=== PATIENT | male | born 1950 | race Caucasian/White ===

== ENCOUNTER 2018-07-20 18:19 | Observation (INO) | payer OTHER ==
[2018-07-20] MEDS ORDERED: Adacel (T-DAP) 0.5 ML VIAL ONE (19:48)
[2018-07-20 19:53] LABS: Hemoglobin 15.1 g/dL (14.0-18.0); Mean Corpuscular HGB CONC 33.1 g/dL (32.0-36.0); Mean Corpuscular Hemoglobin 31.9 pg (27.0-31.0); Mean Corpuscular Volume 96.3 fL (78.0-98.0); Mean Platelet Volume 7.6 fL (7.4-10.4); Platelet Count 245 thou/uL (130-400); RBC Distribution Width 12.2 % (11.5-14.5); Red Blood Cell (RBC) Count 4.75 mill/uL (4.70-6.10); White Blood Cell (WBC) Count 33.3 thou/uL (4.8-10.8)
[2018-07-20 19:59] LABS: INR-International Normal Ratio 0.9; PTT 25.6 SEC (22.9-36.1); Prothrombin Time 12.5 SEC (12.0-14.7)
[2018-07-20 20:11] LABS: Band 2 % (5-11); Eosinophils 1 % (0-10); Lymphocytes 81 % (21-51); MDiff Complete? YES; Monocytes 3 % (0-10); Neutrophil 11 % (42-75); PLT Morphology Comment Appears Adequate; RBC Morphology Normal; Reactive Lymphocytes 2 % (0-10)
[2018-07-20 21:03] LABS: ALT (SGPT) 10 U/L (8-55); AST (SGOT) 11 U/L (5-34); Albumin 3.9 g/dL (3.4-4.8); Alkaline Phosphatase 75 U/L (40-150); Anion Gap 11 mmol/L (10-20); BUN (Urea Nitrogen) 14 mg/dL (8.4-25.7); Bilirubin, Total 0.4 mg/dL (0.2-1.2); CK (CPK) 74 U/L (30-200); Calc. Creatinine Clearance 0 mL/min (70-130); Calcium 8.3 mg/dL (7.8-10.44); Carbon Dioxide 21 mmol/L (23-31); Chloride 110 mmol/L (98-107); Estimated GFR-MDRD 88; Globulin 2.3 g/dL (2.4-3.5); Glucose 87 mg/dL (80-115); Potassium 4.3 mmol/L (3.5-5.1); Protein, Total 6.2 g/dL (5.8-8.1); Sodium 138 mmol/L (136-145)
[2018-07-20] MEDS ORDERED: Carvedilol 6.25 MG TAB PO SCH (21:15)
[2018-07-20] MEDS ORDERED: Ondansetron ODT 4 MG TAB PO PRN (21:33)
[2018-07-20] MEDS ORDERED: Acetaminophen 325 MG TAB PO PRN ×2 (21:33→22:08)
[2018-07-20] MEDS ORDERED: Bisacodyl 5 MG TAB PO PRN (21:33)
[2018-07-20] MEDS ORDERED: Ondansetron ODT 4 MG TAB SL PRN (22:08)
[2018-07-20] MEDS ORDERED: Ondansetron HCl/PF 4 MG/2 ML Vial IVP PRN (22:08)
[2018-07-20] MEDS ORDERED: HYDROcodone/Acetaminophen 5/325 mg Tablet PO PRN ×2 (22:08)
[2018-07-20] MEDS ORDERED: Morphine 4 MG/ML VIAL SLOW IVP PRN (22:11)
[2018-07-20 22:15] VITALS: BMI 28.6
[2018-07-20] MEDS: Sodium Chloride 0.9% 1,000 ML IV SCH (22:34)
[2018-07-21] MEDS ORDERED: Crotalidae Polyvlnt Antivenin 4 GM in Sodium Chloride 0.9% 250 ML 250 ML IVPB SCH (01:00)
[2018-07-21] MEDS ORDERED: methylPREDNISolone Sod Succ/PF 125 MG/2 ML VIAL IVP SCH (02:15)
[2018-07-21] MEDS ORDERED: diphenhydrAMINE 50 MG/ML VIAL IVP SCH (02:15)
[2018-07-21 03:28] LABS: Platelet Count 237 thou/uL (130-400)
[2018-07-21 03:33] LABS: PTT 23.9 SEC (22.9-36.1); Prothrombin Time 13.7 SEC (12.0-14.7)
[2018-07-21 04:43] LABS: Hemoglobin 15.8 g/dL (14.0-18.0); Mean Corpuscular HGB CONC 32.6 g/dL (32.0-36.0); Mean Corpuscular Hemoglobin 31.5 pg (27.0-31.0); Mean Corpuscular Volume 96.6 fL (78.0-98.0); Mean Platelet Volume 7.5 fL (7.4-10.4); Platelet Count 242 thou/uL (130-400); RBC Distribution Width 12.4 % (11.5-14.5); Red Blood Cell (RBC) Count 5.01 mill/uL (4.70-6.10); White Blood Cell (WBC) Count 30.1 thou/uL (4.8-10.8)
[2018-07-21 04:46] LABS: Anion Gap 12 mmol/L (10-20); BUN (Urea Nitrogen) 13 mg/dL (8.4-25.7); Calc. Creatinine Clearance 101 mL/min (70-130); Calcium 8.6 mg/dL (7.8-10.44); Carbon Dioxide 19 mmol/L (23-31); Chloride 111 mmol/L (98-107); Estimated GFR-MDRD Greater than 90; Glucose 107 mg/dL (80-115); Potassium 3.8 mmol/L (3.5-5.1); Sodium 138 mmol/L (136-145)
[2018-07-21 04:50] LABS: Band 1 % (5-11); Lymphocytes 38 % (21-51); MDiff Complete? YES; Monocytes 2 % (0-10); Neutrophil 20 % (42-75); Nucleated RBC 1 % (0); PLT Morphology Comment Appears Adequate; Reactive Lymphocytes 39 % (0-10)
[2018-07-21 08:12] VITALS: TEMP 98.5
[2018-07-21] MEDS ORDERED: Enoxaparin Sodium 40 MG/0.4 ML SYRINGE SC SCH (09:00)
[2018-07-21 10:10] LABS: Anion Gap 11 mmol/L (10-20); BUN (Urea Nitrogen) 14 mg/dL (8.4-25.7); Calc. Creatinine Clearance 92 mL/min (70-130); Calcium 8.6 mg/dL (7.8-10.44); Carbon Dioxide 20 mmol/L (23-31); Chloride 109 mmol/L (98-107); Estimated GFR-MDRD 85; Glucose 139 mg/dL (80-115); Potassium 4.4 mmol/L (3.5-5.1); Sodium 136 mmol/L (136-145)
[2018-07-21] MEDS: Sodium Chloride 0.9% 1,000 ML IV SCH (10:24)
[2018-07-21 12:02] VITALS: BP 147/80
--- NOTE | 2018-07-21 12:50 | PDOC.PN ---
- Subjective Encounter Start Date: 07/21/18 Encounter Start Time: 09:45 Subjective: right hand pain and swelling is getting better -: wants to go home - Objective Resuscitation Status: Resuscitation Status FULL:Full Resuscitation MAR Reviewed: Yes Vital Signs & Weight: Vital Signs (12 hours) Temp Pulse Resp BP Pulse Ox 07/21/18 11:49 98.5 F 74 16 147/80 H 96 07/21/18 07:44 98.5 F 76 20 129/74 95 07/21/18 03:05 97.9 F 75 16 145/74 H 96 07/21/18 00:57 98.7 F 74 16 168/82 H 97 Weight Weight 183 lb I&O: 07/20/18 07/21/18 07/22/18 06:59 06:59 06:59 Intake Total 704 Balance 704 Result Diagrams: 07/21/18 03:05 07/21/18 09:07 Phys Exam - Physical Examination HEENT: PERRLA, moist MMs Neck: no JVD, supple Respiratory: no wheezing, no rales Cardiovascular: RRR, no significant murmur Gastrointestinal: soft, non-tender, positive bowel sounds Musculoskeletal: pulses present right hand edema is receding along with erythema Neurological: non-focal, moves all 4 limbs Psychiatric: normal affect, A&O x 3 Dx/Plan (1) Snake bite Code(s): W59.11XA - BITTEN BY NONVENOMOUS SNAKE, INITIAL ENCOUNTER Status: Acute Qualifiers: Encounter type: subsequent encounter Qualified Code(s): W59.11XD - Bitten by nonvenomous snake, subsequent encounter (2) CLL (chronic lymphocytic leukemia) Code(s): C91.90 - LYMPHOID LEUKEMIA, UNSPECIFIED NOT HAVING ACHIEVED REMISSION Status: Chronic (3) HTN (hypertension) Code(s): I10 - ESSENTIAL (PRIMARY) HYPERTENSION Status: Chronic Qualifiers: Hypertension type: essential hypertension Qualified Code(s): I10 - Essential (primary) hypertension (4) Dyslipidemia Code(s): E78.5 - HYPERLIPIDEMIA, UNSPECIFIED Status: Chronic - Plan recieved a total of 2 crofab antivenin -: hemostable -: dc pt home * .
--- NOTE | 2018-07-21 19:52 | HP ---
CHIEF COMPLAINT: "I got bitten by a snake". HISTORY OF PRESENT ILLNESS: This is a 68-year-old male with past medical history of CT, CLL, had not received treatment, coming in with chief complaint of a snake bite. The patient reports he was pull ing weeds in his yard approximately around 1700 when he was bitten by a copperhead snake. Patient wa s bitten at the tip of the third digit on the right hand and the patient was not able to obtain the p icture of the snake. The patient initially in the ED was able to move his hands around and described that he was having some pain around the third digit. In the ED, the patient's pain was 6/10. When I evaluated the patient, the patient stated that his pain was currently under control and patient is able to move the hand. Patient denies any fever, headaches, nausea, vomiting, chest pain, abdominal pain. REVIEW OF SYSTEMS: Review of systems is positive for right hand pain, edema and rash. Otherwise as documented in HPI, all other systems were reviewed and negative. PAST MEDICAL HISTORY: CT, CLL. PAST SURGICAL HISTORY: Right shoulder and left ankle surgery, two hernia repairs, two cardiac stents placed, third left digit amputation. FAMILY HISTORY: Reviewed and noncontributory. PSYCHIATRIC HISTORY: No psych history. SOCIAL HISTORY: Patient currently uses tobacco, smokes cigars daily. He stated he has been smoking cigars for about 30 years. He smoked 3-4 cigars per day. ALLERGIES: No known drug allergies. CURRENT MEDICATIONS: The patient takes atorvastatin, ramipril, carvedilol, isosorbide mononitrate, c lopidogrel. PHYSICAL EXAMINATION: VITAL SIGNS: In the ED, blood pressure 182/83, pulse 72, respiratory rate of 16, temperature 98, O2 saturation of 97. GENERAL APPEARANCE: Patient is able to speak in full sentences. The patient is seen lying in bed co mfortably, does not appear to be in any acute distress. HEENT: Normocephalic, atraumatic. Pupils are equally round and reactive to light. Extraocular move ments are intact. No scleral icterus. NECK: Supple, no JVD. Trachea is midline. RESPIRATORY: Clear to auscultation bilaterally. No wheezing, no rales, no rhonchi is appreciated. CARDIOVASCULAR: Positive S1, S2, regular rate and rhythm. No rubs, no gallops, no murmurs. ABDOMEN: Positive bowel sounds in all quadrants, no distention, no abdominal masses, no peritoneal s igns, no tenderness. EXTREMITIES: Upper extremity, patient do have puncture site to tip of third digit right hand. The p atient has good range of motion at the left hand compared to the right hand due to edema and pain. L ower extremity, patient had 5/5 lower extremity strength, good pulses bilaterally. NEUROLOGIC: Cranial nerves II through XII grossly intact. No neurologic deficits noted. SKIN: Warm, dry, and intact. PSYCHIATRIC: Alert, oriented x3, not in acute distress and the patient has normal affect. EKG shows sinus rhythm with rate of 69 with some PVCs. ED COURSE: The patient received carvedilol 6.25 mg, and normal saline. LABORATORY DATA: Patient's laboratory showed WBC of 33.3, hemoglobin of 15.1, MCV of 96.3, RDW of 12 .2, platelet of 245. PT 12.5, INR 0.9, PTT 25.6, fibrinogen 209. D-dimer 0.43. Sodium 138, potassi um 4.3, chloride 110, carbon dioxide 21, anion gap of 11, BUN of 14, creatinine 0.86, GFR 88. AST 11 , ALT 10, alkaline phosphatase is 75. ASSESSMENT AND PLAN: This is a 68-year-old male being admitted for right hand snake bite by joshua gaines. At this point, the patient has been started on CroFab been administered over 1 hour and we will reassess the patient. The patient seemed to be reacting to the CroFab after administration has been initiated. Therefore, we are going to give Solu-Medrol 125 and Benadryl 50 IV. We will examin e the patient. 1. History of hyperlipidemia. We will continue the patient on his home medications. 2. History of chronic lymphocytic leukemia. The patient has leukocytosis at this time, most likely due to chronic lymphocytic leukemia. The patient is not receiving treatment. We will continue to mo nitor the patient's labs in the morning. 3. Hyperchloremia. We will monitor the patient's electrolytes in the morning. 4. Deep venous thrombosis and gastrointestinal prophylaxis. We will give sequential compression dev ices.
--- NOTE | 2018-07-22 15:09 | DIS ---
DATE OF ADMISSION: 07/20/2018 DATE OF DISCHARGE: 07/21/2018 DISCHARGE DISPOSITION: To home. PRIMARY DISCHARGE DIAGNOSES: Snake bite with right hand cellulitis, resolving. SECONDARY DISCHARGE DIAGNOSES: Chronic lymphatic leukemia, hypertension, dyslipidemia. PROCEDURES DONE DURING HOSPITALIZATION: Patient received 2 units of CroFab antivenom. White count o f 30, H&H 15 and 48, platelet count is 242. BUN 14, creatinine 0.8. PT, INR, PTT within normal limi ts x2. DISCHARGE MEDICATIONS: Patient to continue his home doses of Lipitor 40 mg daily, Coreg 6.25 mg twic e daily, Plavix 75 mg daily, Imdur extended release 60 mg daily, ramipril 10 mg twice daily. ALLERGIES: No known drug allergies. DISCHARGE PLAN: Patient to follow up with primary care physician in 1 week. BRIEF COURSE DURING HOSPITALIZATION: Patient initially came to ER after he got bitten by a snake diya le he was trying to work in his backyard. He was given 2 units of CroFab antivenom. The patient had edema and cellulitis of right hand and forearm, which is receding. He is able to move all his finge rs and has no pain on passive or active motion of the fingers of the hand. He is wanting to go home and will be shortly discharged home. The patient has been advised to follow up with primary care ce jerome in 1 week and needs to come to the nearest emergency room if his swelling were to come back. Please see a [id number] documentation for the day of discharge on [facility].
== END 2018-07-21 12:27 | disposition home or self-care (01) ==
LOC: ERS 18:19 → 2SW 22:02
PROVIDERS: ADMIT Internal Medicine; ATTEND Internal Medicine
DX: T63.061A Toxic effect of venom of other North and South American snake, accidental (unintentional), initial encounter (principal); L03.113 Cellulitis of right upper limb; C91.90 Lymphoid leukemia, unspecified not having achieved remission; I10 Essential (primary) hypertension; E78.5 Hyperlipidemia, unspecified; F17.290 Nicotine dependence, other tobacco product, uncomplicated; Z79.02 Long term (current) use of antithrombotics/antiplatelets; Z79.899 Other long term (current) drug therapy; Z95.5 Presence of coronary angioplasty implant and graft
CPT/HCPCS: 36415; 80048; 80053; 82550; 85025; 85379; 85384; 85610; 85730; 86850; 86900; 86901; 90471; 90715; 93005; 94760; 96360; 96361; 96365; 96375; G0378; J0840; J1200; J1650; J2405; J2930; J7050

== ENCOUNTER 2019-07-17 09:25 | Day surgery (SDC) | payer OTHER ==
[2019-07-17] MEDS ORDERED: Acetaminophen 500 MG TAB PO SCH (10:15)
[2019-07-17] MEDS ORDERED: diphenhydrAMINE 25 MG CAP PO SCH (10:15)
[2019-07-17 21:44] VITALS: BP 152/69; TEMP 98.4
[2019-07-17 22:12] LABS: Eosinophils 1 % (0-10); Hemoglobin 8.6 g/dL (14.0-18.0); Lymphocytes 95 % (21-51); MDiff Complete? YES; Mean Corpuscular HGB CONC 33.9 g/dL (32.0-36.0); Mean Corpuscular Hemoglobin 34.4 pg (27.0-31.0); Mean Platelet Volume 7.3 fL (7.4-10.4); Monocytes 1 % (0-10); Neutrophil 3 % (42-75); Platelet Count 223 thou/uL (130-400); Platelet Morphology Comment Appears Adequate; RBC Distribution Width 17.5 % (11.5-14.5); Red Blood Cell (RBC) Count 2.51 mill/uL (4.70-6.10); White Blood Cell (WBC) Count 36.2 thou/uL (4.8-10.8)
== END 2019-07-17 22:05 | disposition home or self-care (01) ==
LOC: SDC/OP 09:25 → T4-B 09:44 → SDC/OP 22:05
PROVIDERS: ATTEND Internal Medicine Hematology & Oncology
PROC: 30233N1 Transfusion of Nonautologous Red Blood Cells into Peripheral Vein, Percutaneous Approach (ICD-10-PCS; principal; 2019-07-17)
DX: D64.9 Anemia, unspecified (principal); D69.6 Thrombocytopenia, unspecified
CPT/HCPCS: 36415; 36430; 85025; 86850; 86900; 86901; P9016; Q0163

== ENCOUNTER 2019-08-05 08:12 | Day surgery (SDC) | payer OTHER ==
[2019-08-05] MEDS ORDERED: Acetaminophen 500 MG TAB PO SCH (08:30)
[2019-08-05] MEDS ORDERED: diphenhydrAMINE 25 MG CAP PO SCH (08:30)
[2019-08-05] MEDS ORDERED: Sodium Chloride 0.9% 20 ML ONE (11:29)
[2019-08-05 13:04] LABS: Hemoglobin 8.1 g/dL (14.0-18.0)
[2019-08-05 15:27] VITALS: BP 144/68; TEMP 98.3
== END 2019-08-05 15:32 | disposition home or self-care (01) ==
LOC: ONC/OP 08:12
PROVIDERS: ATTEND Internal Medicine Hematology & Oncology
PROC: 30233N1 Transfusion of Nonautologous Red Blood Cells into Peripheral Vein, Percutaneous Approach (ICD-10-PCS; principal; 2019-08-05)
DX: D64.9 Anemia, unspecified (principal); D69.6 Thrombocytopenia, unspecified
CPT/HCPCS: 36430; 85014; 85018; 86850; 86900; 86901; P9016; Q0163

== ENCOUNTER 2019-09-02 09:12 | Day surgery (SDC) | payer OTHER ==
[2019-09-02] MEDS ORDERED: Acetaminophen 500 MG TAB PO SCH (09:45)
[2019-09-02] MEDS ORDERED: diphenhydrAMINE 25 MG CAP PO SCH (09:45)
[2019-09-02 09:53] VITALS: BMI 27.1
[2019-09-02 19:38] VITALS: BP 151/67; TEMP 97.8
[2019-09-02 20:03] LABS: Hemoglobin 7.4 g/dL (14.0-18.0); Mean Corpuscular HGB CONC 35.1 g/dL (32.0-36.0); Mean Corpuscular Hemoglobin 34.4 pg (27.0-31.0); Mean Corpuscular Volume 98.1 fL (78.0-98.0); Mean Platelet Volume 8.4 fL (7.4-10.4); Platelet Count 270 thou/uL (130-400); RBC Distribution Width 14.9 % (11.5-14.5); Red Blood Cell (RBC) Count 2.16 mill/uL (4.70-6.10)
[2019-09-02 20:17] LABS: Anisocytosis SLIGHT = 6-15 cells (100X) (0-5/hpf); Band 1 % (5-11); Lymphocytes 88 % (21-51); MDiff Complete? YES; Monocytes 1 % (0-10); Neutrophil 10 % (42-75); Ovalocytes SLIGHT = 2-5 cells (100X) (0-1/hpf); Platelet Morphology Comment Appears Adequate; Polychromasia SLIGHT = 2-3 cells (100X) (0-2/hpf)
== END 2019-09-02 19:40 | disposition home or self-care (01) ==
LOC: ONC/OP 09:12 → ONC 09:34 → ONC/OP 19:40
PROVIDERS: ATTEND Internal Medicine Hematology & Oncology
PROC: 30233N1 Transfusion of Nonautologous Red Blood Cells into Peripheral Vein, Percutaneous Approach (ICD-10-PCS; principal; 2019-09-02)
DX: D64.9 Anemia, unspecified (principal); D69.6 Thrombocytopenia, unspecified
CPT/HCPCS: 36415; 36430; 85025; 86850; 86900; 86901; P9016; Q0163

== ENCOUNTER 2019-09-16 08:19 | Day surgery (SDC) | payer OTHER ==
[2019-09-16] MEDS ORDERED: Sodium Chloride 0.9% 20 ML ONE (08:26)
[2019-09-16] MEDS ORDERED: Acetaminophen 500 MG TAB PO SCH (08:30)
[2019-09-16] MEDS ORDERED: diphenhydrAMINE 25 MG CAP PO SCH (08:30)
[2019-09-16 15:03] VITALS: BP 137/64; TEMP 97.5
== END 2019-09-16 15:03 | disposition home or self-care (01) ==
LOC: ONC/OP 08:19
PROVIDERS: ATTEND Internal Medicine Hematology & Oncology
DX: D64.9 Anemia, unspecified (principal); D69.59 Other secondary thrombocytopenia
CPT/HCPCS: 36430; 86850; 86900; 86901; J1642; P9016; Q0163

== ENCOUNTER 2019-10-08 09:11 | Day surgery (SDC) | payer OTHER ==
[2019-10-08] MEDS ORDERED: diphenhydrAMINE 25 MG CAP PO SCH (10:00)
[2019-10-08] MEDS ORDERED: Acetaminophen 500 MG TAB PO SCH (10:00)
[2019-10-08 20:18] VITALS: BP 158/70; TEMP 98.4
[2019-10-08 21:03] LABS: Eosinophils 1 % (0-10); Hemoglobin 8.2 g/dL (14.0-18.0); Large Platelets SLIGHT; Lymphocytes 87 % (21-51); MDiff Complete? YES; Mean Corpuscular HGB CONC 34.5 g/dL (32.0-36.0); Mean Corpuscular Hemoglobin 31.6 pg (27.0-31.0); Mean Corpuscular Volume 91.6 fL (78.0-98.0); Monocytes 2 % (0-10); Neutrophil 10 % (42-75); Platelet Count 217 thou/uL (130-400); Platelet Morphology Comment Appears Adequate; RBC Distribution Width 14.1 % (11.5-14.5); White Blood Cell (WBC) Count 24.3 thou/uL (4.8-10.8)
== END 2019-10-08 20:45 | disposition home or self-care (01) ==
LOC: ONC/OP 09:11 → ONC 09:12 → ONC/OP 20:45
PROVIDERS: ATTEND Internal Medicine Hematology & Oncology
PROC: 30233N1 Transfusion of Nonautologous Red Blood Cells into Peripheral Vein, Percutaneous Approach (ICD-10-PCS; principal; 2019-10-08)
DX: D64.9 Anemia, unspecified (principal); D69.6 Thrombocytopenia, unspecified
CPT/HCPCS: 36415; 36430; 85025; 86850; 86900; 86901; P9016; Q0163

== ENCOUNTER 2019-10-30 09:54 | Day surgery (SDC) | payer OTHER ==
[2019-10-30] MEDS ORDERED: Acetaminophen 500 MG TAB PO SCH (10:45)
[2019-10-30] MEDS ORDERED: diphenhydrAMINE 25 MG CAP PO SCH (10:45)
[2019-10-30 16:37] VITALS: BP 147/65; TEMP 99.2
[2019-10-30 17:52] LABS: Eosinophils 1 % (0-10); Hemoglobin 7.4 g/dL (14.0-18.0); Lymphocytes 91 % (21-51); MDiff Complete? YES; Mean Corpuscular HGB CONC 33.8 g/dL (32.0-36.0); Mean Corpuscular Volume 88.9 fL (78.0-98.0); Mean Platelet Volume 9.1 fL (7.4-10.4); Monocytes 4 % (0-10); Neutrophil 3 % (42-75); Platelet Count 221 thou/uL (130-400); Platelet Morphology Comment Appears Adequate; Polychromasia SLIGHT = 2-3 cells (100X) (0-2/hpf); RBC Distribution Width 12.8 % (11.5-14.5); Red Blood Cell (RBC) Count 2.46 mill/uL (4.70-6.10); White Blood Cell (WBC) Count 35.1 thou/uL (4.8-10.8)
== END 2019-10-30 16:59 | disposition home or self-care (01) ==
LOC: RAD 09:54 → ONC 09:58 → RAD 16:59
PROVIDERS: ATTEND Internal Medicine Hematology & Oncology
PROC: 30233N1 Transfusion of Nonautologous Red Blood Cells into Peripheral Vein, Percutaneous Approach (ICD-10-PCS; principal; 2019-10-30)
DX: D64.9 Anemia, unspecified (principal); D69.6 Thrombocytopenia, unspecified
CPT/HCPCS: 36415; 36430; 85025; 86850; 86900; 86901; P9016; Q0163

== ENCOUNTER 2019-11-19 08:11 | Day surgery (SDC) | payer OTHER ==
[2019-11-19] MEDS ORDERED: diphenhydrAMINE 25 MG CAP PO SCH (08:30)
[2019-11-19] MEDS ORDERED: Acetaminophen 500 MG TAB PO SCH (08:30)
[2019-11-19] MEDS ORDERED: Sodium Chloride 0.9% 10 ML ONE (14:39)
[2019-11-19 15:13] VITALS: BP 121/60; TEMP 98.5
== END 2019-11-19 15:27 | disposition home or self-care (01) ==
LOC: ONC/OP 08:11
PROVIDERS: ATTEND Internal Medicine Hematology & Oncology
PROC: 30233N1 Transfusion of Nonautologous Red Blood Cells into Peripheral Vein, Percutaneous Approach (ICD-10-PCS; principal; 2019-11-19)
DX: D64.9 Anemia, unspecified (principal); D69.6 Thrombocytopenia, unspecified
CPT/HCPCS: 36430; 86850; 86900; 86901; P9016; Q0163

== ENCOUNTER 2019-12-04 08:24 | Day surgery (SDC) | payer OTHER ==
[2019-12-04] MEDS ORDERED: diphenhydrAMINE 25 MG CAP PO SCH (09:15)
[2019-12-04] MEDS ORDERED: Acetaminophen 500 MG TAB PO SCH (09:15)
[2019-12-04 15:29] VITALS: BP 124/59; TEMP 98.6
== END 2019-12-04 15:31 | disposition home or self-care (01) ==
LOC: ONC/OP 08:24
PROVIDERS: ATTEND Internal Medicine Hematology & Oncology
PROC: 30233N1 Transfusion of Nonautologous Red Blood Cells into Peripheral Vein, Percutaneous Approach (ICD-10-PCS; principal; 2019-12-04)
DX: D64.9 Anemia, unspecified (principal); D69.6 Thrombocytopenia, unspecified
CPT/HCPCS: 36430; 86850; 86900; 86901; P9016; Q0163

== ENCOUNTER 2019-12-17 09:07 | Day surgery (SDC) | payer OTHER ==
[2019-12-17] MEDS ORDERED: Sodium Chloride 0.9% 10 ML ONE (09:24)
[2019-12-17] MEDS ORDERED: diphenhydrAMINE 25 MG CAP PO SCH (10:00)
[2019-12-17] MEDS ORDERED: Acetaminophen 500 MG TAB PO SCH (10:00)
[2019-12-17 17:29] VITALS: BP 154/75; TEMP 98.4
== END 2019-12-17 17:31 | disposition home or self-care (01) ==
LOC: ONC/OP 09:07
PROVIDERS: ATTEND Internal Medicine Hematology & Oncology
PROC: 30233N1 Transfusion of Nonautologous Red Blood Cells into Peripheral Vein, Percutaneous Approach (ICD-10-PCS; principal; 2019-12-17)
DX: D64.9 Anemia, unspecified (principal); D69.6 Thrombocytopenia, unspecified
CPT/HCPCS: 36430; 86850; 86900; 86901; P9016; Q0163

== ENCOUNTER 2020-01-01 08:34 | Day surgery (SDC) | payer OTHER ==
[2020-01-01] MEDS ORDERED: Acetaminophen 500 MG TAB PO SCH (08:45)
[2020-01-01] MEDS ORDERED: diphenhydrAMINE 25 MG CAP PO SCH (08:45)
[2020-01-01] MEDS ORDERED: Sodium Chloride 0.9% 20 ML ONE (08:56)
[2020-01-02 17:51] VITALS: BP 123/58; TEMP 98.4
== END 2020-01-02 17:52 | disposition home or self-care (01) ==
LOC: ONC/OP 08:34
PROVIDERS: ATTEND Internal Medicine Hematology & Oncology
PROC: 3E0T3BZ Introduction of Anesthetic Agent into Peripheral Nerves and Plexi, Percutaneous Approach (ICD-10-PCS; principal; 2020-01-02)
DX: D64.9 Anemia, unspecified (principal); D69.6 Thrombocytopenia, unspecified
CPT/HCPCS: 36430; 86850; 86900; 86901; P9016; Q0163

== ENCOUNTER 2020-01-09 11:31 | Day surgery (SDC) | payer OTHER ==
[2020-01-09] MEDS ORDERED: diphenhydrAMINE 25 MG CAP PO SCH (12:15)
[2020-01-09] MEDS ORDERED: Acetaminophen 500 MG TAB PO SCH (12:15)
[2020-01-09 22:17] VITALS: BP 166/74; TEMP 98.4
[2020-01-09 22:57] LABS: Hemoglobin 8.6 g/dL (14.0-18.0); Lymphocytes 99 % (21-51); MDiff Complete? YES; Mean Corpuscular HGB CONC 34.5 g/dL (32.0-36.0); Mean Corpuscular Hemoglobin 31.2 pg (27.0-31.0); Mean Corpuscular Volume 90.4 fL (78.0-98.0); Mean Platelet Volume 7.7 fL (7.4-10.4); Monocytes 1 % (0-10); Platelet Count 41 thou/uL (130-400); Platelet Morphology Comment Appears Decreased; RBC Distribution Width 12.5 % (11.5-14.5); Red Blood Cell (RBC) Count 2.76 mill/uL (4.70-6.10); White Blood Cell (WBC) Count 31.9 thou/uL (4.8-10.8)
== END 2020-01-10 00:21 | disposition home or self-care (01) ==
LOC: ONC/OP 11:31 → ONC 11:36 → ONC/OP 01-10 00:21
PROVIDERS: ATTEND Internal Medicine Hematology & Oncology
DX: D64.9 Anemia, unspecified (principal); D69.6 Thrombocytopenia, unspecified
CPT/HCPCS: 36415; 36430; 85025; 86850; 86900; 86901; P9016; P9035; Q0163

== ENCOUNTER 2020-01-23 08:03 | Day surgery (SDC) | payer OTHER ==
[2020-01-23] MEDS ORDERED: diphenhydrAMINE 25 MG CAP PO SCH (08:45)
[2020-01-23] MEDS ORDERED: Acetaminophen 500 MG TAB PO SCH (08:45)
[2020-01-23] MEDS ORDERED: Sodium Chloride 0.9% 20 ML ONE (08:59)
[2020-01-23 14:39] VITALS: BP 176/78; TEMP 97.7
== END 2020-01-23 14:45 | disposition home or self-care (01) ==
LOC: ONC/OP 08:03
PROVIDERS: ATTEND Internal Medicine Medical Oncology
PROC: 30233R1 Transfusion of Nonautologous Platelets into Peripheral Vein, Percutaneous Approach (ICD-10-PCS; principal; 2020-01-23)
PROC: 30233N1 Transfusion of Nonautologous Red Blood Cells into Peripheral Vein, Percutaneous Approach (ICD-10-PCS; principal; 2020-01-23)
DX: D64.9 Anemia, unspecified (principal); D69.6 Thrombocytopenia, unspecified
CPT/HCPCS: 36430; 86850; 86900; 86901; P9016; P9035; Q0163

== ENCOUNTER 2020-02-05 08:20 | Day surgery (SDC) | payer OTHER ==
[2020-02-05] MEDS ORDERED: diphenhydrAMINE 25 MG CAP PO SCH (08:45)
[2020-02-05] MEDS ORDERED: Acetaminophen 500 MG TAB PO SCH (08:45)
[2020-02-05] MEDS ORDERED: Sodium Chloride 0.9% 20 ML ONE (09:21)
[2020-02-05 15:34] VITALS: BP 126/58; TEMP 98.1
== END 2020-02-05 15:38 | disposition home or self-care (01) ==
LOC: ONC/OP 08:20
PROVIDERS: ATTEND Internal Medicine Hematology & Oncology
DX: D64.9 Anemia, unspecified (principal); D69.6 Thrombocytopenia, unspecified
CPT/HCPCS: 36430; 86850; 86900; 86901; P9016; P9035; Q0163

== ENCOUNTER 2020-02-14 11:27 | Inpatient (IN) | payer MEDICARE, OTHER ==
[2020-02-14] MEDS ORDERED: Pantoprazole 40 MG VIAL ONE (11:49)
[2020-02-14] MEDS ORDERED: Pantoprazole 80 MG, Admixture Fee 1 EACH in Sodium Chloride 0.9% 100 ML IVPB SCH (12:00)
[2020-02-14 12:12] LABS: Hemoglobin 4.9 g/dL (14.0-18.0); Mean Corpuscular HGB CONC 34.6 g/dL (32.0-36.0); Mean Corpuscular Hemoglobin 30.9 pg (27.0-31.0); Mean Corpuscular Volume 89.4 fL (78.0-98.0); Mean Platelet Volume 10.6 fL (7.4-10.4); Platelet Count 3 thou/uL (130-400)
[2020-02-14 12:25] LABS: ALT (SGPT) 18 U/L (8-55); AST (SGOT) 7 U/L (5-34); Albumin 3.4 g/dL (3.4-4.8); Alkaline Phosphatase 112 U/L (40-110); Anion Gap 15 mmol/L (10-20); BUN (Urea Nitrogen) 28 mg/dL (8.4-25.7); Bilirubin, Total 0.7 mg/dL (0.2-1.2); Calc. Creatinine Clearance 0 mL/min (70-130); Calcium 8.6 mg/dL (7.8-10.44); Carbon Dioxide 19 mmol/L (23-31); Chloride 107 mmol/L (98-107); Estimated GFR-MDRD 77; Glucose 133 mg/dL (80-115); Potassium 4.5 mmol/L (3.5-5.1); Protein, Total 5.4 g/dL (5.8-8.1); Sodium 136 mmol/L (136-145)
[2020-02-14 12:27] LABS: Prothrombin Time 13.4 SEC (12.0-14.7)
[2020-02-14 12:28] LABS: PTT 22.2 SEC (22.9-36.1)
[2020-02-14 12:31] LABS: Lymphocytes 95 % (21-51); MDiff Complete? YES; Monocytes 1 % (0-10); Ovalocytes SLIGHT = 2-5 cells (100X) (0-1/hpf); Platelet Morphology Comment Appears Decreased; Reactive Lymphocytes 4 % (0-10); White Blood Cell (WBC) Count 11.7 thou/uL (4.8-10.8)
--- NOTE | 2020-02-14 14:13 | CON ---
DATE OF CONSULTATION: 02/14/2020 REASON FOR CONSULTATION: Anemia, melena. CONSULTING PROVIDER: Jerry Dawn MD HISTORY OF PRESENT ILLNESS: The patient is a 69-year-old male with past medical history of coronary artery disease status post stent placement x2, hypertension, history of colonic polyps, and chronic lymphocytic leukemia status post chemotherapy and requiring multiple transfusions over the last few months, presenting with complaints of shortness of breath and fatigue. He states that over the course of his treatment for CLL, he was recently transferred from his prior chemotherapy regimen to [facility] 3 weeks ago, and had been doing well while on this particular regimen. However, over the last 2 to 3 months, he had been having increased weakness and shortness of breath, indicative of anemia and had been requiring multiple blood transfusions during that time. In light of his frequent blood transfusions, he began having increased shortness of breath, both at rest and exertion, in addition to generalized fatigue and weakness over the last few days. However, this morning, he did have approximately one dark black semi-solid stool that did require mild straining in order to facilitate defecation. He also endorsed a minimal amount of bright red blood per rectum that was seen at the time of that particular bowel movement. He has not had any other bowel movement since that time, but given the appearance of the dark bowel movements and his shortness of breath, it prompted him to seek healthcare assistance at the [facility] ER. While in the ER, he was noted to have a significantly decreased hemoglobin and hematocrit, and when coupled with the history of black stools, it was strongly concerning for the presence of melena. Upon further examination, the patient did exhibit increased nausea and vomiting this morning x1, but did not have any coffee-grounds emesis or bright red blood as part of his vomitus. He denies any use of NSAIDs within the last 2 to 3 weeks, but has used Aleve from [id number] with the last use being approximately 3-4 months ago. Otherwise, he denies any fevers, chills, dysphagia, odynophagia, or weight loss. Of note, the patient underwent both EGD and colonoscopy on 04/01/2019 with the upper endoscopy showing one tongue of salmon-colored mucosa in the distal esophagus with biopsies that were normal. He also did have two 3-4 mm polyps seen in the transverse and sigmoid colons that were removed and read as hyperplastic polyps. REVIEW OF SYSTEMS: A 10-category review of systems was obtained with all responses negative except for the pertinent positives as listed in HPI. PAST MEDICAL HISTORY: As per HPI. PAST SURGICAL HISTORY: 1. Bilateral inguinal hernia repair. 2. Left ankle fracture repair. 3. Cardiac stent placement x2. 4. Bone marrow biopsy. 5. EGD and colonoscopies. FAMILY HISTORY: Denies any GI malignancies. SOCIAL HISTORY: Smokes approximately 2 to 3 cigars daily. Denies any alcohol or illicit drug use. OUTPATIENT MEDICATIONS: Reviewed. ALLERGIES: NO KNOWN DRUG ALLERGIES. PHYSICAL EXAMINATION: VITAL SIGNS: Temperature 97.9, pulse 77, blood pressure 110/47, respiratory rate 21, and saturating 100% on room air. GENERAL: The patient was lying in bed, in no acute distress. Alert and oriented x4. HEENT: Normocephalic and atraumatic. NECK: Supple. No JVD or scleral icterus noted. CARDIOVASCULAR: Regular rate and rhythm with no discernable murmurs, gallops, or rubs. RESPIRATORY: Clear to auscultation bilaterally with no discernable wheezes or rales. ABDOMEN: Normoactive bowel sounds. Soft, nondistended, and nontender to palpation, although did have some guarding in the right upper quadrant and midepigastric regions. EXTREMITIES: No cyanosis, clubbing, or edema. LABORATORY DATA: CBC with a white blood cell count of 11.7, hemoglobin 4.9, hematocrit 14.3, and platelets 3. INR 1.0. Chemistry with a sodium of 136, potassium 4.5, chloride 107, CO2 of 19, BUN 28, creatinine 0.96, and glucose 133. AST 7, ALT 18, alkaline phosphatase 112, total bilirubin 0.7, and albumin 3.4. IMAGING DATA: No current GI imaging is available for review. ASSESSMENT AND PLAN: The patient is a 69-year-old male with past medical history of coronary artery disease status post stent placement x3 with heart attack x1, hypertension, history of colonic polyps, and chronic lymphocytic leukemia status post chemotherapy (currently on chemotherapy), presenting with continued anemia and melenic type stools, concerning for an upper gastrointestinal bleed. Upper gastrointestinal bleeding/melena: The patient has a concurrent diagnosis of chronic lymphocytic leukemia, for which the patient has required multiple blood transfusions over the last 3 to 4 months due to bone marrow involvement of this particular condition. However, over the last 24 to 48 hours, the patient did have a harder to pass bowel movement yesterday, but was followed by a dark black-colored bowel movement today with minimal amounts of bright red blood per rectum. On evaluation in the ER, he was noted to have a decrease in his hemoglobin and hematocrit when compared to baseline, but with an elevated BUN to creatinine ratio, it is strongly concerning for an upper gastrointestinal bleed. He is currently on clopidogrel as part of management of the coronary stents, and on further laboratory evaluation, he has a platelet count of 3000, which could lend itself towards continued bleeding, if such an instance occurs. Currently, the differential could include esophagitis, gastritis, peptic ulcer disease, arteriovenous malformation, Dieulafoy lesion, duodenitis/mucositis, and/or GI neoplasm (much less likely given his negative upper endoscopy in 03/2019). RECOMMENDATIONS: 1. Would continue to trend his hemoglobin and hematocrit and transfuse as necessary to maintain the hemoglobin and hematocrit of 7/21. 2. Continue to monitor clinically for signs of active GI bleeding. 3. Agree with infusion of blood product/PRBCs in order to boost his hemoglobin and hematocrit prior to endoscopic management with sedation, especially in light of a history of MO. 4. Would continue PPI drip for the time being, but could consider pantoprazole 40 mg IV b.i.d. 5. Would hold any anticoagulation including Plavix for now. 6. Would place the patient on a clear liquid diet today and make him n.p.o. at midnight in anticipation of EGD tomorrow after resuscitative efforts have been done today. Further recommendations to follow upper endoscopy. We will continue to follow. Please call with any questions again. Job ID: [id number]
--- NOTE | 2020-02-14 15:58 | HP ---
PRIMARY CARE PHYSICIAN: Dr. Georges. CHIEF COMPLAINT: Melena and fatigue. HISTORY OF PRESENT ILLNESS: This is a 69-year-old white male with a known history of chronic lymphocytic leukemia following with Dr. Mendiola. He has a history of recurrent anemia and has required blood transfusions. The patient reports that yesterday morning he thought he might have a little bit of dark stool when he had a bowel movement. Then this morning, he had a very large black tarry bowel movement followed by one little bit later this appeared to have some more reddish blood in it as well. The patient reports that since this morning, he has had extreme fatigue, very short of breath even just getting up to walk across the room. No energy at all. No other specific symptoms with this. He presented to the emergency room, was found to be severely anemic and thrombocytopenic and is getting blood and platelet transfusions right now. The patient reports that he was seen by Dr. Wooten with EGD and colonoscopy 9 months ago for a possible GI source to his chronic anemia in the setting of CLL. No active bleeding was found at that time. REVIEW OF SYSTEMS: CONSTITUTIONAL: No fevers, no chills. EYES: No double vision or blurred vision. ENT: Mild sinus and nasal congestion, which is consistent with his seasonal allergies. No sore throat. CARDIOVASCULAR: No chest pain. No palpitations or racing heart. PULMONARY: No coughing or wheezing. He had has dyspnea on exertion, but otherwise no shortness of breath at rest. GASTROINTESTINAL: No abdominal pain, no nausea or vomiting. Melena as per HPI. GENITOURINARY: No dysuria or hematuria. MUSCULOSKELETAL: He has some chronic arthritic pains, but no new musculoskeletal complaints. He does have some chronic pain going from his left hip down to his left knee that he limps is due to his back. SKIN: No rashes or lesions noted. NEUROLOGIC: The patient does have some tingling in bilateral hands on and off. PAST MEDICAL HISTORY: 1. Coronary artery disease with previous DE. 2. Chronic lymphocytic leukemia, on chemotherapy. PAST SURGICAL HISTORY: 1. Right shoulder surgery. 2. Left ankle surgery. 3. Bilateral hernia repairs. 4. Coronary catheterization with two cardiac stents placed. 5. Third left digit amputation. SOCIAL HISTORY: The patient smokes 2-4 cigars per day and smoked for 30 years. No alcohol or illicit drug use. He is and lives at home with his family. He is a full code. Should he be incapacitated, his would be his medical decision maker, her name is Rohini Webb. FAMILY HISTORY: Multiple family members with coronary artery disease and some throat and liver cancer in the family as well. ALLERGIES: NO KNOWN DRUG ALLERGIES. CURRENT MEDICATIONS: 1. Atorvastatin 40 mg daily. 2. Ramipril 10 mg twice a day. 3. Carvedilol 6.25 mg twice a day. 4. Isosorbide mononitrate 60 mg daily. 5. Clopidogrel 75 mg daily. 6. 100 mg daily. PHYSICAL EXAMINATION: VITAL SIGNS: Blood pressure 134/51, pulse 74, respirations 18, temperature is 98.4, O2 saturation is 99% on room air. GENERAL: This is a well-developed, pale, well-nourished white male, in no acute distress. HEENT: Pupils are equal, round, and reactive to light. He does have some cataracts. His palpebral conjunctivae are pale. Oropharynx clear without lesions, erythema, or exudate. NECK: Supple. No lymphadenopathy. No thyroid nodules or enlargement. HEART: Regular rate and rhythm. No murmurs, rubs, or gallops. LUNGS: Clear to auscultation bilaterally. No wheezes, crackles, or rhonchi. ABDOMEN: Soft, nontender to palpation. Normoactive bowel sounds. No hepatosplenomegaly or other masses. EXTREMITIES: No clubbing, cyanosis, or edema. SKIN: No rashes or lesions noted. NEUROLOGIC: The patient moves all extremities equally. No facial droop. PSYCHIATRIC: Alert and oriented x3. Normal mood and affect. LABORATORY DATA: White blood cell count 23645 with 95% lymphocytes, hemoglobin 4.9, hematocrit 14.3, normal diff, normal red blood cell indices, platelet count is 3000. Coagulation profile with a normal PT and INR. Complete metabolic panel is notable for carbon dioxide of 19, BUN of 28, glucose of 133, and alkaline phosphatase of 112. Serum total protein of 5.4, albumin is normal. The rest of his CMP is normal. IMAGING STUDIES: EKG done in the emergency room shows normal sinus rhythm with left ventricular hypertrophy. No ST-segment changes. No evidence of ischemia. ASSESSMENT: 1. Acute on chronic severe anemia. This is secondary to GI blood loss on top of his chronic lymphocytic leukemia with decreased bone marrow production. He is receiving 2 units packed red blood cells right now along with platelets. We will consult Dr. Garay for Dr. Mendiola for the pancytopenia. 2. Thrombocytopenia, receiving transfusions, likely secondary to his chronic lymphocytic leukemia. 3. Gastrointestinal bleed, likely upper with significant melena. The patient has been seen by Dr. Shabbir goldsmith in the emergency room manager personal for Dr. Wooten and he plans to take the patient back for esophagogastroduodenoscopy in the morning. We will continue a Protonix drip that has been started in the ER. 4. Coronary artery disease. We will resume the patient's home medications except for his Plavix. 5. Chronic lymphocytic leukemia. We will defer to Dr. Garay for treatment. 6. Deep venous thrombosis prophylaxis, put the patient on sequential compression devices while in bed. 7. Code status: The patient is a full code. Should he be incapacitated, his would be his medical decision maker. Job ID: [id number]
[2020-02-14 16:26] VITALS: BMI 27.6
[2020-02-14] MEDS ORDERED: Ondansetron ODT 4 MG TAB PO PRN (16:42)
[2020-02-14] MEDS ORDERED: Ondansetron PF 4 MG/2 ML Vial IVP PRN (16:42)
[2020-02-14] MEDS ORDERED: Guaifenesin DM 100-10/5 ML UDCUP PO PRN (16:42)
[2020-02-14] MEDS ORDERED: Acetaminophen 650 MG Suppository PR PRN (16:42)
[2020-02-14] MEDS ORDERED: HYDROcodone/Acetaminophen 5/325 mg Tablet PO PRN ×2 (16:42)
[2020-02-14] MEDS ORDERED: Senokot S 8.6-50 MG TAB PO PRN (16:42)
[2020-02-14] MEDS: Ramipril 5 MG CAP PO SCH (20:06)
[2020-02-14] MEDS: Carvedilol 6.25 MG TAB PO SCH (20:07)
[2020-02-14] MEDS: Atorvastatin Calcium 40 MG TAB PO SCH (20:17)
--- NOTE | 2020-02-14 22:07 | CON ---
DATE OF CONSULTATION: REASON FOR CONSULTATION: CLL. HISTORY OF PRESENT ILLNESS: A 69-year-old male with history of CLL followed by Dr. Mendiola, currently on venetoclax oral therapy, presenting to the hospital with symptomatic anemia and thrombocytopenia. The patient states he noticed a small amount of blood in his stool yesterday morning and has been feeling extra fatigued the last 2 days and then this morning was constipated and had to push very hard and had 2 stools 30 minutes apart with food. He describes as a large amount of blood along with black stool. He has been requiring multiple blood transfusions over the last few months including red blood cells and platelets. Labs last week showed hemoglobin 7.3 and platelets of 14. The patient's called me from the house and I informed them to got to the ER. On arrival to the ER, his hemoglobin was 4.9, hematocrit 14.3, and platelet count of 3. Other than fatigue, the patient also complained of dizziness and dyspnea on exertion. Getting up the stretcher to get into the bed in his room, he felt very short of breath. REVIEW OF SYSTEMS: Ten-point review of systems is negative except as per HPI. PAST MEDICAL HISTORY: Coronary artery disease, hypertension, colon polyps, and CLL. PAST SURGICAL HISTORY: Hernia repair, broken ankle repair, PCI x2 in 2012 for AR, and EGD and colonoscopy in March 2019. FAMILY HISTORY: No cancer. SOCIAL HISTORY: Smokes cigars daily. No alcohol use. CURRENT MEDICATIONS: Reviewed and include venetoclax 200 mg once daily. PHYSICAL EXAMINATION: GENERAL APPEARANCE: The patient is lying in bed, in no acute distress. VITAL SIGNS: Temperature 97.9, pulse 77, blood pressure 110/47, respirations 21, and saturating 100% on room air. HEENT: Normocephalic and atraumatic. CARDIOVASCULAR: No tachycardia is noted. Respirations are not labored. Speaking in full sentences. ABDOMEN: Soft. EXTREMITIES: No edema. SKIN: Pallor is noted. NEUROLOGIC: Cranial nerves 2 through 12 are grossly intact. PSYCHIATRIC: The patient is awake, alert, and oriented x3. LABORATORY DATA: White blood cells 11.7, hemoglobin 4.9, hematocrit 14.3, and platelets 3. Sodium 136, potassium 4.5, BUN 28, and creatinine 0.96. ASSESSMENT AND PLAN: A 69-year-old male with chronic lymphocytic leukemia, currently on venetoclax oral therapy and history of severe anemia and thrombocytopenia requiring frequent transfusions, presenting to the hospital with symptomatic anemia and melena. The patient is getting transfused 2 units of PRBC and 1 unit of platelets and is n.p.o. for EGD in the morning with Dr. Shea. The patient has been on venetoclax for approximately one month with improvement in his white blood cell count, but no improvement in his anemia or thrombocytopenia. The patient may in fact have a gastrointestinal bleed and due to his extensive marrow involvement with chronic lymphocytic leukemia was unable to mount any reticulocyte response. Recommend holding venetoclax for now and can restart after EGD tomorrow or the next day. I will let Dr. Mendiola know of the patient's admission to the hospital and follow his course with you. Job ID: [id number]
[2020-02-15] MEDS: Pantoprazole 80 MG in Sodium Chloride 0.9% 100 ML IVPB SCH ×2 (00:10→14:23)
[2020-02-15 04:59] LABS: Hemoglobin 5.1 g/dL (14.0-18.0); Mean Corpuscular Hemoglobin 31.2 pg (27.0-31.0); Mean Corpuscular Volume 89.2 fL (78.0-98.0); Platelet Count 55 thou/uL (130-400); RBC Distribution Width 12.4 % (11.5-14.5); Red Blood Cell (RBC) Count 1.64 mill/uL (4.70-6.10); White Blood Cell (WBC) Count 11.8 thou/uL (4.8-10.8)
[2020-02-15 05:17] LABS: Anion Gap 10 mmol/L (10-20); BUN (Urea Nitrogen) 27 mg/dL (8.4-25.7); Calc. Creatinine Clearance 94 mL/min (70-130); Calcium 8.1 mg/dL (7.8-10.44); Carbon Dioxide 23 mmol/L (23-31); Chloride 107 mmol/L (98-107); Estimated GFR-MDRD Greater than 90; Glucose 102 mg/dL (80-115); Hypochromia SLIGHT = 6-15 cells (100X) (0-5/hpf); Lymphocytes 96 % (21-51); MDiff Complete? YES; Monocytes 1 % (0-10); Neutrophil 3 % (42-75); Platelet Morphology Comment Appears Decreased; Potassium 4.2 mmol/L (3.5-5.1); Sodium 136 mmol/L (136-145)
--- NOTE | 2020-02-15 07:26 | PDOC.HOSPP ---
- Subjective Encounter Date: 02/15/20 Encounter Time: 09:50 Subjective: Continued fatigue. More melena this AM but less than yesterday. OLIVARES stable, maybe a bit better. - Objective Vital Signs & Weight: Vital Signs (12 hours) Temp Pulse Pulse Resp BP BP BP 02/15/20 04:45 98.8 F 77 20 139/63 02/14/20 23:36 99.0 F 79 16 143/63 H 02/14/20 21:30 99.2 F 78 18 101/49 L 02/14/20 20:57 99.1 F 75 18 116/55 L 02/14/20 20:25 99.0 F 75 20 140/63 02/14/20 20:07 143/64 H 02/14/20 20:06 143/64 H 02/14/20 20:00 Pulse Ox 02/15/20 04:45 100 02/14/20 23:36 99 02/14/20 21:30 99 02/14/20 20:57 97 02/14/20 20:25 100 02/14/20 20:07 02/14/20 20:06 02/14/20 20:00 100 Weight Weight 176 lb Most Recent Monitor Data NIBP 160/72 I&O: 02/14/20 02/15/20 02/16/20 06:59 06:59 06:59 Intake Total 1100 115 Balance 1100 115 Result Diagrams: 02/15/20 04:44 02/15/20 04:44 Hospitalist ROS - Review of Systems Constitutional: denies: fever, chills Respiratory: reports: shortness of breath, SOB with excertion. denies: cough Cardiovascular: denies: chest pain, palpitations, edema Gastrointestinal: reports: melena. denies: nausea, vomiting, abdominal pain - Medication Medications: Active Medications Generic Name Dose Route Start Last Admin Trade Name Freq PRN Reason Stop Dose Admin Atorvastatin Calcium 40 mg 02/14/20 21:00 02/14/20 20:17 Lipitor PO 40 mg HS LIZZ Administration Carvedilol 6.25 mg 02/14/20 21:00 02/14/20 20:07 Coreg PO 6.25 mg BID LIZZ Administration Pantoprazole Sodium 80 mg/ 100 mls @ 10 mls/hr 02/14/20 16:42 02/15/20 00:10 Sodium Chloride IVPB 100 mls INF LIZZ Administration Ramipril 10 mg 02/14/20 21:00 02/14/20 20:06 Altace PO 10 mg BID LIZZ Administration Sodium Chloride 10 ml 02/14/20 21:00 02/14/20 20:17 Flush - Normal Saline IVF 10 ml Q12HR LIZZ Administration - Exam General Appearance: NAD, awake alert ENT: moist mucosa Heart: RRR, no murmur, no gallops, no rubs, normal peripheral pulses Respiratory: CTAB, no wheezes, no rales, no ronchi Gastrointestinal: soft, non-tender, non-distended, normal bowel sounds Psychiatric: normal affect, normal behavior, A&O x 3 Hosp A/P (1) Acute on chronic blood loss anemia Code(s): D62 - ACUTE POSTHEMORRHAGIC ANEMIA Status: Acute (2) Upper GI bleed Code(s): K92.2 - GASTROINTESTINAL HEMORRHAGE, UNSPECIFIED Status: Acute (3) Pancytopenia Code(s): D61.818 - OTHER PANCYTOPENIA Status: Acute (4) CLL (chronic lymphocytic leukemia) Code(s): C91.90 - LYMPHOID LEUKEMIA, UNSPECIFIED NOT HAVING ACHIEVED REMISSION Status: Chronic (5) Dyslipidemia Code(s): E78.5 - HYPERLIPIDEMIA, UNSPECIFIED Status: Chronic (6) HTN (hypertension) Code(s): I10 - ESSENTIAL (PRIMARY) HYPERTENSION Status: Chronic Qualifiers: (7) CAD (coronary artery disease) Code(s): I25.10 - ATHSCL HEART DISEASE OF [place] CORONARY ARTERY W/O ANG PCTRS Status: Chronic - Plan EGD today H/H barely improved with transfusions yesterday, 2 more units being transfused today, EGD later this AM Platelets improved after transfusion Appreciate Dr. Garay and Dr. Shea assistance. DVT proph: SCDs GI proph: on protonix drip
[2020-02-15] MEDS: Carvedilol 6.25 MG TAB PO SCH ×2 (09:16→20:39)
[2020-02-15] MEDS: VENCLEXTA 100 MG PO SCH ×2 (09:17→13:14)
[2020-02-15] MEDS: Ramipril 5 MG CAP PO SCH ×3 (09:17→20:40)
[2020-02-15] MEDS ORDERED: PROPOFOL 200 MG/20 ML VIAL ONE (09:28)
[2020-02-15] MEDS ORDERED: Ketamine 50 MG/ML (10ML VIAL) ONE (10:22)
[2020-02-15] MEDS ORDERED: cefTRIAXone\\ROCEPHIN 1 GM in Sodium Chloride 0.9% 100 ML IVPB SCH (11:00)
[2020-02-15 15:27] LABS: Hemoglobin 7.7 g/dL (14.0-18.0); Platelet Count 51 thou/uL (130-400)
--- NOTE | 2020-02-15 17:17 | OP ---
DATE OF PROCEDURE: 02/15/2020 PROCEDURE: Esophagogastroduodenoscopy with control of hemorrhage. INDICATION FOR PROCEDURE: Symptomatic anemia, melena. DESCRIPTION OF PROCEDURE: After the risks and benefits of the procedure were explained to the patient including risks of bleeding, infection, perforation, reactions to anesthesia, aspiration and/or pain, informed consent was obtained. The patient was then taken to the endoscopy suite, where he was placed in the left lateral decubitus position, followed by introduction of deep sedation via propofol and anesthesia support. Once adequate sedation was achieved, the standard gastroscope was introduced into the mouth with intubation of the esophagus, stomach, and the proximal small intestines with the findings listed below. The patient tolerated the procedure well with no immediate perioperative complications. Upon conclusion of the procedure, all equipment was removed from the patient and he was transferred to PACU in satisfactory condition. FINDINGS: Esophagus: Normal-appearing mucosa was seen in the proximal, mid, and distal esophagus. There was no evidence of erosions, ulcerations, mass lesions, or active/recent bleeding. Both the diaphragmatic pinch and gastroesophageal junction were both well seen at approximately 41 cm past the incisors. Stomach: Normal-appearing mucosa was seen in the gastric cardia, fundus, body, and along the greater curvature. There was one patch of petechiae looking gastric erythema seen in the gastric antrum, but did not exhibit any high-risk stigmata of bleeding and could be related to the passage of the gastroscope. However, a 4 to 5 mm nonbleeding gastric arteriovenous malformation was seen along the lesser curvature extending from the body into the antrum, but it did not exhibit any high-risk stigmata of bleeding either. This AVM was subsequently intervened upon with argon plasma coagulation with good hemostasis achieved given the recent profound anemia and as a possible bleeding source. Otherwise, there was no evidence of erosions, ulcerations, mass lesions, or active/recent bleeding. Duodenum: Normal-appearing mucosa was seen in both the duodenal bulb and second portion of the duodenum. There was no evidence of erosions, ulcerations, mass lesions, or active/recent bleeding. IMPRESSION: 1. A 4 to 5 mm nonbleeding arteriovenous malformation seen on the lesser curvature, status post APC with good hemostasis achieved. 2. A patch of petechiae appearing mucosal erythema seen in the gastric antrum, likely due to scope trauma. 3. Otherwise, normal upper endoscopy. 4. No etiology for the patient's anemia was seen during this examination today. RECOMMENDATIONS: 1. Would continue to trend his H and H and transfuse as necessary to maintain an H and H of 7/. 2. Continue to monitor clinically for signs of active GI bleeding. 3. Agree with infusion of PRBCs today given his decreased H and H this morning. 4. We will continue the patient on PPI, but could transfer to 40 mg IV b.i.d. 5. Given the lack of evidence for overt GI bleeding seen on the upper endoscopy, I would place him on a clear liquid diet today with GoLYTELY prep tonight in preparation for colonoscopy tomorrow. 6. Continue to hold any anticoagulation. We will continue to follow. Please call with any questions. Job ID: [id number]
[2020-02-15] MEDS: GoLYTELY 4,000 ml Bottle PO SCH (18:05)
[2020-02-15] MEDS: Acetaminophen 325 MG TAB PO PRN (18:24)
[2020-02-15 18:48] LABS: Hemoglobin 6.8 g/dL (14.0-18.0); Platelet Count 43 thou/uL (130-400)
[2020-02-15] MEDS: Atorvastatin Calcium 40 MG TAB PO SCH (20:41)
[2020-02-16] MEDS: GoLYTELY 4,000 ml Bottle PO SCH (03:21)
[2020-02-16] MEDS: Piperacillin/Tazobactam 4.5 GM in Sodium Chloride 0.9% 100 ML IVPB SCH ×4 (05:15→18:16)
--- NOTE | 2020-02-16 06:29 | PDOC.HOSPP ---
- Subjective Encounter Date: 02/16/20 Encounter Time: 10:10 Subjective: Patient with spreading of swelling of right eye to lower lid, painful. Fever to 102 yesterday. Had some rectal bleeding last night, but gone this AM. Back from colonoscopy and found bleeding lesion near appendix that was clipped by Dr. Shea. - Objective Vital Signs & Weight: Vital Signs (12 hours) Temp Pulse Pulse Resp BP BP BP 02/16/20 00:14 02/15/20 23:39 97.6 F 80 18 130/59 L 02/15/20 21:15 98.4 F 88 14 134/60 02/15/20 20:50 98.1 F 78 14 150/66 H 02/15/20 20:40 101/57 L 02/15/20 20:39 101/57 L 02/15/20 20:00 98.1 F 80 16 101/51 L Pulse Ox 02/16/20 00:14 98 02/15/20 23:39 99 02/15/20 21:15 100 02/15/20 20:50 100 02/15/20 20:40 02/15/20 20:39 02/15/20 20:00 100 Weight Weight 176 lb Most Recent Monitor Data NIBP 160/72 I&O: 02/14/20 02/15/20 02/16/20 06:59 06:59 06:59 Intake Total 1100 2715 Balance 1100 2715 Result Diagrams: 02/16/20 06:35 02/15/20 04:44 Hospitalist ROS - Review of Systems Constitutional: reports: fever. denies: chills Respiratory: denies: cough, shortness of breath Cardiovascular: denies: chest pain, palpitations Gastrointestinal: reports: hematochezia. denies: nausea, vomiting, abdominal pain, diarrhea, constipation - Medication Medications: Active Medications Generic Name Dose Route Start Last Admin Trade Name Freq PRN Reason Stop Dose Admin Acetaminophen 650 mg 02/14/20 16:42 02/15/20 18:24 Tylenol PO 650 mg Q4H PRN Administration Headache/Fever/Mild Pain (1-3) Atorvastatin Calcium 40 mg 02/14/20 21:00 02/15/20 20:41 Lipitor PO 40 mg HS LIZZ Administration Carvedilol 6.25 mg 02/14/20 21:00 02/15/20 20:39 Coreg PO 6.25 mg BID LIZZ Administration Guaifenesin/Dextromethorphan 15 ml 02/14/20 16:42 02/15/20 14:22 Robitussin Dm PO 15 ml Q4H PRN Administration Cough Pantoprazole Sodium 80 mg/ 100 mls @ 10 mls/hr 02/14/20 16:42 02/15/20 14:23 Sodium Chloride IVPB 100 mls INF LIZZ Administration Ceftriaxone Sodium 1 gm/ 100 mls @ 200 mls/hr 02/15/20 11:00 02/15/20 14:21 Sodium Chloride IVPB 100 mls Q24HR LIZZ Administration Piperacillin Sod/Tazobactam 100 mls @ 200 mls/hr 02/15/20 23:59 02/16/20 05: 15 Sod 4.5 gm/ Sodium Chloride IVPB 100 mls Q6HR LIZZ Administration Isosorbide Mononitrate 60 mg 02/15/20 09:00 02/15/20 13:13 Imdur PO 60 mg DAILY LIZZ Administration Venclexta [ 0 each 02/15/20 09:00 02/15/20 13:14 Venetoclax] 100 Mg PO 1 each Tablet DAILY LIZZ Administration Ramipril 10 mg 02/14/20 21:00 02/15/20 20:40 Altace PO 10 mg BID LIZZ Administration Sodium Chloride 10 ml 02/14/20 21:00 02/15/20 20:41 Flush - Normal Saline IVF 10 ml Q12HR LIZZ Administration - Exam General Appearance: NAD, awake alert Eye: PERRL Eye - other findings: Right upper and lower eye lid swollen, upper is more red, mild warmth ENT: moist mucosa Heart: RRR, no murmur, no gallops, no rubs Respiratory: CTAB, no wheezes, no rales, no ronchi Gastrointestinal: soft, non-tender, non-distended, normal bowel sounds Psychiatric: normal affect, normal behavior, A&O x 3 Hosp A/P (1) Neutropenic fever Code(s): D70.9 - NEUTROPENIA, UNSPECIFIED; R50.81 - FEVER PRESENTING WITH CONDITIONS CLASSIFIED ELSEWHERE Status: Acute Plan: Temp to 102 on 02/15/2020 (2) Acute on chronic blood loss anemia Code(s): D62 - ACUTE POSTHEMORRHAGIC ANEMIA Status: Acute (3) Upper GI bleed Code(s): K92.2 - GASTROINTESTINAL HEMORRHAGE, UNSPECIFIED Status: Acute (4) Pancytopenia Code(s): D61.818 - OTHER PANCYTOPENIA Status: Acute (5) CLL (chronic lymphocytic leukemia) Code(s): C91.90 - LYMPHOID LEUKEMIA, UNSPECIFIED NOT HAVING ACHIEVED REMISSION Status: Chronic (6) Dyslipidemia Code(s): E78.5 - HYPERLIPIDEMIA, UNSPECIFIED Status: Chronic (7) HTN (hypertension) Code(s): I10 - ESSENTIAL (PRIMARY) HYPERTENSION Status: Chronic Qualifiers: (8) CAD (coronary artery disease) Code(s): I25.10 - ATHSCL HEART DISEASE OF [place] CORONARY ARTERY W/O ANG PCTRS Status: Chronic (9) Preseptal cellulitis of right upper eyelid Code(s): L03.213 - PERIORBITAL CELLULITIS Status: Acute - Plan Fever to 102 yesterday in setting of neutropenia on admission, blood cultures done and abx switched to Zosyn from Rocephin Possibly due to his preseptal cellulitis? EGD yesterday without obvious source of bleeding, planned colonoscopy today H/H barely improved with transfusions yesterday, 2 more units being transfused today, EGD later this AM Platelets improved after transfusion Appreciate Dr. Garay and Dr. Shea assistance. DVT proph: SCDs GI proph: Protonix IV
[2020-02-16 07:00] LABS: Hemoglobin 7.1 g/dL (14.0-18.0); Lymphocytes 98 % (21-51); MDiff Complete? YES; Mean Corpuscular HGB CONC 34.4 g/dL (32.0-36.0); Mean Corpuscular Hemoglobin 30.7 pg (27.0-31.0); Mean Corpuscular Volume 89.2 fL (78.0-98.0); Mean Platelet Volume 9.2 fL (7.4-10.4); Monocytes 2 % (0-10); Platelet Count 35 thou/uL (130-400); Platelet Morphology Comment Appears Decreased; RBC Distribution Width 12.9 % (11.5-14.5); Red Blood Cell (RBC) Count 2.29 mill/uL (4.70-6.10); White Blood Cell (WBC) Count 7.4 thou/uL (4.8-10.8)
[2020-02-16] MEDS: Carvedilol 6.25 MG TAB PO SCH ×2 (07:31→20:02)
[2020-02-16] MEDS ORDERED: Ondansetron HCl/PF 4 MG/2 ML Vial IVP PRN (09:23)
[2020-02-16] MEDS ORDERED: Promethazine HCl 25 MG/ML VIAL SLOW IVP PRN (09:23)
[2020-02-16] MEDS ORDERED: Promethazine HCl 25 MG/ML VIAL IM PRN (09:23)
[2020-02-16] MEDS: Ramipril 5 MG CAP PO SCH ×3 (09:37→20:14)
[2020-02-16] MEDS: VENCLEXTA 100 MG PO SCH ×2 (09:37→11:04)
[2020-02-16] MEDS: Pantoprazole 40 MG VIAL IVP SCH ×2 (09:37→11:05)
--- NOTE | 2020-02-16 10:27 | OP ---
DATE OF PROCEDURE: 02/16/2020 PROCEDURE PERFORMED: Colonoscopy with control of hemorrhage. INDICATION FOR PROCEDURE: Melena, hematochezia, anemia. DESCRIPTION OF PROCEDURE: After the risks and benefits of the procedure were explained to the patient including risks of bleeding, infection, perforation, reactions to anesthesia, aspiration and/or pain, informed consent was obtained. The patient was then taken to the endoscopy suite, where he was maneuvered into the left lateral decubitus position, followed by introduction of deep sedation via propofol and anesthesia support. Once the patient was adequately sedated, a digital rectal examination was performed followed by introduction of the standard colonoscope which was then advanced to the terminal ileum with some difficulty secondary to scope looping that required manual abdominal pressure to facilitate passage of the scope. The quality of the prep was fair to poor with a [id number] amount of retained liquid stool seen throughout the entire colon that was amenable to irrigation and suctioning to achieve adequate visualization for possible bleeding, but inadequate for the evaluation of lesions less than 1 cm in size. The patient tolerated the procedure well with no immediate perioperative complications. On conclusion of the procedure, all equipment was removed from the patient and he was transferred to PACU in satisfactory condition. FINDINGS: Digital rectal exam: Normal findings were seen on external examination, normal sphincter tone with no masses palpated. Colon findings: Normal-appearing mucosa was seen within the terminal ileum with no evidence of active or recent bleeding seen. However, within the cecum, there was a [id number] amount of dark red blood along with the retained liquid stool. With aggressive irrigation and suctioning, a 2-mm actively bleeding Dieulafoy lesion was seen between the ileocecal valve and the appendiceal orifice. This was intervened upon with a hemoclip placement x1 with good hemostasis achieved and no bleeding seen at the end of the maneuver. A moderate amount of retained liquid stool was then seen throughout the entire rest of the colon with inadequate views for the evaluation of lesions less than 1 cm in size, but adequate for the purposes of determining active bleeding or gross lesions of the mucosa seen. Normal-appearing mucosa was then seen at the appendiceal orifice and ileocecal valve. Normal-appearing mucosa was also seen in the ascending, transverse, descending, sigmoid colon and rectum. Normal findings were seen on rectal retroflexion. IMPRESSION: 1. A 2-mm actively bleeding Dieulafoy lesion in the cecum status post hemoclip placement x1 with good hemostasis achieved. 2. Fair to poor colonic preparation inadequate for the evaluation of mucosal lesions less than 1 cm in size, but adequate for the purpose of determination of active bleeding or gross lesions. RECOMMENDATIONS: 1. We would continue to trend the patient's H and H and transfuse as necessary to maintain an H and H of 7/21. 2. Continue to monitor clinically for signs of active GI bleeding. 3. We would continue to hold anticoagulation given recent enervation on an actively bleeding lesion. 4. We would avoid any NSAIDs as it can potentially cause irritation, inflammation and ulceration of the entire GI tract. 5. Continue antibiotics per neutropenic fever. We will continue to follow. Please call with any questions. Job ID: [id number]
[2020-02-16] MEDS ORDERED: Lidocaine 1% PF 5 ML VIAL ONE (10:29)
[2020-02-16] MEDS ORDERED: PROPOFOL 200 MG/20 ML VIAL ONE (10:29)
--- NOTE | 2020-02-16 14:36 | PDOC.MOPN ---
Interval History: no complaints except for right eye pain. - Vital Signs Vital Signs: Vital Signs (12 hours) Temp Pulse Resp BP BP BP BP 02/16/20 12:00 98.5 F 63 16 146/65 H 02/16/20 11:04 146/65 H 02/16/20 10:16 98.4 F 67 18 130/62 02/16/20 09:37 146/65 H 02/16/20 08:00 99.2 F 74 18 146/65 H 02/16/20 07:31 101/57 L Pulse Ox 02/16/20 12:00 100 02/16/20 11:04 02/16/20 10:16 100 02/16/20 09:37 02/16/20 08:00 100 02/16/20 07:31 Weight Weight 176 lb Most Recent Monitor Data NIBP 160/72 - Physical Exam General: Alert, Oriented x3, No acute distress HEENT: Other (right eyelid/orbit swelling) Cardiovascular: Regular rate, Normal S1, Normal S2, No murmurs, Gallops, Rubs Abdomen: Normal bowel sounds, Soft, No tenderness, No hepatospenomegaly, No masses Neurological: Normal speech - Labs Result Diagrams: 02/16/20 06:35 02/15/20 04:44 Lab results: Laboratory Results - last 24 hr 02/16/20 06:35: WBC 7.4, RBC 2.29 L, Hgb 7.1 L, Hct 20.5 L, MCV 89.2, MCH 30.7, MCHC 34.4, RDW 12.9, Plt Count 35 L, MPV 9.2, Lymphocytes % (Manual) 98 H, Monocytes % (Manual) 2, Plt Morphology Comment Appears Decreased L 02/15/20 18:39: Hgb 6.8 L, Hct 18.7 L, Plt Count 43 L 02/15/20 15:12: Hgb 7.7 L, Hct 21.4 L, Plt Count 51 L 02/14/20 11:53: Blood Type B POSITIVE, Antibody Screen NEGATIVE, Crossmatch See Detail Status: lab reviewed by me A/P - Problem (1) Acute on chronic blood loss anemia Current Visit: Yes Code(s): D62 - ACUTE POSTHEMORRHAGIC ANEMIA Status: Acute (2) Neutropenic fever Current Visit: Yes Code(s): D70.9 - NEUTROPENIA, UNSPECIFIED; R50.81 - FEVER PRESENTING WITH CONDITIONS CLASSIFIED ELSEWHERE Status: Acute (3) Preseptal cellulitis of right upper eyelid Current Visit: Yes Code(s): L03.213 - PERIORBITAL CELLULITIS Status: Acute (4) CLL (chronic lymphocytic leukemia) Current Visit: No Code(s): C91.90 - LYMPHOID LEUKEMIA, UNSPECIFIED NOT HAVING ACHIEVED REMISSION Status: Chronic - Plan Plan: continue venetoclax in hopes that WBC, neutrophils will improve Continue antibiotics for right orbital cellulitis monitor CBC.
[2020-02-16] MEDS: Acetaminophen 325 MG TAB PO PRN (20:01)
[2020-02-16] MEDS: Atorvastatin Calcium 40 MG TAB PO SCH (20:02)
[2020-02-17] MEDS: Piperacillin/Tazobactam 4.5 GM in Sodium Chloride 0.9% 100 ML IVPB SCH ×5 (00:04→23:48)
[2020-02-17 06:49] LABS: Platelet Count 25 thou/uL (130-400)
[2020-02-17 07:00] LABS: Anion Gap 11 mmol/L (10-20); BUN (Urea Nitrogen) 8 mg/dL (8.4-25.7); Calc. Creatinine Clearance 97 mL/min (70-130); Calcium 8.1 mg/dL (7.8-10.44); Carbon Dioxide 24 mmol/L (23-31); Chloride 106 mmol/L (98-107); Estimated GFR-MDRD Greater than 90; Glucose 102 mg/dL (80-115); Potassium 3.9 mmol/L (3.5-5.1); Sodium 137 mmol/L (136-145)
--- NOTE | 2020-02-17 07:14 | PDOC.HOSPP ---
- Subjective Encounter Date: 02/17/20 Encounter Time: 09:00 Subjective: Eye less painful, less red, still quite swollen. No fevers today. Energy level ok. A bit of old blood in stool by patient report. - Objective Vital Signs & Weight: Vital Signs (12 hours) Temp Pulse Resp BP BP Pulse Ox 02/17/20 05:53 98.9 F 02/17/20 00:07 98.7 F 02/16/20 20:14 108/52 L 02/16/20 20:07 100.3 F H 76 16 108/52 L 96 02/16/20 20:02 108/52 L Weight Weight 176 lb Most Recent Monitor Data NIBP 160/72 I&O: 02/16/20 02/17/20 02/18/20 06:59 06:59 06:59 Intake Total 2715 1675 Balance 2715 1675 Result Diagrams: 02/17/20 06:35 02/17/20 06:35 Hospitalist ROS - Review of Systems Constitutional: denies: fever, chills Eyes: reports: eyelid inflammation. denies: vision change, conjunctivae inflammation Respiratory: denies: cough, shortness of breath Cardiovascular: denies: chest pain, palpitations Gastrointestinal: reports: melena. denies: nausea, vomiting, abdominal pain, diarrhea, constipation - Medication Medications: Active Medications Generic Name Dose Route Start Last Admin Trade Name Freq PRN Reason Stop Dose Admin Acetaminophen 650 mg 02/14/20 16:42 02/16/20 20:01 Tylenol PO 650 mg Q4H PRN Administration Headache/Fever/Mild Pain (1-3) Atorvastatin Calcium 40 mg 02/14/20 21:00 02/16/20 20:02 Lipitor PO 40 mg HS LIZZ Administration Carvedilol 6.25 mg 02/14/20 21:00 02/16/20 20:02 Coreg PO 6.25 mg BID LIZZ Administration Guaifenesin/Dextromethorphan 15 ml 02/14/20 16:42 02/15/20 14:22 Robitussin Dm PO 15 ml Q4H PRN Administration Cough Piperacillin Sod/Tazobactam 100 mls @ 200 mls/hr 02/15/20 23:59 02/17/20 05: 37 Sod 4.5 gm/ Sodium Chloride IVPB 100 mls Q6HR LIZZ Administration Isosorbide Mononitrate 60 mg 02/15/20 09:00 02/16/20 11:05 Imdur PO 60 mg DAILY LIZZ Administration Pantoprazole Sodium 40 mg 02/16/20 09:00 02/16/20 11:05 Protonix IVP 40 mg DAILY LIZZ Administration Venclexta [ 0 each 02/15/20 09:00 02/16/20 11:04 Venetoclax] 100 Mg PO 1 each Tablet DAILY LIZZ Administration Ramipril 10 mg 02/14/20 21:00 02/16/20 20:14 Altace PO Not Given BID LIZZ Sodium Chloride 10 ml 02/14/20 21:00 02/16/20 20:02 Flush - Normal Saline IVF 10 ml Q12HR LIZZ Administration - Exam General Appearance: NAD, awake alert Eye - other findings: Right lids swollen, only upper red and less bright, mild TTP, no warmth ENT: moist mucosa Heart: RRR, no murmur, no gallops, no rubs Respiratory: CTAB, no wheezes, no rales, no ronchi Gastrointestinal: soft, non-tender, non-distended, normal bowel sounds Psychiatric: normal affect, normal behavior, A&O x 3 Hosp A/P (1) Neutropenic fever Code(s): D70.9 - NEUTROPENIA, UNSPECIFIED; R50.81 - FEVER PRESENTING WITH CONDITIONS CLASSIFIED ELSEWHERE Status: Acute (2) Acute on chronic blood loss anemia Code(s): D62 - ACUTE POSTHEMORRHAGIC ANEMIA Status: Acute (3) Upper GI bleed Code(s): K92.2 - GASTROINTESTINAL HEMORRHAGE, UNSPECIFIED Status: Acute (4) Pancytopenia Code(s): D61.818 - OTHER PANCYTOPENIA Status: Acute (5) CLL (chronic lymphocytic leukemia) Code(s): C91.90 - LYMPHOID LEUKEMIA, UNSPECIFIED NOT HAVING ACHIEVED REMISSION Status: Chronic (6) Dyslipidemia Code(s): E78.5 - HYPERLIPIDEMIA, UNSPECIFIED Status: Chronic (7) HTN (hypertension) Code(s): I10 - ESSENTIAL (PRIMARY) HYPERTENSION Status: Chronic Qualifiers: (8) CAD (coronary artery disease) Code(s): I25.10 - ATHSCL HEART DISEASE OF [place] CORONARY ARTERY W/O ANG PCTRS Status: Chronic (9) Preseptal cellulitis of right upper eyelid Code(s): L03.213 - PERIORBITAL CELLULITIS Status: Acute - Plan Fever on 02/15/2020 102 yesterday in setting of neutropenia on admission, blood cultures done and abx switched to Zosyn from Rocephin Possibly due to his preseptal cellulitis Colonoscopy with bleeding lesion in cecum, s/p hemoclip Hgb down below 7 again, transfuse 2 units PRBC Platelets improved after transfusion but now dropping again Appreciate Dr. Garay and Dr. Shea assistance. DVT proph: SCDs GI proph: Protonix IV
[2020-02-17] MEDS: Ramipril 5 MG CAP PO SCH ×2 (07:58→20:14)
[2020-02-17] MEDS: Carvedilol 6.25 MG TAB PO SCH ×2 (07:58→20:14)
[2020-02-17] MEDS: Pantoprazole 40 MG VIAL IVP SCH (07:59)
[2020-02-17] MEDS: VENCLEXTA 100 MG PO SCH (08:00)
[2020-02-17 09:00] LABS: Hemoglobin 6.5 g/dL (14.0-18.0); Lymphocytes 99 % (21-51); MDiff Complete? YES; Mean Corpuscular HGB CONC 34.9 g/dL (32.0-36.0); Mean Corpuscular Hemoglobin 31.3 pg (27.0-31.0); Mean Corpuscular Volume 89.8 fL (78.0-98.0); Mean Platelet Volume 8.3 fL (7.4-10.4); Monocytes 1 % (0-10); Platelet Morphology Comment Appears Decreased; RBC Distribution Width 12.8 % (11.5-14.5); RBC Morphology Normal; Red Blood Cell (RBC) Count 2.09 mill/uL (4.70-6.10); White Blood Cell (WBC) Count 5.4 thou/uL (4.8-10.8)
--- NOTE | 2020-02-17 14:46 | PDOC.MOPN ---
Interval History: Right eye feels better. - Vital Signs Vital Signs: Vital Signs (12 hours) Temp Pulse Pulse Resp BP BP BP 02/17/20 14:01 98.9 F 64 16 130/60 02/17/20 13:15 98.8 F 65 20 155/69 H 02/17/20 10:45 98.4 F 67 16 130/58 L 02/17/20 10:25 98.2 F 63 16 121/58 L 02/17/20 10:22 98.2 F 63 16 121/58 L 02/17/20 08:00 98.3 F 74 16 138/63 02/17/20 07:58 108/52 L 02/17/20 05:53 98.9 F Pulse Ox 02/17/20 14:01 97 02/17/20 13:15 98 02/17/20 10:45 94 L 02/17/20 10:25 94 L 02/17/20 10:22 02/17/20 08:00 98 02/17/20 07:58 02/17/20 05:53 Weight Weight 176 lb Most Recent Monitor Data NIBP 160/72 - Physical Exam General: Alert, Oriented x3, No acute distress HEENT: Other (rt eye erythema and swelling, improved) Lungs: Clear to auscultation Cardiovascular: Regular rate Abdomen: Other Extremities: No clubbing Neurological: Normal speech Psych/Mental Status: Mental status NL - Labs Result Diagrams: 02/17/20 06:35 02/17/20 06:35 Lab results: Laboratory Results - last 24 hr 02/17/20 06:35: WBC 5.4, RBC 2.09 L, Hgb 6.5 L, Hct 18.7 L, MCV 89.8, MCH 31.3 H , MCHC 34.9, RDW 12.8, Plt Count 25 L*, MPV 8.3, Neutrophils % (Manual) Not Reportable, Lymphocytes % (Manual) 99 H, Monocytes % (Manual) 1, Lymphocytes # Not Reportable, Plt Morphology Comment Appears Decreased L, RBC Morph Comment Normal 02/17/20 06:35: Sodium 137, Potassium 3.9, Chloride 106, Carbon Dioxide 24, Anion Gap 11, BUN 8 L, Creatinine 0.80, Estimated GFR (MDRD) Greater than 90, Glucose 102, Calcium 8.1 02/14/20 11:53: Blood Type B POSITIVE, Antibody Screen NEGATIVE, Crossmatch See Detail Status: lab reviewed by me A/P - Problem (1) Acute on chronic blood loss anemia Current Visit: Yes Code(s): D62 - ACUTE POSTHEMORRHAGIC ANEMIA Status: Acute (2) Neutropenic fever Current Visit: Yes Code(s): D70.9 - NEUTROPENIA, UNSPECIFIED; R50.81 - FEVER PRESENTING WITH CONDITIONS CLASSIFIED ELSEWHERE Status: Acute (3) Preseptal cellulitis of right upper eyelid Current Visit: Yes Code(s): L03.213 - PERIORBITAL CELLULITIS Status: Acute (4) CLL (chronic lymphocytic leukemia) Current Visit: No Code(s): C91.90 - LYMPHOID LEUKEMIA, UNSPECIFIED NOT HAVING ACHIEVED REMISSION Status: Chronic - Plan Plan: transfuse 2 units PRBC today continue antibiotics for right orbital cellulitis daily CBC Continue venitoclax for CLL discussed with Dr. Mendiola.
--- NOTE | 2020-02-17 16:14 | PRG ---
DATE OF SERVICE: SUBJECTIVE: Mr. Webb states that he had 2 bowels, stated it had been dark, but small amount, maybe a little bit of old clot. OBJECTIVE: VITAL SIGNS: Temperature is 98, pulse is 64, blood pressure 130/60. HEENT: He has a little bit of redness in his right eye. States he has been treating for cellulitis of that. ABDOMEN: Soft, nontender with positive bowel sounds. No rebound or guarding. No palpable hepatosplenomegaly. LABORATORY DATA: White count 5.4, hemoglobin 6.5, it was 6.8 on the , and 7.1 yesterday. Platelet count 25,000. This is baseline just about with his CLL. BMP, BUN and creatinine are 8 and 0.8 today with normal electrolytes. ASSESSMENT: 1. 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 2. Chronic lymphocytic leukemia with low platelets, which is chronic. He has anemia with chronicity of some degree, but not like this. 3. Neutropenic fever when he had presented, some cellulitis in the right upper eye, on appropriate antibiotics, seen by Internal Medicine and Oncology. RECOMMENDATIONS: If hemoglobin remains stable, go ahead and advance diet. He has received a unit of blood now and so far has received 5 units from the 18th until today. We will follow with you. If he has any other acute changes or concerns, please do not hesitate to contact me. Job ID: [id number]
[2020-02-17 18:20] LABS: Hemoglobin 8.6 g/dL (14.0-18.0)
[2020-02-17] MEDS: Atorvastatin Calcium 40 MG TAB PO SCH (20:15)
[2020-02-18] MEDS: Piperacillin/Tazobactam 4.5 GM in Sodium Chloride 0.9% 100 ML IVPB SCH (05:33)
[2020-02-18 06:04] LABS: Hemoglobin 8.5 g/dL (14.0-18.0); Mean Corpuscular Hemoglobin 31.6 pg (27.0-31.0); Mean Corpuscular Volume 87.8 fL (78.0-98.0); Mean Platelet Volume 9.1 fL (7.4-10.4); Platelet Count 19 thou/uL (130-400); RBC Distribution Width 14.4 % (11.5-14.5); White Blood Cell (WBC) Count 7.9 thou/uL (4.8-10.8)
[2020-02-18 06:14] LABS: Lymphocytes 98 % (21-51); MDiff Complete? YES; Monocytes 1 % (0-10); Neutrophil 1 % (42-75); Platelet Morphology Comment Appears Decreased
--- NOTE | 2020-02-18 07:19 | PDOC.HOSPP ---
- Subjective Encounter Date: 02/18/20 Encounter Time: 11:30 Subjective: Patient feeling better. Eye less swollen and tender. No fever. - Objective Vital Signs & Weight: Vital Signs (12 hours) Temp Pulse Resp BP BP Pulse Ox 02/17/20 23:51 99.8 F H 02/17/20 20:14 137/63 02/17/20 19:35 99.5 F 65 16 137/63 99 Weight Weight 176 lb Most Recent Monitor Data NIBP 160/72 I&O: 02/17/20 02/18/20 02/19/20 06:59 06:59 06:59 Intake Total 1675 2680 Balance 1675 2680 Result Diagrams: 02/18/20 05:32 02/17/20 06:35 Hospitalist ROS - Review of Systems Constitutional: denies: fever, chills Respiratory: denies: cough, shortness of breath Cardiovascular: denies: chest pain, palpitations Gastrointestinal: denies: nausea, vomiting, abdominal pain, diarrhea, melena, hematochezia - Medication Medications: Active Medications Generic Name Dose Route Start Last Admin Trade Name Freq PRN Reason Stop Dose Admin Acetaminophen 650 mg 02/14/20 16:42 02/16/20 20:01 Tylenol PO 650 mg Q4H PRN Administration Headache/Fever/Mild Pain (1-3) Atorvastatin Calcium 40 mg 02/14/20 21:00 02/17/20 20:15 Lipitor PO 40 mg HS LIZZ Administration Carvedilol 6.25 mg 02/14/20 21:00 02/17/20 20:14 Coreg PO 6.25 mg BID LIZZ Administration Guaifenesin/Dextromethorphan 15 ml 02/14/20 16:42 02/15/20 14:22 Robitussin Dm PO 15 ml Q4H PRN Administration Cough Piperacillin Sod/Tazobactam 100 mls @ 200 mls/hr 02/15/20 23:59 02/18/20 05: 33 Sod 4.5 gm/ Sodium Chloride IVPB 100 mls Q6HR LIZZ Administration Isosorbide Mononitrate 60 mg 02/15/20 09:00 02/17/20 07:59 Imdur PO 60 mg DAILY LIZZ Administration Pantoprazole Sodium 40 mg 02/16/20 09:00 02/17/20 07:59 Protonix IVP 40 mg DAILY LIZZ Administration Venclexta [ 0 each 02/15/20 09:00 02/17/20 08:00 Venetoclax] 100 Mg PO 1 each Tablet DAILY LIZZ Administration Ramipril 10 mg 02/14/20 21:00 02/17/20 20:14 Altace PO 10 mg BID LIZZ Administration Sodium Chloride 10 ml 02/14/20 21:00 02/17/20 20:12 Flush - Normal Saline IVF Not Given Q12HR LIZZ Sodium Chloride 10 ml 02/14/20 19:31 02/18/20 05:36 Flush - Normal Saline IVF 10 ml PRN PRN Administration Saline Flush - Exam General Appearance: NAD, awake alert Eye - other findings: redness and swelling of right eye lids improved ENT: moist mucosa Heart: RRR, no murmur, no gallops, no rubs Respiratory: CTAB, no wheezes, no rales, no ronchi Gastrointestinal: soft, non-tender, non-distended, normal bowel sounds Psychiatric: normal affect, normal behavior, A&O x 3 Hosp A/P (1) Neutropenic fever Code(s): D70.9 - NEUTROPENIA, UNSPECIFIED; R50.81 - FEVER PRESENTING WITH CONDITIONS CLASSIFIED ELSEWHERE Status: Acute (2) Acute on chronic blood loss anemia Code(s): D62 - ACUTE POSTHEMORRHAGIC ANEMIA Status: Acute (3) Upper GI bleed Code(s): K92.2 - GASTROINTESTINAL HEMORRHAGE, UNSPECIFIED Status: Acute (4) Pancytopenia Code(s): D61.818 - OTHER PANCYTOPENIA Status: Acute (5) CLL (chronic lymphocytic leukemia) Code(s): C91.90 - LYMPHOID LEUKEMIA, UNSPECIFIED NOT HAVING ACHIEVED REMISSION Status: Chronic (6) Dyslipidemia Code(s): E78.5 - HYPERLIPIDEMIA, UNSPECIFIED Status: Chronic (7) HTN (hypertension) Code(s): I10 - ESSENTIAL (PRIMARY) HYPERTENSION Status: Chronic Qualifiers: (8) CAD (coronary artery disease) Code(s): I25.10 - ATHSCL HEART DISEASE OF [place] CORONARY ARTERY W/O ANG PCTRS Status: Chronic (9) Preseptal cellulitis of right upper eyelid Code(s): L03.213 - PERIORBITAL CELLULITIS Status: Acute - Plan Will change to oral antibiotics for preseptal cellulitis and reassess in AM Colonoscopy with bleeding lesion in cecum, s/p hemoclip Hgb down below 7 again, transfuse 2 units PRBC, stable at 8.5 this AM Platelets improved after transfusion but now dropping again, down to 19,[address] Garay and Dr. Shea assistance. DVT proph: SCDs GI proph: Protonix IV Will recheck CBC and if stable and eye continuing to improve can d/c home tomorrow
[2020-02-18] MEDS: Pantoprazole 40 MG VIAL IVP SCH (08:14)
[2020-02-18] MEDS: Ramipril 5 MG CAP PO SCH ×2 (08:34→19:59)
[2020-02-18] MEDS: VENCLEXTA 100 MG PO SCH (08:34)
[2020-02-18] MEDS: Carvedilol 6.25 MG TAB PO SCH ×2 (08:34→19:59)
--- NOTE | 2020-02-18 10:06 | PDOC.MOPN ---
Interval History: Feels better today, able to see from right eye. no fevers, no bleeding. - Vital Signs Vital Signs: Vital Signs (12 hours) Temp Pulse Resp BP BP Pulse Ox 02/18/20 08:34 137/63 02/18/20 08:00 97.5 F L 83 16 140/72 92 L 02/17/20 23:51 99.8 F H Weight Weight 176 lb Most Recent Monitor Data NIBP 160/72 - Physical Exam General: Alert, Oriented x3, No acute distress HEENT: Other (right eye cellulitis) Lungs: Clear to auscultation Cardiovascular: Regular rate Abdomen: Normal bowel sounds Neurological: Normal gait, Normal speech, Strength at 5/5 X4 ext, Normal tone, Sensation intact, Cranial nerves 3-12 NL, Reflexes 2+ - Labs Result Diagrams: 02/18/20 05:32 02/17/20 06:35 Lab results: Laboratory Results - last 24 hr 02/18/20 05:32: WBC 7.9, RBC 2.70 L, Hgb 8.5 L, Hct 23.7 L, MCV 87.8, MCH 31.6 H , MCHC 36.0, RDW 14.4, Plt Count 19 L*, MPV 9.1, Neutrophils % (Manual) 1 L, Lymphocytes % (Manual) 98 H, Monocytes % (Manual) 1, Lymphocytes # Not Reportable, Plt Morphology Comment Appears Decreased L 02/17/20 17:53: Hgb 8.6 L, Hct 25.4 L 02/14/20 11:53: Blood Type B POSITIVE, Antibody Screen NEGATIVE, Crossmatch See Detail Status: lab reviewed by me A/P - Problem (1) Acute on chronic blood loss anemia Current Visit: Yes Code(s): D62 - ACUTE POSTHEMORRHAGIC ANEMIA Status: Acute (2) Neutropenic fever Current Visit: Yes Code(s): D70.9 - NEUTROPENIA, UNSPECIFIED; R50.81 - FEVER PRESENTING WITH CONDITIONS CLASSIFIED ELSEWHERE Status: Acute (3) Preseptal cellulitis of right upper eyelid Current Visit: Yes Code(s): L03.213 - PERIORBITAL CELLULITIS Status: Acute (4) CLL (chronic lymphocytic leukemia) Current Visit: No Code(s): C91.90 - LYMPHOID LEUKEMIA, UNSPECIFIED NOT HAVING ACHIEVED REMISSION Status: Chronic - Plan Plan: 1. continue venetoclax 2. continue abx for cellulitis 3. advance diet and activity 4. CBC stable, recheck in am 5. Home when right eye improved 6. See Dr. Mendiola in office next Sunday
--- NOTE | 2020-02-18 12:56 | PRG ---
DATE OF SERVICE: 02/18/2020 SUBJECTIVE: Mr. Webb says he is feeling really well. He had a normal-appearing bowel movement yesterday. No bowel movements so far today. He is having no abdominal pain. He is tolerating his diet well. Hemoglobin is stable this morning at 8.5, platelets back down to 19.. OBJECTIVE: 'VITAL SIGNS: Temperature 99.1, pulse 65, blood pressure 148/70, 98% oxygen saturation on room air. GENERAL: No acute distress. HEART: Regular rate and rhythm. LUNGS: Clear to auscultation bilaterally. ABDOMEN: Soft, nontender to palpation. EXTREMITIES: No peripheral edema. LABORATORY STUDIES: Hemoglobin 8.5, WBC 7.9, platelets 19. INR 1.0. BUN is 8, creatinine 0.80, sodium 137, potassium 3.9. ASSESSMENT AND PLAN: 1. Lower GI bleeding from cecal Dieulafoy's lesion, status post hemoclip placement on 02/16/2020. 2. Chronic lymphocytic leukemia with chronic thrombocytopenia. 3. [id number] anemia, stable this morning. I see no further evidence of overt gastrointestinal bleeding over the past day. He is tolerating his diet, nothing further plan from a GI perspective. GI will sign off, but please call back anytime with questions or concerns. Job ID: [id number]
[2020-02-18] MEDS: Atorvastatin Calcium 40 MG TAB PO SCH (19:59)
[2020-02-18] MEDS: Cefdinir 300 MG CAP PO SCH (19:59)
[2020-02-18] MEDS: Acetaminophen 325 MG TAB PO PRN (20:04)
[2020-02-19] MEDS: Acetaminophen 325 MG TAB PO PRN ×3 (04:16→21:06)
[2020-02-19 05:44] LABS: Hemoglobin 8.1 g/dL (14.0-18.0); Mean Corpuscular HGB CONC 33.9 g/dL (32.0-36.0); Mean Corpuscular Volume 88.6 fL (78.0-98.0); Mean Platelet Volume 10.2 fL (7.4-10.4); Platelet Count 10 thou/uL (130-400); RBC Distribution Width 14.1 % (11.5-14.5); Red Blood Cell (RBC) Count 2.69 mill/uL (4.70-6.10)
[2020-02-19 06:01] LABS: Band 2 % (5-11); Hypochromia SLIGHT = 6-15 cells (100X) (0-5/hpf); Lymphocytes 94 % (21-51); MDiff Complete? YES; Monocytes 4 % (0-10); Platelet Morphology Comment Appears Decreased
[2020-02-19] MEDS: Pantoprazole 40 MG VIAL IVP SCH (08:27)
[2020-02-19] MEDS: Ramipril 5 MG CAP PO SCH ×2 (08:27→21:07)
[2020-02-19] MEDS: Cefdinir 300 MG CAP PO SCH ×2 (08:27→21:07)
[2020-02-19] MEDS: Carvedilol 6.25 MG TAB PO SCH ×2 (08:27→21:06)
[2020-02-19] MEDS: VENCLEXTA 100 MG PO SCH (08:28)
--- NOTE | 2020-02-19 10:31 | PDOC.MOPN ---
Interval History: Feels well, right eye starting in itch. - Vital Signs Vital Signs: Vital Signs (12 hours) Temp Pulse Pulse Resp BP BP BP 02/19/20 10:00 98.9 F 74 16 158/78 H 02/19/20 08:27 135/64 02/19/20 08:00 02/19/20 07:54 99.4 F 62 16 159/68 H 02/19/20 00:00 99.7 F H Pulse Ox 02/19/20 10:00 98 02/19/20 08:27 02/19/20 08:00 96 02/19/20 07:54 99 02/19/20 00:00 Weight Weight 176 lb Most Recent Monitor Data NIBP 160/72 - Physical Exam General: Alert, Oriented x3, No acute distress HEENT: Other (right eye swelling improved) Lungs: Clear to auscultation Cardiovascular: Regular rate Abdomen: Normal bowel sounds Neurological: Normal gait, Normal speech, Strength at 5/5 X4 ext, Normal tone, Sensation intact, Cranial nerves 3-12 NL, Reflexes 2+ Psych/Mental Status: Mental status NL - Labs Result Diagrams: 02/19/20 05:31 02/17/20 06:35 Lab results: Laboratory Results - last 24 hr 02/19/20 08:33: Blood Type B POSITIVE, Antibody Screen NEGATIVE 02/19/20 05:31: WBC 2.0 L, RBC 2.69 L, Hgb 8.1 L, Hct 23.8 L, MCV 88.6, MCH 30.0 , MCHC 33.9, RDW 14.1, Plt Count 10 L*, MPV 10.2, Neutrophils % (Manual) Not Reportable, Band Neuts % (Manual) 2 L, Lymphocytes % (Manual) 94 H, Monocytes % (Manual) 4, Lymphocytes # Not Reportable, Hypochromia SLIGHT = 6-15 cells, Plt Morphology Comment Appears Decreased L Status: lab reviewed by me A/P - Problem (1) Acute on chronic blood loss anemia Current Visit: Yes Code(s): D62 - ACUTE POSTHEMORRHAGIC ANEMIA Status: Acute (2) Neutropenic fever Current Visit: Yes Code(s): D70.9 - NEUTROPENIA, UNSPECIFIED; R50.81 - FEVER PRESENTING WITH CONDITIONS CLASSIFIED ELSEWHERE Status: Acute (3) Preseptal cellulitis of right upper eyelid Current Visit: Yes Code(s): L03.213 - PERIORBITAL CELLULITIS Status: Acute (4) CLL (chronic lymphocytic leukemia) Current Visit: No Code(s): C91.90 - LYMPHOID LEUKEMIA, UNSPECIFIED NOT HAVING ACHIEVED REMISSION Status: Chronic - Plan Plan: 1. platelets today 2. continue veneticlax 3. Dr. Romero to evaluate eye 4. home when right eye stable.
--- NOTE | 2020-02-19 11:25 | PDOC.HOSPP ---
- Subjective Encounter Date: 02/19/20 Encounter Time: 11:20 Subjective: f/u for CLL with GI bleed s/p cecal lesion with hemoclip 02/16/20 and total of 7u PRBC's and 1u platelets. c/p persistent R eye swelling, burning and feels like sand in the eye. - Objective Vital Signs & Weight: Vital Signs (12 hours) Temp Pulse Pulse Resp BP BP BP 02/19/20 11:10 99.4 F 76 16 149/70 H 02/19/20 10:00 98.9 F 74 16 158/78 H 02/19/20 08:27 135/64 02/19/20 08:00 02/19/20 07:54 99.4 F 62 16 02/19/20 00:00 99.7 F H BP Pulse Ox 02/19/20 11:10 96 02/19/20 10:00 98 02/19/20 08:27 02/19/20 08:00 96 02/19/20 07:54 159/68 H 99 02/19/20 00:00 Weight Weight 176 lb Most Recent Monitor Data NIBP 160/72 I&O: 02/18/20 02/19/20 02/20/20 06:59 06:59 06:59 Intake Total 2680 1480 0 Balance 2680 1480 0 Result Diagrams: 02/19/20 05:31 02/17/20 06:35 Additional Labs: Microbiology 02/15/20 18:44 Venous blood - Right Hand Blood Culture - Preliminary NO GROWTH AT 48 HOURS 02/15/20 18:39 Venous blood - Right Arm Blood Culture - Preliminary NO GROWTH AT 48 HOURS Laboratory Tests 02/15/20 02/16/20 02/17/20 18:39 06:35 06:35 Hgb 6.5 L Plt Count 43 L 35 L 25 L* 02/17/20 02/18/20 17:53 05:32 Hgb 8.6 L 8.5 L Plt Count 19 L* Hospitalist ROS - Medication Medications: Active Medications Generic Name Dose Route Start Last Admin Trade Name Freq PRN Reason Stop Dose Admin Acetaminophen 650 mg 02/14/20 16:42 02/19/20 04:16 Tylenol PO 650 mg Q4H PRN Administration Headache/Fever/Mild Pain (1-3) Atorvastatin Calcium 40 mg 02/14/20 21:00 02/18/20 19:59 Lipitor PO 40 mg HS LIZZ Administration Carvedilol 6.25 mg 02/14/20 21:00 02/19/20 08:27 Coreg PO 6.25 mg BID LIZZ Administration Cefdinir 300 mg 02/18/20 21:00 02/19/20 08:27 Omnicef PO 300 mg BID LIZZ Administration Guaifenesin/Dextromethorphan 15 ml 02/14/20 16:42 02/15/20 14:22 Robitussin Dm PO 15 ml Q4H PRN Administration Cough Isosorbide Mononitrate 60 mg 02/15/20 09:00 02/19/20 08:27 Imdur PO 60 mg DAILY LIZZ Administration Pantoprazole Sodium 40 mg 02/16/20 09:00 02/19/20 08:27 Protonix IVP 40 mg DAILY LIZZ Administration Venclexta [ 0 each 02/15/20 09:00 02/19/20 08:28 Venetoclax] 100 Mg PO Not Given Tablet DAILY LIZZ Ramipril 10 mg 02/14/20 21:00 02/19/20 08:27 Altace PO 10 mg BID LIZZ Administration Sodium Chloride 10 ml 02/14/20 21:00 02/18/20 19:59 Flush - Normal Saline IVF 10 ml Q12HR LIZZ Administration Sodium Chloride 10 ml 02/14/20 19:31 02/18/20 05:36 Flush - Normal Saline IVF 10 ml PRN PRN Administration Saline Flush - Exam General Appearance: NAD, awake alert Eye: PERRL Eye - other findings: R periorbital and lid edema, + erythema, conjunctiva hyperemia ENT: normocephalic atraumatic, no oropharyngeal lesions Neck: supple, symmetric, no JVD, no thyromegaly Heart: RRR, no murmur, no gallops, no rubs, normal peripheral pulses Heart - other findings: S1, S2 Respiratory: CTAB, no wheezes, no rales, no ronchi, normal chest expansion, no tachypnea Gastrointestinal: soft, non-tender, non-distended, normal bowel sounds, no palpable masses Extremities: no cyanosis, no clubbing, no edema Skin: normal turgor, no lesions Neurological: cranial nerve grossly intact, no new deficit Musculoskeletal: normal tone, normal strength, no muscle wasting Psychiatric: normal affect, A&O x 3 Hosp A/P (1) CLL (chronic lymphocytic leukemia) Code(s): C91.90 - LYMPHOID LEUKEMIA, UNSPECIFIED NOT HAVING ACHIEVED REMISSION Status: Chronic Plan: Continue supportive mgmt, platelet transfusion today, serial H/H/plt monitoring (2) Acute on chronic blood loss anemia Code(s): D62 - ACUTE POSTHEMORRHAGIC ANEMIA Status: Acute Plan: s/p 7u total PRBC's (3) Pancytopenia Code(s): D61.818 - OTHER PANCYTOPENIA Status: Acute Plan: See above, serial CBC (4) Preseptal cellulitis of right upper eyelid Code(s): L03.213 - PERIORBITAL CELLULITIS Status: Acute Plan: Continue Omnicef, consult Ophthalmology service for evaluation, likely iritis/ corneal abrasion/lesion - Plan continue antibiotics, PT/OT, social worker assistant, out of bed/ambulate, DVT proph w/ SCDs Stable currently Continue Platelet transfusion today Consult Ophthalmology regarding R eye OOB with PT AM lab: CBC Likely home in 24h
[2020-02-19] MEDS: Atorvastatin Calcium 40 MG TAB PO SCH (21:07)
[2020-02-20] MEDS: Acetaminophen 325 MG TAB PO PRN (03:43)
[2020-02-20 05:59] LABS: Hemoglobin 8.1 g/dL (14.0-18.0); Mean Corpuscular HGB CONC 32.6 g/dL (32.0-36.0); Mean Corpuscular Hemoglobin 29.1 pg (27.0-31.0); Mean Corpuscular Volume 89.2 fL (78.0-98.0); RBC Distribution Width 13.9 % (11.5-14.5); Red Blood Cell (RBC) Count 2.79 mill/uL (4.70-6.10); White Blood Cell (WBC) Count 1.8 thou/uL (4.8-10.8)
[2020-02-20 06:13] LABS: Mean Platelet Volume 7.1 fL (7.4-10.4); Platelet Count 19 thou/uL (130-400)
[2020-02-20 06:16] LABS: Band 1 % (5-11); Lymphocytes 93 % (21-51); MDiff Complete? YES; Monocytes 2 % (0-10); Neutrophil 4 % (42-75)
[2020-02-20] MEDS: Ramipril 5 MG CAP PO SCH ×2 (08:16→20:42)
[2020-02-20] MEDS: Cefdinir 300 MG CAP PO SCH ×2 (08:16→20:41)
[2020-02-20] MEDS: VENCLEXTA 100 MG PO SCH (08:17)
[2020-02-20] MEDS: Carvedilol 6.25 MG TAB PO SCH ×2 (08:17→20:42)
[2020-02-20] MEDS: Pantoprazole 40 MG VIAL IVP SCH (08:18)
--- NOTE | 2020-02-20 14:33 | PDOC.MOPN ---
Interval History: feels good except for eye pain. denies bleeding. - Vital Signs Vital Signs: Vital Signs (12 hours) Temp Pulse Resp BP BP BP BP 02/20/20 13:07 19 148/67 H 02/20/20 09:26 156/72 H 02/20/20 08:17 167/87 H 02/20/20 08:16 167/87 H 02/20/20 08:13 98.7 F 87 18 167/87 H 02/20/20 05:51 98.9 F 02/20/20 03:40 100.6 F H 76 20 166/80 H Pulse Ox 02/20/20 13:07 99 02/20/20 09:26 02/20/20 08:17 02/20/20 08:16 02/20/20 08:13 99 02/20/20 05:51 02/20/20 03:40 98 Weight Weight 176 lb Most Recent Monitor Data NIBP 160/72 - Physical Exam General: Alert, Oriented x3, No acute distress HEENT: Other (right eye patch) Lungs: Clear to auscultation, Normal air movement Cardiovascular: Regular rate, Normal S1, Normal S2, No murmurs, Gallops, Rubs Abdomen: Normal bowel sounds, Soft, No tenderness, No hepatospenomegaly, No masses Extremities: No clubbing, No cyanosis, No edema, Normal pulses, No tenderness/ swelling Skin: No rashes, No breakdown, No significant lesion Neurological: Normal gait, Normal speech, Strength at 5/5 X4 ext, Normal tone, Sensation intact, Cranial nerves 3-12 NL, Reflexes 2+ Psych/Mental Status: Mental status NL, Mood NL - Labs Result Diagrams: 02/20/20 05:42 02/17/20 06:35 Lab results: Laboratory Results - last 24 hr 02/20/20 05:42: WBC 1.8 L, RBC 2.79 L, Hgb 8.1 L, Hct 24.9 L, MCV 89.2, MCH 29.1 , MCHC 32.6, RDW 13.9, Plt Count 19 L*, MPV 7.1 L, Neutrophils % (Manual) 4 L, Band Neuts % (Manual) 1 L, Lymphocytes % (Manual) 93 H, Monocytes % (Manual) 2 Status: lab reviewed by me A/P - Problem (1) Acute on chronic blood loss anemia Current Visit: Yes Code(s): D62 - ACUTE POSTHEMORRHAGIC ANEMIA Status: Acute (2) Neutropenic fever Current Visit: Yes Code(s): D70.9 - NEUTROPENIA, UNSPECIFIED; R50.81 - FEVER PRESENTING WITH CONDITIONS CLASSIFIED ELSEWHERE Status: Acute (3) Preseptal cellulitis of right upper eyelid Current Visit: Yes Code(s): L03.213 - PERIORBITAL CELLULITIS Status: Acute (4) CLL (chronic lymphocytic leukemia) Current Visit: No Code(s): C91.90 - LYMPHOID LEUKEMIA, UNSPECIFIED NOT HAVING ACHIEVED REMISSION Status: Chronic - Plan Plan: 1. Dr. mackey to see patient later today 2. CBC stable 3. Home when ok with Dr. Mackey
--- NOTE | 2020-02-20 17:04 | PDOC.HOSPP ---
- Subjective Encounter Date: 02/20/20 Encounter Time: 11:05 Subjective: f/u for R preseptal orbital cellulitis on Omnicef. Pt c/o bleeding from the R eye starting last pm. - Objective Vital Signs & Weight: Vital Signs (12 hours) Temp Pulse Resp BP BP BP Pulse Ox 02/20/20 13:07 19 148/67 H 99 02/20/20 09:26 156/72 H 02/20/20 08:17 167/87 H 02/20/20 08:16 167/87 H 02/20/20 08:13 98.7 F 87 18 167/87 H 99 02/20/20 05:51 98.9 F Weight Weight 176 lb Most Recent Monitor Data NIBP 160/72 I&O: 02/19/20 02/20/20 02/21/20 06:59 06:59 06:59 Intake Total 1480 1730 Balance 1480 1730 Result Diagrams: 02/20/20 05:42 02/17/20 06:35 Additional Labs: Microbiology 02/15/20 18:44 Venous blood - Right Hand Blood Culture - Preliminary NO GROWTH AT 48 HOURS 02/15/20 18:39 Venous blood - Right Arm Blood Culture - Preliminary NO GROWTH AT 48 HOURS Laboratory Tests 02/15/20 02/16/20 02/17/20 18:39 06:35 06:35 Hgb 6.5 L Plt Count 43 L 35 L 25 L* 02/17/20 02/18/20 17:53 05:32 Hgb 8.6 L 8.5 L Plt Count 19 L* Hospitalist ROS - Medication Medications: Active Medications Generic Name Dose Route Start Last Admin Trade Name Freq PRN Reason Stop Dose Admin Acetaminophen 650 mg 02/14/20 16:42 02/20/20 03:43 Tylenol PO 650 mg Q4H PRN Administration Headache/Fever/Mild Pain (1-3) Atorvastatin Calcium 40 mg 02/14/20 21:00 02/19/20 21:07 Lipitor PO 40 mg HS LIZZ Administration Carvedilol 6.25 mg 02/14/20 21:00 02/20/20 08:17 Coreg PO 6.25 mg BID LIZZ Administration Cefdinir 300 mg 02/18/20 21:00 02/20/20 08:16 Omnicef PO 300 mg BID LIZZ Administration Guaifenesin/Dextromethorphan 15 ml 02/14/20 16:42 02/15/20 14:22 Robitussin Dm PO 15 ml Q4H PRN Administration Cough Isosorbide Mononitrate 60 mg 02/15/20 09:00 02/20/20 08:16 Imdur PO 60 mg DAILY LIZZ Administration Pantoprazole Sodium 40 mg 02/16/20 09:00 02/20/20 08:18 Protonix IVP 40 mg DAILY LIZZ Administration Venclexta [ 0 each 02/15/20 09:00 02/20/20 08:17 Venetoclax] 100 Mg PO Not Given Tablet DAILY LIZZ Ramipril 10 mg 02/14/20 21:00 02/20/20 08:16 Altace PO 10 mg BID LIZZ Administration Sodium Chloride 10 ml 02/14/20 21:00 02/20/20 08:17 Flush - Normal Saline IVF 10 ml Q12HR LIZZ Administration Sodium Chloride 10 ml 02/14/20 19:31 02/18/20 05:36 Flush - Normal Saline IVF 10 ml PRN PRN Administration Saline Flush - Exam General Appearance: NAD, awake alert Eye - other findings: Marked edema of R eyelids, + active lid bleeding ENT: normocephalic atraumatic, no oropharyngeal lesions Neck: supple, symmetric, no JVD, no thyromegaly Heart: RRR, no murmur, no gallops, no rubs, normal peripheral pulses Heart - other findings: S1, S2 Respiratory: CTAB, no wheezes, no rales, no ronchi, normal chest expansion Gastrointestinal: soft, non-tender, non-distended, normal bowel sounds Extremities: no cyanosis, no clubbing Skin: normal turgor Neurological: cranial nerve grossly intact, no new deficit Musculoskeletal: normal tone, generalized weakness Psychiatric: normal affect, A&O x 3 Hosp A/P (1) CLL (chronic lymphocytic leukemia) Code(s): C91.90 - LYMPHOID LEUKEMIA, UNSPECIFIED NOT HAVING ACHIEVED REMISSION Status: Chronic Plan: Continue outpt chemo regimen when cleared to resume by medical oncology (2) Acute on chronic blood loss anemia Code(s): D62 - ACUTE POSTHEMORRHAGIC ANEMIA Status: Acute Plan: s/p 7u PRBC's, serial monitoring (3) Pancytopenia Code(s): D61.818 - OTHER PANCYTOPENIA Status: Acute (4) Preseptal cellulitis of right upper eyelid Code(s): L03.213 - PERIORBITAL CELLULITIS Status: Acute Plan: Start Doxycycline 100mg BID, warm compresses, re-evaluation by Ophthalmology, eye patch for bleeding control - Plan continue antibiotics, PT/OT, social media specialist, out of bed/ambulate, DVT proph w/ SCDs Stable currently Continue Platelet transfusion PRN Appreciate Ophthalmology regarding re-evaluation of R eye OOB with PT AM lab: CBC Likely home in 24h
[2020-02-20] MEDS: Atorvastatin Calcium 40 MG TAB PO SCH (20:41)
[2020-02-21 06:07] LABS: Hemoglobin 7.8 g/dL (14.0-18.0); Mean Corpuscular HGB CONC 33.6 g/dL (32.0-36.0); Mean Corpuscular Hemoglobin 30.1 pg (27.0-31.0); Mean Corpuscular Volume 89.5 fL (78.0-98.0); Mean Platelet Volume 7.9 fL (7.4-10.4); Platelet Count 4 thou/uL (130-400); RBC Distribution Width 13.7 % (11.5-14.5); Red Blood Cell (RBC) Count 2.59 mill/uL (4.70-6.10); White Blood Cell (WBC) Count 2.6 thou/uL (4.8-10.8)
[2020-02-21 06:35] LABS: Band 1 % (5-11); Lymphocytes 96 % (21-51); MDiff Complete? YES; Monocytes 1 % (0-10); Neutrophil 2 % (42-75); Platelet Morphology Comment Appears Decreased
[2020-02-21 07:47] VITALS: TEMP 98.5
[2020-02-21] MEDS: Carvedilol 6.25 MG TAB PO SCH (07:49)
[2020-02-21] MEDS: Pantoprazole 40 MG VIAL IVP SCH (07:50)
[2020-02-21] MEDS: Ramipril 5 MG CAP PO SCH (07:50)
[2020-02-21] MEDS: Cefdinir 300 MG CAP PO SCH (07:50)
[2020-02-21 07:51] VITALS: BP 167/87
[2020-02-21] MEDS: VENCLEXTA 100 MG PO SCH (07:51)
[2020-02-21] MEDS ORDERED: Doxycycline 100 MG CAP PO SCH ×2 (10:45→21:00)
[2020-02-21 11:28] LABS: Platelet Count 29 thou/uL (130-400)
--- NOTE | 2020-02-21 17:16 | DIS ---
DATE OF ADMISSION: 02/14/2020 DATE OF DISCHARGE: 02/21/2020 DISCHARGE DIAGNOSES: 1. Chronic lymphocytic leukemia with current chemotherapy. 2. [id number] blood loss anemia, status post 7 units of packed red blood cells total. 3. Thrombocytopenia, status post 3 units of platelets. 4. Pancytopenia, secondary to antineoplastic therapy. 5. Preseptal cellulitis of the right eye. 6. 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 CONSULTATIONS: 1. Dr. Garay with Medical Oncology Service. 2. Dr. Shea with GI Service. 3. Dr. Olivier Mackey with Ophthalmology Service. PERTINENT LABORATORY AND X-RAY FINDINGS: CBC showed a white blood cell count ranging between 1.8 to 11.8, hemoglobin ranged between 4.9 to 8.6, platelet count ranged between 3 to 55. Blood cultures x2 dated on 02/15/2020 showed no growth at 5 days. HOSPITAL COURSE: The patient was initially admitted to the Oncology Unit after presenting with melena and fatigue. The patient with significant history of chronic lymphocytic leukemia, monitored on outpatient basis, receiving current chemotherapy with Venetoclax oral therapy. The patient with recurrent symptomatic anemia, pancytopenia, and thrombocytopenia. The patient was initially evaluated for severe anemia with transfusion of 2 units of packed red blood cells and 1 pack of platelets. The patient was evaluated by the Medical Oncology Service with recommendations for serial CBC monitoring and transfusions of packed red blood cells and platelets as needed. The patient was discontinued on his oral chemotherapy agent throughout the entire hospital course. The patient was also evaluated by the GI Service after concern for a gastrointestinal bleeding. The patient had complained of melena and underwent EGD and colonoscopy exam. The patient was discovered with arteriovenous malformation, receiving argon plasma coagulation with good hemostasis. The patient was also noted with a cecal lesion, status post hemoclip with overall stabilization of hemoglobin values. The patient was also noted with recurrent thrombocytopenia, receiving a total of 3 units of platelets. The patient was also evaluated by the Ophthalmology Service for right eyelid swelling and concern for preseptal cellulitis. The patient was placed on broad-spectrum antibiotic therapy and monitored for clinical response. The patient had progression of the edema with eventual bleeding from the eyelid of the right eye. The patient underwent a local incision and drainage by the car rental sales assistant and placement of an eye patch. The patient subsequently was stabilized and deemed appropriate for discharge. I have examined the patient at the time of discharge and discussed followup instructions. The patient verbalized understanding and agreement, ready for discharge on 02/21/2020. DISCHARGE MEDICATIONS: 1. Lipitor 40 mg p.o. daily. 2. Carvedilol 6.25 mg p.o. b.i.d. 3. Isosorbide mononitrate 60 mg p.o. daily. 4. Ramipril 10 mg p.o. b.i.d. 5. Omnicef 300 mg p.o. b.i.d. 6. Doxycycline 100 mg p.o. b.i.d. x2 weeks. FOLLOWUP: The patient may follow up with his primary care provider, Dr. Chuy Georges. The patient will follow up with Dr. Shlomo Mendiola with Medical Oncology Service on 02/25/2020 at 08:15 a.m. The patient will follow up with Dr. Olivier Mackey, Ophthalmology Service. CONDITION ON DISCHARGE: Fair. ACTIVITY: Ad-claudia. DIET: Regular. CODE STATUS: Full. DISPOSITION: Home on 02/21/2020. TIME SPENT WITH PATIENT: Total time preparing and coordinating discharge, 42 minutes. Job ID: [id number]
== END 2020-02-21 12:08 | disposition home or self-care (01) | DRG 393 ==
LOC: ERS 11:27 → ONC 12:41
PROVIDERS: ADMIT Emergency Medicine; ATTEND Family Medicine
PROC: 30233N1 Transfusion of Nonautologous Red Blood Cells into Peripheral Vein, Percutaneous Approach (ICD-10-PCS; 2020-02-14)
PROC: 30233R1 Transfusion of Nonautologous Platelets into Peripheral Vein, Percutaneous Approach (ICD-10-PCS; 2020-02-14)
PROC: 0W3P8ZZ Control Bleeding in Gastrointestinal Tract, Via Natural or Artificial Opening Endoscopic (ICD-10-PCS; principal; 2020-02-15)
PROC: 0W3P8ZZ Control Bleeding in Gastrointestinal Tract, Via Natural or Artificial Opening Endoscopic (ICD-10-PCS; 2020-02-16)
DX: K63.81 Dieulafoy lesion of intestine (principal); D61.810 Antineoplastic chemotherapy induced pancytopenia; K92.1 Melena; C91.10 Chronic lymphocytic leukemia of B-cell type not having achieved remission; L03.213 Periorbital cellulitis; D62 Acute posthemorrhagic anemia; I25.10 Atherosclerotic heart disease of native coronary artery without angina pectoris; F17.290 Nicotine dependence, other tobacco product, uncomplicated; I10 Essential (primary) hypertension; K31.819 Angiodysplasia of stomach and duodenum without bleeding; E78.5 Hyperlipidemia, unspecified; D70.9 Neutropenia, unspecified; R50.81 Fever presenting with conditions classified elsewhere; T45.1X5A Adverse effect of antineoplastic and immunosuppressive drugs, initial encounter; Z79.02 Long term (current) use of antithrombotics/antiplatelets; I25.2 Old myocardial infarction; Z92.21 Personal history of antineoplastic chemotherapy; Z95.5 Presence of coronary angioplasty implant and graft
CPT/HCPCS: 36415; 36416; 36430; 80048; 80053; 85007; 85025; 85027; 85610; 85730; 86850; 86900; 86901; 87040; 93005; 96365; 96374; C9113; J0696; J2001; J2543; J2704; J3490; P9016; P9035

== ENCOUNTER 2020-02-25 16:10 | Inpatient (IN) | payer MEDICARE, OTHER ==
[2020-02-25 17:11] LABS: PTT 30.2 SEC (22.9-36.1); Prothrombin Time 12.9 SEC (12.0-14.7)
[2020-02-25 17:22] LABS: Hemoglobin 6.7 g/dL (14.0-18.0); Mean Corpuscular HGB CONC 33.6 g/dL (32.0-36.0); Mean Corpuscular Hemoglobin 30.2 pg (27.0-31.0); RBC Distribution Width 13.5 % (11.5-14.5); Red Blood Cell (RBC) Count 2.22 mill/uL (4.70-6.10); White Blood Cell (WBC) Count 2.7 thou/uL (4.8-10.8)
[2020-02-25 17:23] LABS: ALT (SGPT) 19 U/L (8-55); AST (SGOT) 7 U/L (5-34); Albumin 3.2 g/dL (3.4-4.8); Alkaline Phosphatase 100 U/L (40-110); Anion Gap 14 mmol/L (10-20); BUN (Urea Nitrogen) 13 mg/dL (8.4-25.7); Bilirubin, Total 0.4 mg/dL (0.2-1.2); Calc. Creatinine Clearance 0 mL/min (70-130); Calcium 8.4 mg/dL (7.8-10.44); Carbon Dioxide 22 mmol/L (23-31); Chloride 106 mmol/L (98-107); Estimated GFR-MDRD 89; Globulin 2.1 g/dL (2.4-3.5); Glucose 128 mg/dL (80-115); Protein, Total 5.3 g/dL (5.8-8.1); Sodium 138 mmol/L (136-145)
[2020-02-25 17:26] LABS: Mean Platelet Volume 15.2 fL (7.4-10.4); Platelet Count Less than 2 thou/uL (130-400)
[2020-02-25 17:35] LABS: Band 11 % (5-11); Lymphocytes 70 % (21-51); MDiff Complete? YES; Monocytes 8 % (0-10); Neutrophil 3 % (42-75); Platelet Morphology Comment Appears Decreased; Polychromasia SLIGHT = 2-3 cells (100X) (0-2/hpf); Reactive Lymphocytes 8 % (0-10)
--- NOTE | 2020-02-25 19:57 | HP ---
PRIMARY CARE PROVIDER: Chuy Georges MD PRIMARY ONCOLOGIST: Olivier Garay MD CHIEF COMPLAINT: Dark stools. HISTORY OF PRESENT ILLNESS: This is a 69-year-old male, who presents to [facility] Emergency Department complaining of 2-day history of increasing black stools in the context of recent GI bleed and admission to [facility] for the same, 02/14/2020 through 02/21/2020. The patient was diagnosed with a Dieulafoy lesion in the cecum and underwent hemoclip placement by the GI Service. During the 02/14/2020 through 02/21/2020 admission, the patient received a total 7 units of packed red blood cells and 3 units of platelets in the context of pancytopenia due to chemotherapy for his chronic lymphocytic leukemia. The patient states he had increasing fatigue, weakness and noted the dark stools. The patient denied any bright red blood per rectum or hematemesis. The patient denied taking any aspirin products. The patient admits to an improved appetite after being discharged home and denied any documented fever, increased cough, congestion, or shortness of breath. In the emergency room, the patient underwent general evaluation with hemoglobin noted at 6.7, white blood cell count 2.7, and platelet count less than 2. The patient was typed and crossed to receive 2 units of packed red blood cells pending at the time of this dictation. PAST MEDICAL HISTORY: 1. 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 2. Chronic lymphocytic leukemia treated with Venetoclax oral therapy. 3. Pancytopenia. 4. Preseptal cellulitis of the right eye, on doxycycline. 5. Coronary artery disease. 6. Hypertension. 7. History of colon polyps. PAST SURGICAL HISTORY: 1. Status post hernia repair. 2. Status post repair of a left ankle fracture, 1980s. 3. Cardiac catheterization, status post percutaneous coronary intervention x2 secondary to myocardial infarction. 4. EGD and colonoscopy in 2018. 5. Status post EGD and colonoscopy in 01/2020. CURRENT MEDICATIONS: 1. Lipitor 40 mg p.o. daily. 2. Carvedilol 6.25 mg p.o. b.i.d. 3. Isosorbide mononitrate 60 mg p.o. daily. 4. Ramipril 10 mg p.o. b.i.d. 5. Omnicef 300 mg p.o. b.i.d. 6. Doxycycline 100 mg p.o. b.i.d. ALLERGIES: NO KNOWN DRUG ALLERGIES. FAMILY HISTORY: No inheritable disease per patient report. SOCIAL HISTORY: Smokes cigar daily. No alcohol or illicit drug use. . REVIEW OF SYSTEMS: CONSTITUTIONAL: Negative for weight loss or gain, ability to conduct usual activities. SKIN: Negative for rash, itching. EYES: Negative for double vision, pain. ENT/MOUTH: Negative for nose bleeding, neck stiffness, pain, tenderness. CARDIOVASCULAR: Negative for palpitations, dyspnea on exertion, orthopnea. RESPIRATORY: Negative for shortness of breath, wheezing, cough, hemoptysis, fever or night sweats. GASTROINTESTINAL: Negative for poor appetite, abdominal pain, heartburn, nausea, vomiting, constipation, or diarrhea. GENITOURINARY: Negative for urgency, frequency, dysuria, nocturia. MUSCULOSKELETAL: Negative for pain, swelling. NEUROLOGIC/PSYCHIATRIC: Negative for anxiety, depression. ALLERGY/IMMUNOLOGIC: Negative for skin rash, bleeding tendency. Otherwise negative except as stated per HPI. PHYSICAL EXAMINATION: VITAL SIGNS: On admission, blood pressure 112/56, pulse is 87, respiratory rate 18, temperature 98.3 degrees Fahrenheit, O2 saturation 100% on room air. GENERAL APPEARANCE: This is a 69-year-old male, pale, alert, active, responsive, in no acute distress. HEENT: Pupils are equal, round, reactive to light and accommodation. Extraocular muscles are intact. Right conjunctival injection noted with mild periorbital erythema and lid edema. Nares are patent. OP is clear. Teeth in fair repair. NECK: Supple. No cervical adenopathy. No thyromegaly. No carotid bruits. No JVD appreciated. Cervical spine with full active and passive range of motion. No meningeal signs noted. CHEST: Lungs are clear to auscultation bilaterally. CARDIOVASCULAR: S1, S2 without noted murmur, rub, or gallop. ABDOMEN: Rounded, soft, nontender, and nondistended. Bowel sounds are positive in all 4 quadrants. No palpable mass. No rebound or guarding appreciated. EXTREMITIES: Warm and dry with fair turgor. No clubbing, or cyanosis. Left ankle with mild edema with tenderness to palpation. Pulses palpable distally at the dorsalis pedis, posterior tibial, and popliteal arteries bilaterally. Capillary refill less than 2 seconds. NEUROLOGIC: Cranial nerves 2 through 12 are grossly intact. No focal or lateralizing signs appreciated. PERTINENT LABORATORY AND X-RAY FINDINGS: Sodium 138, potassium 4.0, chloride 106, CO2 of 22, BUN 13, creatinine 0.85, calcium 8.4, glucose 128. LFTs within normal limits. CBC showed a white blood cell count of 2.7, hemoglobin 6.7, hematocrit 20, platelet count less than 2, neutrophils 3%, 11% bands with 70% lymphocytes. PT 12.9, INR 1.0, PTT 30.2. Stool Hemoccult positive x1, 02/25/2020. ASSESSMENT AND PLAN: 1. Recurrent gastrointestinal bleeding. The patient will be admitted to the Medical Oncology Unit. We will consult GI Service for any further recommendations and consideration for repeat endoscopy. History of Dieulafoy lesion in the cecum status post hemoclip, 01/2020. Avoid anticoagulation and aspirin. N.p.o. currently. Serial H and H monitoring. Type and cross with 2 units of packed red blood cells this evening. 2. Acute on chronic normocytic anemia. Multifactorial. Type and cross for 2 units of packed red blood cells. See #1 above. Serial CBC. 3. Pancytopenia. Secondarily to antineoplastic medications. We will continue to monitor clinically. Consult Medical Oncology Service. Transfuse 1pack of platelets. 4. Preseptal cellulitis of the right eye. Continue doxycycline 100 mg p.o. b.i.d. 5. Prophylaxis. SCDs while in bed. Pepcid 20 mg IV b.i.d. Neutropenic precautions. CODE STATUS: Full. Surrogate medical decision maker is the patient's spouse. Job ID: [id number]
[2020-02-25] MEDS ORDERED: Acetaminophen 500 MG TAB PO PRN (20:21)
[2020-02-25] MEDS ORDERED: Ondansetron ODT 4 MG TAB PO PRN (20:21)
[2020-02-25] MEDS ORDERED: Ondansetron PF 4 MG/2 ML Vial IVP PRN (20:21)
[2020-02-25] MEDS: Sodium Chloride 0.9% 1,000 ML IV SCH (21:03)
[2020-02-25] MEDS: Famotidine/PF 20 mg/2ml Vial SLOW IVP SCH (21:03)
[2020-02-25] MEDS: Carvedilol 6.25 MG TAB PO SCH (21:03)
[2020-02-25] MEDS: Doxycycline 100 MG CAP PO SCH (21:03)
[2020-02-26] MEDS: hydrALAZINE 20 MG/ML VIAL SLOW IVP PRN (03:46)
[2020-02-26 06:17] LABS: Hemoglobin 8.2 g/dL (14.0-18.0); Mean Corpuscular HGB CONC 33.1 g/dL (32.0-36.0); Mean Corpuscular Hemoglobin 29.8 pg (27.0-31.0); Mean Corpuscular Volume 90.1 fL (78.0-98.0); Mean Platelet Volume 8.2 fL (7.4-10.4); Platelet Count 20 thou/uL (130-400); RBC Distribution Width 13.3 % (11.5-14.5); Red Blood Cell (RBC) Count 2.75 mill/uL (4.70-6.10); White Blood Cell (WBC) Count 2.7 thou/uL (4.8-10.8)
[2020-02-26 06:20] LABS: Band 1 % (5-11); Lymphocytes 77 % (21-51); MDiff Complete? YES; Monocytes 11 % (0-10); Neutrophil 11 % (42-75)
[2020-02-26 06:23] LABS: Anion Gap 9 mmol/L (10-20); BUN (Urea Nitrogen) 14 mg/dL (8.4-25.7); Calc. Creatinine Clearance 102 mL/min (70-130); Calcium 8.6 mg/dL (7.8-10.44); Carbon Dioxide 23 mmol/L (23-31); Chloride 109 mmol/L (98-107); Estimated GFR-MDRD Greater than 90; Glucose 91 mg/dL (80-115); Potassium 3.9 mmol/L (3.5-5.1); Sodium 137 mmol/L (136-145)
[2020-02-26] MEDS ORDERED: Prevnar 13-Val Conj/PF 0.5 ML SYRINGE IM ONE (09:00)
[2020-02-26] MEDS: Carvedilol 6.25 MG TAB PO SCH ×2 (09:58→20:04)
[2020-02-26] MEDS: Famotidine/PF 20 mg/2ml Vial SLOW IVP SCH ×2 (09:59→20:05)
[2020-02-26] MEDS: Doxycycline 100 MG CAP PO SCH ×2 (09:59→20:05)
[2020-02-26] MEDS ORDERED: diphenhydrAMINE 50 MG/ML VIAL IVP PRN (10:37)
[2020-02-26] MEDS ORDERED: Acetaminophen 500 MG TAB PO PRN (10:37)
--- NOTE | 2020-02-26 10:48 | PDOC.HOSPP ---
- Subjective Encounter Date: 02/26/20 Encounter Time: 10:45 Subjective: f/u for symptomatic anemia, pancytopenia and CLL, s/p 2u PRBC's and 1u platelets. Feels ok overall except for L ankle pain/swelling. - Objective Vital Signs & Weight: Vital Signs (12 hours) Temp Pulse Resp BP BP BP Pulse Ox 02/26/20 09:58 159/69 H 02/26/20 07:42 98.4 F 66 16 167/76 H 99 02/26/20 05:27 142/66 H 02/26/20 03:54 98.1 F 75 16 185/78 H 97 02/26/20 03:46 72 02/26/20 01:39 98.6 F 72 18 100 Weight Weight 167 lb 2 oz I&O: 02/25/20 02/26/20 02/27/20 06:59 06:59 06:59 Intake Total 1490 Output Total 300 Balance 1190 Result Diagrams: 02/26/20 05:40 02/26/20 05:40 Additional Labs: Microbiology 02/25/20 16:31 Stool - Pending Stool Occult Blood (LAUREN) - Final 02/15/20 18:44 Venous blood - Right Hand Blood Culture - Preliminary NO GROWTH AT 48 HOURS 02/15/20 18:39 Venous blood - Right Arm Blood Culture - Preliminary NO GROWTH AT 48 HOURS Laboratory Tests 02/15/20 02/16/20 02/17/20 18:39 06:35 06:35 WBC Hgb 6.5 L Plt Count 43 L 35 L 25 L* Lymphocytes % (Manual) 02/17/20 02/18/20 02/25/20 17:53 05:32 16:31 WBC 2.7 L Hgb 8.6 L 8.5 L 6.7 L Plt Count 19 L* Less than 2 L* Lymphocytes % (Manual) 70 H 02/26/20 05:40 WBC Hgb Plt Count Lymphocytes % (Manual) 77 H Hospitalist ROS - Medication Medications: Active Medications Generic Name Dose Route Start Last Admin Trade Name Freq PRN Reason Stop Dose Admin Carvedilol 6.25 mg 02/25/20 21:00 02/26/20 09:58 Coreg PO 6.25 mg BID LIZZ Administration Doxycycline Hyclate 100 mg 02/25/20 21:00 04/30/20 09:59 Vibramycin PO 100 mg BID LIZZ Administration Famotidine 20 mg 02/25/20 21:00 02/26/20 09:59 Pepcid SLOW IVP Not Given Q12HR [facility] Hydralazine HCl 10 mg 02/25/20 20:21 02/26/20 03:46 Apresoline SLOW IVP 10 mg Q4H PRN Administration SBP > 180 and HR < 70 Sodium Chloride 1,000 mls @ 75 mls/hr 02/25/20 20:21 02/25/20 21:03 Normal Saline 0.9% IV 1,000 mls .[id number] LIZZ Administration - Exam General Appearance: NAD, awake alert Eye: PERRL, anicteric sclera Eye - other findings: R eye erythema, periorbital edema ENT: normocephalic atraumatic, no oropharyngeal lesions Neck: supple, symmetric, no JVD, no thyromegaly Heart: RRR, no murmur, no gallops, no rubs, normal peripheral pulses Heart - other findings: S1, S2 Respiratory: CTAB, no wheezes, no rales, no ronchi, normal chest expansion Gastrointestinal: soft, non-tender, non-distended, normal bowel sounds, no palpable masses Extremities: no cyanosis Extremities - other findings: L ankle edema/warmth, N/V intact Skin: normal turgor, no lesions Neurological: cranial nerve grossly intact, no new deficit Musculoskeletal: normal tone, normal strength, no muscle wasting Psychiatric: normal affect, A&O x 3 Hosp A/P (1) Symptomatic anemia Code(s): D64.9 - ANEMIA, UNSPECIFIED Status: Acute Plan: s/p 2u PRBC's, serial monitoring, multifactorial including GI loss/chemotherapy (2) Acute on chronic blood loss anemia Code(s): D62 - ACUTE POSTHEMORRHAGIC ANEMIA Status: Acute Plan: GI consult pending, see above #1, serial CBC (3) Pancytopenia Code(s): D61.818 - OTHER PANCYTOPENIA Status: Acute Plan: Secondary to chemotherapy, Medical oncology consult (4) Preseptal cellulitis of right upper eyelid Code(s): L03.213 - PERIORBITAL CELLULITIS Status: Acute Plan: Improved, continue Doxycycline 100mg BID (5) CLL (chronic lymphocytic leukemia) Code(s): C91.90 - LYMPHOID LEUKEMIA, UNSPECIFIED NOT HAVING ACHIEVED REMISSION Status: Chronic Plan: Considering starting Rituxan today - Plan 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 gouty arthropathy Check uric acid level GI consult pending NPO status currently AM lab: CBC
[2020-02-26] MEDS: Sodium Chloride 0.9% 1,000 ML IV SCH ×2 (11:04→20:05)
--- NOTE | 2020-02-26 11:23 | CON ---
DATE OF CONSULTATION: REASON FOR CONSULTATION: Pancytopenia and CLL. HISTORY OF PRESENT ILLNESS: Mr. Webb is a pleasant 69-year-old gentleman, who was recently discharged from this facility for pancytopenia and GI bleed. He has a history of CLL. In June of 2019, he had a bone marrow which showed marrow replacement. With CLL, his white count was greater than 50,000, his hemoglobin was as low as 5.9. He was started on ibrutinib. Unfortunately in November of this year, he became refractory to ibrutinib and started on venetoclax on January 20. His white count has improved with venetoclax, however, his platelets have continued to drop and unfortunately caused GI bleed and that is the reason for his admission. On the , he was seen by PAT during that time and had a Dieulafoy's lesion in the cecum that was clipped. He received 7 units of blood products and three platelets during that admission. He was continued on the venetoclax. He also had a right orbital cellulitis and was seen by Dr. Mackey, started on doxycycline, which he currently continues. He was to see Dr. Mendiola yesterday for followup and to begin treatment with Rituxan. Unfortunately, he began having dark stools and presented to the emergency room for further evaluation. In the ER, CBC showed a white count of 2.7, hemoglobin of 6.7, and a platelet count of less than 2. He had a positive guaiac stool, although no evidence of active bleeding. He was admitted and transfused 2 units of blood and a unit of platelets. The patient's only complaint at this time is his left ankle pain from arthritis. He has no visual deficits. His eye is much improved from last week. PAST MEDICAL HISTORY: 1. CLL with chronic anemia and thrombocytopenia. 2. Coronary artery disease. 3. Hypertension. 4. History of colon polyps. PAST SURGICAL HISTORY: 1. Recent clipping of a Dieulafoy's lesion in the cecum. 2. Hernia repair. 3. Left ankle fracture. 4. Cardiac catheterization. ALLERGIES: NO KNOWN DRUG ALLERGIES. HOME MEDICATIONS: 1. Lipitor 40 mg daily. 2. Coreg 6.25 mg b.i.d. 3. Isosorbide 60 mg daily. 4. Ramipril 10 mg b.i.d. 5. Venetoclax 200 mg daily. 6. Doxycycline 100 mg b.i.d. FAMILY HISTORY: Noncontributory. SOCIAL HISTORY: , has 2 children. Lives with his spouse. No alcohol, tobacco, or illicit drug use. REVIEW OF SYSTEMS: A 10-point review of systems is negative except for noted in HPI. PHYSICAL EXAMINATION: VITAL SIGNS: Temperature is 98.4, pulse is 66, respiratory rate 16, BP is 159/69, he is 98% on room air. GENERAL: This is a well-developed, well-nourished male, in no acute distress. HEENT: Normocephalic, atraumatic. He has mild erythema of the right orbit. NECK: Supple. CV: Regular rate and rhythm. LUNGS: Clear. ABDOMEN: Soft and nontender. Bowel sounds positive. EXTREMITIES: No clubbing or cyanosis. He has mild 1+ swelling of his ankle area on the left. SKIN: No rash. HEMATOLOGICAL: There is no petechiae or purpura. NEUROLOGICAL: Nonfocal. PERTINENT LABS AND X-RAYS: Current WBCs 2.7, hemoglobin 8.2, hematocrit 24.8, platelets 20,000, he has 11% neutrophils, 1% bands, 77% lymphocytes. PT is 12.9, INR is 1, PTT is 30.2. Sodium is 137, potassium 3.9, chloride 109, CO2 is 23, BUN is 14, creatinine 0.72, calcium 8.6, bilirubin 0.4, AST 7, ALT is 19, alkaline phosphatase is 100. Serum total protein 5.3, albumin 3.2, globulin 2.1. ASSESSMENT: 1. Chronic lymphocytic leukemia. 2. Severe anemia and thrombocytopenia. DISCUSSION: The patient denies any active bleeding at this time. He did have some dark stools, which was positive for blood. GI has been consulted for their opinion, although I doubt that they will perform any endoscopy at this time. His platelets and hemoglobin have improved with transfusion. The patient's bone marrow essentially been overtaken by his CLL. He has had leukocytosis, severe anemia and thrombocytopenia for several months. He continues the venetoclax daily. His lymphocytes and neutrophils have improved with treatment. He was due for Rituxan in our clinic this week. Plan is to give the medication here and monitor CBC closely. Hopefully, he can be discharged in the next day or so to follow up in the clinic. I would continue antibiotics for his right cellulitis as it has improved, but not completely resolved. Thank you for the consult. Job ID: [id number]
[2020-02-26] MEDS ORDERED: SODIUM CHLORIDE 0.9% IVPB SCH (12:00)
[2020-02-26] MEDS ORDERED: RITUXIMAB IVPB SCH (12:00)
--- NOTE | 2020-02-26 14:41 | RAD ---
LEFT ANKLE 3 VIEWS: HISTORY: Ankle pain and edema. FINDINGS: Postop changes of the ankle are noted. A screw is seen through the medial malleolus and an intramedu llary janusz is seen in the fibula. There are severe arthritic changes of the ankle joint. There are n o acute bony findings. Calcaneal spurs are present. IMPRESSION: 1. Postop and arthritic changes of the ankle. No acute process. 2. Atherosclerosis. POS: COTY
[2020-02-26] MEDS ORDERED: GoLYTELY 4,000 ml Bottle PO SCH (14:45)
--- NOTE | 2020-02-26 18:01 | CON ---
DATE OF CONSULTATION: 02/26/2020 REASON FOR CONSULTATION: Anemia, melena, recent Dieulafoy lesion of the cecum. CONSULTING PROVIDER: Dr. Marcos Mejia. HISTORY OF PRESENT ILLNESS: The patient is a 69-year-old male with past medical history of coronary artery disease status post stent placement x2, hypertension, history of colonic polyps, and chronic lymphocytic leukemia status post chemotherapy that has required multiple transfusions over the last few months, presenting with complaints of mild shortness of breath and dark black stools. The patient was recently admitted to [facility] on 02/14/2020 with increased complaints of shortness of breath and fatigue. He was noted to have a significantly decreased hemoglobin and hematocrit as well as profound thrombocytopenia at that time with initial thoughts towards this being chemotherapy related. However, he did undergo upper endoscopy and colonoscopy during that admission, with the EGD showing a small arteriovenous malformation that was nonbleeding along the lesser curvature. However, he did have a Dieulafoy lesion within the cecum that was actively bleeding and most likely contributing to his blood loss. This was intervened upon successfully with a hemoclip placement x1 and had stabilization of his hemoglobin and hematocrit afterwards with no further episodes of melena. On discharge, the patient states that he was doing well until approximately 2 days ago when he started having a change in his bowel movement consistency where he started to have semi-solid black stools again, that was associated again with his mild shortness of breath. Given his recent hospitalization and presenting symptoms, it prompted him to seek healthcare assistance at the [facility] ER, where he was again noted to have a decreased hemoglobin and hematocrit, concerning for continued GI bleeding. Today, the patient states that he is doing well other than increased left ankle pain that has been worsening over the last few days addition to these continued semi-solid stools, having approximately 1-2 black semi-solid stools within the last 24 hours. However, he currently denies any nausea, vomiting, fevers, chills, abdominal pain, constipation, dysphagia, odynophagia, or fatigue. REVIEW OF SYSTEMS: A 10-category review of systems was obtained with all responses negative except for the pertinent positives as listed in HPI. PAST MEDICAL HISTORY: As per HPI. PAST SURGICAL HISTORY: 1. Bilateral inguinal hernia repair. 2. Left ankle fracture repair. 3. Cardiac stent placement x2. 4. Bone marrow biopsy. 5. EGD and colonoscopy in the past. FAMILY HISTORY: Denies any GI malignancies. SOCIAL HISTORY: Smokes approximately 2-3 cigars daily, but denies any alcohol or illicit drug use. OUTPATIENT MEDICATIONS: Reviewed. ALLERGIES: NO KNOWN DRUG ALLERGIES. PHYSICAL EXAMINATION: VITAL SIGNS: Temperature 98.3, pulse 64, blood pressure 154/69, respiratory rate 18, and saturating 100% on room air. GENERAL: The patient was lying in bed, in no acute distress. Alert and oriented x4. HEENT: Normocephalic and atraumatic. NECK: Supple. No JVD or scleral icterus noted. CARDIOVASCULAR: Regular rate and rhythm with no discernable murmurs, gallops, or rubs. RESPIRATORY: Clear to auscultation bilaterally with no discernable wheezes or rales. ABDOMEN: Normoactive bowel sounds. Soft, nontender, and nondistended. EXTREMITIES: No cyanosis, clubbing, or edema. LABORATORY DATA: CBC with a white blood cell count of 2.7, hemoglobin 8.2, hematocrit 24.8, and platelets 20. INR 1.0. Chemistry with a sodium of 137, potassium 3.9, chloride 109, CO2 of 23, BUN 14, creatinine 0.72, and glucose 91. AST 7, ALT 19, alkaline phosphatase 100, and total bilirubin 0.4. IMAGING DATA: No current GI imaging is available for review. ASSESSMENT AND PLAN: The patient is a 69-year-old male with past medical history of coronary artery disease status post placement x3 with heart attack x1, hypertension, history of colonic polyps, chronic lymphocytic leukemia status post chemotherapy, and recent diagnosis of a colonic Dieulafoy lesion, presenting with continued anemia and melenic type stools, concerning for continued bleeding in the lower gastrointestinal tract. Gastrointestinal bleeding/possible Dieulafoy lesion: The patient initially presented to the hospital in mid 01/2020 with complaints of shortness of breath and melenic type stools. He underwent upper endoscopy at that time, which did not show any significant findings that would contribute to bleeding, but did undergo a colonoscopy the following day, that showed an actively oozing/bleeding Dieulafoy lesion within the cecum. This was intervened upon with hemoclip placement x1, and in the postoperative period had stabilization of his hemoglobin and hematocrit and no further episodes of melena. He was ultimately discharged to home and was convalescing until approximately 2 days ago when he had a repeat occurrence of these semi-solid black stools as well as mild shortness of breath, concerning for continued bleeding. Upon re-evaluation in the ER, he was noted to have a decreased hemoglobin and hematocrit when compared to discharge, concerning for continued bleeding as well, but also noted to have a platelet count of less than 2000, which could lend itself towards continued bleeding as well. RECOMMENDATIONS: 1. Would continue to trend his hemoglobin and hematocrit and transfuse as necessary to maintain the hemoglobin and hematocrit of 7/21. 2. Continue to monitor clinically for signs of active GI bleeding. 3. Agree with the infusion of blood and platelets thus far given the patient's concurrent diagnosis of CLL. 4. Would hold any anticoagulation in light of active GI bleeding. 5. Would place the patient on a clear liquid diet with plans for GoLYTELY prep tonight for colonoscopy tomorrow. Please administer the GoLYTELY prep with 2 L administered at 8 p.m. tonight and the remaining 2 L at 3 a.m. tomorrow morning. 6. Further recommendations to follow colonoscopy. We will continue to follow. Please call with any questions. Job ID: [id number]
[2020-02-27] MEDS: Carvedilol 6.25 MG TAB PO SCH ×2 (05:06→20:01)
[2020-02-27] MEDS: hydrALAZINE 20 MG/ML VIAL SLOW IVP PRN (05:09)
[2020-02-27 05:41] LABS: Hemoglobin 7.9 g/dL (14.0-18.0); Mean Corpuscular HGB CONC 32.8 g/dL (32.0-36.0); Mean Corpuscular Hemoglobin 29.6 pg (27.0-31.0); Mean Platelet Volume 7.7 fL (7.4-10.4); Platelet Count 15 thou/uL (130-400); RBC Distribution Width 13.2 % (11.5-14.5); Red Blood Cell (RBC) Count 2.66 mill/uL (4.70-6.10); White Blood Cell (WBC) Count 2.3 thou/uL (4.8-10.8)
[2020-02-27 05:50] LABS: Band 1 % (5-11); Lymphocytes 75 % (21-51); MDiff Complete? YES; Monocytes 14 % (0-10); Neutrophil 10 % (42-75); Platelet Morphology Comment Appears Decreased
[2020-02-27] MEDS ORDERED: Midazolam HCl 2 mg/2 ml Vial ONE (08:20)
[2020-02-27] MEDS ORDERED: Ketamine 50 MG/ML (10ML VIAL) ONE (08:20)
[2020-02-27] MEDS ORDERED: Promethazine HCl 25 MG/ML VIAL SLOW IVP PRN (08:44)
[2020-02-27] MEDS ORDERED: Ondansetron HCl/PF 4 MG/2 ML Vial IVP PRN (08:44)
[2020-02-27] MEDS ORDERED: Promethazine HCl 25 MG/ML VIAL IM PRN (08:44)
--- NOTE | 2020-02-27 10:05 | OP ---
DATE OF PROCEDURE: 02/27/2020 PROCEDURE PERFORMED: Colonoscopy with control of hemorrhage. INDICATIONS FOR PROCEDURE: Melena, anemia, recent history of a bleeding Dieulafoy lesion. DESCRIPTION OF PROCEDURE: After the risks and benefits of the procedure were explained to the patient including risks of bleeding, infection, perforation, reactions to anesthesia, aspiration, and/or pain, informed consent was obtained. The patient was then taken to the endoscopy suite and placed in the left lateral decubitus position followed by deep sedation via ketamine and anesthesia support. Once adequate sedation was achieved, a digital rectal examination was performed followed by introduction of the standard colonoscope, which was then advanced to the terminal ileum with some difficulty, requiring manual abdominal pressure to facilitate the passage of the scope. The quality of the prep was good with adequate visualization of the colonic mucosa achieved. The patient tolerated the procedure well with no immediate perioperative complications. Upon conclusion of the procedure, all equipment was removed from the patient and he was transferred to PACU in satisfactory condition. FINDINGS: Digital rectal exam: Normal findings were seen on external examination. Colon findings: Normal-appearing mucosa was seen within the terminal ileum with no evidence of active or recent bleeding seen. However, within the cecum, the previously described Dieulafoy lesion was obscured by an intact hemoclip with no evidence of active or recent bleeding surrounding the hemoclip itself. There were multiple 1 to 2 mm nonbleeding arteriovenous malformations seen in the cecum adjacent to the hemoclip that did not display any evidence of active or recent bleeding; however, given his decreasing hemoglobin and hematocrit and history of melena, these were intervened upon with argon plasma coagulation with good hemostasis achieved. Normal-appearing mucosa was then seen at the ileocecal valve and appendiceal orifice. Normal-appearing mucosa was then seen in the proximal ascending colon; however, a 1 to 2 mm bright red arteriovenous malformation was seen in the ascending colon as well, that did have a small amount of blood-tinged mucous overlying it. This was successfully intervened upon with argon plasma coagulation. However, continued to ooze blood after this intervention, requiring hemoclip x1 in order to achieve adequate hemostasis. There was no bleeding noted at the end of the maneuver. Normal-appearing mucosa was then seen in the transverse, descending, and sigmoid colon and rectum. No abnormalities were seen on rectal retroflexion. IMPRESSION: 1. Multiple nonbleeding small arteriovenous malformations in the cecum adjacent to the previous placed hemoclip (for actively bleeding Dieulafoy lesion), successfully intervened upon with argon plasma coagulation. 2. A 1 to 2 mm nonbleeding arteriovenous malformation in the ascending colon status post argon plasma coagulation and hemoclip placement x1. 3. Otherwise normal colonoscopy. RECOMMENDATIONS: 1. Would continue to trend the patient's hemoglobin and hematocrit and transfuse as necessary to maintain the hemoglobin and hematocrit of 7/21. 2. Continue to monitor clinically for signs of active GI bleeding. 3. Would continue to hold any anticoagulation given recent decreasing hemoglobin and hematocrit and intervention on lesions today. 4. Would avoid any NSAIDs as well. We will continue to follow. Please call with any questions. Job ID: [id number]
[2020-02-27] MEDS ORDERED: PROPOFOL 200 MG/20 ML VIAL ONE (11:38)
[2020-02-27] MEDS: Doxycycline 100 MG CAP PO SCH ×2 (11:53→20:02)
[2020-02-27] MEDS: Famotidine/PF 20 mg/2ml Vial SLOW IVP SCH (11:53)
[2020-02-27] MEDS: VENCLEXTA 100 MG PO SCH (11:54)
--- NOTE | 2020-02-27 12:13 | PDOC.HOSPP ---
- Subjective Encounter Date: 02/27/20 Encounter Time: 12:10 Subjective: f/u for GI bleeding, acute blood loss anemia s/p 2u PRBC's with colonoscopy today with hemoclip on small AVM. No new issues noted. - Objective Vital Signs & Weight: Vital Signs (12 hours) Temp Pulse Resp BP BP BP Pulse Ox 02/27/20 07:30 98.5 F 67 18 152/70 H 100 02/27/20 05:56 176/74 H 02/27/20 05:09 75 175/75 H 02/27/20 04:00 98.3 F 66 16 175/75 H 100 02/27/20 00:23 98.7 F 69 16 181/77 H 98 Weight Weight 168 lb 11.2 oz I&O: 02/26/20 02/27/20 02/28/20 06:59 06:59 06:59 Intake Total 1490 932 Output Total 300 Balance 1190 932 Result Diagrams: 02/27/20 05:11 02/26/20 05:40 Additional Labs: Microbiology 02/25/20 16:31 Stool - Pending Stool Occult Blood (LAUREN) - Final 02/15/20 18:44 Venous blood - Right Hand Blood Culture - Preliminary NO GROWTH AT 48 HOURS 02/15/20 18:39 Venous blood - Right Arm Blood Culture - Preliminary NO GROWTH AT 48 HOURS Laboratory Tests 02/15/20 02/16/20 02/17/20 18:39 06:35 06:35 WBC Hgb 6.5 L Plt Count 43 L 35 L 25 L* Lymphocytes % (Manual) Uric Acid 02/17/20 02/18/20 02/25/20 17:53 05:32 16:31 WBC 2.7 L Hgb 8.6 L 8.5 L 6.7 L Plt Count 19 L* Less than 2 L* Lymphocytes % (Manual) 70 H Uric Acid 02/26/20 02/26/20 05:40 11:30 WBC Hgb Plt Count Lymphocytes % (Manual) 77 H Uric Acid 3.5 Radiology Reviewed by me: Yes (L ankle x-ray - severe arthritic changes, no acute process/fx) Hospitalist ROS - Medication Medications: Active Medications Generic Name Dose Route Start Last Admin Trade Name Freq PRN Reason Stop Dose Admin Carvedilol 6.25 mg 02/25/20 21:00 02/27/20 05:06 Coreg PO 6.25 mg BID LIZZ Administration Doxycycline Hyclate 100 mg 02/25/20 21:00 02/27/20 11:53 Vibramycin PO 100 mg BID LIZZ Administration Famotidine 20 mg 02/25/20 21:00 02/27/20 11:53 Pepcid SLOW IVP 20 mg Q12HR LIZZ Administration Hydralazine HCl 10 mg 02/25/20 20:21 02/27/20 05:09 Apresoline SLOW IVP 10 mg Q4H PRN Administration SBP > 180 and HR < 70 Sodium Chloride 1,000 mls @ 75 mls/hr 02/25/20 20:21 02/26/20 20:05 Normal Saline 0.9% IV 1,000 mls .[id number] LIZZ Administration Patient's Home 2 each 02/27/20 09:00 02/27/20 11:54 Medication Venclexta PO 2 each 100 Mg Tab DAILY LIZZ Administration - Exam General Appearance: NAD, awake alert Eye: PERRL, anicteric sclera ENT: normocephalic atraumatic, no oropharyngeal lesions Neck: supple, symmetric, no JVD, no thyromegaly, no carotid bruit Heart: RRR, no gallops, no rubs, normal peripheral pulses Heart - other findings: S1, S2 Respiratory: CTAB, no wheezes, no rales, no ronchi, normal chest expansion Gastrointestinal: soft, non-tender, non-distended, normal bowel sounds, no palpable masses Extremities - other findings: L ankle edema, less TTP today Skin: normal turgor, no lesions Neurological: cranial nerve grossly intact, no new deficit Musculoskeletal: normal tone, normal strength Psychiatric: normal affect, A&O x 3 Hosp A/P (1) GI bleed Code(s): K92.2 - GASTROINTESTINAL HEMORRHAGE, UNSPECIFIED Status: Acute Plan: s/p APC and hemoclip, serial H/H monitoring (2) Symptomatic anemia Code(s): D64.9 - ANEMIA, UNSPECIFIED Status: Acute Plan: s/p 2u PRBC's, see above (3) Acute on chronic blood loss anemia Code(s): D62 - ACUTE POSTHEMORRHAGIC ANEMIA Status: Acute (4) Pancytopenia Code(s): D61.818 - OTHER PANCYTOPENIA Status: Acute Plan: Secondary to CLL and antineoplastic regimen, medical oncology following (5) Preseptal cellulitis of right upper eyelid Code(s): L03.213 - PERIORBITAL CELLULITIS Status: Acute Plan: Continue Doxycycline 100mg BID (6) CLL (chronic lymphocytic leukemia) Code(s): C91.90 - LYMPHOID LEUKEMIA, UNSPECIFIED NOT HAVING ACHIEVED REMISSION Status: Chronic Plan: Receiving Rituxan IV (7) Left ankle pain Code(s): M25.572 - PAIN IN LEFT ANKLE AND JOINTS OF LEFT FOOT Status: Acute Plan: ? etiology, arthritic inflammatory process, ? pseudo gout/hemoarthrosis, Consult Orthopedics for consideration of arthrocentesis - Plan continue antibiotics, PT/OT, licensed social worker, out of bed/ambulate, DVT proph w/ SCDs Stable currently Supportive mgmt, pain control as clinically indicated GI consult appreciated Continue Pepcid 20mg BID Resume home BP regimen Continue Rituxan per oncology service Tramadol 50mg po q6h prn AM lab: CBC
[2020-02-27] MEDS ORDERED: traMADol HCl 50 MG TAB PO PRN (12:42)
--- NOTE | 2020-02-27 12:52 | PDOC.MOPN ---
Interval History: hungry today. - Vital Signs Vital Signs: Vital Signs (12 hours) Temp Pulse Resp BP BP BP Pulse Ox 02/27/20 07:30 98.5 F 67 18 152/70 H 100 02/27/20 05:56 176/74 H 02/27/20 05:09 75 175/75 H 02/27/20 04:00 98.3 F 66 16 175/75 H 100 Weight Weight 168 lb 11.2 oz - Physical Exam General: Alert, Oriented x3, No acute distress HEENT: Atraumatic, PERRLA, EOMI, Mucous membr. moist/pink Lungs: Clear to auscultation, Normal air movement Cardiovascular: Regular rate, Normal S1, Normal S2, No murmurs, Gallops, Rubs Abdomen: Normal bowel sounds, Soft, No tenderness, No hepatospenomegaly, No masses Extremities: No clubbing, No cyanosis, No edema, Normal pulses, No tenderness/ swelling Skin: No rashes, No breakdown, No significant lesion Neurological: Normal gait, Normal speech, Strength at 5/5 X4 ext, Normal tone, Sensation intact, Cranial nerves 3-12 NL, Reflexes 2+ Psych/Mental Status: Mental status NL, Mood NL - Labs Result Diagrams: 02/27/20 05:11 02/26/20 05:40 Lab results: Laboratory Results - last 24 hr 02/27/20 05:11: WBC 2.3 L, RBC 2.66 L, Hgb 7.9 L, Hct 23.9 L, MCV 90.0, MCH 29.6 , MCHC 32.8, RDW 13.2, Plt Count 15 L*, MPV 7.7, Neutrophils % (Manual) 10 L, Band Neuts % (Manual) 1 L, Lymphocytes % (Manual) 75 H, Monocytes % (Manual) 14 H, Plt Morphology Comment Appears Decreased L Status: lab reviewed by me A/P - Problem (1) GI bleed Current Visit: Yes Code(s): K92.2 - GASTROINTESTINAL HEMORRHAGE, UNSPECIFIED Status: Acute (2) Acute on chronic blood loss anemia Current Visit: No Code(s): D62 - ACUTE POSTHEMORRHAGIC ANEMIA Status: Acute (3) CLL (chronic lymphocytic leukemia) Current Visit: No Code(s): C91.90 - LYMPHOID LEUKEMIA, UNSPECIFIED NOT HAVING ACHIEVED REMISSION Status: Chronic - Plan Plan: Endoscopy results noted Rituxan planned for today continue Venetoclax CBC in am
[2020-02-27] MEDS ORDERED: Acetaminophen 500 MG TAB PO SCH (16:30)
[2020-02-27] MEDS: Sodium Chloride 0.9% 1,000 ML IV SCH (16:35)
[2020-02-27] MEDS ORDERED: Acetaminophen 500 MG TAB PO PRN (19:51)
[2020-02-27] MEDS: Famotidine 20 MG TAB PO SCH (20:01)
[2020-02-28 06:08] LABS: Hemoglobin 7.7 g/dL (14.0-18.0); Mean Corpuscular HGB CONC 34.5 g/dL (32.0-36.0); Mean Corpuscular Hemoglobin 31.1 pg (27.0-31.0); Mean Corpuscular Volume 90.2 fL (78.0-98.0); Mean Platelet Volume 8.3 fL (7.4-10.4); Platelet Count 8 thou/uL (130-400); RBC Distribution Width 13.3 % (11.5-14.5); Red Blood Cell (RBC) Count 2.46 mill/uL (4.70-6.10); White Blood Cell (WBC) Count 0.9 thou/uL (4.8-10.8)
[2020-02-28 06:28] LABS: Band 12 % (5-11); Hypochromia SLIGHT = 6-15 cells (100X) (0-5/hpf); Lymphocytes 48 % (21-51); MDiff Complete? YES; Monocytes 4 % (0-10); Neutrophil 36 % (42-75); Platelet Morphology Comment Appears Decreased
[2020-02-28] MEDS ORDERED: Acetaminophen 500 MG TAB PO SCH (07:30)
[2020-02-28] MEDS ORDERED: diphenhydrAMINE 25 MG CAP PO SCH (07:30)
[2020-02-28] MEDS: Famotidine 20 MG TAB PO SCH ×2 (08:22→20:54)
[2020-02-28] MEDS: Carvedilol 6.25 MG TAB PO SCH ×2 (08:22→20:53)
[2020-02-28] MEDS: VENCLEXTA 100 MG PO SCH (08:23)
[2020-02-28] MEDS: Doxycycline 100 MG CAP PO SCH ×2 (08:23→20:53)
[2020-02-28] MEDS: Sodium Chloride 0.9% 1,000 ML IV SCH ×2 (10:34→20:54)
--- NOTE | 2020-02-28 12:16 | PDOC.HOSPP ---
- Subjective Encounter Date: 02/28/20 Encounter Time: 09:40 Subjective: doing well, quite anxi to go home,. platelets and rbc transfusion in progress. pt stable. after those done, will check cbc, if improved as expected with transfusion, will likely dc home later in the day, if it is not very late in the evening. - Objective Vital Signs & Weight: Vital Signs (12 hours) Temp Pulse Pulse Resp BP BP BP 02/28/20 11:43 97.8 F 63 16 112/60 02/28/20 11:33 97.8 F 63 16 112/60 02/28/20 10:50 98.1 F 61 16 109/55 L 02/28/20 10:32 63 14 106/51 L 02/28/20 08:22 136/62 02/28/20 08:00 98.5 F 58 L 18 140/64 02/28/20 04:00 98.6 F 60 16 BP Pulse Ox 02/28/20 11:43 98 02/28/20 11:33 98 02/28/20 10:50 100 02/28/20 10:32 98 02/28/20 08:22 02/28/20 08:00 100 02/28/20 04:00 133/65 99 Weight Weight 168 lb 11.2 oz I&O: 02/27/20 02/28/20 02/29/20 06:59 06:59 06:59 Intake Total 932 1639 790 Output Total 2150 Balance 932 -511 790 Result Diagrams: 02/28/20 05:47 02/26/20 05:40 Hospitalist ROS - Medication Medications: Active Medications Generic Name Dose Route Start Last Admin Trade Name Freq PRN Reason Stop Dose Admin Acetaminophen 1,000 mg 02/26/20 10:37 02/27/20 13:42 Tylenol PO 1,000 mg WILLCALL PRN Administration PRIOR TO RITUXAN Acetaminophen 500 mg 02/28/20 07:30 02/28/20 08:23 Tylenol PO 02/28/20 23:59 500 mg NOW LIZZ Administration Carvedilol 6.25 mg 02/25/20 21:00 02/28/20 08:22 Coreg PO 6.25 mg BID LIZZ Administration Diphenhydramine HCl 25 mg 02/26/20 10:37 02/27/20 13:42 Benadryl IVP 25 mg WILLCALL PRN Administration PRIOR TO RITUXAN Diphenhydramine HCl 25 mg 02/28/20 07:30 02/28/20 08:22 Benadryl PO 02/28/20 23:59 25 mg NOW LIZZ Administration Doxycycline Hyclate 100 mg 02/25/20 21:00 02/28/20 08:23 Vibramycin PO 100 mg BID LIZZ Administration Famotidine 20 mg 02/27/20 21:00 02/28/20 08:22 Pepcid PO 20 mg BID LIZZ Administration Hydralazine HCl 10 mg 02/25/20 20:21 02/27/20 05:09 Apresoline SLOW IVP 10 mg Q4H PRN Administration SBP > 180 and HR < 70 Rituximab 500 mg/ Rituximab 560 mls @ 0 mls/hr 02/26/20 12:00 02/27/20 14:23 100 mg/ Sodium Chloride IVPB 560 mls WILLCALL LIZZ Administration As Directed Sodium Chloride 1,000 mls @ 50 mls/hr 02/27/20 12:17 02/28/20 10:34 Normal Saline 0.9% IV Not Given .Q20H LIZZ Patient's Home 2 each 02/27/20 09:00 02/28/20 08:23 Medication Venclexta PO 2 each 100 Mg Tab DAILY LIZZ Administration Sodium Chloride 10 ml 02/27/20 21:00 02/28/20 08:24 Flush - Normal Saline IVF 10 ml Q12HR LIZZ Administration - Exam General Appearance: awake alert Eye: PERRL ENT: normocephalic atraumatic Neck: supple Heart: RRR Respiratory: CTAB Gastrointestinal: soft, normal bowel sounds Hosp A/P - Plan GI bleed Code(s): K92.2 - GASTROINTESTINAL HEMORRHAGE, UNSPECIFIED Status: Acute Plan: s/p APC and hemoclip, serial H/H monitoring (2) Symptomatic anemia Code(s): D64.9 - ANEMIA, UNSPECIFIED Status: Acute Plan: s/p 2u PRBC's, see above (3) Acute on chronic blood loss anemia Code(s): D62 - ACUTE POSTHEMORRHAGIC ANEMIA Status: Acute (4) Pancytopenia Code(s): D61.818 - OTHER PANCYTOPENIA Status: Acute Plan: Secondary to CLL and antineoplastic regimen, medical oncology following (5) Preseptal cellulitis of right upper eyelid Code(s): L03.213 - PERIORBITAL CELLULITIS Status: Acute Plan: Continue Doxycycline 100mg BID (6) CLL (chronic lymphocytic leukemia) Code(s): C91.90 - LYMPHOID LEUKEMIA, UNSPECIFIED NOT HAVING ACHIEVED REMISSION Status: Chronic Plan: Receiving Rituxan IV (7) Left ankle pain Code(s): M25.572 - PAIN IN LEFT ANKLE AND JOINTS OF LEFT FOOT Status: Acute Plan: ? etiology, arthritic inflammatory process, ? pseudo gout/hemoarthrosis, Consult Orthopedics for consideration of arthrocentesis - Plan continue antibiotics, PT/OT, social media assistant, out of bed/ambulate, DVT proph w/ SCDs Stable currently Supportive mgmt, pain control as clinically indicated GI consult appreciated Continue Pepcid 20mg BID Resume home BP regimen Continue Rituxan per oncology service Tramadol 50mg po q6h prn quite anxi to go home,. platelets and rbc transfusion in progress. pt stable. after those done, will check cbc, if improved as expected with transfusion, will likely dc home later in the day, if it is not very late in the evening.
--- NOTE | 2020-02-28 15:49 | PRG ---
DATE OF SERVICE: 02/28/2020 This is a cross coverage for Dr. Warren Shea. SUBJECTIVE: Mr. Vasu Webb is a very pleasant 69-year-old , hospitalized with black tarry stools and anemia. He is known to have chronic lymphocytic leukemia and he has underwent therapy. He was found to have thrombocytopenia and severe anemia on admission. He has been transfused. He underwent colonoscopy by Dr. Warren Shea and was found to have AVMs over the cecum which was treated. The patient done well overnight. He has had no abdominal pain. No nausea. No vomiting. He has had no stool today. Blood count has been reasonably stable. Yesterday, his CBC showed WBC 2300, hemoglobin 7.9, hematocrit 23.9. Today's CBC showed severe neutropenia with white cell count is 900 with polymorphs 36, lymphocytes 48. Hemoglobin stable at 7.7, hematocrit 22.2, platelet count is dropped to 8000 today. He has no petechiae or ecchymotic areas. He offers no complaints. PHYSICAL EXAMINATION: GENERAL: He is awake, alert, communicative. He is afebrile. VITAL SIGNS: His pulse is 76, blood pressure 120/60. CARDIOVASCULAR: Normal heart sounds. LUNGS: Clear to auscultation. ABDOMEN: Soft. No organomegaly. No tenderness. No masses. CLINICAL IMPRESSION: 1. 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 2. Anemia due to blood loss and possibly pancytopenia. 3. Neutropenia and thrombocytopenia. 4. Chronic lymphocytic leukemia. PLAN: Follow up H and H. The patient being transfused some platelets and also packed RBCs today. We will watch his blood count. He is also on reverse isolation. Job ID: [id number] [facility]
[2020-02-28 16:38] LABS: Hemoglobin 8.5 g/dL (14.0-18.0); Mean Corpuscular Hemoglobin 30.7 pg (27.0-31.0); Mean Corpuscular Volume 90.1 fL (78.0-98.0); Mean Platelet Volume 8.3 fL (7.4-10.4); Platelet Count 28 thou/uL (130-400); Red Blood Cell (RBC) Count 2.77 mill/uL (4.70-6.10); White Blood Cell (WBC) Count 0.7 thou/uL (4.8-10.8)
[2020-02-28 16:57] LABS: Band 14 % (5-11); Lymphocytes 58 % (21-51); MDiff Complete? YES; Monocytes 4 % (0-10); Neutrophil 24 % (42-75); Platelet Morphology Comment Appears Decreased; Polychromasia SLIGHT = 2-3 cells (100X) (0-2/hpf); Spherocytes SLIGHT = 1-5 cells (100X) (None Seen)
[2020-02-29] MEDS: hydrALAZINE 20 MG/ML VIAL SLOW IVP PRN ×2 (00:50→13:33)
[2020-02-29 06:53] LABS: Hemoglobin 8.8 g/dL (14.0-18.0); Mean Corpuscular HGB CONC 34.2 g/dL (32.0-36.0); Mean Corpuscular Hemoglobin 30.6 pg (27.0-31.0); Mean Corpuscular Volume 89.4 fL (78.0-98.0); Mean Platelet Volume 7.9 fL (7.4-10.4); Platelet Count 19 thou/uL (130-400); Red Blood Cell (RBC) Count 2.86 mill/uL (4.70-6.10); White Blood Cell (WBC) Count 0.7 thou/uL (4.8-10.8)
[2020-02-29] MEDS: Famotidine 20 MG TAB PO SCH (08:00)
[2020-02-29] MEDS: Carvedilol 6.25 MG TAB PO SCH (08:03)
[2020-02-29] MEDS: Doxycycline 100 MG CAP PO SCH (08:03)
[2020-02-29] MEDS: VENCLEXTA 100 MG PO SCH (08:04)
[2020-02-29 08:33] LABS: Lymphocytes 52 % (21-51); MDiff Complete? YES; Monocytes 15 % (0-10); Neutrophil 33 % (42-75); Platelet Morphology Comment Appears Decreased
--- NOTE | 2020-02-29 12:31 | PRG ---
DATE OF SERVICE: 02/29/2020 SUBJECTIVE: This is a 69-year-old male, hospitalized with anemia, melena, and cytopenia. The patient is known to have CLL and he has been seen by Dr. Mendiola. The patient has pancytopenia. WBC count has dropped to 7000 today and platelet count is 28,000. He has received platelet transfusion and also blood tests yesterday. The patient has had no hematochezia and had no tarry stools. No abdominal pain. No nausea. The patient is receiving another platelet transfusion today. He has been seen by Dr. Mendiola, weigh tank operator. He offers no complaints. PHYSICAL EXAMINATION: VITAL SIGNS: He is afebrile. His pulse is 62, blood pressure is 132/69. CARDIOVASCULAR: Normal heart sounds. LUNGS: Clear to auscultation. ABDOMEN: Soft. No organomegaly. No tenderness. No masses. LABORATORY DATA: Today, WBC 7000, polymorphs 24, bands 14, lymphocytes 58, hemoglobin 8.5, hematocrit 24.9, platelet count 28,000. RECOMMENDATIONS: 1. From GI standpoint, no acute problem going on. We will sign off from today. 2. Continue supportive care. Discharge planning will be left to the weigh tank operator's service. Job ID: [id number] [id number]
[2020-02-29 13:50] VITALS: BP 175/82; TEMP 98.9
--- NOTE | 2020-03-01 06:41 | DIS ---
DATE OF ADMISSION: 02/25/2020 DATE OF DISCHARGE: 02/29/2020 DISCHARGE DIAGNOSES: 1. Recurrent gastrointestinal bleed. 2. Acute on chronic normocytic anemia, multifactorial. 3. Pancytopenia secondary to antineoplastic medication. 4. Preseptal cellulitis of the right eye. MEDICATIONS: 1. Lipitor 40 mg daily. 2. Coreg 6.25 mg twice a day. 3. Doxycycline 100 mg twice a day. 4. Isosorbide mononitrate 60 mg daily. 5. Ramipril 10 mg twice a day. HOSPITAL COURSE: This is a 69-year-old male presented with 2-day duration of increasing black stool with recent GI bleed and admission to the hospital on February 13 as well as . 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 During that admission, he received a total of 7 units of packed RBCs and 3 units of platelets in the context of pancytopenia secondary to chemo for his CLL. During this admission, he was monitored closely for his anemia. He has received 2 units of packed RBCs. His platelets were at some point quite low requiring transfusion of platelets both on February 27 and February 28, which brought his platelets up to 28,000. He has leukopenia with white count of 900 cells and that has remained more or less same and 700 on the day of discharge. His hemoglobin is stable at 8.8. The patient is hemodynamically stable, and he will be continuing his chemo. DISCHARGE INSTRUCTIONS: Activity as tolerated. Healthy heart diet. Follow up with the primary care physician in 1 week. TIME SPENT: Discharge time took over 30 minutes. Job ID: [id number] MTDD
== END 2020-02-29 14:38 | disposition home or self-care (01) | DRG 377 ==
LOC: ERS 16:10 → ONC 18:17
PROVIDERS: ADMIT Family Medicine; ATTEND Family Medicine
PROC: 30233R1 Transfusion of Nonautologous Platelets into Peripheral Vein, Percutaneous Approach (ICD-10-PCS; 2020-02-25)
PROC: 30233N1 Transfusion of Nonautologous Red Blood Cells into Peripheral Vein, Percutaneous Approach (ICD-10-PCS; 2020-02-25)
PROC: 0W3P8ZZ Control Bleeding in Gastrointestinal Tract, Via Natural or Artificial Opening Endoscopic (ICD-10-PCS; principal; 2020-02-27)
DX: K55.21 Angiodysplasia of colon with hemorrhage (principal); D61.810 Antineoplastic chemotherapy induced pancytopenia; C91.10 Chronic lymphocytic leukemia of B-cell type not having achieved remission; D62 Acute posthemorrhagic anemia; L03.213 Periorbital cellulitis; T45.1X5A Adverse effect of antineoplastic and immunosuppressive drugs, initial encounter; E78.5 Hyperlipidemia, unspecified; I10 Essential (primary) hypertension; I25.10 Atherosclerotic heart disease of native coronary artery without angina pectoris; F17.210 Nicotine dependence, cigarettes, uncomplicated; D69.6 Thrombocytopenia, unspecified; I25.2 Old myocardial infarction; Z89.022 Acquired absence of left finger(s); Z95.5 Presence of coronary angioplasty implant and graft; Z86.010 Personal history of colon polyps; Z90.49 Acquired absence of other specified parts of digestive tract
CPT/HCPCS: 36415; 36430; 80048; 80053; 82274; 84550; 85007; 85025; 85027; 85610; 85730; 86850; 86900; 86901; 99285; J0360; J1200; J2250; J2704; J7030; J9312; P9016; P9035; Q0163; S0028

== ENCOUNTER 2020-03-08 10:04 | Day surgery (SDC) | payer MEDICARE, OTHER ==
[2020-03-08] MEDS ORDERED: diphenhydrAMINE 25 MG CAP PO SCH (10:45)
[2020-03-08] MEDS ORDERED: Acetaminophen 500 MG TAB PO SCH (10:45)
[2020-03-08 14:32] VITALS: TEMP 98.1
[2020-03-08 14:53] VITALS: BP 146/70
== END 2020-03-08 15:01 | disposition home or self-care (01) ==
LOC: ONC/OP 10:04
PROVIDERS: ATTEND Internal Medicine Hematology & Oncology
PROC: 30233N1 Transfusion of Nonautologous Red Blood Cells into Peripheral Vein, Percutaneous Approach (ICD-10-PCS; principal; 2020-03-08)
PROC: 30233R1 Transfusion of Nonautologous Platelets into Peripheral Vein, Percutaneous Approach (ICD-10-PCS; principal; 2020-03-08)
DX: D64.9 Anemia, unspecified (principal); D69.6 Thrombocytopenia, unspecified
CPT/HCPCS: 36430; 86850; 86900; 86901; P9016; P9035; Q0163

== ENCOUNTER 2020-03-15 10:18 | Day surgery (SDC) | payer OTHER ==
[2020-03-15] MEDS ORDERED: diphenhydrAMINE 25 MG CAP PO SCH (11:00)
[2020-03-15] MEDS ORDERED: Acetaminophen 500 MG TAB PO SCH (11:00)
[2020-03-15 15:09] VITALS: BP 115/57; TEMP 98.1
[2020-03-15 16:00] LABS: Band 1 % (5-11); Hemoglobin 7.5 g/dL (14.0-18.0); Lymphocytes 69 % (21-51); MDiff Complete? YES; Mean Corpuscular HGB CONC 34.3 g/dL (32.0-36.0); Mean Corpuscular Hemoglobin 30.4 pg (27.0-31.0); Mean Corpuscular Volume 88.5 fL (78.0-98.0); Mean Platelet Volume 8.3 fL (7.4-10.4); Monocytes 13 % (0-10); Neutrophil 17 % (42-75); Platelet Count 34 thou/uL (130-400); Platelet Morphology Comment Appears Decreased; Polychromasia SLIGHT = 2-3 cells (100X) (0-2/hpf); Red Blood Cell (RBC) Count 2.47 mill/uL (4.70-6.10); White Blood Cell (WBC) Count 1.3 thou/uL (4.8-10.8)
== END 2020-03-15 15:14 | disposition home or self-care (01) ==
LOC: ONC/OP 10:18
PROVIDERS: ATTEND Internal Medicine Hematology & Oncology
PROC: 30233R1 Transfusion of Nonautologous Platelets into Peripheral Vein, Percutaneous Approach (ICD-10-PCS; principal; 2020-03-15)
PROC: 30233N1 Transfusion of Nonautologous Red Blood Cells into Peripheral Vein, Percutaneous Approach (ICD-10-PCS; principal; 2020-03-15)
DX: D69.6 Thrombocytopenia, unspecified (principal); D64.9 Anemia, unspecified
CPT/HCPCS: 36430; 85007; 85027; 86850; 86900; 86901; P9016; P9035; Q0163

== ENCOUNTER 2020-03-29 10:18 | Day surgery (SDC) | payer OTHER ==
[2020-03-29] MEDS ORDERED: Acetaminophen 500 MG TAB PO PRN (11:28)
[2020-03-29] MEDS ORDERED: diphenhydrAMINE 25 MG CAP PO PRN (11:28)
[2020-03-29 16:45] VITALS: BP 121/58; TEMP 98.2
[2020-03-29 17:27] LABS: Hemoglobin 7.7 g/dL (14.0-18.0); Mean Corpuscular HGB CONC 34.8 g/dL (32.0-36.0); Mean Corpuscular Volume 86.1 fL (78.0-98.0); Mean Platelet Volume 10.7 fL (7.4-10.4); Platelet Count 27 thou/uL (130-400); RBC Distribution Width 12.4 % (11.5-14.5); Red Blood Cell (RBC) Count 2.56 mill/uL (4.70-6.10); White Blood Cell (WBC) Count 1.6 thou/uL (4.8-10.8)
[2020-03-29 17:59] LABS: Band 3 % (5-11); Lymphocytes 76 % (21-51); MDiff Complete? YES; Monocytes 8 % (0-10); Neutrophil 13 % (42-75); Nucleated RBC 1 % (0); Ovalocytes SLIGHT = 2-5 cells (100X) (0-1/hpf); Platelet Morphology Comment Appears Decreased; Polychromasia SLIGHT = 2-3 cells (100X) (0-2/hpf)
== END 2020-03-29 17:12 | disposition home or self-care (01) ==
LOC: ONC/OP 10:18
PROVIDERS: ATTEND Internal Medicine Hematology & Oncology
PROC: 30233N1 Transfusion of Nonautologous Red Blood Cells into Peripheral Vein, Percutaneous Approach (ICD-10-PCS; principal; 2020-03-29)
PROC: 30233R1 Transfusion of Nonautologous Platelets into Peripheral Vein, Percutaneous Approach (ICD-10-PCS; principal; 2020-03-29)
DX: D69.6 Thrombocytopenia, unspecified (principal); D64.9 Anemia, unspecified
CPT/HCPCS: 36430; 85025; 86850; 86900; 86901; P9016; P9035; Q0163

== ENCOUNTER 2020-04-06 09:50 | Day surgery (SDC) | payer OTHER ==
[2020-04-06] MEDS ORDERED: diphenhydrAMINE 25 MG CAP PO SCH (10:30)
[2020-04-06] MEDS ORDERED: Acetaminophen 500 MG TAB PO SCH (10:30)
[2020-04-06] MEDS ORDERED: Sodium Chloride 0.9% 20 ML ONE (10:57)
[2020-04-06 13:04] VITALS: TEMP 98.5
[2020-04-06 14:32] VITALS: BP 134/65
== END 2020-04-06 14:51 | disposition home or self-care (01) ==
LOC: ONC/OP 09:50
PROVIDERS: ATTEND Internal Medicine Hematology & Oncology
PROC: 30233R1 Transfusion of Nonautologous Platelets into Peripheral Vein, Percutaneous Approach (ICD-10-PCS; principal; 2020-04-06)
PROC: 30233N1 Transfusion of Nonautologous Red Blood Cells into Peripheral Vein, Percutaneous Approach (ICD-10-PCS; principal; 2020-04-06)
DX: D69.6 Thrombocytopenia, unspecified (principal); D64.9 Anemia, unspecified
CPT/HCPCS: 36430; 86850; 86900; 86901; P9016; P9035; Q0163

== ENCOUNTER 2020-04-14 10:04 | Day surgery (SDC) | payer OTHER ==
[2020-04-14] MEDS ORDERED: Sodium Chloride 0.9% 20 ML ONE (10:20)
[2020-04-14] MEDS ORDERED: diphenhydrAMINE 25 MG CAP PO SCH (10:30)
[2020-04-14] MEDS ORDERED: Acetaminophen 500 MG TAB PO SCH (10:30)
[2020-04-14 16:07] VITALS: BP 147/67; TEMP 98.4
[2020-04-14 17:06] LABS: Hemoglobin 8.6 g/dL (14.0-18.0); Platelet Count 39 thou/uL (130-400)
== END 2020-04-14 16:18 | disposition home or self-care (01) ==
LOC: ONC/OP 10:04
PROVIDERS: ATTEND Internal Medicine Hematology & Oncology
PROC: 30233N1 Transfusion of Nonautologous Red Blood Cells into Peripheral Vein, Percutaneous Approach (ICD-10-PCS; principal; 2020-04-14)
PROC: 30233R1 Transfusion of Nonautologous Platelets into Peripheral Vein, Percutaneous Approach (ICD-10-PCS; principal; 2020-04-14)
DX: D69.6 Thrombocytopenia, unspecified (principal); D64.9 Anemia, unspecified
CPT/HCPCS: 36430; 85014; 85018; 85049; 86850; 86900; 86901; P9016; P9035; Q0163

== ENCOUNTER 2020-04-28 09:26 | Day surgery (SDC) | payer OTHER ==
[2020-04-28] MEDS ORDERED: Sodium Chloride 0.9% 20 ML ONE (09:33)
[2020-04-28] MEDS ORDERED: diphenhydrAMINE 25 MG CAP PO SCH (10:00)
[2020-04-28] MEDS ORDERED: Acetaminophen 500 MG TAB PO SCH (10:00)
[2020-04-28 16:21] VITALS: BP 190/80; TEMP 97.7
== END 2020-04-28 16:22 | disposition home or self-care (01) ==
LOC: ONC/OP 09:26
PROVIDERS: ATTEND Internal Medicine Hematology & Oncology
PROC: 30233R1 Transfusion of Nonautologous Platelets into Peripheral Vein, Percutaneous Approach (ICD-10-PCS; principal; 2020-04-28)
PROC: 30233N1 Transfusion of Nonautologous Red Blood Cells into Peripheral Vein, Percutaneous Approach (ICD-10-PCS; principal; 2020-04-28)
DX: D69.6 Thrombocytopenia, unspecified (principal); D64.9 Anemia, unspecified
CPT/HCPCS: 36430; 86850; 86900; 86901; P9016; P9035; Q0163

== ENCOUNTER 2020-05-12 10:19 | Day surgery (SDC) | payer OTHER ==
[2020-05-12] MEDS ORDERED: Sodium Chloride 0.9% 20 ML ONE (10:44)
[2020-05-12] MEDS ORDERED: Acetaminophen 500 MG TAB PO SCH (10:45)
[2020-05-12] MEDS ORDERED: diphenhydrAMINE 25 MG CAP PO SCH (10:45)
[2020-05-12 12:35] VITALS: BP 112/56; TEMP 97.8
== END 2020-05-12 12:35 | disposition home or self-care (01) ==
LOC: ONC/OP 10:19
PROVIDERS: ATTEND Internal Medicine Hematology & Oncology
PROC: 30233R1 Transfusion of Nonautologous Platelets into Peripheral Vein, Percutaneous Approach (ICD-10-PCS; principal; 2020-05-12)
DX: D69.6 Thrombocytopenia, unspecified (principal); D64.9 Anemia, unspecified
CPT/HCPCS: 36430; 86850; 86900; 86901; P9035; Q0163

== ENCOUNTER 2020-05-13 07:56 | Day surgery (SDC) | payer OTHER ==
[2020-05-13] MEDS ORDERED: Acetaminophen 500 MG TAB PO SCH (08:30)
[2020-05-13] MEDS ORDERED: diphenhydrAMINE 25 MG CAP PO SCH (08:30)
[2020-05-13] MEDS ORDERED: Sodium Chloride 0.9% 20 ML ONE (08:32)
[2020-05-13 15:20] VITALS: BP 185/84; TEMP 97.6
== END 2020-05-13 15:20 | disposition home or self-care (01) ==
LOC: ONC/OP 07:56
PROVIDERS: ATTEND Internal Medicine Hematology & Oncology
PROC: 30233N1 Transfusion of Nonautologous Red Blood Cells into Peripheral Vein, Percutaneous Approach (ICD-10-PCS; principal; 2020-05-13)
DX: D64.9 Anemia, unspecified (principal); D69.6 Thrombocytopenia, unspecified
CPT/HCPCS: 36430; 86850; 86900; 86901; P9016; P9035; Q0163

== ENCOUNTER 2020-05-26 09:26 | Day surgery (SDC) | payer OTHER ==
[2020-05-26] MEDS ORDERED: Sodium Chloride 0.9% 20 ML ONE (09:31)
[2020-05-26] MEDS ORDERED: diphenhydrAMINE 25 MG CAP PO SCH (09:45)
[2020-05-26] MEDS ORDERED: Acetaminophen 500 MG TAB PO SCH (09:45)
[2020-05-26 16:19] VITALS: TEMP 97.9
[2020-05-26 16:20] VITALS: BP 136/63
[2020-05-26 16:42] LABS: Hemoglobin 8.4 g/dL (14.0-18.0); Mean Corpuscular HGB CONC 34.7 g/dL (32.0-36.0); Mean Corpuscular Volume 89.2 fL (78.0-98.0); Mean Platelet Volume 7.7 fL (7.4-10.4); Platelet Count 42 thou/uL (130-400)
[2020-05-26 17:23] LABS: Band 3 % (5-11); Lymphocytes 74 % (21-51); MDiff Complete? YES; Monocytes 12 % (0-10); Neutrophil 9 % (42-75); Ovalocytes SLIGHT = 2-5 cells (100X) (0-1/hpf); Platelet Morphology Comment Appears Decreased; Polychromasia SLIGHT = 2-3 cells (100X) (0-2/hpf); Reactive Lymphocytes 2 % (0-10); Reflex for Review?? YES
== END 2020-05-26 16:20 | disposition home or self-care (01) ==
LOC: ONC/OP 09:26
PROVIDERS: ATTEND Internal Medicine Hematology & Oncology
PROC: 30233R1 Transfusion of Nonautologous Platelets into Peripheral Vein, Percutaneous Approach (ICD-10-PCS; principal; 2020-05-26)
PROC: 30233N1 Transfusion of Nonautologous Red Blood Cells into Peripheral Vein, Percutaneous Approach (ICD-10-PCS; principal; 2020-05-26)
DX: D69.6 Thrombocytopenia, unspecified (principal); D64.9 Anemia, unspecified
CPT/HCPCS: 36430; 85025; 85060; 86850; 86900; 86901; P9016; P9035; Q0163

== ENCOUNTER 2020-06-02 09:50 | Day surgery (SDC) | payer OTHER ==
[2020-06-02] MEDS ORDERED: Acetaminophen 500 MG TAB PO SCH (10:15)
[2020-06-02] MEDS ORDERED: diphenhydrAMINE 25 MG CAP PO SCH (10:15)
[2020-06-02 15:31] VITALS: TEMP 98.1
[2020-06-02 16:19] VITALS: BP 149/67
== END 2020-06-02 16:20 | disposition home or self-care (01) ==
LOC: ONC/OP 09:50
PROVIDERS: ATTEND Internal Medicine Hematology & Oncology
PROC: 30233N1 Transfusion of Nonautologous Red Blood Cells into Peripheral Vein, Percutaneous Approach (ICD-10-PCS; principal; 2020-06-02)
PROC: 30233R1 Transfusion of Nonautologous Platelets into Peripheral Vein, Percutaneous Approach (ICD-10-PCS; principal; 2020-06-02)
DX: D69.6 Thrombocytopenia, unspecified (principal); D64.9 Anemia, unspecified
CPT/HCPCS: 36430; 86850; 86900; 86901; P9016; P9035; Q0163

== ENCOUNTER 2020-06-23 09:56 | Day surgery (SDC) | payer OTHER ==
[2020-06-23] MEDS ORDERED: Acetaminophen 500 MG TAB PO SCH (10:15)
[2020-06-23] MEDS ORDERED: diphenhydrAMINE 25 MG CAP PO SCH (10:15)
[2020-06-23 12:11] VITALS: BP 122/59; TEMP 98.2
== END 2020-06-23 12:12 | disposition home or self-care (01) ==
LOC: ONC/OP 09:56
PROVIDERS: ATTEND Internal Medicine Hematology & Oncology
PROC: 30233R1 Transfusion of Nonautologous Platelets into Peripheral Vein, Percutaneous Approach (ICD-10-PCS; principal; 2020-06-23)
DX: D69.6 Thrombocytopenia, unspecified (principal); D64.9 Anemia, unspecified
CPT/HCPCS: 36430; 86850; 86900; 86901; P9035; Q0163

== ENCOUNTER 2020-06-30 10:09 | Day surgery (SDC) | payer OTHER ==
[2020-06-30] MEDS ORDERED: Sodium Chloride 0.9% 20 ML ONE (10:22)
[2020-06-30] MEDS ORDERED: Acetaminophen 500 MG TAB PO SCH (11:00)
[2020-06-30] MEDS ORDERED: diphenhydrAMINE 25 MG CAP PO SCH (11:00)
[2020-06-30 12:11] VITALS: BP 142/63; TEMP 97.9
== END 2020-06-30 12:11 | disposition home or self-care (01) ==
LOC: ONC/OP 10:09
PROVIDERS: ATTEND Internal Medicine Hematology & Oncology
PROC: 30233R1 Transfusion of Nonautologous Platelets into Peripheral Vein, Percutaneous Approach (ICD-10-PCS; principal; 2020-06-30)
DX: D69.6 Thrombocytopenia, unspecified (principal); D64.9 Anemia, unspecified
CPT/HCPCS: 36430; 86850; 86900; 86901; P9035; Q0163

== ENCOUNTER 2020-07-07 10:38 | Day surgery (SDC) | payer OTHER ==
[2020-07-07] MEDS ORDERED: Sodium Chloride 0.9% 30 ML ONE (10:41)
[2020-07-07] MEDS ORDERED: diphenhydrAMINE 25 MG CAP PO SCH (11:00)
[2020-07-07] MEDS ORDERED: Acetaminophen 500 MG TAB PO SCH (11:00)
[2020-07-07 17:16] VITALS: BP 177/80; TEMP 98.2
== END 2020-07-07 17:16 | disposition home or self-care (01) ==
LOC: ONC/OP 10:38
PROVIDERS: ATTEND Internal Medicine Hematology & Oncology
PROC: 30233R1 Transfusion of Nonautologous Platelets into Peripheral Vein, Percutaneous Approach (ICD-10-PCS; principal; 2020-07-07)
PROC: 30233N1 Transfusion of Nonautologous Red Blood Cells into Peripheral Vein, Percutaneous Approach (ICD-10-PCS; principal; 2020-07-07)
DX: D69.6 Thrombocytopenia, unspecified (principal); D64.9 Anemia, unspecified
CPT/HCPCS: 36430; 86850; 86900; 86901; P9016; P9035; Q0163

== ENCOUNTER 2020-07-19 10:04 | Day surgery (SDC) | payer OTHER ==
[2020-07-19] MEDS ORDERED: Sodium Chloride 0.9% 20 ML ONE (10:09)
[2020-07-19] MEDS ORDERED: Acetaminophen 500 MG TAB PO PRN (10:29)
[2020-07-19] MEDS ORDERED: diphenhydrAMINE 25 MG CAP PO PRN (10:29)
[2020-07-19 18:06] VITALS: BP 156/72; TEMP 97.7
== END 2020-07-19 18:06 | disposition home or self-care (01) ==
LOC: ONC/OP 10:04
PROVIDERS: ATTEND Internal Medicine Hematology & Oncology
PROC: 30233R1 Transfusion of Nonautologous Platelets into Peripheral Vein, Percutaneous Approach (ICD-10-PCS; principal; 2020-07-19)
PROC: 30233N1 Transfusion of Nonautologous Red Blood Cells into Peripheral Vein, Percutaneous Approach (ICD-10-PCS; principal; 2020-07-19)
DX: D69.6 Thrombocytopenia, unspecified (principal); D64.9 Anemia, unspecified
CPT/HCPCS: 36430; 86850; 86900; 86901; P9016; P9035; Q0163

== ENCOUNTER 2020-07-27 11:07 | Day surgery (SDC) | payer OTHER ==
[2020-07-27] MEDS ORDERED: Acetaminophen 500 MG TAB PO SCH (12:00)
[2020-07-27] MEDS ORDERED: diphenhydrAMINE 25 MG CAP PO SCH (12:15)
[2020-07-27 13:10] VITALS: BP 93/54; TEMP 98
== END 2020-07-27 13:10 | disposition home or self-care (01) ==
LOC: ONC/OP 11:07
PROVIDERS: ATTEND Internal Medicine Hematology & Oncology
PROC: 30233R1 Transfusion of Nonautologous Platelets into Peripheral Vein, Percutaneous Approach (ICD-10-PCS; principal; 2020-07-27)
DX: D69.6 Thrombocytopenia, unspecified (principal); D64.9 Anemia, unspecified
CPT/HCPCS: 36430; 86850; 86900; 86901; P9035; Q0163

== ENCOUNTER 2020-08-03 08:47 | Day surgery (SDC) | payer OTHER ==
[2020-08-03] MEDS ORDERED: Acetaminophen 500 MG TAB PO SCH (09:15)
[2020-08-03] MEDS ORDERED: diphenhydrAMINE 25 MG CAP PO SCH (09:15)
[2020-08-03] MEDS ORDERED: Sodium Chloride 0.9% 20 ML ONE (09:44)
[2020-08-03] MEDS ORDERED: diphenhydrAMINE 50 MG/ML VIAL ONE (11:42)
[2020-08-03] MEDS ORDERED: Famotidine/PF 20 mg/2ml Vial ONE (11:42)
[2020-08-03] MEDS ORDERED: diphenhydrAMINE 50 MG/ML VIAL IVP SCH (12:15)
[2020-08-03] MEDS ORDERED: Famotidine/PF 20 mg/2ml Vial SLOW IVP SCH (12:15)
[2020-08-03 17:35] VITALS: BP 156/76; TEMP 98.4
== END 2020-08-03 17:36 | disposition home or self-care (01) ==
LOC: ONC/OP 08:47
PROVIDERS: ATTEND Internal Medicine Hematology & Oncology
PROC: 30233N1 Transfusion of Nonautologous Red Blood Cells into Peripheral Vein, Percutaneous Approach (ICD-10-PCS; principal; 2020-08-03)
PROC: 30233R1 Transfusion of Nonautologous Platelets into Peripheral Vein, Percutaneous Approach (ICD-10-PCS; principal; 2020-08-03)
DX: D69.6 Thrombocytopenia, unspecified (principal); D64.9 Anemia, unspecified
CPT/HCPCS: 36430; 86850; 86900; 86901; 96374; 96375; J1200; P9016; P9035; Q0163; S0028

== ENCOUNTER 2020-08-09 14:56 | Emergency (ER) | payer OTHER ==
[~2020-08-09 14:56] MED LIST: Iopamidol-370 76% 500 ML 1 ML ONE
[2020-08-09 15:44] LABS: Hemoglobin 9.4 g/dL (14.0-18.0); Mean Corpuscular HGB CONC 35.3 g/dL (32.0-36.0); Mean Corpuscular Hemoglobin 30.8 pg (27.0-31.0); Mean Corpuscular Volume 87.2 fL (78.0-98.0); Platelet Count 20 thou/uL (130-400); RBC Distribution Width 14.4 % (11.5-14.5); Red Blood Cell (RBC) Count 3.04 mill/uL (4.70-6.10); White Blood Cell (WBC) Count 1.7 thou/uL (4.8-10.8)
[2020-08-09 15:59] LABS: ALT (SGPT) 37 U/L (8-55); AST (SGOT) 15 U/L (5-34); Albumin 3.7 g/dL (3.4-4.8); Alkaline Phosphatase 147 U/L (40-110); Anion Gap 12 mmol/L (10-20); BUN (Urea Nitrogen) 29 mg/dL (8.4-25.7); Bilirubin, Total 0.8 mg/dL (0.2-1.2); Calc. Creatinine Clearance 0 mL/min (70-130); Carbon Dioxide 23 mmol/L (23-31); Chloride 103 mmol/L (98-107); Estimated GFR-MDRD 45; Globulin 2.3 g/dL (2.4-3.5); Glucose 117 mg/dL (83-110); Lipase 11 U/L (8-78); Potassium 4.2 mmol/L (3.5-5.1); Sodium 134 mmol/L (136-145)
[2020-08-09 16:11] LABS: Anisocytosis SLIGHT = 6-15 cells (100X) (0-5/hpf); Band 32 % (5-11); Lymphocytes 23 % (21-51); MDiff Complete? YES; Monocytes 12 % (0-10); Neutrophil 26 % (42-75); Platelet Morphology Comment Appears Decreased; Polychromasia SLIGHT = 2-3 cells (100X) (0-2/hpf); Reactive Lymphocytes 7 % (0-10); Reflex for Review?? NO
[2020-08-09 16:32] LABS: Bacteria/HPF None Seen HPF (None Seen); Bilirubin Negative (Negative); Blood, Urine 1+ (Negative); Clarity Clear (Clear); Glucose, Urine (Dipstick) Normal (Negative); Ketone, Urine Negative (Negative); Leukocyte Negative Leu/uL (Negative); Nitrite Negative (Negative); Protein, Urine (Dipstick) 20 mg/dL (Neg-Trace); RBC/HPF 0-3 HPF (0-3); Specific Gravity, Urine 1.028 (1.002-1.036); Squamous Epithelial 0-3 HPF (0-3); Urobilinogen Normal mg/dL (Less than 2); WBC/HPF 0-3 HPF (0-3); pH, Urine 5.5 (5.0-9.0)
--- NOTE | 2020-08-09 16:52 | CT ---
CT abdomen and pelvis with IV contrast HISTORY: Abdomen pain. FINDINGS: Lung bases are clear. There is mild distention of the right renal collecting system to the level of a lobular calcification in the proximal ureter that is 0.6 cm greatest diameter. The right ureter beyond this point is decompressed as is the left renal collecting system and ureter. There are at least 3 additional calcifications within calyces of the right kidney, measuring up to 0.3 cm at the inferior pole. No calcifications are apparent on the left. There is prominent calcification within the coronary arteries and other arterial structures with sign ificant stenosis of each common iliac artery suspected. Eccentric thrombus is present within a small rightward aneurysmal dilatation of the lower abdominal aorta. Mild periportal edema throughout the liver is nonspecific. No focal mass or evidence of biliary obstr uction. No evidence of bowel obstruction or inflammation. Prominent degenerative changes of the lumbar spine. There is gas within a small posterior disc hernia tion at the lumbosacral junction. IMPRESSION : Partial obstruction at a 0.6 cm proximal right ureteral calculus. Additional smaller nonobstructing right renal calculi. Prominent atherosclerosis. Stenosis of the common iliac arteries.
[2020-08-09] MEDS ORDERED: Morphine 4 MG/ML VIAL ONE (17:33)
== END 2020-08-09 19:08 | disposition home or self-care (01) ==
LOC: ERS 14:56
DX: N13.2 Hydronephrosis with renal and ureteral calculous obstruction (principal); D64.89 Other specified anemias; D69.6 Thrombocytopenia, unspecified; I25.2 Old myocardial infarction; E78.5 Hyperlipidemia, unspecified; I10 Essential (primary) hypertension; F17.210 Nicotine dependence, cigarettes, uncomplicated; Z79.899 Other long term (current) drug therapy
CPT/HCPCS: 36415; 74177; 80053; 81003; 81015; 83690; 85025; 87086; 93005; 96374; J2270; Q9967

== ENCOUNTER 2020-08-11 12:09 | Outpatient (CLI) | payer OTHER ==
[2020-08-11 16:03] LABS: Anion Gap 11 mmol/L (10-20); BUN (Urea Nitrogen) 26 mg/dL (8.4-25.7); Calc. Creatinine Clearance 0 mL/min (70-130); Calcium 8.3 mg/dL (7.8-10.44); Carbon Dioxide 24 mmol/L (23-31); Chloride 100 mmol/L (98-107); Estimated GFR-MDRD 53; Glucose 111 mg/dL (83-110); Potassium 3.7 mmol/L (3.5-5.1); Sodium 131 mmol/L (136-145)
[2020-08-11 16:07] LABS: Hemoglobin 8.4 g/dL (14.0-18.0); Mean Corpuscular HGB CONC 35.4 g/dL (32.0-36.0); Mean Corpuscular Volume 87.6 fL (78.0-98.0); Mean Platelet Volume 11.9 fL (7.4-10.4); Platelet Count 8 thou/uL (130-400); RBC Distribution Width 14.3 % (11.5-14.5)
[2020-08-11 16:15] LABS: PTT 32.8 sec (22.9-36.1); Prothrombin Time 13.7 sec (12.0-14.7)
--- NOTE | 2020-08-11 17:33 | EKG ---
Test Reason : PREOP Blood Pressure : / mmHG Vent. Rate : 077 BPM Atrial Rate : 077 BPM P-R Int : 174 ms QRS Dur : 092 ms QT Int : 374 ms P-R-T Axes : 052 065 033 degrees QTc Int : 423 ms Normal sinus rhythm Nonspecific T wave abnormality Abnormal ECG When compared with ECG of 09-AUG-2020 15:55, (Unconfirmed) Nonspecific T wave abnormality now evident in Lateral leads Confirmed by DR. Paulette RANDALL ([id number]) on 08/11/2020 5:32:57 PM Referred By: Gaby VILLASEONR Confirmed By:DR. Paulette RANDALL
[2020-08-12 12:49] LABS: SARS-CoV-2 MS2 Positive; SARS-CoV-2 N Gene Negative; SARS-CoV-2 S Gene Negative; SARS-CoV-2 by NAA Not Detected (NotDetected); SARS-CoV-2 orf1ab Negative
== END 2020-08-11 12:10 | disposition home or self-care (01) ==
LOC: LABBT 12:09
PROVIDERS: ATTEND Urology
DX: Z01.818 Encounter for other preprocedural examination (principal); N20.1 Calculus of ureter; Z20.828 Contact with and (suspected) exposure to other viral communicable diseases
CPT/HCPCS: 80048; 85027; 85610; 85730; 87635; 93005; 93010; U0003

== ENCOUNTER 2020-08-13 08:43 | Day surgery (SDC) | payer OTHER ==
[2020-08-12 10:25] VITALS: BMI 28.1
[2020-08-13] MEDS ORDERED: Fentanyl 100 MCG/2 ML VIAL ONE (08:56)
[2020-08-13] MEDS ORDERED: Iothalamate Meglumine 60% 50 ML VIAL FS ONE (10:01)
[2020-08-13] MEDS ORDERED: Levofloxacin 500 mg/D5W 100 ml Premix Bag ONE (11:39)
[2020-08-13] MEDS ORDERED: PROPOFOL 200 MG/20 ML VIAL ONE (11:40)
[2020-08-13] MEDS ORDERED: Ondansetron PF 4 MG/2 ML Vial ONE (11:40)
[2020-08-13] MEDS ORDERED: HYDROcodone/Acetaminophen 5/325 mg Tablet ONE (12:53)
[2020-08-13] MEDS ORDERED: Oxybutynin 5 MG TAB ONE ×2 (12:54→14:10)
--- NOTE | 2020-08-13 13:37 | OP ---
DATE OF PROCEDURE: 08/13/2020 PREOPERATIVE DIAGNOSIS: Right ureteropelvic junction stone. POSTOPERATIVE DIAGNOSIS: Right ureteropelvic junction stone. PROCEDURES PERFORMED: Right ureteroscopy, laser lithotripsy, retrograde pyelogram with intraoperative interpretation of radiologic imaging, a 6 x 26 double-J stent without string placement. ANESTHESIA: General. COMPLICATIONS: None. ESTIMATED BLOOD LOSS: None. SPECIMEN: None. DESCRIPTION OF PROCEDURE: After informed consent, the patient was taken to the operating room, transferred to the table on his own power. Anesthesia was established. Time-out was performed showing correct patient, site, and procedure. Preoperative antibiotics were administered. He was prepped and draped in the lithotomy position. I began by inserting the semi-rigid ureteroscope, which was negotiated into the bladder through the urethra noting a normal course and caliber of the urethra. The right ureteral orifice was cannulated with a wire, which was passed up to the level of the renal pelvis under fluoroscopic guidance. The scope was then withdrawn and reinserted into the distal ureter with a retrograde pyelogram performed showing good filling of the ureter and filling defect at the right UPJ with hydronephrosis. The scope was passed up to the right UPJ. However, the stone migrated back into the kidney and so the scope was withdrawn, and an access sheath placed over the wire into the proximal ureter under fluoroscopic guidance. The flexible ureteroscope was passed through this into the renal pelvis with some difficulty negotiating the proximal-most ureter. The stone was identified in the upper pole and was treated with the 200 micron laser fiber, dusting it into tiny pieces. The renal pelvis was then examined at the end, noting several old blood clots, but no clinically significant stone fragments remaining. The wire was replaced, and the scope and access sheath were withdrawn. A 6 x 26 double-J ureteral stent without strings was placed over the wire with a curl in the kidney and curl in the bladder under fluoroscopic guidance. The patient was then awoken from anesthesia, transferred back to his hospital bed, and taken to PACU in stable condition, where he will discharge home upon recovery. Job ID: [id number]
--- NOTE | 2020-08-13 14:33 | RAD ---
XR IVP Retrograde History: Kidney stones Comparison: CT examination August 09, 2020 Findings: 9 fluoroscopic images were obtained. Interval placement of a right double-J ureteral stent. Impression: Fluoroscopy for procedure purposes.
== END 2020-08-13 15:05 | disposition home or self-care (01) ==
LOC: SDC 08:43
PROVIDERS: ATTEND Urology
PROC: 0T768DZ Dilation of Right Ureter with Intraluminal Device, Via Natural or Artificial Opening Endoscopic (ICD-10-PCS; principal; 2020-08-13)
PROC: 0TC68ZZ Extirpation of Matter from Right Ureter, Via Natural or Artificial Opening Endoscopic (ICD-10-PCS; principal; 2020-08-13)
DX: N13.0 Hydronephrosis with ureteropelvic junction obstruction (principal); I25.10 Atherosclerotic heart disease of native coronary artery without angina pectoris; E78.5 Hyperlipidemia, unspecified; F17.290 Nicotine dependence, other tobacco product, uncomplicated; Z79.02 Long term (current) use of antithrombotics/antiplatelets; Z79.899 Other long term (current) drug therapy; Z95.5 Presence of coronary angioplasty implant and graft
CPT/HCPCS: 36430; 74420; 86850; 86900; 86901; J1956; J2405; J2704; J3010; P9035

== ENCOUNTER 2020-08-17 08:47 | Day surgery (SDC) | payer OTHER ==
[2020-08-17] MEDS ORDERED: diphenhydrAMINE 25 MG CAP PO SCH (09:45)
[2020-08-17] MEDS ORDERED: Acetaminophen 500 MG TAB PO SCH (09:45)
[2020-08-17] MEDS ORDERED: Sodium Chloride 0.9% 20 ML ONE (09:56)
[2020-08-17 12:46] VITALS: TEMP 98
[2020-08-17 15:18] VITALS: BP 132/63
== END 2020-08-17 15:18 | disposition home or self-care (01) ==
LOC: ONC/OP 08:47
PROVIDERS: ATTEND Internal Medicine Hematology & Oncology
PROC: 30233N1 Transfusion of Nonautologous Red Blood Cells into Peripheral Vein, Percutaneous Approach (ICD-10-PCS; principal; 2020-08-17)
DX: D64.9 Anemia, unspecified (principal); D69.6 Thrombocytopenia, unspecified
CPT/HCPCS: 36430; 86850; 86900; 86901; P9016; Q0163

== ENCOUNTER 2020-09-07 10:27 | Day surgery (SDC) | payer OTHER ==
[2020-09-07] MEDS ORDERED: Acetaminophen 500 MG TAB PO PRN (10:34)
[2020-09-07] MEDS ORDERED: diphenhydrAMINE 25 MG CAP PO PRN (10:34)
[2020-09-07] MEDS ORDERED: Sodium Chloride 0.9% 20 ML ONE (11:04)
[2020-09-07 14:48] VITALS: BP 136/65; TEMP 97.9
== END 2020-09-07 14:48 | disposition home or self-care (01) ==
LOC: ONC/OP 10:27
PROVIDERS: ATTEND Internal Medicine Hematology & Oncology
PROC: 30233R1 Transfusion of Nonautologous Platelets into Peripheral Vein, Percutaneous Approach (ICD-10-PCS; principal; 2020-09-07)
PROC: 30233N1 Transfusion of Nonautologous Red Blood Cells into Peripheral Vein, Percutaneous Approach (ICD-10-PCS; principal; 2020-09-07)
DX: D69.6 Thrombocytopenia, unspecified (principal); D64.9 Anemia, unspecified
CPT/HCPCS: 36430; 86850; 86900; 86901; P9016; P9035; Q0163

== ENCOUNTER 2020-09-14 10:54 | Day surgery (SDC) | payer OTHER ==
[2020-09-14] MEDS ORDERED: Sodium Chloride 0.9% 20 ML ONE (11:21)
[2020-09-14] MEDS ORDERED: Acetaminophen 500 MG TAB PO SCH (11:30)
[2020-09-14] MEDS ORDERED: diphenhydrAMINE 25 MG CAP PO SCH (11:30)
[2020-09-14 15:02] VITALS: BP 124/60; TEMP 97.6
== END 2020-09-14 15:07 | disposition home or self-care (01) ==
LOC: ONC/OP 10:54
PROVIDERS: ATTEND Internal Medicine Hematology & Oncology
PROC: 30233R1 Transfusion of Nonautologous Platelets into Peripheral Vein, Percutaneous Approach (ICD-10-PCS; principal; 2020-09-14)
PROC: 30233N1 Transfusion of Nonautologous Red Blood Cells into Peripheral Vein, Percutaneous Approach (ICD-10-PCS; principal; 2020-09-14)
DX: D69.6 Thrombocytopenia, unspecified (principal); D64.9 Anemia, unspecified
CPT/HCPCS: 36430; 86850; 86900; 86901; P9016; P9035; Q0163

== ENCOUNTER 2020-09-28 09:46 | Day surgery (SDC) | payer OTHER ==
[2020-09-28] MEDS ORDERED: Sodium Chloride 0.9% 20 ML ONE (10:50)
[2020-09-28] MEDS ORDERED: Acetaminophen 500 MG TAB PO SCH (11:00)
[2020-09-28] MEDS ORDERED: diphenhydrAMINE 25 MG CAP PO SCH (11:00)
[2020-09-28 17:18] VITALS: BP 118/69; TEMP 98.1
== END 2020-09-28 17:26 | disposition home or self-care (01) ==
LOC: ONC/OP 09:46
PROVIDERS: ATTEND Internal Medicine Hematology & Oncology
PROC: 30233N1 Transfusion of Nonautologous Red Blood Cells into Peripheral Vein, Percutaneous Approach (ICD-10-PCS; principal; 2020-09-28)
PROC: 30233R1 Transfusion of Nonautologous Platelets into Peripheral Vein, Percutaneous Approach (ICD-10-PCS; principal; 2020-09-28)
DX: D69.6 Thrombocytopenia, unspecified (principal); D64.9 Anemia, unspecified
CPT/HCPCS: 36430; 86850; 86900; 86901; P9016; P9035; Q0163

== ENCOUNTER 2020-10-02 13:38 | Observation (INO) | payer MEDICARE, OTHER ==
[2020-10-02 14:15] LABS: Hemoglobin 10.9 g/dL (14.0-18.0); Mean Corpuscular HGB CONC 34.4 g/dL (32.0-36.0); Mean Corpuscular Hemoglobin 29.8 pg (27.0-31.0); Mean Corpuscular Volume 86.5 fL (78.0-98.0); Mean Platelet Volume 14.1 fL (7.4-10.4); Platelet Count 30 thou/uL (130-400); Red Blood Cell (RBC) Count 3.67 mill/uL (4.70-6.10); White Blood Cell (WBC) Count 1.5 thou/uL (4.8-10.8)
[2020-10-02 14:30] LABS: ALT (SGPT) 26 U/L (8-55); AST (SGOT) 19 U/L (5-34); Albumin 3.3 g/dL (3.4-4.8); Alkaline Phosphatase 80 U/L (40-110); Anion Gap 19 mmol/L (10-20); BUN (Urea Nitrogen) 28 mg/dL (8.4-25.7); Bilirubin, Total 1.2 mg/dL (0.2-1.2); Calc. Creatinine Clearance 0 mL/min (70-130); Calcium 8.8 mg/dL (7.8-10.44); Carbon Dioxide 22 mmol/L (23-31); Chloride 100 mmol/L (98-107); Globulin 2.4 g/dL (2.4-3.5); Glucose 91 mg/dL (83-110); Potassium 4.1 mmol/L (3.5-5.1); Protein, Total 5.7 g/dL (5.8-8.1); Sodium 137 mmol/L (136-145)
[2020-10-02] MEDS ORDERED: Iopamidol-370 76% 500 ML 1 ML ONE (14:30)
--- NOTE | 2020-10-02 14:40 | RAD ---
PORTABLE CHEST: 10/02/20 HISTORY: Syncope. The lungs are clear. No infiltrate or vascular congestion. Heart and mediastinum unremarkable. IMPRESSION: No acute process. POS: AGW
[2020-10-02 14:46] LABS: Anisocytosis SLIGHT = 6-15 cells (100X) (0-5/hpf); Band 5 % (5-11); Large Platelets SLIGHT; Lymphocytes 32 % (21-51); MDiff Complete? YES; Monocytes 30 % (0-10); Neutrophil 23 % (42-75); Platelet Morphology Comment Appears Decreased; Polychromasia SLIGHT = 2-3 cells (100X) (0-2/hpf); Reactive Lymphocytes 10 % (0-10)
--- NOTE | 2020-10-02 15:06 | CT ---
EXAM: Brain CTWithout contrast: HISTORY: Injury following a syncopal episode and fall COMPARISON: None FINDINGS: Sinus mucosal changes with chronic changes particularly noted in the left sphenoid sinus No focal mass or midline shift. No intra or extra-axial hemorrhage. Mastoids appear clear of acute process. IMPRESSION: No mass or bleed or other significant acute intracranial process.
--- NOTE | 2020-10-02 15:12 | CT ---
EXAM: CT scan cervical spineWithout contrast: HISTORY: Injury from a fall syncopal episode COMPARISON: None FINDINGS: No evidence for acute fracture or facet dislocation. No significant malalignment. No prevertebral soft tissue swelling. Fairly extensive multilevel disc osteophytosis and facet arthrosis evidence for cervical spondylosis. This results in some multilevel mostly foraminal and lateral recess stenosis. IMPRESSION: No evidence for acute fracture or facet dislocation or other significant acute process.
[2020-10-02] MEDS ORDERED: Boostrix 0.5 ML (Tdap) VIAL ONE (16:20)
--- NOTE | 2020-10-02 17:07 | CT ---
EXAM: CT angiogram of the chest including 3-D rendering: HISTORY: Syncopal episode hit right side of face, injury a plastic anemia with chemotherapy COMPARISON: None FINDINGS: There is adequate opacification of the pulmonary arteries. No evidence for aortic aneurysm or dissection. No convincing CT evidence for acute pulmonary embolism. No significant acute pulmonary parenchymal process. No evidence for mediastinal mass or adenopathy. Moderate pericardial effusion up to 1.2 cm in thickness anteriorly. Moderate increased diffuse attenuation throughout the liver, nonspecific. Prominent intra-abdominal vascular calcifications. IMPRESSION: No convincing CT evidence for acute pulmonary embolism. Small to moderate pericardial effusion
[2020-10-02 17:25] LABS: Reticulocyte Count 1.4 % (0.5-1.5)
[2020-10-02] MEDS ORDERED: Acetaminophen 325 MG TAB PO PRN (18:33)
[2020-10-02] MEDS ORDERED: Acetaminophen 650 MG Suppository PR PRN (18:33)
[2020-10-02 19:04] LABS: Troponin I 0.025 ng/mL (< 0.028)
--- NOTE | 2020-10-02 19:36 | PDOC.HHP ---
Hospitalist HPI - History of Present Illness History of Present Illness: ADMISSION DATE: 10/02/2020 TIME OF ASSESSMENT: 1800 PRIMARY CARE PHYSICIAN: Dr. Georges CHIEF COMPLAINT: Fall secondary to syncope HPI: This is a 52-year-old gentleman with a history of aplastic anemia who had a sudden collapse today on the concrete floor while doing laundry. Patient states he did not have any preceding symptoms and the next thing he noticed was waking up on the ground. His heard him fall and he states he had very brief loss of consciousness lasting a few seconds. Denies feeling lightheaded prior to falling or having any chest pain. Denies any shortness of breath or dizziness. He is feeling well in himself but states that the last several days he has had a reduced appetite with decreased p.o. intake. He has tried to maintain adequate hydration the last several days. Patient reports having a blood transfusion and also receiving platelets on Sunday earlier this week. He is on daily oral chemotherapy for aplastic anemia and receives an infusion every month at [facility] ([place]). He is under the care of Dr. Mendiola who he saw earlier this week. At the moment he denies having any headaches or dizziness. He has been up on his feet a couple of times while in the ER and states he still feels somewhat lightheaded. Denies any chest pain or palpitations. Denies having any pain. Alexandr ferris sustained a laceration to the right eyebrow which bled excessively at the beginning. He has no significant discomfort to that site and it has been glued therefore no longer bleeding. ROS: She denies having any recent fevers chills or sweats. No cough or hemoptysis. No nausea vomiting or abdominal pain. Denies any urinary symptoms. He has had a few loose stools attributed to his treatments but denies noting any blood in the stool. All other review of systems apart from what is mentioned above in HPI are negative ED COURSE: Patient initially hypotensive at presentation with a blood pressure of 83/50. He received IV fluids (total of 1 L bolus and then started on NS 150 mL's per hour). Laceration to the right eyebrow was glued and he received a tetanus booster. CT head showed no mass or bleed or other significant acute intracranial process and CT cervical spine done showed no evidence for acute fracture or facet dislocation or other significant acute process. Chest x-ray showed no acute process. Laboratory studies were notable for a white count of 1.5, hemoglobin 10.9, hematocrit 31.7, platelets 38, neutrophils 23%. Sodium 137, potassium 4.1, BUN 28, creatinine 1.68, GFR 40. Albumin 3.3 LFTs normal, glucose 91. An elevated D-dimer of 2.09. Had a CT angiogram of the chest which showed no evidence for acute pulmonary embolism. He did have a small to moderate pericardial effusion. PAST MEDICAL HISTORY: 1. History of CA 2. CLL with chemo 3. Hyperlipidemia 4. Hypertension 5. History of GI bleed 6. History of kidney stones 7. CAD PAST SURGICAL HISTORY: 1. Right rotator cuff surgery 2. Left ankle surgery 3. Inguinal hernia repair x2 4. Cardiac stents x2 5. Third left digit amputation 6. Right ureteroscopy, laser lithotripsy and ureteral stent placement in July 2020 SOCIAL HISTORY: Reports smoking 2 cigars a week. Denies any alcohol consumption or drug use. Lives at home with his family and is fully independent at home. Mobilizes without the use of assistive devices. FAMILY HISTORY: Noncontributory ALLERGIES: No known drug allergies CURRENT MEDICATIONS: 1. Amlodipine 10 mg p.o. daily 2. Sandimmune 100 mg 2 tablets p.o. twice daily 3. Fluconazole 200 mg 2 tablets p.o. twice daily 4. Coreg 12.5 mg p.o. twice daily 5. Atorvastatin 40 mg p.o. daily 6. Promacta 75 mg 2 tablets p.o. daily 7. Isosorbide mononitrate ER 60 mg p.o. daily 8. Levofloxacin 500 mg p.o. daily 9. Ramipril 10 mg p.o. twice daily next - Exam General Appearance: NAD, awake alert General - other findings: VS: Temp 97.6 HR 88 RR 16 BP 137/70 O2 sat 97% on room air pain 0 out of 10 Eye: PERRL, anicteric sclera Eye - other findings: swelling and bruising to right eyebrow, no bone deformity, nontender ENT: no oropharyngeal lesions Neck: supple, symmetric, no lymphadenopathy Heart: RRR, no rubs, normal peripheral pulses Respiratory: CTAB, no wheezes, no rales, no ronchi, normal chest expansion Gastrointestinal: soft, non-tender, non-distended, normal bowel sounds Extremities: no edema Skin: no lesions, no rashes, tenting Skin - other findings: generally dry skin Neurological: cranial nerve grossly intact, normal sensation to touch Musculoskeletal: normal tone, normal strength, no muscle wasting Psychiatric: normal affect, normal behavior, A&O x 3 Hospitalist Results - Labs Result Diagrams: 10/02/20 14:00 10/02/20 14:00 Lab results: WBC 1.5 thou/uL (4.8-10.8) L 10/02/20 14:00 Hgb 10.9 g/dL (14.0-18.0) L 10/02/20 14:00 Hct 31.7 % (42.0-52.0) L 10/02/20 14:00 MCV 86.5 fL (78.0-98.0) 10/02/20 14:00 Plt Count 30 thou/uL (130-400) L 10/02/20 14:00 Band Neuts % (Manual) 5 % (5-11) 10/02/20 14:00 Sodium 137 mmol/L (136-145) 10/02/20 14:00 Potassium 4.1 mmol/L (3.5-5.1) 10/02/20 14:00 Chloride 100 mmol/L (98-107) 10/02/20 14:00 Carbon Dioxide 22 mmol/L (23-31) L 10/02/20 14:00 BUN 28 mg/dL (8.4-25.7) H 10/02/20 14:00 Creatinine 1.68 mg/dL (0.7-1.3) H 10/02/20 14:00 Glucose 91 mg/dL (83-110) 10/02/20 14:00 Calcium 8.8 mg/dL (7.8-10.44) 10/02/20 14:00 Total Bilirubin 1.2 mg/dL (0.2-1.2) 10/02/20 14:00 AST 19 U/L (5-34) 10/02/20 14:00 ALT 26 U/L (8-55) 10/02/20 14:00 Alkaline Phosphatase 80 U/L (40-110) 10/02/20 14:00 Troponin I 0.025 ng/mL (< 0.028) 10/02/20 18:17 Serum Total Protein 5.7 g/dL (5.8-8.1) L 10/02/20 14:00 Albumin 3.3 g/dL (3.4-4.8) L 10/02/20 14:00 - Radiology Interpretation Chest x-ray Status: report reviewed by me CT scan - head Status: report reviewed by me Hospitalist H&P A/P - Problem (1) Syncope and collapse Code(s): R55 - SYNCOPE AND COLLAPSE Status: Acute Assessment and Plan: Cardiac monitoring Trend troponins Echo Carotid US Orthostatic BPs (2) IRLANDA (acute kidney injury) Code(s): N17.9 - ACUTE KIDNEY FAILURE, UNSPECIFIED Status: Acute Assessment and Plan: Gentle hydration Monitor renal function (3) Decreased appetite Code(s): R63.0 - ANOREXIA Status: Acute Assessment and Plan: Consult high school social science teacher (4) CLL (chronic lymphocytic leukemia) Code(s): C91.90 - LYMPHOID LEUKEMIA, UNSPECIFIED NOT HAVING ACHIEVED REMISSION Status: Chronic Assessment and Plan: Stable, monitor blood counts Consider oncology consult (5) Pancytopenia Code(s): D61.818 - OTHER PANCYTOPENIA Status: Chronic Assessment and Plan: Stable (better than baseline following recent transfusion of RBCs and platelets) No active bleeding, therefore will hold additional transfusion as per discussion with Dr. Spencer Neutropenic precautions (6) HTN (hypertension) Code(s): I10 - ESSENTIAL (PRIMARY) HYPERTENSION Status: Chronic Qualifiers: Assessment and Plan: Monitor BP Low in the ED Hold antihypertensives (7) CAD (coronary artery disease) Code(s): I25.10 - ATHSCL HEART DISEASE OF [place] CORONARY ARTERY W/O ANG PCTRS Status: Chronic (8) Dyslipidemia Code(s): E78.5 - HYPERLIPIDEMIA, UNSPECIFIED Status: Chronic - Plan Plan: GI prophylaxis with Famotidine Resume home meds once verified DVT Prophylaxis with mechanical SCDs Full CODE STATUS. Surrogate decision maker is his Rohini Webb.
[2020-10-02] MEDS: Sodium Chloride 0.9% 1,000 ML IV SCH (21:15)
[2020-10-02 21:42] LABS: Troponin I 0.019 ng/mL (< 0.028)
--- NOTE | 2020-10-02 23:01 | ULT ---
BILATERAL CAROTID DUPLEX ULTRASOUND: HISTORY: Syncope TECHNIQUE: Grayscale, color-flow and spectral Doppler ultrasound imaging of the extracranial carotid artery syst ems and vertebral arteries was performed bilaterally. FINDINGS: Right carotid: South scale images demonstrate scattered calcified plaque in the common carotid artery, carotid bifurcation and proximal internal carotid arteries Left carotid: South scale images demonstrate calcified plaque in the common carotid artery, carotid bi furcation and internal carotid artery. The peak systolic velocity in the right ICA measures 80 3. cm/s. The peak systolic velocity in the r ight CCA measures 81.5 cm/s. The peak systolic velocity in the left ICA measures 85.3 cm/s. The peak systolic velocity in the l eft CCA measures 87.2 cm/s. The right IC/CC ration is1.0. The left IC/CC ratio is 1.0. Vertebral flow: antegrade, bilaterally. . IMPRESSION: No hemodynamically significant stenosis in either cervical carotid or vertebral artery.
[2020-10-02] MEDS ORDERED: Famotidine 20 MG TAB ONE ×2 (23:39→23:43)
[2020-10-02] MEDS: Famotidine 20 MG TAB PO SCH (23:45)
[2020-10-03 04:21] LABS: Bilirubin Negative (Negative); Blood, Urine Negative (Negative); Clarity Clear (Clear); Glucose, Urine (Dipstick) Normal (Negative); Ketone, Urine 20 mg/dL (Negative); Leukocyte Negative Leu/uL (Negative); Nitrite Negative (Negative); Protein, Urine (Dipstick) 10 mg/dL (Neg-Trace); Specific Gravity, Urine 1.037 (1.002-1.036); Urobilinogen Normal mg/dL (Less than 2); pH, Urine 5.5 (5.0-9.0)
[2020-10-03 07:28] LABS: ALT (SGPT) 24 U/L (8-55); AST (SGOT) 20 U/L (5-34); Alkaline Phosphatase 75 U/L (40-110); Anion Gap 18 mmol/L (10-20); BUN (Urea Nitrogen) 23 mg/dL (8.4-25.7); Bilirubin, Total 0.9 mg/dL (0.2-1.2); Calc. Creatinine Clearance 0 mL/min (70-130); Calcium 8.4 mg/dL (7.8-10.44); Carbon Dioxide 19 mmol/L (23-31); Chloride 104 mmol/L (98-107); Globulin 2.2 g/dL (2.4-3.5); Glucose 65 mg/dL (83-110); Potassium 3.8 mmol/L (3.5-5.1); Protein, Total 5.2 g/dL (5.8-8.1); Sodium 137 mmol/L (136-145)
[2020-10-03 07:38] LABS: Anisocytosis MODERATE=16-30 cells (100X) (0-5/hpf); Band 7 % (5-11); Hemoglobin 10.2 g/dL (14.0-18.0); Lymphocytes 42 % (21-51); MDiff Complete? YES; Mean Corpuscular HGB CONC 34.4 g/dL (32.0-36.0); Mean Corpuscular Hemoglobin 29.8 pg (27.0-31.0); Mean Corpuscular Volume 86.7 fL (78.0-98.0); Mean Platelet Volume 14.6 fL (7.4-10.4); Monocytes 31 % (0-10); Neutrophil 20 % (42-75); Nucleated RBC 1 % (0); Platelet Count 20 thou/uL (130-400); Platelet Morphology Comment Appears Decreased; Poikilocytosis SLIGHT = 6-15 cells (100X) (0-5/hpf); RBC Distribution Width 18.1 % (11.5-14.5); Red Blood Cell (RBC) Count 3.43 mill/uL (4.70-6.10); White Blood Cell (WBC) Count 1.4 thou/uL (4.8-10.8)
[2020-10-03 07:50] LABS: SARS-CoV-2 MS2 Positive; SARS-CoV-2 N Gene Negative; SARS-CoV-2 S Gene Negative; SARS-CoV-2 by NAA Not Detected (NotDetected); SARS-CoV-2 orf1ab Negative
[2020-10-03] MEDS ORDERED: Famotidine 20 MG TAB ONE (08:55)
[2020-10-03] MEDS ORDERED: Cefepime 2 GM VIAL ONE (08:55)
[2020-10-03] MEDS ORDERED: Sodium Chloride 0.9% 100 ML ONE (08:55)
[2020-10-03] MEDS: Cefepime 2 GM in Sodium Chloride 0.9% 100 ML IVPB SCH ×2 (09:07→20:22)
[2020-10-03] MEDS: Famotidine 20 MG TAB PO SCH ×2 (09:07→20:22)
[2020-10-03] MEDS: Sodium Chloride 0.9% 1,000 ML IV SCH ×2 (09:08→23:52)
[2020-10-03 15:31] VITALS: BMI 25.9
--- NOTE | 2020-10-03 16:42 | PDOC.HOSPP ---
- Subjective Encounter Date: 10/03/20 Encounter Time: 10:00 Subjective: Patient was seen and examined in bed in the ED. He was placed on ICU hold. He generally feels better. Denied any headache chest pain shortness of breath. - Objective Vital Signs & Weight: Weight Weight 165 lb 4.8 oz Result Diagrams: 10/03/20 06:54 10/03/20 06:54 Hospitalist ROS - Medication Medications: Active Medications Generic Name Dose Route Start Last Admin Trade Name Madelin PRN Reason Stop Dose Admin Famotidine 20 mg 10/02/20 21:00 10/03/20 09:07 Famotidine 20 Mg Tab PO 20 mg BID LIZZ Administration Sodium Chloride 1,000 mls @ 65 mls/hr 10/02/20 18:45 10/03/20 09:08 Normal Saline 0.9% IV 1,000 mls .[id number] LIZZ Administration Cefepime HCl 2 gm/ Sodium 100 mls @ 200 mls/hr 10/03/20 09:00 10/03/20 09:07 Chloride IVPB 100 mls Q12HR LIZZ Administration - Exam General Appearance: awake alert ENT: no oropharyngeal lesions ENT - other findings: Ecchymosis around right eye Neck: supple, no JVD Heart: RRR, no murmur, no gallops, no rubs Respiratory: CTAB, no wheezes, no rales, no ronchi Gastrointestinal: soft, non-tender, non-distended, normal bowel sounds Extremities: no cyanosis, no clubbing, no edema Extremities - other findings: Left middle finger amputated Neurological: cranial nerve grossly intact, no focal deficits Psychiatric: normal affect, normal behavior, A&O x 3 Hosp A/P - Plan This is a 52-year-old male patient with a history of CLL and chronic thrombocytopenia and aplastic anemia who has been admitted on account of an episode of sudden collapse. Syncope Episode appears suddenvasovagal/cardiogenic. He has had 3 previous cardiac stents. Orthostatics were positive. He is currently on only ramipril for blood pressure medication. We will go ahead and hydrate Check echocardiogram Consider cardiology evaluation given his cardiac history and sudden nature of his collapse. Continue close monitoring Pancytopenia He has pancytopenia with severe leukopenia and thrombocytopenia This is likely due to CLL with aplastic anemia We will consult heme-onc. Severe neutropenia WBCs 1.4 with 23% neutrophils ANC2.8. We will start him on cefepime Consult heme-onc. Severe thrombocytopenia Platelets reduced to 20,000 this morning. We will consider platelet transfusion however no bleeding noted He received a partial transfusion a few days ago with associated transfusion reaction We will appreciate heme-onc input. Coronary disease Status post stenting Not on aspirin or statin on his home medications. We will consider statin statins Cardiology evaluation. Diabetes mellitus Correctional insulin Monitor glucose. Hypertension Hold lisinopril Monitor BP COPD Not in acute exacerbation As needed duo nebs. History of CVA Start statins. History of pulmonary embolism Not on anticoagulation at the moment Reviewed consider restarting VT prophylaxisSCD. Has severe thrombocytopenia. CODE STATUSfull code Dispositionpending improved
[2020-10-03 18:45] LABS: Mean Corpuscular HGB CONC 35.2 g/dL (32.0-36.0); Mean Corpuscular Hemoglobin 31.4 pg (27.0-31.0); Mean Corpuscular Volume 89.1 fL (78.0-98.0); Platelet Count 17 thou/uL (130-400); RBC Distribution Width 17.9 % (11.5-14.5); Red Blood Cell (RBC) Count 3.17 mill/uL (4.70-6.10); White Blood Cell (WBC) Count 1.2 thou/uL (4.8-10.8)
--- NOTE | 2020-10-03 19:06 | CON ---
DATE OF CONSULTATION: 10/03/2020 HISTORY OF PRESENT ILLNESS: Mr. Webb is a 70-year-old male, who is a patient of Dr. Mendiola, with a history of aplastic anemia and chronic pancytopenia, who does at times require blood transfusion. He is also a patient at [facility], where he does monthly 4 infusions, although the patient is not sure what the infusion is that he is on. He presented to the emergency room after multiple phone calls to our answering service because of complaints of a syncopal episode. His called to state that he passed out in the laundry room and had no warning signs. He was about to pass out. No chest pain or shortness of breath. She heard him fall and found him on the floor where he hit his face and broken his glasses. He has multiple ecchymoses on the right side of the face and states he does have a very mild headache, but no other complaints. He denies any seizure activity. He denies any other presyncopal or syncopal episodes recently. He states he did pass out one time approximately 2 years ago. He has no known cardiac history as well. He has been monitored here without any cardiac events. We are consulted for further recommendations. He has no other complaints. He does complain of some loose stools recently, but no obvious diarrhea. PAST MEDICAL HISTORY: 1. Aplastic anemia, currently being worked up for a bone marrow transplant. 2. Chronic pancytopenia secondary to aplastic anemia. 3. Distant history of myocardial infarction. 4. Hyperlipidemia. 5. Hypertension. 6. History in the past of a GI bleed. 7. Nephrolithiasis. CURRENT MEDICATIONS: 1. Tylenol p.r.n. 2. Cefepime 2 g IV q.12 hours. 3. Pepcid 20 mg p.o. b.i.d. ALLERGIES: NO KNOWN DRUG ALLERGIES. SOCIAL HISTORY: . His daughter is also very supportive. He denies any current tobacco or alcohol use. . FAMILY HISTORY: Noncontributory. REVIEW OF SYSTEMS: Otherwise, 10-point review of systems negative. Please see the history of present illness. PHYSICAL EXAMINATION: GENERAL: He is alert, awake, oriented x3. He is in no acute distress, lying supine. HEENT: Extraocular muscles are intact. He does have a large ecchymosis periorbitally on the right side of his face. NECK: No lymphadenopathy in the neck. CARDIOVASCULAR: Regular rhythm. LUNGS: Clear to auscultation. ABDOMEN: Hypoactive bowel sounds. Soft, nontender, nondistended. EXTREMITIES: No edema. No other significant ecchymoses. LABORATORY DATA: White blood cell count 1.4, hemoglobin 10.2, platelets 30,000 on admission, now down to 20,000. Chemistries are normal including a creatinine of 1.09, his creatinine was 1.68 when he presented. Total protein 5.2, albumin 3.0. Urinalysis shows no signs of infection. Brain CT done on admission shows no mass or bleed or other significant acute intracranial process. CT angiogram done on admission shows no sign of pulmonary embolism. He does have a moderate pericardial effusion. ASSESSMENT: Mr. Webb is a 70-year-old male with: 1. History of aplastic anemia and chronic pancytopenia. 2. Recent syncopal episode with right facial ecchymoses. 3. Acute renal failure on admission, now resolving with hydration. 4. Pericardial effusion on CT angiogram. PLAN: 1. I would suggest an echocardiogram to workup the pericardial effusion, this may or may not be clinically significant. 2. He does not currently need a blood transfusion, but as his platelets fall any further, he would probably benefit from a platelet transfusion given his recent fall, continue to monitor. 3. He is on antibiotics for prophylaxis. 4. Monitor on telemetry. 5. We will continue to follow with you. Job ID: [id number]
[2020-10-03 19:09] LABS: Anisocytosis SLIGHT = 6-15 cells (100X) (0-5/hpf); Band 13 % (5-11); Eosinophils 1 % (0-10); Lymphocytes 27 % (21-51); MDiff Complete? YES; Monocytes 39 % (0-10); Neutrophil 15 % (42-75); Platelet Morphology Comment Appears Decreased; Polychromasia SLIGHT = 2-3 cells (100X) (0-2/hpf); Reactive Lymphocytes 5 % (0-10)
[2020-10-03] MEDS ORDERED: diphenhydrAMINE 50 MG/ML VIAL IVP SCH (19:30)
[2020-10-04] MEDS ORDERED: Acetaminophen 500 MG TAB PO SCH (04:45)
[2020-10-04] MEDS ORDERED: diphenhydrAMINE 50 MG in Sodium Chloride 0.9% 50 ML IVPB SCH (04:45)
[2020-10-04 04:53] LABS: Anion Gap 13 mmol/L (10-20); BUN (Urea Nitrogen) 14 mg/dL (8.4-25.7); Calc. Creatinine Clearance 85 mL/min (70-130); Carbon Dioxide 22 mmol/L (23-31); Chloride 104 mmol/L (98-107); Glucose 69 mg/dL (83-110); Potassium 3.3 mmol/L (3.5-5.1); Sodium 136 mmol/L (136-145)
[2020-10-04 05:38] LABS: Platelet Count 13 thou/uL (130-400)
[2020-10-04 06:38] LABS: Anisocytosis SLIGHT = 6-15 cells (100X) (0-5/hpf); Band 3 % (5-11); Eosinophils 1 % (0-10); Hemoglobin 9.5 g/dL (14.0-18.0); Lymphocytes 35 % (21-51); MDiff Complete? YES; Mean Corpuscular HGB CONC 33.5 g/dL (32.0-36.0); Mean Corpuscular Hemoglobin 29.6 pg (27.0-31.0); Mean Corpuscular Volume 88.3 fL (78.0-98.0); Mean Platelet Volume 15.7 fL (7.4-10.4); Monocytes 34 % (0-10); Neutrophil 27 % (42-75); Platelet Morphology Comment Appears Decreased; RBC Distribution Width 18.4 % (11.5-14.5); Red Blood Cell (RBC) Count 3.21 mill/uL (4.70-6.10); White Blood Cell (WBC) Count 1.2 thou/uL (4.8-10.8)
[2020-10-04] MEDS ORDERED: Electrolyte Replacement Protocol 1 EACH FS SCH (07:15)
[2020-10-04] MEDS ORDERED: Potassium Chloride 20 MEQ TAB PO SCH (07:45)
[2020-10-04] MEDS: Famotidine 20 MG TAB PO SCH ×2 (07:49→20:34)
[2020-10-04] MEDS: Cefepime 2 GM in Sodium Chloride 0.9% 100 ML IVPB SCH ×2 (07:49→20:34)
[2020-10-04] MEDS ORDERED: Magnesium Sulfate 4 GM in Sodium Chloride 0.9% 250 ML 250 ML IVPB SCH (08:30)
[2020-10-04] MEDS ORDERED: Sodium Chloride 0.9% 500 ML IV SCH (08:45)
[2020-10-04] MEDS ORDERED: CYCLOSPORINE 100 MG PO SCH (09:00)
[2020-10-04] MEDS: valACYclovir 500 MG TAB PO SCH (09:48)
--- NOTE | 2020-10-04 13:24 | PQF ---
CLINICAL DOCUMENTATION CLARIFICATION FORM: Dear MINDY Paulino Date: 10-04-20 Please exercise your independent, professional judgment in responding to the clarification form. Clinical indicators are provided on the bottom of this form for your review. Please check appropriate box(es): [ ] Pancytopenia due to Chemotherapy/antineoplastic drugs [ ] Pancytopenia due to Aplastic Anemia [ ] Other diagnosis [ ] Unable to determine In addition, please specify: Present on Admission (POA): [ ] Yes [ ] No [ ] Unable to determine For continuity of documentation, please document condition throughout progress notes and discharge summary. Thank You. To be completed by CDI/Coding staff for physician review: CLINICAL INDICATORS - SIGNS / SYMPTOMS / LABS/ RESULTS AND LOCATION IN MR: H&P 10-02-20: DAILY ORAL CHEMOTHERAPY FOR APLASTIC ANEMIA AND RECEIVES AND INFUSION EVERY MONTH AT [facility], CHRONIC PANCYTOPENIA, STABLE CONSULT NOTE DR. ROBLERO 10-03-20: HX OF APLASTIC ANEMIA AND CHRONIC PANCYTOPENIA, WHO DOES AT TIMES REQUIRE BLOOD TRANSFUSION RISK FACTORS / RESULTS AND LOCATION IN MR: H&P 10-02-20: DAILY ORAL CHEMOTHERAPY FOR APLASTIC ANEMIA AND RECEIVES AND INFUSION EVERY MONTH AT [facility], CHRONIC PANCYTOPENIA, STABLE TREATMENT / RESULTS AND LOCATION IN MR: CONSULT NOTE DR. ROBLERO 10-03-20: HE DOES NOT CURRENTLY NEED A BLOOD TRANSFUSION, BUT HIS PLATELETS FALL ANY FURTHER, HE WOULD PROBABLY BENEFIT FROM A PLATELET TRANSFUSION GIVEN HIS RECENT FALL, CONTINUE TO MONITOR, CURRENTLY BEING WORKED UP FOR BONE MARROW TRANSPLANT CDS Signature: Queta Hernandez Phone #: [phone] Date: 08-04-20 This is a permanent part of the Medical Record [facility]
--- NOTE | 2020-10-04 13:33 | PQF ---
CLINICAL DOCUMENTATION CLARIFICATION FORM: Dear MINDY Paulino Date: 10-04-20 Please exercise your independent, professional judgment in responding to the clarification form. Clinical indicators are provided on the bottom of this form for your review. Please check appropriate box(es): [ ] Pancytopenia due to Chemotherapy/antineoplastic drugs [ x] Pancytopenia due to Aplastic Anemia [ ] Other diagnosis [ ] Unable to determine In addition, please specify: Present on Admission (POA): [ x ] Yes [ ] No [ ] Unable to determine For continuity of documentation, please document condition throughout progress notes and discharge summary. Thank You. To be completed by CDI/Coding staff for physician review: CLINICAL INDICATORS - SIGNS / SYMPTOMS / LABS/ RESULTS AND LOCATION IN MR: H&P 10-02-20: DAILY ORAL CHEMOTHERAPY FOR APLASTIC ANEMIA AND RECEIVES AND INFUSION EVERY MONTH AT [facility], CHRONIC PANCYTOPENIA, STABLE CONSULT NOTE DR. ROBLERO 10-03-20: HX OF APLASTIC ANEMIA AND CHRONIC PANCYTOPENIA, WHO DOES AT TIMES REQUIRE BLOOD TRANSFUSION RISK FACTORS / RESULTS AND LOCATION IN MR: H&P 12-20: DAILY ORAL CHEMOTHERAPY FOR APLASTIC ANEMIA AND RECEIVES AND INFUSION EVERY MONTH AT [facility], CHRONIC PANCYTOPENIA, STABLE TREATMENT / RESULTS AND LOCATION IN MR: CONSULT NOTE DR. ROBLERO 10-03-20: HE DOES NOT CURRENTLY NEED A BLOOD TRANSFUSION, BUT HIS PLATELETS FALL ANY FURTHER, HE WOULD PROBABLY BENEFIT FROM A PLATELET TRANSFUSION GIVEN HIS RECENT FALL, CONTINUE TO MONITOR, CURRENTLY BEING WORKED UP FOR BONE MARROW TRANSPLANT CDS Signature: Queta Hernandez Phone #: [phone] Date: 08-04-20 This is a permanent part of the Medical Record [facility]
--- NOTE | 2020-10-04 17:51 | PDOC.HOSPP ---
- Subjective Encounter Date: 10/04/20 Encounter Time: 10:00 Subjective: Patient seen in bed. No significant overnight events Denies any pain or shortness of breath but still orthostatic - Objective Vital Signs & Weight: Vital Signs (12 hours) Temp Pulse Pulse Pulse Pulse Pulse Pulse 10/04/20 15:58 97.9 F 87 10/04/20 14:53 85 88 95 93 10/04/20 11:25 97.9 F 75 10/04/20 07:52 97.8 F 76 10/04/20 07:00 98.9 F 74 10/04/20 06:20 99.1 F 75 10/04/20 06:04 99.5 F 77 Resp BP BP BP BP BP BP 10/04/20 15:58 18 166/67 H 10/04/20 14:53 157/83 H 138/73 116/68 168/85 H 10/04/20 11:25 18 143/78 H 10/04/20 07:52 18 154/85 H 10/04/20 07:00 18 154/76 H 10/04/20 06:20 18 152/79 H 10/04/20 06:04 16 152/81 H BP BP Pulse Ox 10/04/20 15:58 96 10/04/20 14:53 10/04/20 11:25 100 10/04/20 07:52 96 10/04/20 07:00 123/69 102/64 97 10/04/20 06:20 97 10/04/20 06:04 96 Weight Admit Weight 165 lb 4.8 oz Weight 165 lb 4.8 oz I&O: 10/03/20 10/04/20 10/05/20 06:59 06:59 06:59 Intake Total 2970 3000 Output Total 775 1350 Balance 2195 1650 Result Diagrams: 10/05/20 08:43 10/05/20 08:43 Hospitalist ROS - Medication Medications: Active Medications Generic Name Dose Route Start Last Admin Trade Name Freq PRN Reason Stop Dose Admin Famotidine 20 mg 10/02/20 21:00 10/04/20 07:49 Famotidine 20 Mg Tab PO 20 mg BID LIZZ Administration Sodium Chloride 1,000 mls @ 100 mls/hr 10/02/20 18:45 10/03/20 23:52 Normal Saline 0.9% IV 1,000 mls .Q10H LIZZ Administration Cefepime HCl 2 gm/ Sodium 100 mls @ 200 mls/hr 10/03/20 09:00 10/04/20 07:49 Chloride IVPB 100 mls Q12HR LIZZ Administration Valacyclovir HCl 500 mg 10/04/20 09:00 10/04/20 09:48 Valacyclovir 500 Mg Tab PO 500 mg DAILY LIZZ Administration - Exam General Appearance: awake alert General - other findings: Erythema around right eye. Eye: PERRL, anicteric sclera Heart: RRR, no murmur, no gallops, normal peripheral pulses Respiratory: CTAB, no wheezes, no rales, no ronchi Gastrointestinal: soft, non-tender, non-distended, normal bowel sounds Extremities: no cyanosis, no clubbing, no edema Neurological: cranial nerve grossly intact, no focal deficits Psychiatric: normal affect, A&O x 3 Hosp A/P - Plan This is a 52-year-old male patient with a history of CLL and chronic thrombocytopenia and aplastic anemia who has been admitted on account of an episode of sudden collapse. Patient has remained orthostatic with worsening thrombocytopenia requiring platelet transfusion overnight. We will proceed with rehydration and monitoring with platelet monitoring for ID Syncope Patient remains orthostatic besides repeated bolus and IV fluids. We will continue hydration for the day and reassess in a.m. Discontinue his blood pressure medications EchocardiogramEF within normal limits Monitor on telemetryno concerning rhythms so far Pancytopenia He has pancytopenia with severe leukopenia and thrombocytopenia This is likely due to CLL with aplastic anemia We will consult heme-onc. Severe neutropenia WBCs 1.4 with 23% neutrophils ANC2.8. We will start him on cefepime Consult heme-onc. Severe thrombocytopenia Platelets dropped to 13 overnight and was given a unit of platelets Repeat platelets and monitor If platelets remain stable discharge tomorrow. Coronary disease Status post stenting Not on aspirin or statin on his home medications. We will consider statin statins Cardiology evaluation. Diabetes mellitus Correctional insulin Monitor glucose. Hypertension Hold lisinopril Monitor BP COPD Not in acute exacerbation As needed duo nebs. History of CVA Start statins. History of pulmonary embolism Not on anticoagulation at the moment Reviewed consider restarting VT prophylaxisSCD. Has severe thrombocytopenia. CODE STATUSfull code Dispositionpending improved
[2020-10-04] MEDS ORDERED: Sodium Chloride 0.9% 500 ML IVPB SCH (18:15)
[2020-10-04] MEDS: Sodium Chloride 0.9% 1,000 ML IV SCH (18:31)
[2020-10-04 18:40] LABS: Anisocytosis SLIGHT = 6-15 cells (100X) (0-5/hpf); Band 10 % (5-11); Eosinophils 1 % (0-10); Hemoglobin 9.4 g/dL (14.0-18.0); Large Platelets SLIGHT; Lymphocytes 31 % (21-51); MDiff Complete? YES; Mean Corpuscular HGB CONC 32.5 g/dL (32.0-36.0); Mean Corpuscular Hemoglobin 28.6 pg (27.0-31.0); Mean Platelet Volume 11.5 fL (7.4-10.4); Monocytes 38 % (0-10); Neutrophil 14 % (42-75); Platelet Count 56 thou/uL (130-400); Platelet Morphology Comment Appears Decreased; Polychromasia SLIGHT = 2-3 cells (100X) (0-2/hpf); RBC Distribution Width 18.9 % (11.5-14.5); Reactive Lymphocytes 6 % (0-10); Red Blood Cell (RBC) Count 3.28 mill/uL (4.70-6.10); White Blood Cell (WBC) Count 1.2 thou/uL (4.8-10.8)
[2020-10-05 07:24] VITALS: TEMP 98.3
[2020-10-05] MEDS: valACYclovir 500 MG TAB PO SCH (08:20)
[2020-10-05] MEDS: Cefepime 2 GM in Sodium Chloride 0.9% 100 ML IVPB SCH (08:20)
[2020-10-05] MEDS: Famotidine 20 MG TAB PO SCH (08:20)
[2020-10-05] MEDS: Sodium Chloride 0.9% 1,000 ML IV SCH (08:20)
[2020-10-05 09:08] LABS: Hemoglobin 9.4 g/dL (14.0-18.0); Mean Corpuscular HGB CONC 33.3 g/dL (32.0-36.0); Mean Corpuscular Hemoglobin 30.1 pg (27.0-31.0); Mean Corpuscular Volume 90.5 fL (78.0-98.0); Mean Platelet Volume 11.2 fL (7.4-10.4); Platelet Count 46 thou/uL (130-400); RBC Distribution Width 18.9 % (11.5-14.5); Red Blood Cell (RBC) Count 3.12 mill/uL (4.70-6.10); White Blood Cell (WBC) Count 1.1 thou/uL (4.8-10.8)
[2020-10-05 09:16] LABS: Anion Gap 13 mmol/L (10-20); BUN (Urea Nitrogen) 6 mg/dL (8.4-25.7); Calc. Creatinine Clearance 93 mL/min (70-130); Calcium 8.3 mg/dL (7.8-10.44); Carbon Dioxide 25 mmol/L (23-31); Chloride 103 mmol/L (98-107); Glucose 129 mg/dL (83-110); Potassium 3.3 mmol/L (3.5-5.1); Sodium 138 mmol/L (136-145)
[2020-10-05] MEDS ORDERED: Cosyntropin 250 MCG VIAL SLOW IVP SCH (09:45)
[2020-10-05] MEDS ORDERED: Potassium Chloride 20 MEQ TAB PO SCH (09:45)
[2020-10-05] MEDS ORDERED: Sodium Chloride 0.9% 1,000 ML IV SCH (10:00)
[2020-10-05 10:51] VITALS: BP 164/75
[2020-10-05 11:18] LABS: Band 6 % (5-11); Lymphocytes 34 % (21-51); MDiff Complete? YES; Monocytes 38 % (0-10); Neutrophil 16 % (42-75); Platelet Morphology Comment Appears Decreased; Polychromasia SLIGHT = 2-3 cells (100X) (0-2/hpf); Reactive Lymphocytes 6 % (0-10)
--- NOTE | 2020-10-05 19:58 | PDOC.DS.DS ---
Provider - Provider Date of Admission: 10/02/20 17:50 Date of Discharge: 10/05/20 Admitting Provider: Haroon Ovalle Jr, MD Primary Care Physician: Chuy Georges MD Course - Hospital Course Hospital Course: This is a 70-year-old male patient with a history of CLL, aplastic anemia requiring intermittent platelet transfusion who presents to the ED on his day of admission on account of a syncopal event. Upon evaluation it was noted that he was severely thrombocytopenic and orthostatic. He was fluid resuscitated over a couple of days with eventual normalization of his blood pressures. Prior to admission he was on ramipril and carvedilol. His carvedilol dose had just recently been increased from 6.125-12.5 twice daily His syncope was attributed to orthostatic hypotension. On the day of discharge he was advised to hold ramipril until he goes for review. Also advised to reduce his carvedilol dose back to 6.125 twice daily till reevaluation. He was also advised to have compression stockings and also to get up slowly from a sitting position whenever he intends to stand. For his thrombocytopenia platelet count was monitored which eventually dropped to 13 from 20,000. He was transfused 1 unit of platelets with very good recovery. Hematology was consulted. He will follow up as needed. Resuscitation Status: 10/02/20 18:33 Resuscitation Status Routine Co-Sign Provider: Resuscitation Status: FULL: Full Resuscitation - Labs Lab Results: 10/05/20 08:43 10/05/20 08:43 Abnormal Lab Results - Last 48 hrs 10/04/20 04:00: Potassium 3.3 L, Carbon Dioxide 22 L 10/04/20 04:00: WBC 1.2 L, RBC 3.21 L, Hgb 9.5 L, Hct 28.4 L, RDW 18.4 H, Plt Count 13 L*, MPV 15.7 H, Neutrophils % (Manual) 27 L, Band Neuts % (Manual) 3 L, Monocytes % (Manual) 34 H, Plt Morphology Comment Appears Decreased L 10/04/20 04:00: Magnesium 1.2 L 10/04/20 17:58: WBC 1.2 L, RBC 3.28 L, Hgb 9.4 L, Hct 28.9 L, RDW 18.9 H, Plt Count 56 L, MPV 11.5 H, Neutrophils % (Manual) 14 L, Monocytes % (Manual) 38 H, Plt Morphology Comment Appears Decreased L 10/05/20 08:43: Potassium 3.3 L, BUN 6 L 10/05/20 08:43: WBC 1.1 L, RBC 3.12 L, Hgb 9.4 L, Hct 28.3 L, RDW 18.9 H, Plt Count 46 L, MPV 11.2 H, Neutrophils % (Manual) 16 L, Monocytes % (Manual) 38 H, Plt Morphology Comment Appears Decreased L - Physical Exam Vitals: Vital Signs (12 hours) BP BP BP 10/05/20 10:50 164/75 H 149/61 H 139/63 10/05/20 09:31 158/76 H 145/71 H 119/67 Weight Admit Weight 165 lb 4.8 oz Weight 165 lb 4.8 oz Physical Exam: The patient was seen and examined on the day of discharge. General: In no acute distress. Bruise around right eye Respiratory system: Air entry adequate bilaterally. No wheezes or rales. CVS: S1-S2 present and normal. No murmurs gallops or rubs. Abdomen: Benign Extremities: No edema Problem - Discharge Plan Assessment: Syncope Secondary to orthostatic hypotension Blood pressure medications reviewed Advised to keep hydrated and use compression stockings To follow-up with PCP Thrombocytopenia Was platelet transfusion with good recovery Follow-up with oncology Plan - Discharge Medications Home Medications: Medication Instructions Recorded Confirmed Type Atorvastatin Calcium [Lipitor] 40 mg PO DAILY 07/20/18 10/03/20 History Levofloxacin 500 mg PO DAILY 08/12/20 10/03/20 History valACYclovir [Valtrex] 500 mg PO DAILY 08/12/20 10/03/20 History Eltrombopag Olamine [Promacta] 150 mg PO DAILY 10/03/20 10/03/20 History Fluconazole 400 mg PO BID 10/03/20 10/03/20 History cycloSPORINE [SandIMMUNE] 200 mg PO BID 10/03/20 10/03/20 History Allergies: No Known Drug Allergies Allergy (Verified 02/25/20 20:28) per pt - Discharge Instructions Activity:: Activity as Tolerated - Follow up Plan Referrals: Ariana Domingo MD [Active] - 7 Days (Please follow-up as normal for low platelets and blood work. ) Chuy Georges MD [Primary Care Provider] - 7 Days (Please call to make an appointment. ) Disposition: HOME Quality - Care Measures CORE MEASURES:: N/A
== END 2020-10-05 14:15 | disposition home or self-care (01) ==
LOC: ERS 13:38 → INTOOBSV 17:50 → ERHOLD 17:50 → 2NO 18:56
PROVIDERS: ADMIT Surgery; ATTEND Surgery
DX: I95.1 Orthostatic hypotension (principal); D61.9 Aplastic anemia, unspecified; D70.9 Neutropenia, unspecified; D69.6 Thrombocytopenia, unspecified; I25.10 Atherosclerotic heart disease of native coronary artery without angina pectoris; E11.9 Type 2 diabetes mellitus without complications; I10 Essential (primary) hypertension; J44.9 Chronic obstructive pulmonary disease, unspecified; I25.2 Old myocardial infarction; C91.90 Lymphoid leukemia, unspecified not having achieved remission; E78.5 Hyperlipidemia, unspecified; F17.290 Nicotine dependence, other tobacco product, uncomplicated; N17.9 Acute kidney failure, unspecified; I31.3 Pericardial effusion (noninflammatory); S00.83XA Contusion of other part of head, initial encounter; R63.0 Anorexia; Z68.25 Body mass index [BMI] 25.0-25.9, adult; Z86.73 Personal history of transient ischemic attack (TIA), and cerebral infarction without residual deficits; Z79.2 Long term (current) use of antibiotics; Z79.899 Other long term (current) drug therapy; Z95.5 Presence of coronary angioplasty implant and graft; Z20.828 Contact with and (suspected) exposure to other viral communicable diseases; W18.30XA Fall on same level, unspecified, initial encounter
CPT/HCPCS: 12011; 36415; 36430; 70450; 71045; 71275; 72125; 80048; 80053; 80400; 81003; 83735; 84443; 84484; 85025; 85046; 85379; 86850; 86900; 86901; 87635; 90471; 90715; 93005; 93306; 93880; J0692; J0834; J1200; J3475; J3490; J7030; J7050; P9035; Q9967; U0003

== ENCOUNTER 2020-10-12 10:28 | Inpatient (IN) | payer MEDICARE, OTHER ==
[2020-10-12 11:29] LABS: Hemoglobin 9.1 g/dL (14.0-18.0); Mean Corpuscular HGB CONC 35.3 g/dL (32.0-36.0); Mean Corpuscular Hemoglobin 31.6 pg (27.0-31.0); Mean Corpuscular Volume 89.5 fL (78.0-98.0); Mean Platelet Volume 14.8 fL (7.4-10.4); Platelet Count 12 thou/uL (130-400); Red Blood Cell (RBC) Count 2.87 mill/uL (4.70-6.10); White Blood Cell (WBC) Count 1.6 thou/uL (4.8-10.8)
[2020-10-12 11:42] LABS: Band 6 % (5-11); Lymphocytes 58 % (21-51); MDiff Complete? YES; Monocytes 14 % (0-10); Neutrophil 20 % (42-75); Platelet Morphology Comment Appears Decreased; Polychromasia SLIGHT = 2-3 cells (100X) (0-2/hpf); Reactive Lymphocytes 2 % (0-10); Schistocytes SLIGHT = 2-5 cells (100X) (0-1/hpf)
[2020-10-12 11:58] LABS: ALT (SGPT) 37 U/L (8-55); AST (SGOT) 30 U/L (5-34); Albumin 3.2 g/dL (3.4-4.8); Alkaline Phosphatase 81 U/L (40-110); Anion Gap 21 mmol/L (10-20); BUN (Urea Nitrogen) 19 mg/dL (8.4-25.7); Calc. Creatinine Clearance 0 mL/min (70-130); Calcium 8.6 mg/dL (7.8-10.44); Carbon Dioxide 23 mmol/L (23-31); Chloride 98 mmol/L (98-107); Globulin 2.7 g/dL (2.4-3.5); Glucose 120 mg/dL (83-110); Potassium 4.8 mmol/L (3.5-5.1); Protein, Total 5.9 g/dL (5.8-8.1); Sodium 137 mmol/L (136-145)
[2020-10-12 12:06] LABS: Reticulocyte Count 1.5 % (0.5-1.5)
[2020-10-12 12:11] LABS: INR-International Normal Ratio 1.1; Prothrombin Time 13.9 sec (12.0-14.7)
[2020-10-12] MEDS ORDERED: Cefepime 2 GM VIAL ONE (14:36)
--- NOTE | 2020-10-12 17:08 | HP ---
PRIMARY CARE PROVIDER: Chuy Georges MD. PRIMARY ONCOLOGIST: Shlomo Mendiola MD CHIEF COMPLAINT: Low blood pressure and passing out. HISTORY OF PRESENT ILLNESS: This is a 70-year-old male who presents to [facility] Emergency Department in transfer from the cancer clinic where the patient was having followup with Dr. Mendiola regarding his CLL/aplastic anemia, undergoing current chemotherapy. The patient states he was admitted to [facility] from 10/02/2020 through 10/05/2020 due to hypotension and syncope. The patient had adjustments to his blood pressure medication and was treated for orthostatic hypotension with IV fluid replacement. The patient states he has intermittent dizziness, causing him to pass out or have to sit down or lay down frequently. The patient states his last transfusion was over 3 weeks prior, but did receive a platelet transfusion during his hospital stay in the 1st week of 09/2020. The patient admits to overall general weakness, poor appetite, and lack of taste. The patient denied any documented fever, but does feel cold on most days. The patient states his oncologist at [facility] is contemplating a bone marrow transplant; however, he has not made any specific plans for this procedure. The patient was noted at the cancer clinic with a blood pressure of 60/40 and the patient states he nears passing out during his office visit. The patient was referred to the emergency department, receiving IV fluid, normal saline boluses with overall improvement in systolic blood pressure to over 120. PAST MEDICAL HISTORY: 1. Chronic lymphocytic leukemia. 2. Aplastic anemia. 3. Orthostatic hypotension. 4. Hyperlipidemia. 5. Syncopal episodes due to hypotension. PAST SURGICAL HISTORY: 1. Status post right shoulder repair. 2. Status post left ankle surgery. 3. Status post hernia repair x2. 4. Status post cardiac stent placement x2. 5. 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 CURRENT MEDICATIONS: 1. Fluconazole 400 mg p.o. b.i.d. 2. Lipitor 40 mg p.o. daily. 3. Promacta 150 mg p.o. daily. 4. Cyclosporine 200 mg p.o. b.i.d. 5. Valtrex 500 mg p.o. daily. ALLERGIES: NO KNOWN DRUG ALLERGIES. FAMILY HISTORY: No inheritable diseases per patient report. SOCIAL HISTORY: History of cigar smoking. No alcohol or illicit drug use. and resides near [place], [place]. REVIEW OF SYSTEMS: CONSTITUTIONAL: Negative for weight loss or gain, ability to conduct usual activities. SKIN: Negative for rash, itching. EYES: Negative for double vision, pain. ENT/MOUTH: Negative for nose bleeding, neck stiffness, pain, tenderness. CARDIOVASCULAR: Negative for palpitations, dyspnea on exertion, orthopnea. RESPIRATORY: Negative for shortness of breath, wheezing, cough, hemoptysis, fever or night sweats. GASTROINTESTINAL: Negative for poor appetite, abdominal pain, heartburn, nausea, vomiting, constipation, or diarrhea. GENITOURINARY: Negative for urgency, frequency, dysuria, nocturia. MUSCULOSKELETAL: Negative for pain, swelling. NEUROLOGIC/PSYCHIATRIC: Negative for anxiety, depression. ALLERGY/IMMUNOLOGIC: Negative for skin rash, bleeding tendency. Otherwise negative except as stated per HPI. PHYSICAL EXAMINATION: VITAL SIGNS ON ADMISSION: Blood pressure 84/48, pulse 75, respiratory rate 22, temperature 97.4 degrees Fahrenheit, and O2 saturation 100% on room air. GENERAL APPEARANCE: This is a 70-year-old male, ill appearing, pale, alert and oriented x3, responsive to questions, in no acute distress. HEENT: Pupils are equal, round, and reactive to light and accommodation. Extraocular muscles are intact. No scleral icterus. No conjunctival injection. Nares patent. OP is clear. Teeth in fair repair. NECK: Supple. No cervical adenopathy. No thyromegaly. No carotid bruits. No JVD appreciated. Cervical spine with full active and passive range of motion. No meningeal signs noted. CHEST: Lungs are clear to auscultation bilaterally. CARDIOVASCULAR: S1 and S2 without noted murmur, rub, or gallop. ABDOMEN: Rounded, soft, nontender, and nondistended. Bowel sounds are positive in all 4 quadrants. There is no hepatosplenomegaly. No abdominal bruits. No rebound or guarding appreciated. EXTREMITIES: Warm and dry with fair turgor. No clubbing, cyanosis, or asymmetric edema appreciated. Pulses palpable distally at the dorsalis pedis, posterior tibial, and popliteal arteries bilaterally. Capillary refill less than 2 seconds. NEUROLOGIC: Cranial nerves 2 through 12 are grossly intact. No focal or lateralizing signs appreciated. PERTINENT LABORATORY AND X-RAY FINDINGS: Sodium 137, potassium is 4.8, chloride 98, CO2 of 23, BUN 19, creatinine 1.64, estimated GFR of 42, glucose 120, lactic acid level 2.0, and calcium 8.6. LFTs within normal limits. Troponin-I negative x1. CBC showed a white blood cell count of 1.6, hemoglobin 9.1, hematocrit 26, and platelet count 12 with 20% neutrophils and 58% lymphocytes. PT 13.9, INR 1.1, and PTT 21.0. Telemetry monitoring shows sinus mechanism with heart rates in the 70s. ASSESSMENT AND PLAN: 1. Orthostatic hypotension. The patient will be admitted to the telemetry unit. We will continue intravenous normal saline at 100 mL/h. Avoid antihypertensive medications. Serial orthostatic vital sign assessment. Suspect secondary to volume depletion and poor oral intake. 2. Pancytopenia secondary to chemotherapy. Continue serial CBC monitoring. No evidence of febrile illness. Consult Medical Oncology Service for any further recommendations. 3. Chronic lymphocytic leukemia/aplastic anemia. See #2 above. Serial CBC monitoring. 4. Acute kidney injury. Secondary to volume depletion. Continue IV fluids as outlined previously. Avoid nephrotoxic agents and limit contrast exposure. Repeat creatinine in the a.m. 5. Prophylaxis. Sequential compression devices while in bed. Pepcid 20 mg p.o. b.i.d. 6. Code status is full. Surrogate medical decision maker is the patient's spouse. Job ID: [id number]
[2020-10-12] MEDS ORDERED: Ondansetron PF 4 MG/2 ML Vial IVP PRN (17:53)
[2020-10-12] MEDS ORDERED: Acetaminophen 500 MG TAB PO PRN (17:53)
[2020-10-12] MEDS ORDERED: Ondansetron ODT 4 MG TAB PO PRN (17:53)
[2020-10-12 18:24] VITALS: BMI 25.4
[2020-10-13] MEDS: Sodium Chloride 0.9% 1,000 ML IV SCH ×3 (02:04→16:58)
[2020-10-13 04:34] LABS: Platelet Count 9 thou/uL (130-400)
[2020-10-13 04:49] LABS: ALT (SGPT) 27 U/L (8-55); AST (SGOT) 21 U/L (5-34); Albumin 2.7 g/dL (3.4-4.8); Alkaline Phosphatase 66 U/L (40-110); Anion Gap 13 mmol/L (10-20); BUN (Urea Nitrogen) 14 mg/dL (8.4-25.7); Bilirubin, Total 0.7 mg/dL (0.2-1.2); Calc. Creatinine Clearance 69 mL/min (70-130); Calcium 7.7 mg/dL (7.8-10.44); Carbon Dioxide 23 mmol/L (23-31); Chloride 104 mmol/L (98-107); Globulin 1.8 g/dL (2.4-3.5); Glucose 72 mg/dL (83-110); Potassium 3.5 mmol/L (3.5-5.1); Protein, Total 4.5 g/dL (5.8-8.1); Sodium 136 mmol/L (136-145)
[2020-10-13 04:49] LABS: SARS-CoV-2 MS2 Positive; SARS-CoV-2 N Gene Negative; SARS-CoV-2 S Gene Negative; SARS-CoV-2 by NAA Not Detected (NotDetected); SARS-CoV-2 orf1ab Negative
[2020-10-13 05:21] LABS: Hemoglobin 7.7 g/dL (14.0-18.0); Hypochromia SLIGHT = 6-15 cells (100X) (0-5/hpf); Lymphocytes 44 % (21-51); MDiff Complete? YES; Mean Corpuscular HGB CONC 34.4 g/dL (32.0-36.0); Mean Corpuscular Hemoglobin 30.5 pg (27.0-31.0); Mean Corpuscular Volume 88.7 fL (78.0-98.0); Mean Platelet Volume 17.4 fL (7.4-10.4); Monocytes 14 % (0-10); Neutrophil 42 % (42-75); Platelet Morphology Comment Appears Decreased; RBC Distribution Width 18.6 % (11.5-14.5); Red Blood Cell (RBC) Count 2.53 mill/uL (4.70-6.10); White Blood Cell (WBC) Count 1.3 thou/uL (4.8-10.8)
[2020-10-13] MEDS: valACYclovir 500 MG TAB PO SCH (09:59)
[2020-10-13] MEDS: Famotidine 20 MG TAB PO SCH (09:59)
[2020-10-13] MEDS ORDERED: Acetaminophen 500 MG TAB PO SCH (16:00)
[2020-10-13] MEDS ORDERED: diphenhydrAMINE 25 MG CAP PO PRN (17:11)
--- NOTE | 2020-10-13 22:37 | PDOC.HOSPP ---
- Subjective Encounter Date: 10/13/20 Encounter Time: 14:30 Subjective: Patient seen and examined for generalized weakness with orthostatic hypotension/acute kidney injury. Denies any new complaints. Orthostatic vitals were negative per physical therapy this morning. Denies any chest pain or s hortness of breath - Objective Vital Signs & Weight: Vital Signs (12 hours) Temp Pulse Pulse Resp BP BP Pulse Ox 10/13/20 21:04 98.6 F 77 18 125/63 98 10/13/20 20:20 98.5 F 75 18 128/65 97 10/13/20 17:56 98.5 F 72 18 125/66 95 10/13/20 17:41 98.4 F 75 18 126/64 96 10/13/20 15:49 99.1 F 89 15 144/71 H 97 10/13/20 12:47 99.0 F 78 15 139/63 97 Weight Admit Weight 162 lb 12.8 oz Weight 162 lb 12.8 oz I&O: 10/12/20 10/13/20 10/14/20 06:59 06:59 06:59 Intake Total 2930 Output Total 550 Balance 2380 Result Diagrams: 10/14/20 04:22 10/14/20 04:22 Additional Labs: Abnormal Lab Results - Last 48 hrs 10/12/20 10:58: Anion Gap 21 H, Creatinine 1.64 H, Albumin 3.2 L 10/12/20 10:58: WBC 1.6 L, RBC 2.87 L, Hgb 9.1 L, Hct 25.7 L, MCH 31.6 H, RDW 19.0 H, Plt Count 12 L*, MPV 14.8 H, Neutrophils % (Manual) 20 L, Lymphocytes % (Manual) 58 H, Monocytes % (Manual) 14 H, Plt Morphology Comment Appears Decreased L 10/12/20 11:47: Immature Retic Fraction 0.419 H 10/12/20 11:47: APTT 21.0 L 10/13/20 04:13: Calcium 7.7 L, Serum Total Protein 4.5 L, Albumin 2.7 L, Globulin 1.8 L 10/13/20 04:13: WBC 1.3 L, RBC 2.53 L, Hgb 7.7 L, Hct 22.4 L, RDW 18.6 H, Plt Count 9 L*, MPV 17.4 H, Monocytes % (Manual) 14 H, Plt Morphology Comment Appears Decreased L 10/13/20 15:47: Crossmatch See Detail 10/14/20 04:22: Potassium 3.2 L, BUN 6 L, Magnesium 1.1 L, Albumin 3.0 L 10/14/20 04:22: WBC 1.4 L, RBC 3.50 L, Hgb 10.6 L, Hct 31.1 L, RDW 17.9 H, Plt Count 49 L, MPV 11.3 H, Neutrophils % (Manual) 28 L, Monocytes % (Manual) 22 H, Nucleated RBCs # (Man) 1 H, Plt Morphology Comment Appears Decreased L Microbiology - Entire Visit 10/12/20 11:45 Venous blood - Right Hand Blood Culture - Preliminary Specimen has been received and culture in progress. No Growth to date. 10/12/20 11:45 Venous blood - Right Arm Blood Culture - Preliminary Specimen has been received and culture in progress. No Growth to date. EKG Reviewed by me: Yes (Sinus rhythm on telemetry) Hospitalist ROS - Review of Systems Respiratory: denies: cough, dry, shortness of breath, hemoptysis, SOB with excertion, pleuritic pain, sputum, wheezing, other Cardiovascular: denies: chest pain, palpitations, orthopnea, paroxysmal noc. dyspnea, edema, light headedness, other - Medication Medications: Active Medications Generic Name Dose Route Start Last Admin Trade Name Freq PRN Reason Stop Dose Admin Diphenhydramine HCl 25 mg 10/13/20 17:11 10/13/20 17:30 Diphenhydramine 25 Mg Cap PO 25 mg Q6H PRN Administration Itching & Insomnia Famotidine 20 mg 10/13/20 09:00 10/13/20 09:59 Famotidine 20 Mg Tab PO 20 mg DAILY LIZZ Administration Sodium Chloride 1,000 mls @ 100 mls/hr 10/12/20 17:53 10/13/20 16:58 Normal Saline 0.9% IV Not Given .Q10H LIZZ Valacyclovir HCl 500 mg 10/13/20 09:00 10/13/20 09:59 Valacyclovir 500 Mg Tab PO 500 mg DAILY LIZZ Administration - Exam General Appearance: ill appearing Neck: supple, no JVD Heart: RRR, no gallops Respiratory: no wheezes, no ronchi Gastrointestinal: soft, non-distended, normal bowel sounds Extremities: no cyanosis Hosp A/P - Plan DVT proph w/SCDs (No Lovenox or heparin due to thrombocytopenia) Generalized weakness with orthostatic hypotension Acute kidney injury due to dehydration Pancytopenia due to chemotherapy History of CLL/aplastic anemia Moderate protein calorie malnutrition Plan: Patient will be receiving platelets and PRBC per oncology. Continue IV hydration. Add Ensure. Continue other medications as above. Oncology input appreciated
[2020-10-14] MEDS: Sodium Chloride 0.9% 1,000 ML IV SCH (02:35)
[2020-10-14 05:02] LABS: Hemoglobin 10.6 g/dL (14.0-18.0); Lymphocytes 50 % (21-51); MDiff Complete? YES; Mean Corpuscular HGB CONC 34.1 g/dL (32.0-36.0); Mean Corpuscular Hemoglobin 30.3 pg (27.0-31.0); Mean Corpuscular Volume 88.9 fL (78.0-98.0); Mean Platelet Volume 11.3 fL (7.4-10.4); Monocytes 22 % (0-10); Neutrophil 28 % (42-75); Nucleated RBC 1 % (0); Platelet Count 49 thou/uL (130-400); Platelet Morphology Comment Appears Decreased; RBC Distribution Width 17.9 % (11.5-14.5); White Blood Cell (WBC) Count 1.4 thou/uL (4.8-10.8)
[2020-10-14 05:10] LABS: Anion Gap 12 mmol/L (10-20); BUN (Urea Nitrogen) 6 mg/dL (8.4-25.7); BUN/Creatinine Ratio 7.79; Calc. Creatinine Clearance 92 mL/min (70-130); Calcium 8.3 mg/dL (7.8-10.44); Carbon Dioxide 28 mmol/L (23-31); Chloride 103 mmol/L (98-107); Glucose 75 mg/dL (83-110); Magnesium 1.1 mg/dL (1.6-2.6); Phosphorus 3.7 mg/dL (2.3-4.7); Potassium 3.2 mmol/L (3.5-5.1); Sodium 140 mmol/L (136-145)
[2020-10-14] MEDS ORDERED: Sodium Chloride 0.9% 1,000 ML IV SCH (07:17)
[2020-10-14] MEDS ORDERED: Magnesium Sulfate 4 GM in Sodium Chloride 0.9% 250 ML 250 ML IVPB SCH (07:30)
[2020-10-14] MEDS ORDERED: Potassium Chloride 20 MEQ TAB PO SCH (08:00)
[2020-10-14] MEDS: Famotidine 20 MG TAB PO SCH (08:25)
[2020-10-14] MEDS: valACYclovir 500 MG TAB PO SCH (08:26)
[2020-10-14 15:57] VITALS: BP 153/78; TEMP 98.3
--- NOTE | 2020-10-15 11:37 | PDOC.DS.DS ---
Provider - Provider Date of Admission: 10/12/20 13:44 Date of Discharge: 10/14/20 Admitting Provider: Marcos Mejia DO Consultations: Oncology Primary Care Physician: Chuy Georges MD Course - Hospital Course Hospital Course: Patient is a 70-year-old male with chronic lymphocytic leukemia, recent hospitalization for syncope due to orthostatic hypotension presented to the emergency room with a syncopal episode and hypotension with blood pressure of 84/48 and acute kidney injury. Please refer to the history and physical for further details. The patient was admitted to the hospital with a diagnosis of generalized weakness with syncope due to orthostatic hypotension. He showed good improvement with IV hydration. Carvedilol and lisinopril were held. His renal function improved from 1.64 to 0.77. He also had electrolyte abnormality including hypokalemia and hypomagnesemia which were replaced. He appears stable for discharge. His carvedilol dose was reduced to half tablet of 3.125 mg twice daily. The spouse was advised to titrate carvedilol to 1 tablet twice daily if his blood pressure remains over 110-120. He was also evaluated by oncology service and received PRBC and platelet transfusion. He appears stable for disc harge. He was also evaluated by oncology and received Final diagnosis: Generalized weakness with orthostatic hypotension Acute kidney injury due to dehydration Pancytopenia due to chemotherapy History of CLL/aplastic anemia Moderate protein calorie malnutrition Hypokalemia/hypomagnesemia Resuscitation Status: 10/12/20 15:26 Resuscitation Status Routine Resuscitation Status: FULL: Full Resuscitation - Labs Lab Results: 10/14/20 04:22 10/14/20 04:22 Abnormal Lab Results - Last 48 hrs 10/13/20 15:47: Crossmatch See Detail 10/14/20 04:22: Potassium 3.2 L, BUN 6 L, Magnesium 1.1 L, Albumin 3.0 L 10/14/20 04:22: WBC 1.4 L, RBC 3.50 L, Hgb 10.6 L, Hct 31.1 L, RDW 17.9 H, Plt Count 49 L, MPV 11.3 H, Neutrophils % (Manual) 28 L, Monocytes % (Manual) 22 H, Nucleated RBCs # (Man) 1 H, Plt Morphology Comment Appears Decreased L Microbiology - Entire Visit 10/12/20 11:45 Venous blood - Right Hand Blood Culture - Preliminary NO GROWTH AT 48 HOURS 10/12/20 11:45 Venous blood - Right Arm Blood Culture - Preliminary NO GROWTH AT 48 HOURS - Physical Exam Vitals: Weight Admit Weight 162 lb 12.8 oz Weight 157 lb 7 oz Physical Exam: The patient was seen and examined on the day of discharge. Plan - Discharge Medications Prescriptions: Carvedilol [Coreg] 3.125 mg PO BID #60 tab Potassium Chloride [K-Dur] 20 meq PO DAILY #4 tab Home Medications: Medication Instructions Recorded Confirmed Type Atorvastatin Calcium [Lipitor] 40 mg PO DAILY 07/20/18 10/12/20 History Levofloxacin 500 mg PO DAILY 08/12/20 10/12/20 History valACYclovir [Valtrex] 500 mg PO DAILY 08/12/20 10/12/20 History Eltrombopag Olamine [Promacta] 150 mg PO DAILY 10/03/20 10/12/20 History Fluconazole 400 mg PO BID 10/03/20 10/12/20 History cycloSPORINE [SandIMMUNE] 200 mg PO BID 10/03/20 10/12/20 History Magnesium 30 mg PO TID 10/12/20 10/12/20 History Carvedilol [Coreg] 3.125 mg PO BID #60 tab 10/14/20 Rx Potassium Chloride [K-Dur] 20 meq PO DAILY #4 tab 10/14/20 Rx Allergies: No Known Drug Allergies Allergy (Verified 02/25/20 20:28) per pt - Discharge Instructions Discharge Instructions:: Take 1/2 tab of Coreg 3/125 mg if standing BP > 100 Take 1 tab of Coreg 3/125 mg if standing BP > 110 Monitor BP daily - standing only Fall precautions with 24 hr supervision Compression stockings BMP after 1 week - PCP to arrange/follow FOCUS: Transition from Acute Care after Discharge GOAL: Successful transition to care in the community YOUR TASKS: (1) review all information outlined in your discharge packet (2) follow any instructions outlined in your discharge packet (3) contact your primary care provider if you have questions or need additional assistance See patient discharge instruction sheet for detailed teaching. Patient verbalizes understanding of medications and is able to verbalize follow-up care. See Discharge Plan for additional discharge information. Patient secured in private vehicle prior to departure. - Follow up Plan Referrals: Chuy Georges MD [Primary Care Provider] - 7 Days ( CALL FOR FOLLOW-UP APPOINTMENT ) Shlomo Mendiola MD [Active] - 7 Days ( CALL FOR FOLLOW-UP APPOINTMENT ) Chriss Linn MD [Active] - 10 Days ( CALL FOR FOLLOW-UP APPOINTMENT) Disposition: HOME Quality - Care Measures CORE MEASURES:: N/A
--- NOTE | 2020-10-16 14:42 | EKG ---
Test Reason : Blood Pressure : / mmHG Vent. Rate : 076 BPM Atrial Rate : 076 BPM P-R Int : 152 ms QRS Dur : 078 ms QT Int : 448 ms P-R-T Axes : 048 078 052 degrees QTc Int : 504 ms Normal sinus rhythm Nonspecific ST abnormality Abnormal ECG Confirmed by ABBY MUÑOZ ([id number]), newspaper copy editor BALJIT HOOD ([id number]) on 10/16/2020 2:41:55 PM Referred By: Confirmed By:ABBY MUÑOZ
== END 2020-10-14 16:24 | disposition home or self-care (01) | DRG 682 ==
LOC: ERS 10:28 → 2NO 13:44
PROVIDERS: ADMIT Family Medicine; ATTEND Internal Medicine
DX: N17.9 Acute kidney failure, unspecified (principal); D61.810 Antineoplastic chemotherapy induced pancytopenia; C91.10 Chronic lymphocytic leukemia of B-cell type not having achieved remission; E44.0 Moderate protein-calorie malnutrition; I95.1 Orthostatic hypotension; Z20.828 Contact with and (suspected) exposure to other viral communicable diseases; E86.0 Dehydration; T45.1X5A Adverse effect of antineoplastic and immunosuppressive drugs, initial encounter; E78.5 Hyperlipidemia, unspecified; Z95.5 Presence of coronary angioplasty implant and graft; Z89.022 Acquired absence of left finger(s); Z68.24 Body mass index [BMI] 24.0-24.9, adult
CPT/HCPCS: 36415; 36430; 80053; 80069; 83605; 83735; 84484; 85007; 85025; 85027; 85046; 85610; 85730; 86850; 86900; 86901; 87040; 87635; 93005; J0692; J3475; J7050; P9016; P9035; Q0163; U0003

== ENCOUNTER 2020-10-25 08:10 | Inpatient (IN) | payer MEDICARE, OTHER ==
[2020-10-25 08:52] LABS: Mean Corpuscular HGB CONC 33.8 g/dL (32.0-36.0); Mean Corpuscular Volume 88.8 fL (78.0-98.0); Mean Platelet Volume 15.2 fL (7.4-10.4); Platelet Count 16 thou/uL (130-400); RBC Distribution Width 18.5 % (11.5-14.5); Red Blood Cell (RBC) Count 3.32 mill/uL (4.70-6.10); White Blood Cell (WBC) Count 1.9 thou/uL (4.8-10.8)
[2020-10-25 08:58] LABS: ALT (SGPT) 23 U/L (8-55); AST (SGOT) 21 U/L (5-34); Albumin 3.2 g/dL (3.4-4.8); Alkaline Phosphatase 75 U/L (40-110); Anion Gap 20 mmol/L (10-20); BUN (Urea Nitrogen) 15 mg/dL (8.4-25.7); Bilirubin, Total 1.3 mg/dL (0.2-1.2); CK (CPK) 46 U/L (30-200); Calc. Creatinine Clearance 0 mL/min (70-130); Calcium 8.2 mg/dL (7.8-10.44); Carbon Dioxide 23 mmol/L (23-31); Chloride 97 mmol/L (98-107); Globulin 1.7 g/dL (2.4-3.5); Glucose 95 mg/dL (83-110); Potassium 3.9 mmol/L (3.5-5.1); Protein, Total 4.9 g/dL (5.8-8.1); Sodium 136 mmol/L (136-145)
[2020-10-25 09:35] LABS: Band 2 % (5-11); Eosinophils 2 % (0-10); Lymphocytes 58 % (21-51); MDiff Complete? YES; Monocytes 24 % (0-10); Neutrophil 14 % (42-75); Platelet Morphology Comment Appears Decreased; Polychromasia SLIGHT = 2-3 cells (100X) (0-2/hpf)
[2020-10-25] MEDS ORDERED: Acetaminophen 325 MG TAB PO PRN (11:53)
--- NOTE | 2020-10-25 12:40 | HP ---
CHIEF COMPLAINT: Lightheaded and dizzy. HISTORY OF PRESENT ILLNESS: This is a 70-year-old male with history of CLL and aplastic anemia on chemotherapy with MD Guzman, hypertension, coronary artery disease, dyslipidemia, who presents to the emergency department today with the above complaint. The patient reports around 6:30 this morning, having those symptoms in addition to the blurry vision and a feeling like he was going to pass out. He states he had some symptoms yesterday, but they were not as significant. He is overall feeling improved since in the emergency room as long as he does not stand up, then there is a return of symptoms. The patient reports his normal blood pressures are 125 to 130 systolic. He was recently hospitalized here for hypotension, and states that his medications were adjusted. He is followed by Dr. Linn of Cardiology, and Dr. Mendiola of Oncology and has been on chemotherapy since 2019. He does report that he is not eating much for a few weeks. He states he gags with solid food and that liquids do not taste good. He is constantly chilled, notes a 20-pound weight loss over the past 2 months, has nausea and intermittent diarrhea. No precipitating or relieving factors. Patient was brought to the emergency room for further evaluation. In the emergency room, patient initially was reported to be hypotensive, and orthostatic blood pressures dropping into the 80 systolic when he stands up. He has received 1 L of IV fluid and has a 2nd L infusing. He also has an acute kidney injury. ALLERGIES: NONE TO MEDICATION. CURRENT MEDICATIONS: The patient and his do not have the list of these. In review of his prior discharge summary: 1. Carvedilol 3.125 mg b.i.d. 2. Potassium 20 mEq daily. 3. Atorvastatin 40 mg daily. 4. Valtrex 500 mg daily. 5. Levaquin 500 mg daily. 6. Cyclosporine 200 mg twice daily. 7. Fluconazole 400 mg twice daily. 8. Promacta 150 mg daily. 9. Magnesium 30 mg t.i.d. Medications discontinued from his last discharge were ramipril and his carvedilol that was reduced. PAST SURGICAL HISTORY: 1. Right shoulder. 2. Left ankle. 3. 2 hernia repairs. 4. Cardiac stents. 5. 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 PAST MEDICAL HISTORY: 1. Coronary artery disease with history of [place] and stent placement. 2. CLL, on chemotherapy. 3. Aplastic anemia. 4. Dyslipidemia. 5. Hypertension. 6. Kidney stone. 7. Osteoarthritis. SOCIAL HISTORY: The patient denies any alcohol use. He smokes cigars, however, none in the past 3 weeks. His is his surrogate decision maker and he is a full code. FAMILY HISTORY: Significant for dad who had heart problems. REVIEW OF SYSTEMS: Positive for chills, 20-pound weight loss over 2 months, nausea, diarrhea. Negative for fevers, vomiting, reflux symptoms, chest pain, difficulty breathing, or constipation. All remaining review of systems are reviewed and negative. PHYSICAL EXAMINATION: VITAL SIGNS: Blood pressure while supine 102/55, pulse 71, respirations 18, temperature 97.9, saturation 98% on room air. GENERAL: Awake, alert, responsive, not in apparent distress. Able to speak in full sentences. HEENT: His pupils are equal and round. Oral mucosa is pink and moist. NECK: Supple, nontender. LYMPHATICS: No palpable cervical or supraclavicular lymphadenopathy. LUNGS: Clear to auscultation. No audible wheezing, rhonchi, or rales. HEART: Normal S1, S2. Regular rate and rhythm. No significant murmur. ABDOMEN: Soft, present bowel sounds. Nontender, nondistended. EXTREMITIES: No edema, clubbing, or cyanosis. SKIN: No visible rashes. NEURO: No focal deficits. PSYCH: Appears euthymic. LABORATORY DATA: CBC; 1.9, 10.0, 29.5, 16. Chemistry; 136, 3.9, 97, 23, 15, 1.76, 95. On review, patient's last creatinine was 0.77 on October 14. LFTs; T-bilirubin 1.3, AST 21, ALT 23, alkaline phosphatase 75, total protein 4.9, albumin 3.2. IMAGING STUDIES: EKG; sinus rhythm, normal axis, normal intervals, no ST changes. IMPRESSION: 1. Acute kidney injury in the context of a patient who is on antihypertensive medication with poor appetite on chemotherapy. 2. Orthostatic hypotension. The source of his symptoms for today. 3. Poor appetite secondary to the chemotherapy. 4. Chronic lymphocytic leukemia, aplastic anemia, on chemotherapy directed by MD Guzman. 5. Pancytopenia with platelets of 16. 6. History of hypertension, currently normotensive at rest. 7. Coronary artery disease, asymptomatic. 8. Dyslipidemia. 9. Intermittent diarrhea. PLAN: 1. Admission to the hospital. Anticipated length of stay is greater than 2 midnights as patient has taken his blood pressure medications today. I am concerned that we need time to determine what his blood pressure is going to be and adjust the medications accordingly. 2. IV fluid hydration for the acute kidney injury. Holding all hypertensive medications. 3. Oncology consult and monitoring his CBC. No indication for transfusion at this time. 4. The patient is followed by Dr. Linn for his input with all cardiac medications changes. 5. Reconciled his medications. His is going to bring in the list. 6. TSH is reviewed. Do not need to repeat, it was performed this month. 7. For the diarrhea, we will order a C difficile test to ensure no infection. 8. Patient encouraged to take p.o. He will be written for a regular diet. 9. DVT prophylaxis none due to the severe thrombocytopenia. 10. GI prophylaxis not indicated. 11. Code status is full. Surrogate decision maker is the patient's . 12. Reviewed the plan of care with the patient and his . No questions or further needs at the end of evaluation. Job ID: [id number] MTDD
[2020-10-25] MEDS: Sodium Chloride 0.9% 1,000 ML IV SCH ×2 (15:39→22:16)
[2020-10-25 18:06] LABS: SARS-CoV-2 MS2 Positive; SARS-CoV-2 N Gene Negative; SARS-CoV-2 S Gene Negative; SARS-CoV-2 by NAA Not Detected (NotDetected); SARS-CoV-2 orf1ab Negative
[2020-10-25 21:25] VITALS: BMI 24.8
[2020-10-26 04:57] LABS: Hemoglobin 8.6 g/dL (14.0-18.0); Mean Corpuscular HGB CONC 34.4 g/dL (32.0-36.0); Mean Corpuscular Hemoglobin 30.9 pg (27.0-31.0); Mean Platelet Volume 15.5 fL (7.4-10.4); Platelet Count 13 thou/uL (130-400); RBC Distribution Width 18.8 % (11.5-14.5); Red Blood Cell (RBC) Count 2.79 mill/uL (4.70-6.10); White Blood Cell (WBC) Count 1.6 thou/uL (4.8-10.8)
[2020-10-26 05:13] LABS: Anion Gap 15 mmol/L (10-20); BUN (Urea Nitrogen) 12 mg/dL (8.4-25.7); Calc. Creatinine Clearance 63 mL/min (70-130); Calcium 7.7 mg/dL (7.8-10.44); Carbon Dioxide 21 mmol/L (23-31); Chloride 104 mmol/L (98-107); Potassium 3.6 mmol/L (3.5-5.1); Sodium 136 mmol/L (136-145)
[2020-10-26 05:20] LABS: Band 2 % (5-11); Glucose 59 mg/dL (83-110); Hypochromia SLIGHT = 6-15 cells (100X) (0-5/hpf); Lymphocytes 50 % (21-51); MDiff Complete? YES; Monocytes 8 % (0-10); Neutrophil 40 % (42-75); Platelet Morphology Comment Appears Decreased
[2020-10-26] MEDS: Sodium Chloride 0.9% 1,000 ML IV SCH ×2 (10:52→20:08)
[2020-10-26] MEDS ORDERED: Ondansetron PF 4 MG/2 ML Vial IVP PRN (13:01)
[2020-10-26] MEDS ORDERED: Ondansetron ODT 4 MG TAB PO PRN (13:01)
--- NOTE | 2020-10-26 13:04 | PDOC.HOSPP ---
- Subjective Encounter Date: 10/26/20 Encounter Time: 13:40 Subjective: Patient feeling better today. Got up this morning without dizziness. - Objective Vital Signs & Weight: Vital Signs (12 hours) Temp Pulse Resp BP Pulse Ox 10/26/20 08:00 98.4 F 80 16 119/59 L 96 10/26/20 04:00 98.9 F 81 16 109/59 L 95 Weight Weight 158 lb 9.6 oz I&O: 10/25/20 10/26/20 10/27/20 06:59 06:59 06:59 Intake Total 300 Output Total 400 Balance -100 Result Diagrams: 10/26/20 04:08 10/26/20 04:08 Additional Labs: Accuchecks 10/26/20 05:42 POC Glucose 78 Hospitalist ROS - Review of Systems Constitutional: denies: fever, chills, weakness Respiratory: denies: cough, shortness of breath Cardiovascular: denies: chest pain, palpitations Gastrointestinal: denies: nausea, vomiting, abdominal pain - Medication Medications: Active Medications Generic Name Dose Route Start Last Admin Trade Name Freq PRN Reason Stop Dose Admin Sodium Chloride 1,000 mls @ 100 mls/hr 10/25/20 12:00 10/26/20 10:52 Normal Saline 0.9% IV 1,000 mls .Q10H LIZZ Administration - Exam General Appearance: NAD, awake alert ENT: moist mucosa Heart: RRR, no murmur, no gallops, no rubs Respiratory: CTAB, no wheezes, no rales, no ronchi Gastrointestinal: soft, non-tender, non-distended, normal bowel sounds Psychiatric: normal affect, normal behavior, A&O x 3 Hosp A/P (1) Orthostatic hypotension Code(s): I95.1 - ORTHOSTATIC HYPOTENSION Status: Acute (2) IRLANDA (acute kidney injury) Code(s): N17.9 - ACUTE KIDNEY FAILURE, UNSPECIFIED Status: Acute (3) CLL (chronic lymphocytic leukemia) Code(s): C91.90 - LYMPHOID LEUKEMIA, UNSPECIFIED NOT HAVING ACHIEVED REMISSION Status: Chronic (4) CAD (coronary artery disease) Code(s): I25.10 - ATHSCL HEART DISEASE OF [place] CORONARY ARTERY W/O ANG PCTRS Status: Chronic (5) Dyslipidemia Code(s): E78.5 - HYPERLIPIDEMIA, UNSPECIFIED Status: Chronic (6) HTN (hypertension) Code(s): I10 - ESSENTIAL (PRIMARY) HYPERTENSION Status: Chronic Qualifiers: (7) Pancytopenia Code(s): D61.818 - OTHER PANCYTOPENIA Status: Chronic - Plan Patient's renal function and BP improved this AM after fluids. Will check repeat orthostatics. Holding BP medications for now. Appreciate Dr. Linn's assistance. Plan to restart low dose Carvedilol once BP can tolerate it. Resume chemotherapy agents for CLL. Oncology consulted. PT/OT
[2020-10-26] MEDS ORDERED: valACYclovir 500 MG TAB PO SCH (14:00)
--- NOTE | 2020-10-26 15:16 | CON ---
DATE OF CONSULTATION: HISTORY OF PRESENT ILLNESS: The patient is a 70-year-old gentleman with a history of coronary artery disease, who presents with hypotension. This gentleman has a long history of coronary artery disease in 2012, when on a cardiac catheterization, he was found to have a 70% proximal LAD lesion, a 70% mid lesion, 70% OM lesion, and 100% RCA lesion. The patient underwent PTCA and stent placement to the right coronary artery. The patient has done very well on medical therapy. Unfortunately, the patient has recently developed aplastic anemia. He has been undergoing chemotherapy. He has been having difficulty with nausea and vomiting. The patient presented to the emergency room markedly hypotensive and extremely weak. He denied having any chest discomfort. PAST MEDICAL HISTORY: Significant for: 1. Coronary artery disease. 2. Chronic lymphocytic leukemia. 3. Aplastic anemia. 4. Hypertension. 5. Dyslipidemia. PAST SURGICAL HISTORY: 1. He had amputation of the middle finger of the left hand. 2. Ankle surgery. 3. Shoulder surgery. 4. Hernia surgery. SOCIAL HISTORY: Smokes cigars. FAMILY HISTORY: No strong family history of heart disease. MEDICATIONS ON ADMISSION: 1. Ramipril 10 b.i.d. 2. Imdur 60 daily. 3. Promacta 150 daily. 4. Coreg 12.5 b.i.d. 5. Lipitor 40 nightly. 6. Valtrex 500 daily. 7. Fluconazole 200 b.i.d. 8. Cyclosporine 200 b.i.d. 9. Norvasc 10 daily. ALLERGIES: NO KNOWN DRUG ALLERGIES. REVIEW OF SYSTEMS: Ten-point system otherwise unremarkable. PHYSICAL EXAMINATION: GENERAL: This is an ill-appearing gentleman who is pale. VITAL SIGNS: Blood pressure 109/59. NECK: No jugular venous distention. LUNGS: Decreased breath sounds in both lung dillon. HEART: Regular rate and rhythm. Normal S1 and S2. ABDOMEN: Nondistended. EXTREMITIES: Trace edema. LABORATORY RESULTS: Sodium 136, potassium 3.6, chloride 104, bicarbonate 21, BUN 12, creatinine 1.1, and glucose 59. White blood cell count is 1.6, hemoglobin 8.6, hematocrit 25.1, and his platelets are 13,000. EKG revealed normal sinus rhythm with normal ECG. IMPRESSION: 1. Hypotension. 2. History of coronary artery disease status post percutaneous transluminal coronary angioplasty and stent placed in the right coronary artery. 3. Aplastic anemia. 4. Chronic lymphocytic leukemia. This unfortunate gentleman has severe aplastic anemia. He has marked thrombocytopenia. From a cardiac standpoint, all his blood pressure medications have been held. He is being hydrated. When the patient's blood pressure improves, I would recommend starting him on low-dose Coreg for his mild protective effect. His overall prognosis with severe aplastic anemia extremely poor. We will follow this patient with you through his hospitalization. Job ID: [id number]
[2020-10-26] MEDS: valACYclovir 500 MG TAB PO SCH ×2 (18:04→18:46)
--- NOTE | 2020-10-26 18:12 | CON ---
DATE OF CONSULTATION: REASON FOR CONSULT: Pancytopenia. HISTORY OF PRESENT ILLNESS: Mr. Webb is a very pleasant 70-year-old gentleman who has aplastic anemia and remote history of CLL. He is under the care of MD Guzman and receives monthly chemotherapy with ATG, cyclosporine, and Promacta. He is transfusion dependent. He presented to the emergency room yesterday with complaints of dizziness, lightheadedness. He is having a poor appetite and has recently lost 15 pounds. His white count in the ER was 1.9, hemoglobin was 10, and his platelet count was 16,000. His creatinine was elevated at 1.76. He was admitted for dehydration and pancytopenia. He has received over 5 L of fluid since admission and is feeling better. He complains of dizziness with ambulation, fatigue, poor appetite, and intermittent diarrhea. PAST MEDICAL HISTORY: 1. Aplastic anemia. 2. Chronic pancytopenia. 3. [place]. 4. Hyperlipidemia. 5. Hypertension. 6. History of GI bleed. 7. Nephrolithiasis. 8. History of CLL. PAST SURGICAL HISTORY: Hernia repair, coronary stent placement, EGD and colonoscopy. ALLERGIES: NO KNOWN DRUG ALLERGIES. HOME MEDICATIONS: 1. Carvedilol. 2. Fluconazole. 3. Isosorbide. 4. Lipitor. 5. Norvasc. 6. Promacta. 7. Ramipril. 8. Cyclosporine. 9. Valtrex. FAMILY HISTORY: Noncontributory. SOCIAL HISTORY: , has 2 children. Lives with his spouse. No alcohol, tobacco, or illicit drug use. REVIEW OF SYSTEMS: 12-point review of systems is negative except for noted in HPI. PHYSICAL EXAMINATION: VITAL SIGNS: Temperature 98.4, pulse is 80, respiratory rate 16, BP is 119/59. He is 96% on room air. GENERAL: Chronically ill-appearing male, in no acute distress. HEENT: Normocephalic, atraumatic. Pupils are equal and reactive to light. CARDIOVASCULAR: Regular rate and rhythm. LUNGS: Clear. ABDOMEN: Soft. Bowel sounds are positive. EXTREMITIES: No clubbing or cyanosis. NEUROLOGICAL: Nonfocal. PERTINENT LABORATORY DATA AND X-RAYS: WBCs 1.6, hemoglobin 8.6, hematocrit 25.1, platelet count 13,000, 40% neutrophils, 2% bands, 50% lymphocytes. Sodium 136, potassium 3.6, chloride 104, CO2 is 21, BUN is 12, creatinine 1.1, calcium 7.7. Bilirubin 1.3, AST is 21, ALT is 23, alkaline phosphatase is 75. Serum total protein 4.9, albumin 3.2, globulin 1.7. COVID PCR negative. ASSESSMENT: 1. Pancytopenia secondary to aplastic anemia. 2. Dehydration with acute kidney injury. 3. Dizziness likely secondary to above. DISCUSSION: The patient had a recent echocardiogram on October 04, which showed a normal EF. He is under the care of Cardiology, who has been adjusting his BP medications. He clearly had acute kidney injury from dehydration secondary to poor appetite. He states even water is tasting poorly. His kidney function has returned to normal with hydration. Per [facility] Guzman protocol, we will transfuse platelets today as they are 13,000 and recheck a CBC in the morning. We will await a stool sample to rule out C. difficile for his diarrhea, although it is likely chemo related. Hopefully, he will improve over the next 24 hours and be able to be discharged home to follow up with MD Guzman as scheduled in October. Thank you for the consult. Job ID: [id number] KRISTIE
[2020-10-26] MEDS ORDERED: diphenhydrAMINE 25 MG CAP PO SCH (19:45)
[2020-10-26] MEDS ORDERED: Acetaminophen 500 MG TAB PO SCH (19:45)
[2020-10-26] MEDS: Atorvastatin Calcium 40 MG TAB PO SCH (20:09)
[2020-10-26] MEDS: Fluconazole 100 MG TAB PO SCH (20:09)
[2020-10-26] MEDS: CYCLOSPORINE 100 MG PO SCH (23:09)
[2020-10-27] MEDS: ELTROMBOPAG OLAMINE 75 MG PO SCH (04:14)
[2020-10-27] MEDS: Sodium Chloride 0.9% 1,000 ML IV SCH ×2 (04:14→09:04)
[2020-10-27 05:22] LABS: Anion Gap 12 mmol/L (10-20); BUN (Urea Nitrogen) 7 mg/dL (8.4-25.7); Calc. Creatinine Clearance 82 mL/min (70-130); Calcium 7.7 mg/dL (7.8-10.44); Carbon Dioxide 24 mmol/L (23-31); Chloride 105 mmol/L (98-107); Glucose 72 mg/dL (83-110); Potassium 3.3 mmol/L (3.5-5.1); Sodium 138 mmol/L (136-145)
[2020-10-27 06:25] LABS: Band 2 % (5-11); Eosinophils 2 % (0-10); Hemoglobin 8.8 g/dL (14.0-18.0); Lymphocytes 26 % (21-51); MDiff Complete? YES; Mean Corpuscular HGB CONC 33.6 g/dL (32.0-36.0); Mean Corpuscular Hemoglobin 30.3 pg (27.0-31.0); Mean Corpuscular Volume 89.9 fL (78.0-98.0); Monocytes 38 % (0-10); Neutrophil 32 % (42-75); Platelet Count 50 thou/uL (130-400); Platelet Morphology Comment Appears Decreased; RBC Distribution Width 18.9 % (11.5-14.5); White Blood Cell (WBC) Count 1.8 thou/uL (4.8-10.8)
--- NOTE | 2020-10-27 08:20 | PDOC.HOSPP ---
- Subjective Encounter Date: 10/27/20 Encounter Time: 09:30 Subjective: Patient still a little orthostatic this morning. However, no symptoms and was able to ambulate with PT without difficulty. Did restart low dose Carvedilol this morning. Taking in better po. - Objective Vital Signs & Weight: Vital Signs (12 hours) Temp Pulse Pulse Resp BP BP BP 10/27/20 08:00 97.7 F 84 16 119/64 10/27/20 04:00 98.1 F 82 18 126/59 L 10/27/20 00:00 98.6 F 80 18 105/54 L 10/26/20 20:49 98.2 F 80 16 126/62 Pulse Ox 10/27/20 08:00 96 10/27/20 04:00 97 10/27/20 00:00 99 10/26/20 20:49 98 Weight Admit Weight 158 lb 9.6 oz Weight 158 lb 9.6 oz I&O: 10/26/20 10/27/20 10/28/20 06:59 06:59 06:59 Intake Total 300 3375 Output Total 400 2325 Balance -100 1050 Result Diagrams: 10/27/20 04:48 10/27/20 04:48 Hospitalist ROS - Review of Systems Constitutional: denies: fever, chills Respiratory: denies: cough, shortness of breath Cardiovascular: denies: chest pain, palpitations Gastrointestinal: reports: diarrhea (one episode this morning). denies: nausea, vomiting, abdominal pain - Medication Medications: Active Medications Generic Name Dose Route Start Last Admin Trade Name Freq PRN Reason Stop Dose Admin Atorvastatin Calcium 40 mg 10/26/20 21:00 10/26/20 20:09 Atorvastatin Calcium 40 Mg Tab PO 40 mg HS LIZZ Administration Fluconazole 200 mg 10/26/20 21:00 10/26/20 20:09 Fluconazole 100 Mg Tab PO 200 mg BID LIZZ Administration Sodium Chloride 1,000 mls @ 100 mls/hr 10/25/20 12:00 10/27/20 04:14 Normal Saline 0.9% IV Not Given .Q10H LIZZ Cyclosporine [ 0 each 10/26/20 21:00 10/26/20 23:09 Sandimmune] 100 Mg PO 1 each Capsule BID LIZZ Administration Eltrombopag Olamine 0 each 10/27/20 06:00 10/27/20 04:14 [Promacta] 75 Mg PO 1 each Tablet 0600 LIZZ Administration - Exam General Appearance: NAD, awake alert ENT: moist mucosa Heart: RRR, no murmur, no gallops, no rubs Respiratory: CTAB, no wheezes, no rales, no ronchi Gastrointestinal: soft, non-tender, non-distended, normal bowel sounds Psychiatric: normal affect, normal behavior, A&O x 3 Hosp A/P (1) Orthostatic hypotension Code(s): I95.1 - ORTHOSTATIC HYPOTENSION Status: Acute (2) IRLANDA (acute kidney injury) Code(s): N17.9 - ACUTE KIDNEY FAILURE, UNSPECIFIED Status: Acute (3) CLL (chronic lymphocytic leukemia) Code(s): C91.90 - LYMPHOID LEUKEMIA, UNSPECIFIED NOT HAVING ACHIEVED REMISSION Status: Chronic (4) CAD (coronary artery disease) Code(s): I25.10 - ATHSCL HEART DISEASE OF [place] CORONARY ARTERY W/O ANG PCTRS Status: Chronic (5) Dyslipidemia Code(s): E78.5 - HYPERLIPIDEMIA, UNSPECIFIED Status: Chronic (6) HTN (hypertension) Code(s): I10 - ESSENTIAL (PRIMARY) HYPERTENSION Status: Chronic Qualifiers: (7) Pancytopenia Code(s): D61.818 - OTHER PANCYTOPENIA Status: Chronic - Plan Patient's renal function and BP improved this AM. Will try restarting low dose Carvedilol per Dr. Linn recommendations. Will check repeat orthostatics. Platelets improved after transfusion, appreciate Heme/Onc assistance. Resumed chemotherapy agents for CLL. PT/OT Try discontinuing IV fluids and encouraging oral intake. Possibly home later today if doing ok on carvedilol.
[2020-10-27] MEDS ORDERED: Carvedilol 3.125 MG TAB PO SCH ×2 (08:30)
[2020-10-27] MEDS ORDERED: Potassium Chloride 20 MEQ TAB PO SCH (08:30)
[2020-10-27] MEDS ORDERED: MAGNESIUM PO SCH (09:00)
[2020-10-27] MEDS ORDERED: MAGNESIUM OXIDE PO SCH (09:00)
[2020-10-27] MEDS ORDERED: ELTROMBOPAG OLAMINE 75 MG PO SCH (09:00)
[2020-10-27] MEDS: valACYclovir 500 MG TAB PO SCH (09:02)
[2020-10-27] MEDS: Fluconazole 100 MG TAB PO SCH ×2 (09:03→21:52)
[2020-10-27] MEDS: CYCLOSPORINE 100 MG PO SCH ×2 (09:08→21:53)
[2020-10-27] MEDS: Carvedilol 3.125 MG TAB PO SCH (17:26)
[2020-10-27] MEDS: Atorvastatin Calcium 40 MG TAB PO SCH (21:52)
[2020-10-28] MEDS: ELTROMBOPAG OLAMINE 75 MG PO SCH (04:47)
--- NOTE | 2020-10-28 07:37 | PDOC.HOSPP ---
- Subjective Encounter Date: 10/28/20 Encounter Time: 09:30 Subjective: Patient without complaints. Eating ok. Drinking fluids well. Ambulating without lightheadedness or weakness. Ready to go home. - Objective Vital Signs & Weight: Vital Signs (12 hours) Temp Pulse Resp BP BP Pulse Ox 10/28/20 04:00 99.3 F 81 18 104/61 99 10/28/20 00:00 81 109/59 L 10/27/20 20:15 98.6 F 80 18 119/62 95 Weight Admit Weight 158 lb 9.6 oz Weight 156 lb I&O: 10/27/20 10/28/20 10/29/20 06:59 06:59 06:59 Intake Total 3375 3073 Output Total 2325 550 Balance 1050 2523 Result Diagrams: 10/27/20 04:48 10/27/20 04:48 Hospitalist ROS - Review of Systems Constitutional: denies: fever, chills Respiratory: denies: cough, shortness of breath Cardiovascular: denies: chest pain, palpitations Gastrointestinal: denies: nausea, vomiting, abdominal pain - Medication Medications: Active Medications Generic Name Dose Route Start Last Admin Trade Name Freq PRN Reason Stop Dose Admin Atorvastatin Calcium 40 mg 10/26/20 21:00 10/27/20 21:52 Atorvastatin Calcium 40 Mg Tab PO 40 mg HS LIZZ Administration Carvedilol 3.125 mg 10/27/20 17:00 10/27/20 17:26 Carvedilol 3.125 Mg Tab PO 3.125 mg BID-WM LIZZ Administration Fluconazole 200 mg 10/26/20 21:00 10/27/20 21:52 Fluconazole 100 Mg Tab PO 200 mg BID LIZZ Administration Cyclosporine [ 0 each 10/26/20 21:00 10/27/20 21:53 Sandimmune] 100 Mg PO 1 each Capsule BID LIZZ Administration Eltrombopag Olamine 0 each 10/27/20 06:00 10/28/20 04:47 [Promacta] 75 Mg PO 1 each Tablet 0600 LIZZ Administration Valacyclovir HCl 500 mg 10/27/20 09:00 10/27/20 09:02 Valacyclovir 500 Mg Tab PO 500 mg DAILY LIZZ Administration - Exam General Appearance: NAD, awake alert ENT: moist mucosa Heart: RRR, no murmur, no gallops, no rubs Respiratory: CTAB, no wheezes, no rales, no ronchi Gastrointestinal: soft, non-tender, non-distended, normal bowel sounds Extremities: no edema Psychiatric: normal affect, normal behavior, A&O x 3 Hosp A/P (1) Orthostatic hypotension Code(s): I95.1 - ORTHOSTATIC HYPOTENSION Status: Acute (2) IRLANDA (acute kidney injury) Code(s): N17.9 - ACUTE KIDNEY FAILURE, UNSPECIFIED Status: Acute (3) CLL (chronic lymphocytic leukemia) Code(s): C91.90 - LYMPHOID LEUKEMIA, UNSPECIFIED NOT HAVING ACHIEVED REMISSION Status: Chronic (4) CAD (coronary artery disease) Code(s): I25.10 - ATHSCL HEART DISEASE OF [place] CORONARY ARTERY W/O ANG PCTRS Status: Chronic (5) Dyslipidemia Code(s): E78.5 - HYPERLIPIDEMIA, UNSPECIFIED Status: Chronic (6) HTN (hypertension) Code(s): I10 - ESSENTIAL (PRIMARY) HYPERTENSION Status: Chronic Qualifiers: (7) Pancytopenia Code(s): D61.818 - OTHER PANCYTOPENIA Status: Chronic - Plan Patient tolerating low dose carvedilol well. Will check repeat orthostatics. Platelets improved after transfusion, appreciate Heme/Onc assistance. Resumed chemotherapy agents for CLL. PT/OT Discontinued IV fluids and encouraging oral intake. D/C home today.
[2020-10-28] MEDS ORDERED: Potassium Chloride 20 MEQ TAB PO SCH (09:00)
[2020-10-28 09:07] VITALS: TEMP 98.9
[2020-10-28] MEDS: CYCLOSPORINE 100 MG PO SCH (09:10)
[2020-10-28] MEDS: Fluconazole 100 MG TAB PO SCH (09:10)
[2020-10-28] MEDS: Carvedilol 3.125 MG TAB PO SCH (09:10)
[2020-10-28] MEDS: valACYclovir 500 MG TAB PO SCH (09:10)
[2020-10-28 12:15] VITALS: BP 130/65
--- NOTE | 2020-10-29 22:36 | PQF ---
CLINICAL DOCUMENTATION CLARIFICATION FORM: Dear : Jerry Dawn Date / Time: 10/29/2020 4181 Please exercise your independent, professional judgment in responding to the clarification form. Clinical indicators are provided on the bottom of this form for your review Please check appropriate box(es): [ X ] Protein Calorie Malnutrition: [ X ] Mild [ ] Moderate [ ] Severe [ ] Other Malnutrition (please specify) [ ] Underweight without malnutrition [ ] Cachexia [ ] Other diagnosis, please specify [ ] Unable to determine In addition, please specify: Present on Admission (POA): [ X ] Yes [ ] No [ ] Unable to determine Physician Signature: Date/Time: For continuity of documentation, please document condition throughout progress notes and discharge summary. Thank Yo To be completed by CDI/Coding staff for physician review: Present Clinical Indicators - Signs / Symptoms / Labs Results and Location in Medical Record [X] BP 137/63, Pulse 81, Resp 16, Temp 97.6 Vital signs 10/25 Serum Total Protein 4.9, Albumin 3.2, Globolin 1.7, Ratio 1.9 Laboratory 10/25 [X] BMI of 24 Nutritional assessment Dietitian [facility] 10/26 [X] Poor appetite Nutritional assessment Dietitian [facility] 10/26 [X] Weight loss Nutritional assessment Dietitian [facility] 10/26 Present Risk Factors Results and Location in Medical Record [X] 70 year-old Male H&P p1 10/25 Dr Gonzalez [X] CLL H&P p1 10/25 Dr Gonzalez [X] Smoker H&P p1 10/25 Dr Gonzalez Present Treatments Results and Location in Medical Record [X] Dietary consult Nutritional assessment Dietitian [facility] 10/26 [X] Nutritional supplements Nutritional assessment Dietitian [facility] 10/26 [X] Weight monitoring Nutritional assessment Dietitian [facility] 10/26 [X] Oral intake monitoring Nutritional assessment Dietitian [facility] 10/26 [X] Appetite stimulant - medication Nutritional assessment Dietitian [facility] 10/26 CDS/Stamp Analyst Signature: Aylin Dumont Phone #: ext [phone] Date/Time: 10/29/2020 2234 Moderate Malnutrition (in acute illness) ? Energy Intake: <75% of estimated energy requirement for > 7 days ? Weight Loss: 1-2%/1 week; 5%/ 1 month; 7.5%/3 months ? Other: mild body fat loss; mild muscle mass loss; mild fluid accumulation; Severe Malnutrition (in acute illness) ? Energy Intake: ? 50% of estimated energy requirement for ? 5 days ? Weight Loss: >2%/1 week; >5%/1 month; >7.5%/3 months ? Other: moderate body fat loss; moderate muscle mass loss; moderate- severe fluid accumulation; measurably reduced healthcare educator strength Moderate Malnutrition (in chronic illness) ? Energy Intake: <75% of estimated energy requirement for ?1 month ? Weight Loss: 5%/1 month; 7.5%/3 months; 10%/6 months; 20%/1 year ? Other: mild body fat loss; mild muscle mass loss; mild fluid accumulation Severe Malnutrition (in chronic illness) ? Energy Intake: ?75% of estimated energy requirement for ?1 month ? Weight Loss: >5%/1 month; >7.5%/3 months; >10%/6 months; >20%/1 year ? Other: severe body fat loss; severe muscle mass loss; severe fluid accumulation; measurably reduced healthcare educator strength This is a permanent part of the Medical Record [facility]
--- NOTE | 2020-10-30 14:57 | EKG ---
Test Reason : Blood Pressure : / mmHG Vent. Rate : 075 BPM Atrial Rate : 075 BPM P-R Int : 156 ms QRS Dur : 086 ms QT Int : 414 ms P-R-T Axes : 065 -50 -52 degrees QTc Int : 462 ms Normal sinus rhythm Normal axis Baseline Artifact Present Confirmed by MARILYN PETER DO ([id number]), sports editor BALJIT HOOD ([id number]) on 10/30/2020 2:57:18 PM Referred By: Confirmed By:MARILYN PETER DO
--- NOTE | 2020-11-01 08:17 | DIS ---
DATE OF ADMISSION: 10/25/2020 DATE OF DISCHARGE: 10/28/2020 PRIMARY CARE PHYSICIAN: Chuy Georges MD REASON FOR ADMISSION: Orthostatic hypotension with acute renal failure. DIAGNOSES AT DISCHARGE: 1. Orthostatic hypotension, improved. 2. Acute kidney failure, resolved. 3. Chronic lymphocytic leukemia. 4. Pancytopenia. 5. Thrombocytopenia, improved with transfusion. 6. Coronary artery disease. 7. Dyslipidemia. 8. Hypertension. 9. Mild protein-calorie malnutrition. PROCEDURES: None. CONSULTATIONS: 1. Cardiology, Dr. Linn. 2. Oncology, Odalys Salinas. SUMMARY OF HOSPITAL COURSE: This is a 70-year-old male with a history of chronic lymphocytic leukemia and aplastic anemia on chemotherapy, also with hypertension and coronary artery disease on multiple blood pressure medications. The patient presented to the emergency room with lightheadedness and dizziness. He was noted to be hypotensive and to have elevated creatinine. The patient was given fluids. Cardiology and Oncology were consulted. The patient's blood pressure medicines were held. Dr. Linn recommended restarting just a baby dose of carvedilol when his blood pressure would tolerate. The patient after fluid boluses, was able to start eating and drinking a little bit better. He had been eating very poorly due to his chemotherapy making him not hungry, making everything taste bad. The patient eventually was able to start ambulating with Physical Therapy. He ambulated well without any dizziness or lightheadedness. His blood pressure improved. He was able to tolerate a low dose of carvedilol and the patient is now being discharged home. DISCHARGE MANAGEMENT: Discharged home. ACTIVITY: As tolerated. DIET: Healthy heart, low-sodium diet. FOLLOWUP: Follow up with Dr. Mendiola as directed in the [facility] and the [facility] in [place] as well as directed and with Dr. Georges in the next week. DISCHARGE MEDICATIONS: 1. Carvedilol 3.125 mg twice a day, 60 tablets dispensed. 2. Atorvastatin 40 mg daily. 3. Fluconazole 200 mg twice a day. 4. Valacyclovir 500 mg daily. 5. Cyclosporine 200 mg twice a day. 6. Promacta 150 mg daily. 7. Magnesium oxide plus protein one tablet three times a day. The patient is to stop his other carvedilol. He is to stop his extended release nitroglycerin and he is to stop his Ramipril. TIME SPENT: Arranging the details of this discharge took 32 minutes. Job ID: [id number]
== END 2020-10-28 14:20 | disposition home health service (06) | DRG 809 ==
LOC: ERS 08:10 → ERHOLD 11:16 → 2NO 19:57
PROVIDERS: ADMIT Family Medicine; ATTEND Emergency Medicine
PROC: 8E0ZXY6 Isolation (ICD-10-PCS; 2020-10-25)
PROC: 30233R1 Transfusion of Nonautologous Platelets into Peripheral Vein, Percutaneous Approach (ICD-10-PCS; principal; 2020-10-26)
DX: D61.9 Aplastic anemia, unspecified (principal); N17.9 Acute kidney failure, unspecified; C91.90 Lymphoid leukemia, unspecified not having achieved remission; E44.1 Mild protein-calorie malnutrition; Z68.24 Body mass index [BMI] 24.0-24.9, adult; Z20.828 Contact with and (suspected) exposure to other viral communicable diseases; I95.1 Orthostatic hypotension; I25.10 Atherosclerotic heart disease of native coronary artery without angina pectoris; E78.5 Hyperlipidemia, unspecified; I10 Essential (primary) hypertension; F17.290 Nicotine dependence, other tobacco product, uncomplicated; M19.90 Unspecified osteoarthritis, unspecified site; E86.0 Dehydration; R19.7 Diarrhea, unspecified; T45.1X5A Adverse effect of antineoplastic and immunosuppressive drugs, initial encounter; Z87.442 Personal history of urinary calculi; I25.2 Old myocardial infarction; Z95.5 Presence of coronary angioplasty implant and graft; Z89.422 Acquired absence of other left toe(s)
CPT/HCPCS: 36415; 36416; 36430; 80048; 80053; 82550; 84484; 85025; 86850; 86900; 86901; 87635; 93005; 94760; P9035; Q0163; U0003

== ENCOUNTER 2020-11-08 00:38 | Inpatient (IN) | payer MEDICARE, OTHER ==
[2020-11-08 01:57] LABS: Hemoglobin 9.5 g/dL (14.0-18.0); Mean Corpuscular HGB CONC 34.9 g/dL (32.0-36.0); Mean Corpuscular Hemoglobin 30.7 pg (27.0-31.0); Mean Corpuscular Volume 87.9 fL (78.0-98.0); Mean Platelet Volume 14.4 fL (7.4-10.4); Platelet Count 28 thou/uL (130-400); RBC Distribution Width 19.7 % (11.5-14.5); White Blood Cell (WBC) Count 1.7 thou/uL (4.8-10.8)
[2020-11-08 02:01] LABS: Band 6 % (5-11); Hypochromia SLIGHT = 6-15 cells (100X) (0-5/hpf); Lymphocytes 20 % (21-51); MDiff Complete? YES; Monocytes 38 % (0-10); Neutrophil 36 % (42-75); Platelet Morphology Comment Appears Decreased
[2020-11-08 02:03] LABS: ALT (SGPT) 24 U/L (8-55); AST (SGOT) 25 U/L (5-34); Albumin 3.4 g/dL (3.4-4.8); Alkaline Phosphatase 84 U/L (40-110); Anion Gap 19 mmol/L (10-20); BUN (Urea Nitrogen) 16 mg/dL (8.4-25.7); Bilirubin, Total 1.5 mg/dL (0.2-1.2); Calc. Creatinine Clearance 0 mL/min (70-130); Calcium 8.6 mg/dL (7.8-10.44); Carbon Dioxide 24 mmol/L (23-31); Chloride 95 mmol/L (98-107); Globulin 2.5 g/dL (2.4-3.5); Glucose 93 mg/dL (83-110); Potassium 4.1 mmol/L (3.5-5.1); Protein, Total 5.9 g/dL (5.8-8.1); Sodium 134 mmol/L (136-145)
[2020-11-08] MEDS ORDERED: Acetaminophen 325 MG TAB PO PRN (02:52)
--- NOTE | 2020-11-08 03:01 | PDOC.HHP ---
Hospitalist HPI - History of Present Illness Passing out and fall History of Present Illness: 70-year-old gentleman with a history of CLL on oral chemotherapy was brought to the emergency department by EMS after patient fell at home. Patient report feeling lightheaded and passing out after getting up from bed in order to use the bathroom. Per report EMS found him with a systolic blood pressure of 70. H e was given IV fluid on the way to the hospital. His systolic blood pressure on arrival was 120. Patient found to have orthostatic hypotension with systolic blood pressure dropping to 60 on standing in the ED. Blood chemistry is unremarkable except elevated creatinine indicating acute renal failure. CBC shows pancytopenia with WBC count of 1.7, platelet of 28 and hemoglobin of 9.5. EKG demonstrated sinus rhythm with nonspecific ST-T changes. Head CT cervical spine CT shows no acute injury or bleed. Patient was hospitalized about 2 weeks ago for similar syncopal episode. His medications were adjusted but patient continues to take Coreg. He is admitted for further management. Hospitalist ROS - Review of Systems Other: Except as documented, all other systems reviewed and negative. Hospitalist History - Past Medical History Cardiac: reports: CAD, HTN, Hyperlipidemia Heme/Onc: reports: Other (CLL, aplastic anemia) Renal/: reports: Other (Kidney stones) - Past Surgical History Other Surgical History: Ankle surgery, shoulder surgery, 2 hernia repairs, cardiac stent. - Family History Family History: reports: cancer (Mother had renal cancer), cardiac disorder (Father) - Social History Smoking Status: Former smoker Alcohol: reports: None Drugs: reports: none - Exam General Appearance: NAD, awake alert Eye: PERRL, anicteric sclera ENT: normocephalic atraumatic, moist mucosa Neck: supple, no JVD, no thyromegaly Heart: RRR, no murmur, normal peripheral pulses Respiratory: CTAB, no wheezes, no rales Gastrointestinal: soft, non-tender, non-distended, normal bowel sounds Extremities: no cyanosis, no edema Skin: normal turgor, no lesions Skin - other findings: Linear laceration on forehead Neurological: cranial nerve grossly intact, no weakness, no focal deficits Musculoskeletal: normal tone, normal strength, no muscle wasting Psychiatric: normal affect, normal behavior, A&O x 3 Hospitalist Results - Labs Result Diagrams: 11/08/20 01:23 11/08/20 01:23 Lab results: WBC 1.7 thou/uL (4.8-10.8) L 11/08/20 01:23 Hgb 9.5 g/dL (14.0-18.0) L 11/08/20 01:23 Hct 27.2 % (42.0-52.0) L 11/08/20 01:23 MCV 87.9 fL (78.0-98.0) 11/08/20 01:23 Plt Count 28 thou/uL (130-400) L* 11/08/20 01:23 Band Neuts % (Manual) 6 % (5-11) 11/08/20 01:23 Sodium 134 mmol/L (136-145) L 11/08/20 01:23 Potassium 4.1 mmol/L (3.5-5.1) 11/08/20 01:23 Chloride 95 mmol/L (98-107) L 11/08/20 01:23 Carbon Dioxide 24 mmol/L (23-31) 11/08/20 01:23 BUN 16 mg/dL (8.4-25.7) 11/08/20 01:23 Creatinine 1.37 mg/dL (0.7-1.3) H 11/08/20 01:23 Glucose 93 mg/dL (83-110) 11/08/20 01:23 Calcium 8.6 mg/dL (7.8-10.44) 11/08/20 01:23 Total Bilirubin 1.5 mg/dL (0.2-1.2) H 11/08/20 01:23 AST 25 U/L (5-34) 11/08/20 01:23 ALT 24 U/L (8-55) 11/08/20 01:23 Alkaline Phosphatase 84 U/L (40-110) 11/08/20 01:23 Serum Total Protein 5.9 g/dL (5.8-8.1) 11/08/20 01:23 Albumin 3.4 g/dL (3.4-4.8) 11/08/20 01:23 Hospitalist H&P A/P - Problem (1) IRLANDA (acute kidney injury) Code(s): N17.9 - ACUTE KIDNEY FAILURE, UNSPECIFIED Status: Acute (2) Orthostatic hypotension Code(s): I95.1 - ORTHOSTATIC HYPOTENSION Status: Acute (3) CAD (coronary artery disease) Code(s): I25.10 - ATHSCL HEART DISEASE OF [place] CORONARY ARTERY W/O ANG PCTRS Status: Chronic (4) CLL (chronic lymphocytic leukemia) Code(s): C91.90 - LYMPHOID LEUKEMIA, UNSPECIFIED NOT HAVING ACHIEVED REMISSION Status: Chronic (5) Pancytopenia Code(s): D61.818 - OTHER PANCYTOPENIA Status: Chronic - Plan Plan: Admitted to the medical floor. Hydrate with IV normal saline Monitor renal function for improvement. Orthostatic precautions. Obtain echocardiogram. Hold Coreg. Monitor CBC. Monitor orthostatic vitals. Transfuse platelet as needed for bleeding.
[2020-11-08 04:53] LABS: Platelet Count 25 thou/uL (130-400)
[2020-11-08] MEDS: Sodium Chloride 0.9% 1,000 ML IV SCH ×3 (05:02→21:34)
[2020-11-08 05:07] LABS: Anion Gap 13 mmol/L (10-20); BUN (Urea Nitrogen) 15 mg/dL (8.4-25.7); Calc. Creatinine Clearance 52 mL/min (70-130); Carbon Dioxide 27 mmol/L (23-31); Chloride 99 mmol/L (98-107); Glucose 89 mg/dL (83-110); Potassium 3.3 mmol/L (3.5-5.1); Sodium 136 mmol/L (136-145)
[2020-11-08 05:18] LABS: Band 10 % (5-11); Hemoglobin 8.1 g/dL (14.0-18.0); Hypochromia SLIGHT = 6-15 cells (100X) (0-5/hpf); Lymphocytes 26 % (21-51); MDiff Complete? YES; Mean Corpuscular HGB CONC 35.2 g/dL (32.0-36.0); Mean Corpuscular Hemoglobin 31.3 pg (27.0-31.0); Mean Corpuscular Volume 88.8 fL (78.0-98.0); Mean Platelet Volume 14.5 fL (7.4-10.4); Monocytes 26 % (0-10); Neutrophil 20 % (42-75); Platelet Morphology Comment Appears Decreased; RBC Distribution Width 19.8 % (11.5-14.5); Reactive Lymphocytes 18 % (0-10); Red Blood Cell (RBC) Count 2.58 mill/uL (4.70-6.10); White Blood Cell (WBC) Count 1.8 thou/uL (4.8-10.8)
[2020-11-08] MEDS ORDERED: Potassium Chloride 20 MEQ TAB PO SCH (05:30)
--- NOTE | 2020-11-08 07:39 | CT ---
Exam: Head CT without contrast HISTORY: Syncopal episode. Fall. Pain. COMPARISON: 10/02/2020 FINDINGS: Hemorrhage: No intraparenchymal hemorrhage or extra-axial hematoma. Brain parenchyma: Cortical norton-white matter differentiation is preserved. No mass effect or midline shift. Basilar cisterns are patent. Ventricular system: Ventricles and sulci are patent and symmetric. Calvarium: Intact. Sinuses and mastoid air cells: Stable sinus disease with opacification of the left sphenoid sinus. IMPRESSION: No acute intracranial process.
--- NOTE | 2020-11-08 08:26 | CT ---
PRELIMINARY REPORT/[facility]/EMERGENCY AFTER HOURS PROCEDURE: EXAM: CT Cervical Spine Without Intravenous Contrast. CLINICAL HISTORY: Pt was walking with walker and had syncopal episode today. hx of syncopal episodes. pt is cll cancer pt TECHNIQUE: Axial computed tomography images of the cervical spine without intravenous contrast. Sagittal and cor onal reformations performed. COMPARISON: CT\SR - CT CERVICAL SPINE WO CON - 10/02/2020 02:55 PM [facility] FINDINGS: BONES: There is a moderate to severe degenerative discogenic disease of the C3-C7, with bilateral uncal vert ebral joint hypertrophy and facet arthropathy, causing mild to moderate central spinal canal stenosis and neuroforaminal narrowing. No evidence of acute fracture or dislocation. SOFT TISSUES: No prevertebral soft tissue swelling. No apical pneumothorax. IMPRESSION: There is a moderate to severe degenerative discogenic disease of the C3-C7, with bilateral uncal vert ebral joint hypertrophy and facet arthropathy, causing mild to moderate central spinal canal stenosis and neuroforaminal narrowing. ELECTRONICALLY SIGNED BY: Srinivasa Blake MD Nov 08, 2020 2:02:42 AM [facility] This report is intended for review by the ordering physician only, in accordance of law. If you recei ve this report in error, please call [facility] at [phone]. FINAL REPORT CT OF THE CERVICAL SPINE WITHOUT CONTRAST: FINDINGS/IMPRESSION: I agree with the findings and impression given in the preliminary report per [facility] physici an. There are moderate degenerative changes of the cervical spine without acute osseous abnormality. POS: EAA
[2020-11-08 08:33] LABS: SARS-CoV-2 MS2 Positive; SARS-CoV-2 N Gene Negative; SARS-CoV-2 S Gene Negative; SARS-CoV-2 by NAA Not Detected (NotDetected); SARS-CoV-2 orf1ab Negative
--- NOTE | 2020-11-08 08:58 | RAD ---
PORTABLE CHEST: INDICATION: Syncope. COMPARISON: 10/02/2020. FINDINGS: Lungs are clear. No infiltrate. Vascular markings normal. Heart and mediastinum unremarkable. IMPRESSION: No acute process. POS: AGW
[2020-11-08] MEDS ORDERED: Ondansetron ODT 8 MG TAB PO PRN (10:54)
[2020-11-08] MEDS ORDERED: HYDROcodone/Acetaminophen 10/325 mg Tablet PO PRN (10:54)
--- NOTE | 2020-11-08 11:12 | PDOC.HOSPP ---
- Subjective Encounter Date: 11/08/20 Encounter Time: 10:40 Subjective: f/u syncope/dehydration in context of CLL on po chemotherapy. Received IVF's and overall BP trend improved. - Objective Vital Signs & Weight: Vital Signs (12 hours) Temp Pulse Resp BP Pulse Ox 11/08/20 07:50 97.6 F 80 18 124/71 98 11/08/20 04:00 97.3 F L 77 16 129/72 100 Weight Weight 152 lb 3.2 oz I&O: 11/07/20 11/08/20 11/09/20 06:59 06:59 06:59 Intake Total 168 Output Total 0 Balance 168 Result Diagrams: 11/08/20 04:27 11/08/20 04:27 Additional Labs: Microbiology 02/25/20 16:31 Stool - Pending Stool Occult Blood (LAUREN) - Final 02/15/20 18:44 Venous blood - Right Hand Blood Culture - Preliminary NO GROWTH AT 48 HOURS 02/15/20 18:39 Venous blood - Right Arm Blood Culture - Preliminary NO GROWTH AT 48 HOURS Laboratory Tests 02/15/20 02/16/20 02/17/20 18:39 06:35 06:35 WBC Hgb 6.5 L Plt Count 43 L 35 L 25 L* Lymphocytes % (Manual) Sodium Creatinine Uric Acid SARS-CoV-2 (PCR) 02/17/20 02/18/20 02/25/20 17:53 05:32 16:31 WBC 2.7 L Hgb 8.6 L 8.5 L 6.7 L Plt Count 19 L* Less than 2 L* Lymphocytes % (Manual) 70 H Sodium Creatinine Uric Acid SARS-CoV-2 (PCR) 02/26/20 02/26/20 11/08/20 05:40 11:30 01:23 WBC Hgb Plt Count Lymphocytes % (Manual) 77 H Sodium 134 L Creatinine 1.37 H Uric Acid 3.5 SARS-CoV-2 (PCR) 11/08/20 11/08/20 01:23 04:55 WBC 1.7 L Hgb 9.5 L Plt Count 28 L* Lymphocytes % (Manual) Sodium Creatinine Uric Acid SARS-CoV-2 (PCR) Not Detected Radiology Reviewed by me: Yes (CT brain - neg; PCXR - neg) EKG Reviewed by me: Yes (Tele - SR) Hospitalist ROS - Medication Medications: Active Medications Generic Name Dose Route Start Last Admin Trade Name Madelin PRN Reason Stop Dose Admin Sodium Chloride 1,000 mls @ 125 mls/hr 11/08/20 03:00 11/08/20 05:02 Normal Saline 0.9% IV 1,000 mls .Q8H LIZZ Administration - Exam General Appearance: NAD, awake alert Eye: PERRL, anicteric sclera ENT: normocephalic atraumatic, no oropharyngeal lesions Neck: supple, symmetric, no JVD, no thyromegaly, no lymphadenopathy Heart: RRR, no gallops, no rubs, normal peripheral pulses Heart - other findings: S1, S2 Respiratory: CTAB, no wheezes, no rales, no ronchi, normal chest expansion Gastrointestinal: soft, non-tender, non-distended, normal bowel sounds, no palpable masses Extremities: no cyanosis, no clubbing Skin: normal turgor Neurological: cranial nerve grossly intact, no new deficit Musculoskeletal: normal tone, generalized weakness Psychiatric: normal affect, A&O x 3 Hosp A/P (1) Syncope and collapse Code(s): R55 - SYNCOPE AND COLLAPSE Status: Acute Plan: Likely combination of iatrogenic influence from Coreg in addition to dehydration (2) Orthostatic hypotension Code(s): I95.1 - ORTHOSTATIC HYPOTENSION Status: Acute Plan: Iatrogenic/dehydration, continue IVF's, d/c Coreg, serial BP monitoring (3) RILANDA (acute kidney injury) Code(s): N17.9 - ACUTE KIDNEY FAILURE, UNSPECIFIED Status: Acute Plan: Improved, continue IVF's, avoid nephrotoxic meds and limit contrast exposure (4) CLL (chronic lymphocytic leukemia) Code(s): C91.90 - LYMPHOID LEUKEMIA, UNSPECIFIED NOT HAVING ACHIEVED REMISSION Status: Chronic Plan: Outpatient follow up with medical oncology (5) Pancytopenia Code(s): D61.818 - OTHER PANCYTOPENIA Status: Chronic Plan: Secondary to chemotherapy, serial monitoring, appears near baseline pancytopenia - Plan nephrology social worker, out of bed/ambulate, DVT proph w/SCDs Continue IVF's another 24h D/C Coreg indefinitely OOB/ambulate Serial orthostatic vitals D/C Echo with recent echo noted 1220 AM lab: BMP, CBC Likely home in 24h
[2020-11-09] MEDS: Sodium Chloride 0.9% 1,000 ML IV SCH ×2 (03:21→08:19)
[2020-11-09 04:54] LABS: Hemoglobin 7.4 g/dL (14.0-18.0); Mean Corpuscular HGB CONC 34.6 g/dL (32.0-36.0); Mean Corpuscular Hemoglobin 30.7 pg (27.0-31.0); Mean Corpuscular Volume 88.6 fL (78.0-98.0); Mean Platelet Volume 14.5 fL (7.4-10.4); Platelet Count 28 thou/uL (130-400); RBC Distribution Width 19.9 % (11.5-14.5); Red Blood Cell (RBC) Count 2.43 mill/uL (4.70-6.10); White Blood Cell (WBC) Count 1.8 thou/uL (4.8-10.8)
[2020-11-09 05:10] LABS: Anion Gap 12 mmol/L (10-20); BUN (Urea Nitrogen) 12 mg/dL (8.4-25.7); Calc. Creatinine Clearance 66 mL/min (70-130); Calcium 7.8 mg/dL (7.8-10.44); Carbon Dioxide 25 mmol/L (23-31); Chloride 100 mmol/L (98-107); Glucose 81 mg/dL (83-110); Sodium 134 mmol/L (136-145)
[2020-11-09 05:13] LABS: Band 4 % (5-11); Eosinophils 2 % (0-10); Hypochromia SLIGHT = 6-15 cells (100X) (0-5/hpf); Lymphocytes 42 % (21-51); MDiff Complete? YES; Monocytes 20 % (0-10); Neutrophil 32 % (42-75); Platelet Morphology Comment Appears Decreased
[2020-11-09] MEDS: Fluconazole 100 MG TAB PO SCH (08:21)
[2020-11-09] MEDS: valACYclovir 500 MG TAB PO SCH (08:21)
[2020-11-09] MEDS ORDERED: ELTROMBOPAG OLAMINE 75 MG PO SCH (09:15)
[2020-11-09] MEDS ORDERED: CYCLOSPORINE 100 MG PO SCH (09:15)
[2020-11-09] MEDS: CYCLOSPORINE 100 MG PO SCH ×4 (09:26→21:15)
[2020-11-09] MEDS ORDERED: Potassium Chloride 20 MEQ TAB PO SCH (09:30)
[2020-11-09] MEDS ORDERED: Midodrine HCl 5 MG TAB PO SCH (09:45)
[2020-11-09] MEDS: MAGNESIUM OXIDE PO SCH (15:00)
[2020-11-09] MEDS: MAGNESIUM PO SCH (15:00)
[2020-11-09] MEDS: Midodrine HCl 5 MG TAB PO SCH ×2 (15:30→21:16)
[2020-11-09] MEDS: Potassium Chloride 20 MEQ TAB PO SCH (15:31)
--- NOTE | 2020-11-09 16:20 | PDOC.HOSPP ---
- Subjective Encounter Date: 11/09/20 Encounter Time: 16:15 Subjective: f/u for syncope/dehydration/CLL with chemotherapy. Received IVF's but lost IV site. Tolerating po intake. States weight loss of approx 20lbs in last 2-3 months. - Objective Vital Signs & Weight: Vital Signs (12 hours) Temp Pulse Resp BP BP BP Pulse Ox 11/09/20 15:29 98.4 F 85 16 124/67 98 11/09/20 11:20 98.6 F 79 16 130/68 100 11/09/20 08:00 105/63 112/57 L 80/52 L 11/09/20 06:45 98.3 F 74 16 141/74 H 100 Weight Admit Weight 152 lb 3.2 oz Weight 151 lb 3.2 oz I&O: 11/08/20 11/09/20 11/10/20 06:59 06:59 06:59 Intake Total 168 2920 Output Total 0 1050 Balance 168 1870 Result Diagrams: 11/09/20 16:31 11/09/20 04:28 Additional Labs: Microbiology 02/25/20 16:31 Stool - Pending Stool Occult Blood (LAUREN) - Final 02/15/20 18:44 Venous blood - Right Hand Blood Culture - Preliminary NO GROWTH AT 48 HOURS 02/15/20 18:39 Venous blood - Right Arm Blood Culture - Preliminary NO GROWTH AT 48 HOURS Laboratory Tests 02/15/20 02/16/20 02/17/20 18:39 06:35 06:35 WBC Hgb 6.5 L Plt Count 43 L 35 L 25 L* Lymphocytes % (Manual) Sodium Creatinine Uric Acid SARS-CoV-2 (PCR) 02/17/20 02/18/20 02/25/20 17:53 05:32 16:31 WBC 2.7 L Hgb 8.6 L 8.5 L 6.7 L Plt Count 19 L* Less than 2 L* Lymphocytes % (Manual) 70 H Sodium Creatinine Uric Acid SARS-CoV-2 (PCR) 02/26/20 02/26/20 11/08/20 05:40 11:30 01:23 WBC Hgb Plt Count Lymphocytes % (Manual) 77 H Sodium 134 L Creatinine 1.37 H Uric Acid 3.5 SARS-CoV-2 (PCR) 11/08/20 11/08/20 01:23 04:55 WBC 1.7 L Hgb 9.5 L Plt Count 28 L* Lymphocytes % (Manual) Sodium Creatinine Uric Acid SARS-CoV-2 (PCR) Not Detected EKG Reviewed by me: Yes (Tele - SR) Hospitalist ROS - Medication Medications: Active Medications Generic Name Dose Route Start Last Admin Trade Name Arielq PRN Reason Stop Dose Admin Fluconazole 200 mg 11/09/20 09:00 11/09/20 08:21 Fluconazole 100 Mg Tab PO 200 mg DAILY LIZZ Administration Midodrine 5 mg 11/09/20 15:00 11/09/20 15:30 Midodrine Hcl 5 Mg Tab PO 5 mg TID LIZZ Administration Cyclosporine [ 0 each 11/08/20 21:00 11/09/20 09:52 Sandimmune] 100 Mg PO Not Given Capsule BID LIZZ Potassium Chloride 40 meq 11/09/20 17:00 11/09/20 15:31 Potassium Chloride 20 Meq Tab PO 40 meq BID-WM LIZZ Administration Valacyclovir HCl 500 mg 11/09/20 09:00 11/09/20 08:21 Valacyclovir 500 Mg Tab PO 500 mg DAILY LIZZ Administration - Exam General Appearance: awake alert, ill appearing Eye: PERRL, anicteric sclera ENT: normocephalic atraumatic, no oropharyngeal lesions Neck: supple, symmetric, no JVD, no thyromegaly, no lymphadenopathy Heart: RRR, no gallops, no rubs, normal peripheral pulses Heart - other findings: S1, S2 Respiratory: CTAB, no wheezes, no rales, no ronchi, normal chest expansion, no tachypnea Gastrointestinal: soft, non-tender, non-distended, normal bowel sounds, no palpable masses Extremities: no cyanosis, no clubbing Extremities - other findings: R forearm edema Skin: normal turgor Neurological: cranial nerve grossly intact, no new deficit Musculoskeletal: normal tone, normal strength Psychiatric: normal affect, A&O x 3 Hosp A/P (1) Syncope and collapse Code(s): R55 - SYNCOPE AND COLLAPSE Status: Acute Plan: Suspect due to volume depletion/iatrogenic with Coreg, trial Midodrine for orthostasis (2) Orthostatic hypotension Code(s): I95.1 - ORTHOSTATIC HYPOTENSION Status: Acute Plan: Continue Midodrine 5mg TID, repeat orthostatics (3) IRLANDA (acute kidney injury) Code(s): N17.9 - ACUTE KIDNEY FAILURE, UNSPECIFIED Status: Acute Plan: Resolving with IVF's, avoid nephrotoxic meds and limit contrast (4) CLL (chronic lymphocytic leukemia) Code(s): C91.90 - LYMPHOID LEUKEMIA, UNSPECIFIED NOT HAVING ACHIEVED REMISSION Status: Chronic Plan: Follow up with medical oncology as outpt (5) Pancytopenia Code(s): D61.818 - OTHER PANCYTOPENIA Status: Chronic Plan: Serial CBC, monitor H/H, consider transfusion of PRBC's (6) Anorexia Code(s): R63.0 - ANOREXIA Status: Chronic Plan: Start Megace 80mg po daily - 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
[2020-11-09] MEDS ORDERED: Megestrol Acetate 40 MG TAB PO SCH (16:30)
[2020-11-09] MEDS: Megestrol Acetate 40 MG TAB PO SCH (16:42)
[2020-11-10 05:43] LABS: Anion Gap 13 mmol/L (10-20); BUN (Urea Nitrogen) 8 mg/dL (8.4-25.7); Calc. Creatinine Clearance 83 mL/min (70-130); Carbon Dioxide 25 mmol/L (23-31); Chloride 103 mmol/L (98-107); Glucose 82 mg/dL (83-110); Potassium 3.2 mmol/L (3.5-5.1); Sodium 138 mmol/L (136-145)
[2020-11-10] MEDS: ELTROMBOPAG OLAMINE 75 MG PO SCH (05:50)
[2020-11-10 06:12] LABS: Band 2 % (5-11); Hemoglobin 7.2 g/dL (14.0-18.0); Hypochromia SLIGHT = 6-15 cells (100X) (0-5/hpf); Lymphocytes 60 % (21-51); MDiff Complete? YES; Monocytes 16 % (0-10); Neutrophil 22 % (42-75); Platelet Morphology Comment Appears Decreased
[2020-11-10 06:42] LABS: Mean Corpuscular HGB CONC 33.8 g/dL (32.0-36.0); Mean Corpuscular Volume 88.7 fL (78.0-98.0); Mean Platelet Volume 13.2 fL (7.4-10.4); Platelet Count 34 thou/uL (130-400); RBC Distribution Width 20.3 % (11.5-14.5); Red Blood Cell (RBC) Count 2.39 mill/uL (4.70-6.10)
[2020-11-10] MEDS: Fluconazole 100 MG TAB PO SCH (07:59)
[2020-11-10] MEDS: Midodrine HCl 5 MG TAB PO SCH ×3 (07:59→21:55)
[2020-11-10] MEDS: Megestrol Acetate 40 MG TAB PO SCH (07:59)
[2020-11-10] MEDS: Potassium Chloride 20 MEQ TAB PO SCH ×2 (07:59→16:21)
[2020-11-10] MEDS: CYCLOSPORINE 100 MG PO SCH ×2 (08:00→21:55)
[2020-11-10] MEDS: valACYclovir 500 MG TAB PO SCH (08:00)
--- NOTE | 2020-11-10 12:11 | PDOC.HOSPP ---
- Subjective Encounter Date: 11/10/20 Encounter Time: 12:00 Subjective: f/u for orthostatic hypotension/syncope/CLL. Remains orthostatic per nursing but overall feels better. Appetite improved. - Objective Vital Signs & Weight: Vital Signs (12 hours) Temp Pulse Resp BP BP BP BP 11/10/20 11:45 98.1 F 77 16 148/76 H 11/10/20 09:45 88/65 L 70/39 L 122/68 11/10/20 07:28 98.0 F 81 18 116/69 11/10/20 04:00 98.1 F 79 20 129/73 Pulse Ox 11/10/20 11:45 97 11/10/20 09:45 11/10/20 07:28 96 11/10/20 04:00 95 Weight Admit Weight 152 lb 3.2 oz Weight 144 lb 3.2 oz I&O: 11/09/20 11/10/20 11/11/20 06:59 06:59 06:59 Intake Total 2920 120 Output Total 1050 350 Balance 1870 -230 Result Diagrams: 11/10/20 04:26 11/10/20 04:26 Additional Labs: Microbiology 02/25/20 16:31 Stool - Pending Stool Occult Blood (LAUREN) - Final 02/15/20 18:44 Venous blood - Right Hand Blood Culture - Preliminary NO GROWTH AT 48 HOURS 02/15/20 18:39 Venous blood - Right Arm Blood Culture - Preliminary NO GROWTH AT 48 HOURS Laboratory Tests 02/15/20 02/16/20 02/17/20 18:39 06:35 06:35 WBC Hgb 6.5 L Plt Count 43 L 35 L 25 L* Lymphocytes % (Manual) Sodium Creatinine Uric Acid SARS-CoV-2 (PCR) 02/17/20 02/18/20 02/25/20 17:53 05:32 16:31 WBC 2.7 L Hgb 8.6 L 8.5 L 6.7 L Plt Count 19 L* Less than 2 L* Lymphocytes % (Manual) 70 H Sodium Creatinine Uric Acid SARS-CoV-2 (PCR) 02/26/20 02/26/20 11/08/20 05:40 11:30 01:23 WBC Hgb Plt Count Lymphocytes % (Manual) 77 H Sodium 134 L Creatinine 1.37 H Uric Acid 3.5 SARS-CoV-2 (PCR) 11/08/20 11/08/20 01:23 04:55 WBC 1.7 L Hgb 9.5 L Plt Count 28 L* Lymphocytes % (Manual) Sodium Creatinine Uric Acid SARS-CoV-2 (PCR) Not Detected EKG Reviewed by me: Yes (Tele - SR) Hospitalist ROS - Medication Medications: Active Medications Generic Name Dose Route Start Last Admin Trade Name Freq PRN Reason Stop Dose Admin Fluconazole 200 mg 11/09/20 09:00 11/10/20 07:59 Fluconazole 100 Mg Tab PO 200 mg DAILY LIZZ Administration Megestrol Acetate 80 mg 11/10/20 09:00 11/10/20 07:59 Megestrol Acetate 40 Mg Tab PO 80 mg DAILY LIZZ Administration Cyclosporine [ 0 each 11/08/20 21:00 11/10/20 08:00 Sandimmune] 100 Mg PO 2 each Capsule BID LIZZ Administration Eltrombopag Olamine 0 each 11/10/20 06:00 11/10/20 05:50 [Promacta] 75 Mg PO 2 each Tablet 0600 LIZZ Administration Potassium Chloride 40 meq 11/09/20 17:00 11/10/20 07:59 Potassium Chloride 20 Meq Tab PO 40 meq BID-WM LIZZ Administration Valacyclovir HCl 500 mg 11/09/20 09:00 11/10/20 08:00 Valacyclovir 500 Mg Tab PO 500 mg DAILY LIZZ Administration - Exam General Appearance: NAD, awake alert Eye: PERRL, anicteric sclera ENT: normocephalic atraumatic, no oropharyngeal lesions Neck: supple, symmetric, no JVD, no thyromegaly, no lymphadenopathy Heart: RRR, no gallops, no rubs, normal peripheral pulses Heart - other findings: S1, S2 Respiratory: CTAB, no wheezes, no rales, no ronchi, normal chest expansion Gastrointestinal: soft, non-tender, non-distended, normal bowel sounds, no palpable masses Extremities: no cyanosis, no clubbing, no edema Skin: normal turgor Neurological: cranial nerve grossly intact, no new deficit Musculoskeletal: normal tone, generalized weakness Psychiatric: normal affect, A&O x 3 Hosp A/P (1) Syncope and collapse Code(s): R55 - SYNCOPE AND COLLAPSE Status: Acute Plan: Likely multifactorial, encourage increased po intake, hydration, d/c all antihypertensives (2) Orthostatic hypotension Code(s): I95.1 - ORTHOSTATIC HYPOTENSION Status: Acute Plan: Persistent, increase Midodrine 10mg TID (3) IRLANDA (acute kidney injury) Code(s): N17.9 - ACUTE KIDNEY FAILURE, UNSPECIFIED Status: Acute Plan: Resolving (4) CLL (chronic lymphocytic leukemia) Code(s): C91.90 - LYMPHOID LEUKEMIA, UNSPECIFIED NOT HAVING ACHIEVED REMISSION Status: Chronic (5) Pancytopenia Code(s): D61.818 - OTHER PANCYTOPENIA Status: Chronic Plan: Transfuse 1u PRBC's today, serial CBC (6) Anorexia Code(s): R63.0 - ANOREXIA Status: Chronic Plan: Continue Midodrine - Plan group social worker, out of bed/ambulate, DVT proph w/SCDs Saline lock IVF's D/C Coreg indefinitely Increase Midodrine 10mg TID OOB/ambulate Serial orthostatic vitals D/C Echo with recent echo noted 10/04/20 Transfuse 1u PRBC's today Continue Megace 80mg po daily AM lab: CBC Likely home in 24h
[2020-11-10] MEDS ORDERED: diphenhydrAMINE 50 MG/ML VIAL IVP SCH (14:45)
--- NOTE | 2020-11-10 15:04 | PQF ---
CLINICAL DOCUMENTATION CLARIFICATION FORM: Dear Dr. Mejia Date: 11/10/2020 Please exercise your independent, professional judgment in responding to the clarification form. Clinical indicators are provided on the bottom of this form for your review. Please check appropriate box(es): [ x ] Protein Calorie Malnutrition: [ x ] Mild [ ] Moderate [ ] Other Malnutrition (please specify) [ ] Underweight without malnutrition [ ] Other diagnosis [ ] Unable to determine In addition, please specify: Present on Admission (POA): [ x ] Yes [ ] No [ ] Unable to determine For continuity of documentation, please document condition throughout progress notes and discharge summary. Thank You. To be completed by CDI/Coding staff for physician review: CLINICAL INDICATORS - SIGNS / SYMPTOMS / LABS / RESULTS AND LOCATION IN MR *11/08 Physician Practice Consultant Assessment: BMI: 23.8 Nutrition Dx: Malnutrition related to oncology Ad Evidenced By - pt report of loss of taste and decreased PO intake meeting <75% of estimated needs for > 1 month, 13% weight loss in 2 months suggestive of moderate malnutrition in the context of chronic illness *11/09 pn (Roberto): Sub: States weight loss of approx 20lbs in last 2-3 months. A/P: Anorexia. Chronic RISK FACTORS / RESULTS AND LOCATION IN MR H&P 11/08 (Ana Cristina) HPI: hx of CLL on oral chemotherapy. A/P: IRLANDA. Orthostatic hypotension. CAD TREATMENT / RESULTS AND LOCATION IN MR *Physician Practice Consultant Assessment for wt loss, poor po *Order 11/08: Supplement Mighty Shake BID with meals *11/09 pn (Roberto): Plan - Start megace 80mg po daily Moderate Malnutrition (in acute illness) Energy Intake: <75% of estimated energy requirement for > 7 days Weight Loss: 1-2%/1 week; 5%/ 1 month; 7.5%/3 months Other: mild body fat loss; mild muscle mass loss; mild fluid accumulation; Severe Malnutrition (in acute illness) Energy Intake: = 50% of estimated energy requirement for = 5 days Weight Loss: >2%/1 week; >5%/1 month; >7.5%/3 months Other: moderate body fat loss; moderate muscle mass loss; moderate- severe fluid accumulation; measurably reduced public finance specialist strength Moderate Malnutrition (in chronic illness) Energy Intake: <75% of estimated energy requirement for =1 month Weight Loss: 5%/1 month; 7.5%/3 months; 10%/6 months; 20%/1 year Other: mild body fat loss; mild muscle mass loss; mild fluid accumulation Severe Malnutrition (in chronic illness) Energy Intake: =75% of estimated energy requirement for =1 month Weight Loss: >5%/1 month; >7.5%/3 months; >10%/6 months; >20%/1 year Other: severe body fat loss; severe muscle mass loss; severe fluid accumulation; measurably reduced public finance specialist strength Thank you, Eulalia Rice RN, BSN [email or web address] This is a permanent part of the Medical Record [facility]
[2020-11-11] MEDS: ELTROMBOPAG OLAMINE 75 MG PO SCH (05:54)
[2020-11-11 05:56] LABS: Band 3 % (5-11); Eosinophils 2 % (0-10); Hemoglobin 9.8 g/dL (14.0-18.0); Hypochromia SLIGHT = 6-15 cells (100X) (0-5/hpf); Lymphocytes 41 % (21-51); MDiff Complete? YES; Mean Corpuscular HGB CONC 34.8 g/dL (32.0-36.0); Mean Corpuscular Hemoglobin 31.3 pg (27.0-31.0); Mean Corpuscular Volume 89.9 fL (78.0-98.0); Mean Platelet Volume 12.5 fL (7.4-10.4); Monocytes 20 % (0-10); Neutrophil 33 % (42-75); Nucleated RBC 2 % (0); Platelet Count 37 thou/uL (130-400); Platelet Morphology Comment Appears Decreased; RBC Distribution Width 18.5 % (11.5-14.5); Reactive Lymphocytes 1 % (0-10); Red Blood Cell (RBC) Count 3.14 mill/uL (4.70-6.10); White Blood Cell (WBC) Count 2.4 thou/uL (4.8-10.8)
[2020-11-11 07:52] LABS: Bacteria/HPF None Seen HPF (None Seen); Bilirubin Negative (Negative); Blood, Urine Negative (Negative); Clarity Clear (Clear); Glucose, Urine (Dipstick) Normal (Negative); Ketone, Urine Negative (Negative); Leukocyte Negative Leu/uL (Negative); Nitrite Negative (Negative); Protein, Urine (Dipstick) Negative (Neg-Trace); RBC/HPF 0-3 HPF (0-3); Squamous Epithelial None Seen HPF (0-3); WBC/HPF 0-3 HPF (0-3)
[2020-11-11 08:11] LABS: Sperm/HPF 1+ HPF (None Seen)
[2020-11-11] MEDS: Potassium Chloride 20 MEQ TAB PO SCH ×2 (09:11→16:41)
[2020-11-11] MEDS: Fluconazole 100 MG TAB PO SCH (09:12)
[2020-11-11] MEDS: Megestrol Acetate 40 MG TAB PO SCH (09:12)
[2020-11-11] MEDS: Midodrine HCl 5 MG TAB PO SCH ×3 (09:13→21:47)
[2020-11-11] MEDS: valACYclovir 500 MG TAB PO SCH (09:13)
[2020-11-11] MEDS: CYCLOSPORINE 100 MG PO SCH ×2 (09:14→21:48)
[2020-11-11] MEDS ORDERED: Fludrocortisone Acetate 0.1 MG TAB PO SCH (11:45)
--- NOTE | 2020-11-11 11:46 | PDOC.HOSPP ---
- Subjective Encounter Date: 11/11/20 Encounter Time: 11:35 Subjective: f/u for orthostatic hypotension. Remains orthostatic today and some associated dizziness. Appetite improved. c/o difficulty emptying bladder and some burning. + blood in urine. - Objective Vital Signs & Weight: Vital Signs (12 hours) Temp Pulse Resp BP BP BP Pulse Ox 11/11/20 09:05 98.3 F 78 17 78/54 L 65/45 L 127/74 99 11/11/20 07:37 98.2 F 89 18 107/71 95 11/11/20 04:00 98.7 F 76 20 127/77 99 Weight Admit Weight 152 lb 3.2 oz Weight 144 lb 12.8 oz I&O: 11/10/20 11/11/20 11/12/20 06:59 06:59 06:59 Intake Total 120 350 Output Total 350 Balance -230 350 Result Diagrams: 11/11/20 04:18 11/10/20 04:26 Additional Labs: Microbiology 02/25/20 16:31 Stool - Pending Stool Occult Blood (LAUREN) - Final 02/15/20 18:44 Venous blood - Right Hand Blood Culture - Preliminary NO GROWTH AT 48 HOURS 02/15/20 18:39 Venous blood - Right Arm Blood Culture - Preliminary NO GROWTH AT 48 HOURS Laboratory Tests 02/15/20 02/16/20 02/17/20 18:39 06:35 06:35 WBC Hgb 6.5 L Plt Count 43 L 35 L 25 L* Lymphocytes % (Manual) Sodium Creatinine Uric Acid SARS-CoV-2 (PCR) 02/17/20 02/18/20 02/25/20 17:53 05:32 16:31 WBC 2.7 L Hgb 8.6 L 8.5 L 6.7 L Plt Count 19 L* Less than 2 L* Lymphocytes % (Manual) 70 H Sodium Creatinine Uric Acid SARS-CoV-2 (PCR) 02/26/20 02/26/20 11/08/20 05:40 11:30 01:23 WBC Hgb Plt Count Lymphocytes % (Manual) 77 H Sodium 134 L Creatinine 1.37 H Uric Acid 3.5 SARS-CoV-2 (PCR) 11/08/20 11/08/20 01:23 04:55 WBC 1.7 L Hgb 9.5 L Plt Count 28 L* Lymphocytes % (Manual) Sodium Creatinine Uric Acid SARS-CoV-2 (PCR) Not Detected Hospitalist ROS - Medication Medications: Active Medications Generic Name Dose Route Start Last Admin Trade Name Freq PRN Reason Stop Dose Admin Acetaminophen 650 mg 11/08/20 02:52 11/10/20 14:41 Acetaminophen 325 Mg Tab PO 650 mg Q4H PRN Administration Headache/Fever/Mild Pain (1-3) Fluconazole 200 mg 11/09/20 09:00 11/11/20 09:12 Fluconazole 100 Mg Tab PO 200 mg DAILY LIZZ Administration Megestrol Acetate 80 mg 11/10/20 09:00 11/11/20 09:12 Megestrol Acetate 40 Mg Tab PO 80 mg DAILY LIZZ Administration Midodrine 10 mg 11/10/20 15:00 11/11/20 09:13 Midodrine Hcl 5 Mg Tab PO 10 mg TID LIZZ Administration Cyclosporine [ 0 each 11/08/20 21:00 11/11/20 09:14 Sandimmune] 100 Mg PO 2 each Capsule BID LIZZ Administration Eltrombopag Olamine 0 each 11/10/20 06:00 11/11/20 05:54 [Promacta] 75 Mg PO 2 each Tablet 0600 LIZZ Administration Potassium Chloride 40 meq 11/09/20 17:00 11/11/20 09:11 Potassium Chloride 20 Meq Tab PO 40 meq BID-WM LIZZ Administration Valacyclovir HCl 500 mg 11/09/20 09:00 11/11/20 09:13 Valacyclovir 500 Mg Tab PO 500 mg DAILY LIZZ Administration - Exam General Appearance: NAD, awake alert Eye: PERRL, anicteric sclera ENT: normocephalic atraumatic, no oropharyngeal lesions Neck: supple, symmetric, no JVD, no thyromegaly, no lymphadenopathy Heart: RRR, no gallops, no rubs, normal peripheral pulses Heart - other findings: S1, S2 Respiratory: CTAB, no wheezes, no rales, no ronchi, normal chest expansion Gastrointestinal: soft, non-tender, non-distended, normal bowel sounds, no palpable masses Extremities: no cyanosis, no clubbing, no edema Skin: normal turgor, no lesions Musculoskeletal: normal tone, normal strength Psychiatric: normal affect, A&O x 3 Hosp A/P (1) Syncope and collapse Code(s): R55 - SYNCOPE AND COLLAPSE Status: Acute Plan: Secondary to #1, see below for mgmt (2) Orthostatic hypotension Code(s): I95.1 - ORTHOSTATIC HYPOTENSION Status: Acute Plan: Persistent, add NaCl 1gm TID, add DIANE hose, continue Midodrine 10mg TID, add Flu orinef 0.1mg daily (3) IRLANDA (acute kidney injury) Code(s): N17.9 - ACUTE KIDNEY FAILURE, UNSPECIFIED Status: Acute Plan: Resolved (4) CLL (chronic lymphocytic leukemia) Code(s): C91.90 - LYMPHOID LEUKEMIA, UNSPECIFIED NOT HAVING ACHIEVED REMISSION Status: Chronic Plan: Outpt follow up with medical oncology (5) Pancytopenia Code(s): D61.818 - OTHER PANCYTOPENIA Status: Chronic Plan: Improving (6) Anorexia Code(s): R63.0 - ANOREXIA Status: Chronic (7) Dysuria Code(s): R30.0 - DYSURIA Status: Acute Plan: UA unremarkable, ? influence of Midodrine, check PVR with bladder scan, consider Flomax - Plan social contact worker, out of bed/ambulate, DVT proph w/SCDs Saline lock IVF's D/C Coreg indefinitely Increase Midodrine 10mg TID Add Florinef 0.1mg daily DIANE hose compression stockings OOB/ambulate Serial orthostatic vitals D/C Echo with recent echo noted 10/04/20 s/p 1u PRBC's today Continue Megace 80mg po daily Serial post-void bladder scans AM lab: BMP
[2020-11-11] MEDS: Sodium Chloride 1 GM TAB PO SCH ×2 (14:14→21:49)
[2020-11-12 05:00] LABS: Anion Gap 17 mmol/L (10-20); BUN (Urea Nitrogen) 12 mg/dL (8.4-25.7); Calc. Creatinine Clearance 61 mL/min (70-130); Calcium 8.3 mg/dL (7.8-10.44); Carbon Dioxide 22 mmol/L (23-31); Chloride 104 mmol/L (98-107); Glucose 76 mg/dL (83-110); Potassium 4.5 mmol/L (3.5-5.1); Sodium 138 mmol/L (136-145)
[2020-11-12] MEDS: ELTROMBOPAG OLAMINE 75 MG PO SCH (05:36)
[2020-11-12] MEDS: Potassium Chloride 20 MEQ TAB PO SCH ×2 (09:02→16:07)
[2020-11-12] MEDS: Fluconazole 100 MG TAB PO SCH (09:02)
[2020-11-12] MEDS: Fludrocortisone Acetate 0.1 MG TAB PO SCH (09:03)
[2020-11-12] MEDS: Megestrol Acetate 40 MG TAB PO SCH (09:03)
[2020-11-12] MEDS: Midodrine HCl 5 MG TAB PO SCH ×3 (09:03→22:29)
[2020-11-12] MEDS: CYCLOSPORINE 100 MG PO SCH ×2 (09:04→22:30)
[2020-11-12] MEDS: valACYclovir 500 MG TAB PO SCH (09:05)
[2020-11-12] MEDS: Sodium Chloride 1 GM TAB PO SCH ×3 (09:05→22:30)
[2020-11-12] MEDS: MAGNESIUM PO SCH (11:53)
[2020-11-12] MEDS: MAGNESIUM OXIDE PO SCH (11:53)
[2020-11-12] MEDS ORDERED: Magnesium Oxide 400 MG TAB PO SCH (12:00)
--- NOTE | 2020-11-12 12:57 | PDOC.HOSPP ---
- Subjective Encounter Date: 11/12/20 Encounter Time: 12:45 Subjective: f/u for orthostatic hypotension/CLL receiving Midodrine/Florinef/DIANE hose/NaCl tabs but remains orthostatic. Overall feels better since admit. - Objective Vital Signs & Weight: Vital Signs (12 hours) Temp Pulse Resp BP BP BP BP 11/12/20 12:42 72 132/76 11/12/20 09:16 100 74/51 L 11/12/20 09:13 87 90/60 143/76 H 11/12/20 07:35 98.6 F 81 16 139/84 11/12/20 05:20 98.4 F 76 14 69/49 L 65/49 L 137/83 Pulse Ox 11/12/20 12:42 11/12/20 09:16 11/12/20 09:13 11/12/20 07:35 98 11/12/20 05:20 98 Weight Admit Weight 152 lb 3.2 oz Weight 144 lb I&O: 11/11/20 11/12/20 11/13/20 06:59 06:59 06:59 Intake Total 350 1960 Output Total 1175 Balance 350 785 Result Diagrams: 11/11/20 04:18 11/12/20 04:07 Additional Labs: Microbiology 02/25/20 16:31 Stool - Pending Stool Occult Blood (LAUREN) - Final 02/15/20 18:44 Venous blood - Right Hand Blood Culture - Preliminary NO GROWTH AT 48 HOURS 02/15/20 18:39 Venous blood - Right Arm Blood Culture - Preliminary NO GROWTH AT 48 HOURS Laboratory Tests 02/15/20 02/16/20 02/17/20 18:39 06:35 06:35 WBC Hgb 6.5 L Plt Count 43 L 35 L 25 L* Lymphocytes % (Manual) Sodium Creatinine Uric Acid SARS-CoV-2 (PCR) 02/17/20 02/18/20 02/25/20 17:53 05:32 16:31 WBC 2.7 L Hgb 8.6 L 8.5 L 6.7 L Plt Count 19 L* Less than 2 L* Lymphocytes % (Manual) 70 H Sodium Creatinine Uric Acid SARS-CoV-2 (PCR) 02/26/20 02/26/20 11/08/20 05:40 11:30 01:23 WBC Hgb Plt Count Lymphocytes % (Manual) 77 H Sodium 134 L Creatinine 1.37 H Uric Acid 3.5 SARS-CoV-2 (PCR) 11/08/20 11/08/20 01:23 04:55 WBC 1.7 L Hgb 9.5 L Plt Count 28 L* Lymphocytes % (Manual) Sodium Creatinine Uric Acid SARS-CoV-2 (PCR) Not Detected EKG Reviewed by me: Yes (Tele - SR) Hospitalist ROS - Medication Medications: Active Medications Generic Name Dose Route Start Last Admin Trade Name Freq PRN Reason Stop Dose Admin Acetaminophen 650 mg 11/08/20 02:52 11/10/20 14:41 Acetaminophen 325 Mg Tab PO 650 mg Q4H PRN Administration Headache/Fever/Mild Pain (1-3) Fluconazole 200 mg 11/09/20 09:00 11/12/20 09:02 Fluconazole 100 Mg Tab PO 200 mg DAILY LIZZ Administration Fludrocortisone Acetate 0.1 mg 11/12/20 09:00 11/12/20 09:03 Fludrocortisone Acetate 0.1 Mg Tab PO 0.1 mg DAILY LIZZ Administration Magnesium Oxide 400 mg 11/12/20 12:00 11/12/20 12:25 Magnesium Oxide 400 Mg Tab PO 11/12/20 14:00 400 mg NOW LIZZ Administration Megestrol Acetate 80 mg 11/10/20 09:00 11/12/20 09:03 Megestrol Acetate 40 Mg Tab PO 80 mg DAILY LIZZ Administration Midodrine 10 mg 11/10/20 15:00 11/12/20 09:03 Midodrine Hcl 5 Mg Tab PO 10 mg TID LIZZ Administration Cyclosporine [ 0 each 11/08/20 21:00 11/12/20 09:04 Sandimmune] 100 Mg PO 1 each Capsule BID LIZZ Administration Eltrombopag Olamine 0 each 11/10/20 06:00 11/12/20 05:36 [Promacta] 75 Mg PO 1 each Tablet 0600 LIZZ Administration Potassium Chloride 40 meq 11/09/20 17:00 11/12/20 09:02 Potassium Chloride 20 Meq Tab PO 40 meq BID-WM LIZZ Administration Sodium Chloride 1 gm 11/11/20 15:00 11/12/20 09:05 Sodium Chloride 1 Gm Tab PO 1 gm TID LIZZ Administration Valacyclovir HCl 500 mg 11/09/20 09:00 01/15/21 09:05 Valacyclovir 500 Mg Tab PO 500 mg DAILY LIZZ Administration - Exam General Appearance: NAD, awake alert Eye: PERRL, anicteric sclera ENT: normocephalic atraumatic, no oropharyngeal lesions Neck: supple, symmetric, no JVD, no thyromegaly, no lymphadenopathy Heart: RRR, no gallops, no rubs, normal peripheral pulses Respiratory: CTAB, no wheezes, no rales, no ronchi, normal chest expansion Gastrointestinal: soft, non-tender, non-distended, normal bowel sounds, no palpable masses Extremities: no cyanosis, no clubbing, no edema Skin: normal turgor, no lesions Neurological: cranial nerve grossly intact, no new deficit Musculoskeletal: normal tone, normal strength, no muscle wasting Psychiatric: normal affect, A&O x 3 Hosp A/P (1) Syncope and collapse Code(s): R55 - SYNCOPE AND COLLAPSE Status: Acute Plan: Secondary to orthostatic hypotension (2) Orthostatic hypotension Code(s): I95.1 - ORTHOSTATIC HYPOTENSION Status: Acute Plan: Persistent despite Midodrine/NaCl/Florinef/DIANE hose, consult Cardiology for any further recommendations (3) IRLANDA (acute kidney injury) Code(s): N17.9 - ACUTE KIDNEY FAILURE, UNSPECIFIED Status: Acute Plan: Resolved (4) CLL (chronic lymphocytic leukemia) Code(s): C91.90 - LYMPHOID LEUKEMIA, UNSPECIFIED NOT HAVING ACHIEVED REMISSION Status: Chronic Plan: Outpt chemotherapy with medical oncology (5) Pancytopenia Code(s): D61.818 - OTHER PANCYTOPENIA Status: Chronic Plan: Secondary to chemotherapeutics, serial monitoring, improved (6) Anorexia Code(s): R63.0 - ANOREXIA Status: Chronic Plan: Improved, continue Megace (7) Dysuria Code(s): R30.0 - DYSURIA Status: Acute Plan: Resolving - Plan social work coordinator, out of bed/ambulate, DVT proph w/SCDs Saline lock IVF's D/C Coreg indefinitely Increase Midodrine 10mg TID Add Florinef 0.1mg daily DIANE hose compression stockings OOB/ambulate Serial orthostatic vitals D/C Echo with recent echo noted 10/04/20 s/p 1u PRBC's today Continue Megace 80mg po daily Consult Cardiology regarding orthostatic hypotension AM lab: CBC
[2020-11-12] MEDS: Magnesium Oxide 400 MG TAB PO SCH (22:29)
[2020-11-13 05:50] LABS: Band 5 % (5-11); Lymphocytes 39 % (21-51); MDiff Complete? YES; Mean Corpuscular HGB CONC 34.6 g/dL (32.0-36.0); Mean Corpuscular Hemoglobin 30.9 pg (27.0-31.0); Mean Corpuscular Volume 89.3 fL (78.0-98.0); Mean Platelet Volume 13.7 fL (7.4-10.4); Monocytes 23 % (0-10); Neutrophil 32 % (42-75); Platelet Count 35 thou/uL (130-400); Platelet Morphology Comment Appears Decreased; RBC Distribution Width 19.3 % (11.5-14.5); Reactive Lymphocytes 1 % (0-10); Red Blood Cell (RBC) Count 3.23 mill/uL (4.70-6.10); Schistocytes SLIGHT = 2-5 cells (100X) (0-1/hpf); White Blood Cell (WBC) Count 2.2 thou/uL (4.8-10.8)
[2020-11-13] MEDS: ELTROMBOPAG OLAMINE 75 MG PO SCH (06:29)
[2020-11-13] MEDS: Fludrocortisone Acetate 0.1 MG TAB PO SCH (08:42)
[2020-11-13] MEDS: Potassium Chloride 20 MEQ TAB PO SCH (08:42)
[2020-11-13] MEDS: Magnesium Oxide 400 MG TAB PO SCH ×2 (08:42→20:12)
[2020-11-13] MEDS: Fluconazole 100 MG TAB PO SCH (08:42)
[2020-11-13] MEDS: valACYclovir 500 MG TAB PO SCH (08:43)
[2020-11-13] MEDS: Megestrol Acetate 40 MG TAB PO SCH (08:43)
[2020-11-13] MEDS: Midodrine HCl 5 MG TAB PO SCH ×3 (08:43→20:12)
[2020-11-13] MEDS: Sodium Chloride 1 GM TAB PO SCH ×3 (08:43→20:12)
[2020-11-13] MEDS: CYCLOSPORINE 100 MG PO SCH ×2 (08:44→20:14)
--- NOTE | 2020-11-13 15:34 | PDOC.HOSPP ---
- Subjective Encounter Date: 11/13/20 Encounter Time: 15:31 Subjective: Patient is a 70-year-old seen and examined earlier today at the bedside. He was admitted to the hospital with orthostatic hypotension. He remains very orthostatic. He reported to me that since the last 48 hours he has trouble voiding. He has significant dysuria and he will quit voiding as a result. He thinks he is retaining urine as a result. He had a urine analysis obtained 2 days ago that did not show any evidence of UTI. However he continues to have dysuria and I am going to obtain a urine analysis. We will give him Uristat - Objective Vital Signs & Weight: Vital Signs (12 hours) Temp Pulse Resp BP BP BP BP 11/13/20 14:59 98.9 F 74 16 140/80 11/13/20 14:04 81 102/67 11/13/20 11:04 98.0 F 77 18 105/71 11/13/20 08:57 100 62/46 L 11/13/20 08:54 85 84/55 L 11/13/20 08:49 69 168/84 H 11/13/20 07:29 98.5 F 77 16 110/76 11/13/20 03:51 98.8 F 89 16 116/78 Pulse Ox 11/13/20 14:59 98 11/13/20 14:04 11/13/20 11:04 99 11/13/20 08:57 11/13/20 08:54 11/13/20 08:49 11/13/20 07:29 98 11/13/20 03:51 98 Weight Admit Weight 152 lb 3.2 oz Weight 144 lb 1.6 oz I&O: 11/12/20 11/13/20 11/14/20 06:59 06:59 06:59 Intake Total 1960 2160 Output Total 1175 1150 Balance 785 1010 Result Diagrams: 11/13/20 04:32 11/12/20 04:07 Radiology Reviewed by me: Yes EKG Reviewed by me: Yes Hospitalist ROS - Review of Systems Constitutional: reports: weakness - Medication Medications: Active Medications Generic Name Dose Route Start Last Admin Trade Name Freq PRN Reason Stop Dose Admin Acetaminophen 650 mg 11/08/20 02:52 11/10/20 14:41 Acetaminophen 325 Mg Tab PO 650 mg Q4H PRN Administration Headache/Fever/Mild Pain (1-3) Fluconazole 200 mg 11/09/20 09:00 11/13/20 08:42 Fluconazole 100 Mg Tab PO 200 mg DAILY LIZZ Administration Fludrocortisone Acetate 0.1 mg 11/12/20 09:00 11/13/20 08:42 Fludrocortisone Acetate 0.1 Mg Tab PO 0.1 mg DAILY LIZZ Administration Magnesium Oxide 400 mg 11/12/20 21:00 11/13/20 08:42 Magnesium Oxide 400 Mg Tab PO 400 mg BID LIZZ Administration Megestrol Acetate 80 mg 11/10/20 09:00 11/13/20 08:43 Megestrol Acetate 40 Mg Tab PO 80 mg DAILY LIZZ Administration Midodrine 10 mg 11/10/20 15:00 11/13/20 14:05 Midodrine Hcl 5 Mg Tab PO 10 mg TID LIZZ Administration Cyclosporine [ 0 each 11/08/20 21:00 11/13/20 08:44 Sandimmune] 100 Mg PO 1 each Capsule BID LIZZ Administration Eltrombopag Olamine 0 each 11/10/20 06:00 11/13/20 06:29 [Promacta] 75 Mg PO 2 each Tablet 0600 LIZZ Administration Sodium Chloride 1 gm 11/11/20 15:00 11/13/20 14:05 Sodium Chloride 1 Gm Tab PO 1 gm TID LIZZ Administration Valacyclovir HCl 500 mg 11/09/20 09:00 11/13/20 08:43 Valacyclovir 500 Mg Tab PO 500 mg DAILY LIZZ Administration - Exam General Appearance: awake alert, ill appearing Eye: PERRL ENT: normocephalic atraumatic, no oropharyngeal lesions, dry oral mucosa Neck: supple, symmetric, no JVD Heart: RRR, no murmur, no gallops, no rubs, normal peripheral pulses Respiratory: CTAB Gastrointestinal: soft, non-tender, non-distended, no hepatomegaly, no splenomegaly Neurological: cranial nerve grossly intact, normal sensation to touch Musculoskeletal: normal tone, normal strength, no muscle wasting Psychiatric: normal affect, normal behavior, A&O x 3 Hosp A/P (1) Dysuria Code(s): R30.0 - DYSURIA Status: Acute (2) Orthostatic hypotension Code(s): I95.1 - ORTHOSTATIC HYPOTENSION Status: Acute (3) CLL (chronic lymphocytic leukemia) Code(s): C91.90 - LYMPHOID LEUKEMIA, UNSPECIFIED NOT HAVING ACHIEVED REMISSION Status: Chronic - Plan PT/OT, respiratory therapy, out of bed/ambulate
[2020-11-13] MEDS: Sodium Chloride 0.9% 1,000 ML IV SCH (15:46)
--- NOTE | 2020-11-13 19:20 | CON ---
DATE OF CONSULTATION: 11/13/2020 REASON FOR CONSULTATION: Orthostatic hypotension. PRIMARY REMEDIAL PROJECT MANAGER: Chriss Linn MD HISTORY OF PRESENT ILLNESS: Tracey is a very pleasant 70-year-old gentleman. He has history of aplastic anemia and coronary artery disease. The patient on this admission has been bothered with severe orthostatic hypotension. He has been started on midodrine 10 mg three times a day and given intravenous fluid, but continues to have severe orthostasis. PAST MEDICAL HISTORY: As outlined in the recent notes indicate that he has coronary artery disease with stent implantation for an occluded right coronary artery in 2012, also has disease in the LAD and circumflex. He has done remarkably well over the years with his coronary artery disease. MEDICATIONS: Outlined in the chart. He is on no blood pressure medicine. He is on: 1. Normal saline. 2. Fludrocortisone. 3. Midodrine 10 mg three times a day. 4. Sodium tablets. REVIEW OF SYSTEMS: Ten point, otherwise negative. PHYSICAL EXAMINATION: VITAL SIGNS: Blood pressure 102/67, pulse 80. NECK: Veins are normal. Carotid, normal upstrokes. LUNGS: Clear. No wheezing. CARDIAC: Normal S1, normal S2. There is no murmur, rub, or gallop. ABDOMEN: Soft and nontender. No hepatosplenomegaly. EXTREMITIES: Warm, dry. No clubbing or cyanosis. There is no edema. LABORATORY DATA: Potassium is 4.5, creatinine 1.03. EKG reveals sinus rhythm. ASSESSMENT: Orthostatic hypotension, severe. PLAN: 1. Agree with the midodrine. 2. Agree with fluid as well as fludrocortisone. 3. Elevate head of bed at night. 4. The anemia has been treated with packed red blood cells. No other recommendations at the present time. Next week may wish to consider Electrophysiology consultation to see if they have any other ideas about medical therapy for this. Dr. Linn will also be back on Sunday to re-evaluate the patient. Job ID: [id number]
[2020-11-13 20:15] LABS: Bilirubin Negative (Negative); Blood, Urine Negative (Negative); Clarity Clear (Clear); Glucose, Urine (Dipstick) Normal (Negative); Ketone, Urine Negative (Negative); Leukocyte Negative Leu/uL (Negative); Nitrite Negative (Negative); Protein, Urine (Dipstick) 20 mg/dL (Neg-Trace); Specific Gravity, Urine 1.012 (1.002-1.036); Urobilinogen Normal mg/dL (Less than 2); pH, Urine 7.5 (5.0-9.0)
[2020-11-13] MEDS: MAGNESIUM OXIDE PO SCH ×5 (23:24→23:29)
[2020-11-13] MEDS: MAGNESIUM PO SCH ×5 (23:24→23:29)
[2020-11-14 05:18] LABS: Anion Gap 16 mmol/L (10-20); BUN (Urea Nitrogen) 15 mg/dL (8.4-25.7); Calc. Creatinine Clearance 46 mL/min (70-130); Calcium 8.5 mg/dL (7.8-10.44); Carbon Dioxide 20 mmol/L (23-31); Chloride 106 mmol/L (98-107); Glucose 92 mg/dL (83-110); Potassium 4.6 mmol/L (3.5-5.1); Sodium 137 mmol/L (136-145)
[2020-11-14] MEDS: Sodium Chloride 0.9% 1,000 ML IV SCH ×2 (05:21→17:51)
[2020-11-14] MEDS: ELTROMBOPAG OLAMINE 75 MG PO SCH (05:22)
[2020-11-14 05:48] LABS: Band 4 % (5-11); Eosinophils 1 % (0-10); Lymphocytes 45 % (21-51); MDiff Complete? YES; Mean Corpuscular HGB CONC 33.7 g/dL (32.0-36.0); Mean Corpuscular Hemoglobin 30.1 pg (27.0-31.0); Mean Corpuscular Volume 89.3 fL (78.0-98.0); Mean Platelet Volume 14.7 fL (7.4-10.4); Monocytes 26 % (0-10); Neutrophil 24 % (42-75); Platelet Count 38 thou/uL (130-400); Platelet Morphology Comment Appears Decreased; RBC Distribution Width 19.4 % (11.5-14.5); White Blood Cell (WBC) Count 1.7 thou/uL (4.8-10.8)
[2020-11-14] MEDS: valACYclovir 500 MG TAB PO SCH (08:28)
[2020-11-14] MEDS: Sodium Chloride 1 GM TAB PO SCH ×3 (08:29→20:04)
[2020-11-14] MEDS: Megestrol Acetate 40 MG TAB PO SCH (08:29)
[2020-11-14] MEDS: Fluconazole 100 MG TAB PO SCH (08:29)
[2020-11-14] MEDS: CYCLOSPORINE 100 MG PO SCH ×2 (08:29→20:05)
[2020-11-14] MEDS: Fludrocortisone Acetate 0.1 MG TAB PO SCH ×2 (08:29)
[2020-11-14] MEDS: Magnesium Oxide 400 MG TAB PO SCH ×2 (08:29→20:04)
[2020-11-14] MEDS: Midodrine HCl 5 MG TAB PO SCH ×3 (08:29→20:04)
--- NOTE | 2020-11-14 12:47 | PDOC.HOSPP ---
- Subjective Encounter Date: 11/14/20 Encounter Time: 12:44 Subjective: The patient remains orthostatic today on exam. He is complaining about pelvic pressure especially when he attempts to urinate. His urine analysis was completely normal. I wonder if he has an enlarged prostate but this usually should not give dysuria. We will try him on some Urispas. I also would like to get a CT of the abdomen and pelvis area to exclude any other significant pathology. We will continue volume resuscitation. His urine output did improve overnight. His D-dimer was found to be elevated. He has not complained about any shortness of breath NSA modified his saturation is 100% on room air. He does get lightheaded. At a minimum I am going to get a venous Doppler of his lower extremities. - Objective Vital Signs & Weight: Vital Signs (12 hours) Temp Pulse Resp BP BP BP Pulse Ox 11/14/20 11:08 97.8 F 79 16 127/77 97 11/14/20 07:05 97.8 F 100 18 102/60 72/51 L 129/75 100 11/14/20 03:32 98 F 77 16 141/82 H 98 Weight Admit Weight 152 lb 3.2 oz Weight 144 lb 3.2 oz I&O: 11/13/20 11/14/20 11/15/20 06:59 06:59 06:59 Intake Total 2160 2220 Output Total 1150 1550 Balance 1010 670 Result Diagrams: 11/14/20 04:32 11/14/20 04:32 Radiology Reviewed by me: Yes EKG Reviewed by me: Yes Hospitalist ROS - Review of Systems Constitutional: reports: weakness, malaise Cardiovascular: reports: light headedness Neurological: reports: weakness - Medication Medications: Active Medications Generic Name Dose Route Start Last Admin Trade Name Freq PRN Reason Stop Dose Admin Acetaminophen 650 mg 11/08/20 02:52 11/10/20 14:41 Acetaminophen 325 Mg Tab PO 650 mg Q4H PRN Administration Headache/Fever/Mild Pain (1-3) Flavoxate HCl 200 mg 11/13/20 21:00 11/14/20 08:28 Flavoxate Hcl 100 Mg Tab PO 200 mg TID LIZZ Administration Fluconazole 200 mg 11/09/20 09:00 11/14/20 08:29 Fluconazole 100 Mg Tab PO 200 mg DAILY LIZZ Administration Fludrocortisone Acetate 0.2 mg 11/14/20 09:00 11/14/20 08:29 Fludrocortisone Acetate 0.1 Mg Tab PO 0.2 mg DAILY LIZZ Administration Sodium Chloride 1,000 mls @ 75 mls/hr 11/13/20 15:30 11/14/20 05:21 Normal Saline 0.9% IV 1,000 mls .[id number] LIZZ Administration Magnesium Oxide 400 mg 11/12/20 21:00 11/14/20 08:29 Magnesium Oxide 400 Mg Tab PO 400 mg BID LIZZ Administration Megestrol Acetate 80 mg 11/10/20 09:00 11/14/20 08:29 Megestrol Acetate 40 Mg Tab PO 80 mg DAILY LIZZ Administration Midodrine 10 mg 11/10/20 15:00 11/14/20 08:29 Midodrine Hcl 5 Mg Tab PO 10 mg TID LIZZ Administration Cyclosporine [ 0 each 11/08/20 21:00 11/14/20 08:29 Sandimmune] 100 Mg PO 100 each Capsule BID LIZZ Administration Eltrombopag Olamine 0 each 11/10/20 06:00 11/14/20 05:22 [Promacta] 75 Mg PO 2 each Tablet 0600 LIZZ Administration Sodium Chloride 1 gm 11/11/20 15:00 11/14/20 08:29 Sodium Chloride 1 Gm Tab PO 1 gm TID LIZZ Administration Valacyclovir HCl 500 mg 11/09/20 09:00 11/14/20 08:28 Valacyclovir 500 Mg Tab PO 500 mg DAILY LIZZ Administration - Exam General Appearance: awake alert, ill appearing Eye: PERRL ENT: normocephalic atraumatic, no oropharyngeal lesions, dry oral mucosa Neck: supple, symmetric Heart: RRR, no murmur, no gallops Respiratory: CTAB Gastrointestinal: soft, non-tender, non-distended, normal bowel sounds Neurological: cranial nerve grossly intact Musculoskeletal: normal tone, normal strength Psychiatric: normal affect, normal behavior, A&O x 3 Hosp A/P (1) Dysuria Code(s): R30.0 - DYSURIA Status: Acute (2) Orthostatic hypotension Code(s): I95.1 - ORTHOSTATIC HYPOTENSION Status: Acute (3) CLL (chronic lymphocytic leukemia) Code(s): C91.90 - LYMPHOID LEUKEMIA, UNSPECIFIED NOT HAVING ACHIEVED REMISSION Status: Chronic - Plan old records reviewed/req, PT/OT, out of bed/ambulate
--- NOTE | 2020-11-14 14:39 | CT ---
CT Abdomen Pelvis WO Con History: Suprapubic pain Comparison: None. Findings: Lung bases are clear. No pericardial effusion. Extensive atherosclerotic plaque throughout the aortoiliac system. No dilated loops of large or small bowel. No free intraperitoneal gas or fluid. No acute osseous abnormality. Punctate 2 mm right interpolar and lower pole calculi. No left-sided renal calculus is appreciated. No retroperitoneal periaortic adenopathy. Impression: 1. No acute inflammatory process within the abdomen or pelvis. 2. Punctate 2 mm nonobstructing right interpolar and lower pole calculi. 3. Normal appendix.
--- NOTE | 2020-11-14 14:55 | ULT ---
US Venous Doppler Bilat History: Pain and edema Comparison: None. Findings: Real-time grayscale, color and spectral analysis of the bilateral lower extremity venous sy stem was performed. The common femoral, femoral, proximal portions greater saphenous and deep femoral veins as well as the popliteal and posterior tibial veins were interrogated. Normal flow, augmentation and compression. Impression: No deep venous thrombosis.
[2020-11-15] MEDS: ELTROMBOPAG OLAMINE 75 MG PO SCH (05:23)
[2020-11-15] MEDS: Magnesium Oxide 400 MG TAB PO SCH ×2 (07:56→20:17)
[2020-11-15] MEDS: Fluconazole 100 MG TAB PO SCH (07:57)
[2020-11-15] MEDS: Megestrol Acetate 40 MG TAB PO SCH (07:57)
[2020-11-15] MEDS: valACYclovir 500 MG TAB PO SCH (07:57)
[2020-11-15] MEDS: Midodrine HCl 5 MG TAB PO SCH ×3 (07:57→20:16)
[2020-11-15] MEDS: Fludrocortisone Acetate 0.1 MG TAB PO SCH (07:58)
[2020-11-15] MEDS: CYCLOSPORINE 100 MG PO SCH ×2 (07:58→20:15)
[2020-11-15] MEDS: Sodium Chloride 1 GM TAB PO SCH ×3 (07:58→20:17)
[2020-11-15] MEDS: Sodium Chloride 0.9% 1,000 ML IV SCH ×2 (09:23→23:42)
--- NOTE | 2020-11-15 10:31 | CON ---
DATE OF CONSULTATION: 11/15/2020 CONSULTING PHYSICIAN: Lucien Luna MD REASON FOR CONSULTATION: Orthostatic hypotension. HISTORY OF PRESENT ILLNESS: Mr. Webb is a 70-year-old male, admitted with symptomatic orthostatic hypotension and a history of aplastic anemia and coronary artery disease with prior PCI. Cardiology was consulted on 11/13 in regard to his orthostatic hypotension. He had been started on midodrine 10 mg t.i.d. on 11/10/2020 and Florinef ) 0.2mg. he has had two doses of Florinef. He had also been having issues with urinary retention and was started on Urispas, a smooth muscle relaxer, on 11/13. Mr. Webb endorses occasional passing-out episodes at home. He denies any dizziness. Even though his blood pressure drops when he gets out of bed and his heart rate goes up, he denies any dizziness associated with these episodes. REVIEW OF SYSTEMS: A 12-point review of systems is, otherwise, unremarkable and as per HPI. PAST MEDICAL HISTORY: 1. Coronary artery disease with prior PCI to an occluded RCA in 2012, disease noted to the LAD and circumflex as well. 2. Aplastic anemia. 3. Hypertension. 4. Hyperlipidemia. 5. CLL. 6. Kidney stones. HOME MEDICATIONS: 1. [place] p.r.n. 2. Valtrex daily. 3. Cyclosporine p.r.n. 4. Zofran p.r.n. 5. Mag-Ox t.i.d. 6. Fluconazole daily. 7. Promacta daily. 8. Atorvastatin 40 mg at bedtime. ALLERGIES: NO KNOWN DRUG ALLERGIES. FAMILY HISTORY: Mom had renal cancer. Dad had cardiac disorder. SOCIAL HISTORY: Former smoker. No alcohol use. No drug use. OBJECTIVE: VITAL SIGNS: Temperature 98.1, pulse 76, respirations 18, oxygen 99% on room air. Orthostatic blood pressures as follows, supine 113/71, sitting 79/53, standing 67/49, correlating pulse rates were not provided. GENERAL: The patient is alert and oriented. Speech is clear. Affect is appropriate. No apparent distress. He does appear older than his stated age with dark weathered skin and missing third digit of his left hand. NECK: Supple. Neck veins are flat, even with attempting to elicit jugular venous distention. Neck is supple without adenopathy. RESPIRATORY: Lungs are clear to auscultation bilaterally. Respirations even and nonlabored. CARDIAC: Heart rate irregularly irregular with crisp S1 and S2. PMI is nondisplaced. ABDOMEN: Flat, nontender. No palpable masses. Positive bowel sounds throughout. Hepatojugular reflux could not be elicited. EXTREMITIES: Warm and dry to touch. Well perfused without clubbing, cyanosis, or edema. NEUROLOGIC: Grossly intact and nonfocal. Gait was not assessed. LABORATORY STUDIES: Telemetry, EKG shows sinus rhythm with occasional episodes of sinus tachycardia correlating with blood pressure drops and when he is active, walking around the room, generally 5-15 minutes in duration, resolves with rest. IMPRESSION: 1. Orthostatic hypotension. 2. Dehydration. 3. Chronic aplastic anemia. PLAN AND RECOMMENDATIONS: Mr. Webb had previously been started on high-dose midodrine as of 11/10. Florinef was added yesterday, and he has received two doses. He appears to have some persisting degree of dehydration. I would recommend continued hydration attempts and agree with salt loading as well. Review of his current medication list shows recent addition of smooth muscle relaxer called flavoxate. I would recommend stopping or weaning this if possible. Additional medical management for his orthostatic hypotension could be the addition of pyridostigmine, which would directly counteract the flavoxate, thus recommend weaning off the smooth muscle relaxer before adding the pyridostigmine. Thank you for allowing me to participate in the care of this patient. Job ID: [id number] [facility]
[2020-11-15] MEDS: Meclizine HCl 25 MG TAB PO SCH ×2 (14:11→20:16)
--- NOTE | 2020-11-15 14:19 | PDOC.HOSPP ---
- Subjective Encounter Date: 11/15/20 Encounter Time: 14:18 Subjective: I saw and evaluated this patient today at the bedside. He remains very orthostatic. He has been on midodrine 3 times daily and Florinef which I increased the dose recently 0.2 mg daily. He still remains orthostatic. Cardi ology and EPS services involved in the case. Hopefully will get his blood pressure stable enough to discharge home. - Objective Vital Signs & Weight: Vital Signs (12 hours) Temp Pulse Resp BP BP BP Pulse Ox 11/15/20 11:00 97.9 F 79 18 122/72 95 11/15/20 06:56 98.1 F 18 79/53 L 67/49 L 113/71 99 11/15/20 04:00 98.4 F 76 24 H 121/75 98 Weight Admit Weight 152 lb 3.2 oz Weight 144 lb 9.6 oz I&O: 11/14/20 11/15/20 11/16/20 06:59 06:59 06:59 Intake Total 2220 2460 Output Total 1550 1695 Balance 670 765 Result Diagrams: 11/14/20 04:32 11/14/20 04:32 Radiology Reviewed by me: Yes EKG Reviewed by me: Yes Hospitalist ROS - Review of Systems Constitutional: reports: weakness Gastrointestinal: reports: nausea Genitourinary: reports: dysuria Neurological: reports: weakness - Medication Medications: Active Medications Generic Name Dose Route Start Last Admin Trade Name Freq PRN Reason Stop Dose Admin Acetaminophen 650 mg 11/08/20 02:52 11/10/20 14:41 Acetaminophen 325 Mg Tab PO 650 mg Q4H PRN Administration Headache/Fever/Mild Pain (1-3) Fluconazole 200 mg 11/09/20 09:00 11/15/20 07:57 Fluconazole 100 Mg Tab PO 200 mg DAILY LIZZ Administration Fludrocortisone Acetate 0.2 mg 11/14/20 09:00 11/15/20 07:58 Fludrocortisone Acetate 0.1 Mg Tab PO 0.2 mg DAILY LIZZ Administration Sodium Chloride 1,000 mls @ 75 mls/hr 11/13/20 15:30 11/15/20 09:23 Normal Saline 0.9% IV 1,000 mls .[id number] LIZZ Administration Magnesium Oxide 400 mg 11/12/20 21:00 11/15/20 07:56 Magnesium Oxide 400 Mg Tab PO 400 mg BID LIZZ Administration Meclizine HCl 25 mg 11/15/20 14:00 11/15/20 14:11 Meclizine Hcl 25 Mg Tab PO 25 mg Q8HR LIZZ Administration Megestrol Acetate 80 mg 11/10/20 09:00 11/15/20 07:57 Megestrol Acetate 40 Mg Tab PO 80 mg DAILY LIZZ Administration Midodrine 10 mg 11/10/20 15:00 11/15/20 14:11 Midodrine Hcl 5 Mg Tab PO 10 mg TID LIZZ Administration Cyclosporine [ 0 each 11/08/20 21:00 11/15/20 07:58 Sandimmune] 100 Mg PO 200 each Capsule BID LIZZ Administration Eltrombopag Olamine 0 each 11/10/20 06:00 11/15/20 05:23 [Promacta] 75 Mg PO 2 each Tablet 0600 LIZZ Administration Sodium Chloride 1 gm 11/11/20 15:00 11/15/20 14:11 Sodium Chloride 1 Gm Tab PO 1 gm TID LIZZ Administration Valacyclovir HCl 500 mg 11/09/20 09:00 11/15/20 07:57 Valacyclovir 500 Mg Tab PO 500 mg DAILY LIZZ Administration - Exam General Appearance: NAD, awake alert, ill appearing Eye: PERRL, anicteric sclera ENT: normocephalic atraumatic, no oropharyngeal lesions Neck: supple, symmetric Heart: RRR Gastrointestinal: soft Neurological: cranial nerve grossly intact, normal sensation to touch Psychiatric: normal affect, normal behavior, A&O x 3 Hosp A/P (1) Dysuria Code(s): R30.0 - DYSURIA Status: Acute Plan: Dysuria has resolved. (2) Orthostatic hypotension Code(s): I95.1 - ORTHOSTATIC HYPOTENSION Status: Acute (3) CLL (chronic lymphocytic leukemia) Code(s): C91.90 - LYMPHOID LEUKEMIA, UNSPECIFIED NOT HAVING ACHIEVED REMISSION Status: Chronic
[2020-11-15] MEDS: Atorvastatin Calcium 40 MG TAB PO SCH (20:17)
[2020-11-16] MEDS: ELTROMBOPAG OLAMINE 75 MG PO SCH (05:09)
[2020-11-16] MEDS: Meclizine HCl 25 MG TAB PO SCH ×3 (05:09→20:36)
[2020-11-16] MEDS: Fluconazole 100 MG TAB PO SCH (08:28)
[2020-11-16] MEDS: Fludrocortisone Acetate 0.1 MG TAB PO SCH (08:29)
[2020-11-16] MEDS: Megestrol Acetate 40 MG TAB PO SCH (08:29)
[2020-11-16] MEDS: Sodium Chloride 1 GM TAB PO SCH ×3 (08:29→20:44)
[2020-11-16] MEDS: Magnesium Oxide 400 MG TAB PO SCH ×2 (08:29→20:36)
[2020-11-16] MEDS: valACYclovir 500 MG TAB PO SCH (08:29)
[2020-11-16] MEDS: Midodrine HCl 5 MG TAB PO SCH ×3 (08:30→20:36)
[2020-11-16] MEDS: CYCLOSPORINE 100 MG PO SCH ×2 (08:30→20:36)
--- NOTE | 2020-11-16 09:42 | PDOC.EP ---
- Subjective Date: 11/16/20 Time: 09:39 Interval History: No dizziness on ambulation - Review of Systems Constitutional: denies: chills, fever, malaise, sweats, weakness, other Respiratory: denies: cough, dry, hemoptysis, pleuritic pain, shortness of breath, SOB with excertion, sputum, wheezing, other Cardiology: denies: chest pain, edema, heart racing, light headedness, paroxysmal noc. dyspnea, orthopnea, palpitations, passing out, pleuritic pain, pressure, swelling, other - Objective Allergies/Adverse Reactions: Allergies Allergy/AdvReac Type Severity Reaction Status Date / Time No Known Drug Allergies Allergy Verified 11/08/20 04:21 Current Medications Acetaminophen (Acetaminophen 325 Mg Tab) 650 mg PO Q4H PRN PRN Reason: Headache/Fever/Mild Pain (1-3) Last Admin: 11/10/20 14:41 Dose: 650 mg Documented by: Hydrocodone Bitart/Acetaminophen (Hydrocodone/Acetaminophen 10/325 Mg Tablet) 1 tab PO Q6H PRN PRN Reason: Moderate Pain (4-6) Atorvastatin Calcium (Atorvastatin Calcium 40 Mg Tab) 40 mg PO HS [facility] Last Admin: 11/15/20 20:17 Dose: 40 mg Documented by: Fluconazole (Fluconazole 100 Mg Tab) 200 mg PO DAILY [facility] Last Admin: 11/16/20 08:28 Dose: 200 mg Documented by: Fludrocortisone Acetate (Fludrocortisone Acetate 0.1 Mg Tab) 0.2 mg PO DAILY [facility] Last Admin: 11/16/20 08:29 Dose: 0.2 mg Documented by: Magnesium Oxide (Magnesium Oxide 400 Mg Tab) 400 mg PO BID [facility] Last Admin: 11/16/20 08:29 Dose: 400 mg Documented by: Meclizine HCl (Meclizine Hcl 25 Mg Tab) 25 mg PO Q8HR [facility] Last Admin: 11/16/20 05:09 Dose: 25 mg Documented by: Megestrol Acetate (Megestrol Acetate 40 Mg Tab) 80 mg PO DAILY [facility] Last Admin: 11/16/20 08:29 Dose: 80 mg Documented by: Midodrine (Midodrine Hcl 5 Mg Tab) 10 mg PO TID [facility] Last Admin: 11/16/20 08:30 Dose: 10 mg Documented by: Ondansetron HCl (Ondansetron Odt 8 Mg Tab) 8 mg PO Q6H PRN PRN Reason: Nausea/Vomiting Cyclosporine [ Sandimmune] 100 Mg Capsule 0 each PO BID [facility] Last Admin: 11/16/20 08:30 Dose: 2 each Documented by: Eltrombopag Olamine [Promacta] 75 Mg Tablet 0 each PO 0600 [facility] Last Admin: 11/16/20 05:09 Dose: 2 each Documented by: Sodium Chloride (Sodium Chloride 1 Gm Tab) 1 gm PO TID [facility] Last Admin: 11/16/20 08:29 Dose: 1 gm Documented by: Valacyclovir HCl (Valacyclovir 500 Mg Tab) 500 mg PO DAILY [facility] Last Admin: 11/16/20 08:29 Dose: 500 mg Documented by: Vital Signs & Weight: Vital Signs Temp Pulse Resp BP Pulse Ox 11/16/20 07:20 98.7 F 77 18 118/64 98 11/16/20 04:17 98.8 F 86 16 121/72 98 11/16/20 00:00 77 Admit Weight 152 lb 3.2 oz Weight 142 lb 8 oz I/O: I/O 11/15/20 11/16/20 11/17/20 06:59 06:59 06:59 Intake Total 2460 2660 Output Total 1695 1375 Balance 765 1285 - Physical Exam General: alert & oriented x3, appears well HEENT: normocephaly Neck: no JVD/HJR Cardiology: no murmur, regular rate Lungs: normal breath sounds Neurology: grossly intact Abdomen: unremarkable, soft, non-tender Extremities: warm Musculoskeletal: no pain - Labs Result Diagrams: 11/14/20 04:32 11/14/20 04:32 - EKG Interpretation EKG Method: Telemetry EKG shows: Sinus rhythm - Assessment/Plan Assessment/Plan: 1. Orthostatic hypotension. On incremental doseage of midodrin and florinef. Stopped Flavoxate - anticholynergic agent for BPH. Monitor efect. Can consider adding pyridostigmin if Orthostatic hypotension worsens.
--- NOTE | 2020-11-16 14:24 | PDOC.HOSPP ---
- Subjective Encounter Date: 11/16/20 Encounter Time: 14:22 Subjective: The patient seen and evaluated. He is not reporting any lightheadedness and dizziness today. He has remained orthostatic. - Objective Vital Signs & Weight: Vital Signs (12 hours) Temp Pulse Pulse Pulse Pulse Resp BP 11/16/20 11:10 99.0 F 72 18 11/16/20 10:13 75 85 116 H 136/68 11/16/20 07:20 98.7 F 77 18 11/16/20 04:17 98.8 F 86 16 BP BP BP BP Pulse Ox 11/16/20 11:10 129/68 99 11/16/20 10:13 101/57 L 82/53 L 11/16/20 07:20 118/64 98 11/16/20 04:17 121/72 98 Weight Admit Weight 152 lb 3.2 oz Weight 142 lb 8 oz I&O: 11/15/20 11/16/20 11/17/20 06:59 06:59 06:59 Intake Total 2460 2660 Output Total 1695 1375 Balance 765 1285 Result Diagrams: 11/14/20 04:32 11/14/20 04:32 Radiology Reviewed by me: Yes EKG Reviewed by me: Yes Hospitalist ROS - Review of Systems Constitutional: reports: weakness, malaise Respiratory: reports: shortness of breath, SOB with excertion Gastrointestinal: reports: nausea Neurological: reports: weakness - Medication Medications: Active Medications Generic Name Dose Route Start Last Admin Trade Name Freq PRN Reason Stop Dose Admin Acetaminophen 650 mg 11/08/20 02:52 11/10/20 14:41 Acetaminophen 325 Mg Tab PO 650 mg Q4H PRN Administration Headache/Fever/Mild Pain (1-3) Atorvastatin Calcium 40 mg 11/15/20 21:00 11/15/20 20:17 Atorvastatin Calcium 40 Mg Tab PO 40 mg HS LIZZ Administration Fluconazole 200 mg 11/09/20 09:00 11/16/20 08:28 Fluconazole 100 Mg Tab PO 200 mg DAILY LIZZ Administration Fludrocortisone Acetate 0.2 mg 11/14/20 09:00 11/16/20 08:29 Fludrocortisone Acetate 0.1 Mg Tab PO 0.2 mg DAILY LIZZ Administration Magnesium Oxide 400 mg 11/12/20 21:00 11/16/20 08:29 Magnesium Oxide 400 Mg Tab PO 400 mg BID LIZZ Administration Meclizine HCl 25 mg 11/15/20 14:00 11/16/20 14:15 Meclizine Hcl 25 Mg Tab PO 25 mg Q8HR LIZZ Administration Megestrol Acetate 80 mg 11/10/20 09:00 11/16/20 08:29 Megestrol Acetate 40 Mg Tab PO 80 mg DAILY LIZZ Administration Midodrine 10 mg 11/10/20 15:00 11/16/20 14:15 Midodrine Hcl 5 Mg Tab PO 10 mg TID LIZZ Administration Cyclosporine [ 0 each 11/08/20 21:00 11/16/20 08:30 Sandimmune] 100 Mg PO 2 each Capsule BID LIZZ Administration Eltrombopag Olamine 0 each 11/10/20 06:00 11/16/20 05:09 [Promacta] 75 Mg PO 2 each Tablet 0600 LIZZ Administration Sodium Chloride 1 gm 11/11/20 15:00 11/16/20 14:15 Sodium Chloride 1 Gm Tab PO 1 gm TID LIZZ Administration Valacyclovir HCl 500 mg 11/09/20 09:00 11/16/20 08:29 Valacyclovir 500 Mg Tab PO 500 mg DAILY LIZZ Administration - Exam General Appearance: awake alert, ill appearing Eye: PERRL ENT: normocephalic atraumatic, no oropharyngeal lesions Neck: supple, symmetric, no JVD, no thyromegaly Heart: RRR, no murmur, no gallops Respiratory: CTAB, no wheezes, no rales Gastrointestinal: soft, non-tender Neurological: cranial nerve grossly intact, normal sensation to touch Psychiatric: normal affect, normal behavior, A&O x 3 Hosp A/P (1) Dysuria Code(s): R30.0 - DYSURIA Status: Acute Plan: I am going to try the patient on some Pyridium. (2) Orthostatic hypotension Code(s): I95.1 - ORTHOSTATIC HYPOTENSION Status: Acute (3) CLL (chronic lymphocytic leukemia) Code(s): C91.90 - LYMPHOID LEUKEMIA, UNSPECIFIED NOT HAVING ACHIEVED REMISSION Status: Chronic - Plan old records reviewed/req, PT/OT, GI proph
[2020-11-16] MEDS: Phenazopyridine HCl 100 MG TAB PO SCH (16:56)
[2020-11-16] MEDS: Atorvastatin Calcium 40 MG TAB PO SCH (20:36)
[2020-11-17] MEDS: ELTROMBOPAG OLAMINE 75 MG PO SCH (06:01)
[2020-11-17] MEDS: Meclizine HCl 25 MG TAB PO SCH ×3 (06:01→21:26)
[2020-11-17] MEDS: valACYclovir 500 MG TAB PO SCH (09:20)
[2020-11-17] MEDS: Sodium Chloride 1 GM TAB PO SCH ×3 (09:20→21:26)
[2020-11-17] MEDS: Midodrine HCl 5 MG TAB PO SCH ×3 (09:20→21:26)
[2020-11-17] MEDS: Megestrol Acetate 40 MG TAB PO SCH (09:20)
[2020-11-17] MEDS: Fluconazole 100 MG TAB PO SCH (09:20)
[2020-11-17] MEDS: Magnesium Oxide 400 MG TAB PO SCH ×2 (09:21→21:26)
[2020-11-17] MEDS: Phenazopyridine HCl 100 MG TAB PO SCH ×3 (09:21→18:53)
[2020-11-17] MEDS: Fludrocortisone Acetate 0.1 MG TAB PO SCH (09:21)
[2020-11-17] MEDS: CYCLOSPORINE 100 MG PO SCH ×2 (09:23→21:26)
--- NOTE | 2020-11-17 12:03 | PDOC.HOSPP ---
- Subjective Encounter Date: 11/17/20 Encounter Time: 12:03 Subjective: The patient still remains fairly orthostatic. - Objective Vital Signs & Weight: Vital Signs (12 hours) Temp Pulse Resp BP BP BP BP 11/17/20 08:56 97.6 F 85 16 101/57 L 67/40 L 139/70 11/17/20 08:00 11/17/20 04:15 98.9 F 63 16 115/70 Pulse Ox 11/17/20 08:56 97 11/17/20 08:00 96 11/17/20 04:15 97 Weight Admit Weight 152 lb 3.2 oz Weight 145 lb 9.6 oz I&O: 11/16/20 11/17/20 11/18/20 06:59 06:59 06:59 Intake Total 2660 820 Output Total 1375 420 Balance 1285 400 Result Diagrams: 11/14/20 04:32 11/14/20 04:32 Radiology Reviewed by me: Yes EKG Reviewed by me: Yes Hospitalist ROS - Review of Systems Constitutional: reports: weakness, malaise Respiratory: reports: shortness of breath Neurological: reports: weakness - Medication Medications: Active Medications Generic Name Dose Route Start Last Admin Trade Name Freq PRN Reason Stop Dose Admin Acetaminophen 650 mg 11/08/20 02:52 11/10/20 14:41 Acetaminophen 325 Mg Tab PO 650 mg Q4H PRN Administration Headache/Fever/Mild Pain (1-3) Atorvastatin Calcium 40 mg 11/15/20 21:00 11/16/20 20:36 Atorvastatin Calcium 40 Mg Tab PO 40 mg HS LIZZ Administration Fluconazole 200 mg 11/09/20 09:00 11/17/20 09:20 Fluconazole 100 Mg Tab PO 200 mg DAILY LIZZ Administration Fludrocortisone Acetate 0.2 mg 11/14/20 09:00 11/17/20 09:21 Fludrocortisone Acetate 0.1 Mg Tab PO 0.2 mg DAILY LIZZ Administration Magnesium Oxide 400 mg 11/12/20 21:00 11/17/20 09:21 Magnesium Oxide 400 Mg Tab PO 400 mg BID LIZZ Administration Meclizine HCl 25 mg 11/15/20 14:00 11/17/20 06:01 Meclizine Hcl 25 Mg Tab PO 25 mg Q8HR LIZZ Administration Megestrol Acetate 80 mg 11/10/20 09:00 11/17/20 09:20 Megestrol Acetate 40 Mg Tab PO 80 mg DAILY LIZZ Administration Midodrine 10 mg 11/10/20 15:00 11/17/20 09:20 Midodrine Hcl 5 Mg Tab PO 10 mg TID LIZZ Administration Cyclosporine [ 0 each 11/08/20 21:00 11/17/20 09:23 Sandimmune] 100 Mg PO 1 each Capsule BID LIZZ Administration Eltrombopag Olamine 0 each 11/10/20 06:00 11/17/20 06:01 [Promacta] 75 Mg PO 1 each Tablet 0600 LIZZ Administration Phenazopyridine HCl 100 mg 11/16/20 18:00 11/17/20 09:21 Phenazopyridine Hcl 100 Mg Tab PO 100 mg PC LIZZ Administration Sodium Chloride 1 gm 11/11/20 15:00 11/17/20 09:20 Sodium Chloride 1 Gm Tab PO 1 gm TID LIZZ Administration Valacyclovir HCl 500 mg 11/09/20 09:00 11/17/20 09:20 Valacyclovir 500 Mg Tab PO 500 mg DAILY LIZZ Administration - Exam General Appearance: awake alert, ill appearing Eye: PERRL, anicteric sclera ENT: normocephalic atraumatic, no oropharyngeal lesions Neck: supple, symmetric, no JVD Heart: RRR, no murmur Respiratory: CTAB, no wheezes Gastrointestinal: soft, non-tender, non-distended, normal bowel sounds Neurological: cranial nerve grossly intact Psychiatric: normal affect, normal behavior Hosp A/P (1) Dysuria Code(s): R30.0 - DYSURIA Status: Resolved (2) Orthostatic hypotension Code(s): I95.1 - ORTHOSTATIC HYPOTENSION Status: Acute (3) CLL (chronic lymphocytic leukemia) Code(s): C91.90 - LYMPHOID LEUKEMIA, UNSPECIFIED NOT HAVING ACHIEVED REMISSION Status: Chronic - Plan old records reviewed/req, PT/OT He's still orthostatic. Will see if cardiology has other ideas.
--- NOTE | 2020-11-17 12:55 | PDOC.EP ---
- Subjective Date: 11/17/20 Time: 10:00 Interval History: No orthostastic symptoms with ambulation or activity - Review of Systems Constitutional: denies: chills, fever, malaise, sweats, weakness, other Respiratory: denies: cough, dry, hemoptysis, pleuritic pain, shortness of breath, SOB with excertion, sputum, wheezing, other Cardiology: denies: chest pain, edema, heart racing, light headedness, paroxys mal noc. dyspnea, orthopnea, palpitations, passing out, pleuritic pain, pressure, swelling, other Gastrointestinal: denies: abdominal pain, constipation, diarrhea, hematochezia, melena, nausea, vomitting, other Musculoskeletal: denies: unstable gait, falls, neck pain, shoulder pain, arm pain, hand pain, leg pain, foot pain, other - Objective Allergies/Adverse Reactions: Allergies Allergy/AdvReac Type Severity Reaction Status Date / Time No Known Drug Allergies Allergy Verified 11/08/20 04:21 Current Medications Acetaminophen (Acetaminophen 325 Mg Tab) 650 mg PO Q4H PRN PRN Reason: Headache/Fever/Mild Pain (1-3) Last Admin: 11/10/20 14:41 Dose: 650 mg Documented by: Hydrocodone Bitart/Acetaminophen (Hydrocodone/Acetaminophen 10/325 Mg Tablet) 1 tab PO Q6H PRN PRN Reason: Moderate Pain (4-6) Atorvastatin Calcium (Atorvastatin Calcium 40 Mg Tab) 40 mg PO HS [facility] Last Admin: 11/16/20 20:36 Dose: 40 mg Documented by: Fluconazole (Fluconazole 100 Mg Tab) 200 mg PO DAILY [facility] Last Admin: 11/17/20 09:20 Dose: 200 mg Documented by: Fludrocortisone Acetate (Fludrocortisone Acetate 0.1 Mg Tab) 0.2 mg PO DAILY [facility] Last Admin: 11/17/20 09:21 Dose: 0.2 mg Documented by: Magnesium Oxide (Magnesium Oxide 400 Mg Tab) 400 mg PO BID [facility] Last Admin: 11/17/20 09:21 Dose: 400 mg Documented by: Meclizine HCl (Meclizine Hcl 25 Mg Tab) 25 mg PO Q8HR [facility] Last Admin: 11/17/20 06:01 Dose: 25 mg Documented by: Megestrol Acetate (Megestrol Acetate 40 Mg Tab) 80 mg PO DAILY [facility] Last Admin: 11/17/20 09:20 Dose: 80 mg Documented by: Midodrine (Midodrine Hcl 5 Mg Tab) 10 mg PO TID [facility] Last Admin: 11/17/20 09:20 Dose: 10 mg Documented by: Ondansetron HCl (Ondansetron Odt 8 Mg Tab) 8 mg PO Q6H PRN PRN Reason: Nausea/Vomiting Cyclosporine [ Sandimmune] 100 Mg Capsule 0 each PO BID [facility] Last Admin: 11/17/20 09:23 Dose: 1 each Documented by: Eltrombopag Olamine [Promacta] 75 Mg Tablet 0 each PO 0600 [facility] Last Admin: 11/17/20 06:01 Dose: 1 each Documented by: Phenazopyridine HCl (Phenazopyridine Hcl 100 Mg Tab) 100 mg PO PC [facility] Last Admin: 11/17/20 09:21 Dose: 100 mg Documented by: Sodium Chloride (Sodium Chloride 1 Gm Tab) 1 gm PO TID [facility] Last Admin: 11/17/20 09:20 Dose: 1 gm Documented by: Valacyclovir HCl (Valacyclovir 500 Mg Tab) 500 mg PO DAILY [facility] Last Admin: 11/17/20 09:20 Dose: 500 mg Documented by: Vital Signs & Weight: Vital Signs Temp Pulse Pulse Pulse Resp BP BP 11/17/20 11:05 115 H 81 72/45 L 118/68 11/17/20 08:56 97.6 F 85 16 11/17/20 08:00 11/17/20 04:15 98.9 F 63 16 BP BP BP BP Pulse Ox 11/17/20 11:05 11/17/20 08:56 101/57 L 67/40 L 139/70 97 11/17/20 08:00 96 11/17/20 04:15 115/70 97 Admit Weight 152 lb 3.2 oz Weight 145 lb 9.6 oz I/O: I/O 11/16/20 11/17/20 11/18/20 06:59 06:59 06:59 Intake Total 2660 820 Output Total 1375 420 Balance 1285 400 - Physical Exam General: alert & oriented x3, appears well, no apparent distress, speech clear, affect appropriate HEENT: mucus membranes moist, normocephaly Neck: supple neck, midline trachea, no JVD/HJR, no masses, no bruit, no lymphadenopathy, no thromegaly Cardiology: regular rate and rhythm, no murmur, regular rate, regular rhythm, PMI nondisplaced Lungs: clear to auscultation, normal breath sounds, normal exam, no wheeze, rales, rhonchi, no wheezes, no rales, no rhonchi Neurology: cranial nerve 2-12 intact, grossly intact, motor function intact, sensory function intact, negative rhomberg, coordination normal, no lateralizing findings - Labs Result Diagrams: 11/14/20 04:32 11/14/20 04:32 - EKG Interpretation EKG Method: Telemetry EKG shows: Sinus rhythm - Assessment/Plan Assessment/Plan: 1. Orthostatic hypotension- asymptomatic with BP drops. Continue therapy with Florinef and midodrine. Would hold off on pyridostigmine unless orthostasis worsens or he becomes symptomatic. Continue rehydration efforts
[2020-11-17] MEDS: Atorvastatin Calcium 40 MG TAB PO SCH (21:26)
[2020-11-18 04:19] LABS: Hemoglobin 8.4 g/dL (14.0-18.0); Mean Corpuscular HGB CONC 34.8 g/dL (32.0-36.0); Mean Corpuscular Hemoglobin 31.1 pg (27.0-31.0); Mean Corpuscular Volume 89.3 fL (78.0-98.0); Mean Platelet Volume 6.4 fL (7.4-10.4); Platelet Count 43 thou/uL (130-400); RBC Distribution Width 20.1 % (11.5-14.5); Red Blood Cell (RBC) Count 2.71 mill/uL (4.70-6.10); White Blood Cell (WBC) Count 1.9 thou/uL (4.8-10.8)
[2020-11-18 04:37] LABS: Anion Gap 12 mmol/L (10-20); BUN (Urea Nitrogen) 19 mg/dL (8.4-25.7); Calc. Creatinine Clearance 57 mL/min (70-130); Calcium 8.5 mg/dL (7.8-10.44); Carbon Dioxide 23 mmol/L (23-31); Chloride 106 mmol/L (98-107); Glucose 89 mg/dL (83-110); Potassium 3.4 mmol/L (3.5-5.1); Sodium 138 mmol/L (136-145)
[2020-11-18] MEDS: ELTROMBOPAG OLAMINE 75 MG PO SCH (05:27)
[2020-11-18] MEDS: Meclizine HCl 25 MG TAB PO SCH ×2 (05:27→13:41)
[2020-11-18] MEDS: Sodium Chloride 1 GM TAB PO SCH (09:29)
[2020-11-18] MEDS: Fludrocortisone Acetate 0.1 MG TAB PO SCH (09:29)
[2020-11-18] MEDS: valACYclovir 500 MG TAB PO SCH (09:29)
[2020-11-18] MEDS: Midodrine HCl 5 MG TAB PO SCH (09:29)
[2020-11-18] MEDS: Phenazopyridine HCl 100 MG TAB PO SCH ×2 (09:29→13:41)
[2020-11-18] MEDS: Magnesium Oxide 400 MG TAB PO SCH (09:29)
[2020-11-18] MEDS: Megestrol Acetate 40 MG TAB PO SCH (09:29)
[2020-11-18] MEDS: Fluconazole 100 MG TAB PO SCH (09:29)
[2020-11-18] MEDS: CYCLOSPORINE 100 MG PO SCH (09:30)
[2020-11-18 12:02] VITALS: BP 134/76; TEMP 97.7
[2020-11-18 12:43] VITALS: BMI 22.4
--- NOTE | 2020-11-18 14:42 | PDOC.DS.DS ---
Provider - Provider Date of Admission: 11/08/20 02:46 Date of Discharge: 11/18/20 Admitting Provider: Donavon Parker MD Consultations: Cardiology, Pulmonary Primary Care Physician: Chuy Georges MD Course - Hospital Course Hospital Course: This is a 70-year-old patient with a history of chronic lymphocytic leukemia who presented to the hospital after he fell at home. He was very orthostatic. He was placed in the hospital for supportive care. He received Florinef and also received midodrine. He was very orthostatic for period of time but eventually this seems to have improved. He also was given multiple IV fluid. He was advised to discontinue his Coreg. During this visit he was seen by cardiology and [facility] cardiology services as well. They both agreed with medical management. The patient appears to have stabilized enough and today he is felt to have reached optimal hospital benefit and he is discharged home with home health. He will follow-up with his urologist as outpatient. Resuscitation Status: 11/08/20 02:52 Resuscitation Status Routine Resuscitation Status: FULL: Full Resuscitation - Labs Lab Results: 11/18/20 03:54 11/18/20 03:54 Abnormal Lab Results - Last 48 hrs 11/18/20 03:54: Potassium 3.4 L 11/18/20 03:54: WBC 1.9 L, RBC 2.71 L, Hgb 8.4 L, Hct 24.2 L, MCH 31.1 H, RDW 20.1 H, Plt Count 43 L, MPV 6.4 L - Physical Exam Vitals: Vital Signs (12 hours) Temp Pulse Resp BP BP BP BP 11/18/20 12:00 97.7 F 74 16 134/76 11/18/20 09:25 97.8 F 81 16 92/54 L 85/52 L 157/77 H 11/18/20 08:00 11/18/20 03:52 98.6 F 92 16 118/72 Pulse Ox 11/18/20 12:00 97 11/18/20 09:25 97 11/18/20 08:00 97 11/18/20 03:52 97 Weight Admit Weight 152 lb 3.2 oz Weight 143 lb 1.6 oz Physical Exam: The patient was seen and examined on the day of discharge. Problem - Problem (1) Orthostatic hypotension Code(s): I95.1 - ORTHOSTATIC HYPOTENSION Status: Acute (2) CLL (chronic lymphocytic leukemia) Code(s): C91.90 - LYMPHOID LEUKEMIA, UNSPECIFIED NOT HAVING ACHIEVED REMISSION Status: Chronic - Time spent with Patient (mins): 30 Plan - Discharge Medications Prescriptions: Meclizine HCl [Antivert] 25 mg PO Q8HR #30 tab Fludrocortisone Acetate [Florinef] 0.2 mg PO DAILY #30 tab Midodrine HCl [ProAmatine] 10 mg PO TID #90 tab Phenazopyridine HCl [Pyridium] 100 mg PO BID #14 tab Home Medications: Medication Instructions Recorded Confirmed Type Atorvastatin Calcium [Lipitor] 40 mg PO HS 07/20/18 11/08/20 History valACYclovir [Valtrex] 500 mg PO DAILY 08/12/20 11/08/20 History Eltrombopag Olamine [Promacta] 150 mg PO DAILY 10/25/20 11/08/20 History Fluconazole 200 mg PO DAILY 10/25/20 11/08/20 History cycloSPORINE [SandIMMUNE] 200 mg PO BID 10/25/20 11/08/20 History Magnesium Oxide/Magnesium 1 tablet PO TID 10/26/20 11/08/20 History [[id number]] Ondansetron [Zofran ODT] 8 mg PO Q6HR PRN 11/08/20 11/08/20 History Atorvastatin Calcium [Lipitor] 40 mg PO HS #0 tab 11/18/20 Rx Fludrocortisone Acetate [Florinef] 0.2 mg PO DAILY #30 tab 11/18/20 Rx Meclizine HCl [Antivert] 25 mg PO Q8HR #30 tab 11/18/20 Rx Megestrol Acetate [Megace] 80 mg PO DAILY tab 11/18/20 Rx Midodrine HCl [ProAmatine] 10 mg PO TID #90 tab 11/18/20 Rx Phenazopyridine HCl [Pyridium] 100 mg PO BID #14 tab 11/18/20 Rx Allergies: No Known Drug Allergies Allergy (Verified 11/08/20 04:21) per pt - Discharge Instructions Activity:: Activity as Tolerated Nourishment:: Regular Diet Therapies:: Occupational Therapy, Physical Therapy - Follow up Plan Referrals: [facility] [Outside] (Nursing with physical therapy services.) Chuy Georges MD [Primary Care Provider] - 3 Days (Please call to schedule a follow up appointment. ) Chriss Linn MD [Active] - (Please call the office to schedule a follow up appointment.) Lucien Luna MD [Game Technician] - (Please call to schedule a follow up appointment. If you start to have symptoms with your orthostatic hypotension please call Dr. Luna's office in addition to your primary care office to discuss adjustment of your medications.) Disposition: HOME HEALTH Quality - Care Measures CORE MEASURES:: N/A
--- NOTE | 2020-11-18 15:53 | PDOC.EP ---
- Subjective Date: 11/18/20 Time: 08:00 Interval History: feels well. eager to go home. no dizziness or near syncope - Review of Systems Constitutional: denies: chills, fever, malaise, sweats, weakness, other Respiratory: denies: cough, dry, hemoptysis, pleuritic pain, shortness of breath, SOB with excertion, sputum, wheezing, other Cardiology: denies: chest pain, edema, heart racing, light headedness, p aroxysmal noc. dyspnea, orthopnea, palpitations, passing out, pleuritic pain, pressure, swelling, other Gastrointestinal: denies: abdominal pain, constipation, diarrhea, hematochezia, melena, nausea, vomitting, other Musculoskeletal: denies: unstable gait, falls, neck pain, shoulder pain, arm pain, hand pain, leg pain, foot pain, other - Objective Allergies/Adverse Reactions: Allergies Allergy/AdvReac Type Severity Reaction Status Date / Time No Known Drug Allergies Allergy Verified 11/08/20 04:21 Vital Signs & Weight: Vital Signs Temp Pulse Resp BP BP BP BP 11/18/20 12:00 97.7 F 74 16 134/76 11/18/20 09:25 97.8 F 81 16 92/54 L 85/52 L 157/77 H 11/18/20 08:00 Pulse Ox 11/18/20 12:00 97 11/18/20 09:25 97 11/18/20 08:00 97 Admit Weight 152 lb 3.2 oz Weight 143 lb 1.6 oz I/O: I/O 11/17/20 11/18/20 11/19/20 06:59 06:59 06:59 Intake Total 820 1410 Output Total 420 Balance 400 1410 - Physical Exam General: alert & oriented x3, appears well, no apparent distress, speech clear, affect appropriate HEENT: mucus membranes moist, normocephaly Neck: supple neck, midline trachea, no JVD/HJR, no masses, no bruit, no lymphadenopathy, no thromegaly Cardiology: regular rate and rhythm, no murmur, regular rate, regular rhythm, PMI nondisplaced Lungs: clear to auscultation, normal breath sounds, normal exam, no wheeze, rales, rhonchi, no wheezes, no rales, no rhonchi Neurology: cranial nerve 2-12 intact, grossly intact, motor function intact, sensory function intact, negative rhomberg, coordination normal, no lateralizing findings - Labs Result Diagrams: 11/18/20 03:54 11/18/20 03:54 - EKG Interpretation EKG Method: Telemetry EKG shows: Sinus rhythm - Assessment/Plan Assessment/Plan: 1. Orthostatic hypotension- asymptomatic with BP drops. Continue therapy with Florinef and midodrine. Would hold off on pyridostigmine unless orthostasis worsens or he becomes symptomatic. No change overnight. OK to DC home by EP
== END 2020-11-18 14:09 | disposition home health service (06) | DRG 312 ==
LOC: ERS 00:38 → 2NO 02:46
PROVIDERS: ADMIT Internal Medicine; ATTEND Hospitalist
PROC: 30233N1 Transfusion of Nonautologous Red Blood Cells into Peripheral Vein, Percutaneous Approach (ICD-10-PCS; principal; 2020-11-08)
DX: I95.1 Orthostatic hypotension (principal); D61.810 Antineoplastic chemotherapy induced pancytopenia; C91.10 Chronic lymphocytic leukemia of B-cell type not having achieved remission; E44.1 Mild protein-calorie malnutrition; D61.9 Aplastic anemia, unspecified; N17.9 Acute kidney failure, unspecified; Z20.822 Contact with and (suspected) exposure to COVID-19; E86.0 Dehydration; E78.5 Hyperlipidemia, unspecified; I10 Essential (primary) hypertension; I25.10 Atherosclerotic heart disease of native coronary artery without angina pectoris; T45.1X5A Adverse effect of antineoplastic and immunosuppressive drugs, initial encounter; F17.210 Nicotine dependence, cigarettes, uncomplicated; Z68.22 Body mass index [BMI] 22.0-22.9, adult; Z79.899 Other long term (current) drug therapy; Z95.5 Presence of coronary angioplasty implant and graft; R30.0 Dysuria
CPT/HCPCS: 36415; 36430; 70450; 71045; 72125; 74176; 80048; 80053; 81001; 81003; 85025; 85027; 85379; 86850; 86900; 86901; 87635; 93005; 93970; J1200; P9016; S0179; U0003

== ENCOUNTER 2020-11-26 08:54 | Inpatient (IN) | payer MEDICARE, OTHER ==
--- NOTE | 2020-11-26 11:06 | RAD ---
CHEST 1 VIEW: HISTORY: Fall. COMPARISON: Radiograph 11/08/2020. FINDINGS: Lungs are without confluent airspace consolidation, pneumothorax, or effusion. Ill-defined nodule pr ojects over the right lateral mid lung relatively similar to the prior examination, likely a prominen t nipple shadow. No confluent airspace consolidation, pneumothorax, or effusion. No acute osseous abnormality. IMPRESSION: No acute intrathoracic abnormality. POS: HOME
[2020-11-26 11:32] LABS: INR-International Normal Ratio 1.1; Prothrombin Time 14.4 sec (12.0-14.7)
[2020-11-26 11:56] LABS: Anisocytosis SLIGHT = 6-15 cells (100X) (0-5/hpf); Eosinophils 2 % (0-10); Hemoglobin 7.2 g/dL (14.0-18.0); Lymphocytes 13 % (21-51); MDiff Complete? YES; Mean Corpuscular HGB CONC 34.4 g/dL (32.0-36.0); Mean Corpuscular Volume 89.9 fL (78.0-98.0); Mean Platelet Volume 9.9 fL (7.4-10.4); Monocytes 31 % (0-10); Neutrophil 54 % (42-75); Platelet Count 49 thou/uL (130-400); Platelet Morphology Comment Appears Decreased; Poikilocytosis SLIGHT = 6-15 cells (100X) (0-5/hpf); RBC Distribution Width 21.8 % (11.5-14.5); Red Blood Cell (RBC) Count 2.33 mill/uL (4.70-6.10); Schistocytes SLIGHT = 2-5 cells (100X) (0-1/hpf); White Blood Cell (WBC) Count 2.7 thou/uL (4.8-10.8)
[2020-11-26 12:00] LABS: ALT (SGPT) 12 U/L (8-55); AST (SGOT) 17 U/L (5-34); Albumin 2.9 g/dL (3.4-4.8); Alkaline Phosphatase 74 U/L (40-110); Anion Gap 13 mmol/L (10-20); BUN (Urea Nitrogen) 32 mg/dL (8.4-25.7); Bilirubin, Total 1.2 mg/dL (0.2-1.2); Calc. Creatinine Clearance 0 mL/min (70-130); Calcium 7.7 mg/dL (7.8-10.44); Carbon Dioxide 23 mmol/L (23-31); Chloride 103 mmol/L (98-107); Glucose 108 mg/dL (83-110); Lipase 16 U/L (8-78); Potassium 3.6 mmol/L (3.5-5.1); Protein, Total 4.9 g/dL (5.8-8.1); Sodium 135 mmol/L (136-145)
[2020-11-26 12:03] LABS: Squamous Epithelial 0-3 HPF (0-3)
[2020-11-26 12:12] LABS: Bilirubin Unable to Interpret (Negative); Blood, Urine Unable to Interpret (Negative); Clarity Cloudy (Clear); Glucose, Urine (Dipstick) Unable to Interpret mg/dL (Negative); Ketone, Urine Unable to Interpret mg/dL (Negative); Leukocyte Unable to Interpret Leu/uL (Negative); Nitrite Unable to Interpret (Negative); Protein, Urine (Dipstick) Unable to Interpret mg/dL (Neg-Trace); Urobilinogen UNABLE TO INTERPRET mg/dL (Less than 2)
[2020-11-26 12:13] LABS: Bacteria/HPF 1+ HPF (None Seen); RBC/HPF None Seen HPF (0-3); WBC/HPF None Seen HPF (0-3)
[2020-11-26] MEDS ORDERED: Magnesium 2 GM/50 ML BAG (IN WATER) ONE (12:32)
[2020-11-26 12:46] LABS: CKMB 1.7 ng/mL (0-6.6)
--- NOTE | 2020-11-26 13:29 | CT ---
CT CERVICAL SPINE WITH SAGITTAL AND CORONAL REFORMATIONS: History: Fall, neck pain. FINDINGS: Comparison is made with exam of 11-08-2020. Multilevel degenerative changes are again seen without evidence of fracture, subluxation, or facet ma lalignment. Prevertebral soft tissues are normal. No apical pneumothoraces are identified. IMPRESSION: No CT evidence of acute cervical spine fracture or subluxation. POS: OFF
--- NOTE | 2020-11-26 13:43 | CT ---
CT BRAIN WITHOUT CONTRAST: History: Fall, slurred speech, weakness. Comparison: 11-08-2020 FINDINGS: No evidence of acute infarct, hemorrhage, midline shift, or abnormal extraaxial fluid collections are seen. The ventricular size is stable and the basilar cisterns are patent. The bony calvarium is inta ct. Mucosal disease in the paranasal sinuses are again seen. IMPRESSION: Stable exam. No CT evidence of acute intracranial process. POS: OFF
--- NOTE | 2020-11-26 14:01 | CT ---
CT ABDOMEN AND PELVIS WITHOUT IV CONTRAST: INDICATION: Right flank pain. COMPARISON: Comparison is made to recent CT abdomen and pelvis of 11/14/2020. FINDINGS: Images through the lung bases show clear lung bases. There is a small pericardial effusion which is stable in appearance from the recent exam. The liver, spleen, and pancreas are unremarkable. The gallbladder is mildly distended and there are numerous relatively isodense gallstones which are i dentified within this distended gallbladder. No significant pericholecystic edema. Adrenal glands normal. Kidneys unremarkable. No evidence of hydronephrosis. Ureters normal caliber . There are 2 tiny nonobstructing calculi in lower pole right kidney which were described previously an d are unchanged. Small bowel loops unremarkable. Appendix normal. Colon unremarkable. Aorta is densely calcified and mildly ectatic without aneurysmal dilatation. Images through the pelvis show unremarkable urinary bladder and prostate. Degenerative spine changes. Degenerative disk changes are prominent at L5-S1. IMPRESSION: 1. Small pericardial effusion. 2. Cholelithiasis with numerous gallstones seen within a mildly distended gallbladder. Correlate fo r cholecystitis given the history of right flank pain. 3. Dense atherosclerotic calcification of the abdominal aorta with atherosclerotic calcification at the origin of both renal arteries. Renal artery stenosis is suspected but not confirmed on this nonc ontrast study. 4. Tiny nonobstructing calculi in the upper collecting structures right kidney. 5. Otherwise, stable findings from recent CT. POS: [facility]
[2020-11-26] MEDS ORDERED: Ondansetron PF 4 MG/2 ML Vial IVP PRN ×2 (14:50→15:00)
[2020-11-26] MEDS ORDERED: Ondansetron ODT 4 MG TAB PO PRN (14:50)
[2020-11-26] MEDS ORDERED: Ondansetron ODT 4 MG TAB SL PRN (15:00)
--- NOTE | 2020-11-26 15:01 | PDOC.HHP ---
Hospitalist HPI Syncope History of Present Illness: Patient is a 70-year-old male who has a history of CLL followed by Dr. Mendiola locally. Patient reports that around 2019 he had the CLL largely treated. Subsequent to that however he had aplastic anemia and was referred to [facility]. He has been receiving therapy there with Promacta. Patient has had several episodes of severe orthostatic hypotension leading to syncope and admissions to the hospital. Fact patient was just very recently discharged from this facility days ago for similar episode. He reports that he feels generally very poorly although he cannot be more specific. He has not been eating and drinking as he has no appetite. His reports that he will typically eat something like a couple of grapes and a piece of echevarria throughout the entire day. He is not drinking much fluids at all. They are concerned that this may be a result of his treatment that he is receiving through [facility]. They do report that they have a hospice company coming out to speak to them soon to discuss palliative care options. ED Course: In the ED the patient received 2 L of normal saline and IV magnesium. He was noted to have anemia and acute kidney injury. Allergies/Adverse Reactions: Allergy/AdvReac Type Severity Reaction Status Date / Time No Known Drug Allergies Allergy Verified 11/08/20 04:21 Home Medications: Medication Instructions Recorded Confirmed Type Atorvastatin Calcium [Lipitor] 40 mg PO HS 07/20/18 11/08/20 History valACYclovir [Valtrex] 500 mg PO DAILY 08/12/20 11/08/20 History Eltrombopag Olamine [Promacta] 150 mg PO DAILY 10/25/20 11/08/20 History Fluconazole 200 mg PO DAILY 10/25/20 11/08/20 History cycloSPORINE [SandIMMUNE] 200 mg PO BID 10/25/20 11/08/20 History Magnesium Oxide/Magnesium 1 tablet PO TID 10/26/20 11/08/20 History [CW-[id number]] Ondansetron [Zofran ODT] 8 mg PO Q6HR PRN 11/08/20 11/08/20 History Atorvastatin Calcium [Lipitor] 40 mg PO HS #0 tab 11/18/20 Rx Fludrocortisone Acetate [Florinef] 0.2 mg PO DAILY #30 tab 11/18/20 Rx Meclizine HCl [Antivert] 25 mg PO Q8HR #30 tab 11/18/20 Rx Megestrol Acetate [Megace] 80 mg PO DAILY tab 11/18/20 Rx Midodrine HCl [ProAmatine] 10 mg PO TID #90 tab 11/18/20 Rx Phenazopyridine HCl [Pyridium] 100 mg PO BID #14 tab 11/18/20 Rx Past History: PMHx: PSHx: FHx: Social: Hospitalist HPI ROS Constitutional: denies: fever, chills Respiratory: denies: cough, shortness of breath Cardiovascular: denies: chest pain, palpitations Gastrointestinal: reports: other (Poor appetite). denies: nausea, vomiting Neurological: reports: weakness All other systems reviewed; all pertinent +/- noted in HPI/Subj Hospitalist Exam General Appearance: NAD, awake alert General - other findings: Skin appears to be abnormally darkened and possibly slightly jaundiced Eye: PERRL Heart: RRR, no murmur, no gallops, no rubs, normal peripheral pulses Respiratory: CTAB, no wheezes, no rales, no ronchi, normal chest expansion, no tachypnea Respiratory - other findings: Bit of a barrel chest Gastrointestinal: soft, non-tender, non-distended, normal bowel sounds, no palpable masses, no hepatomegaly, no splenomegaly, no bruit Extremities: no cyanosis, no clubbing, no edema Skin: normal turgor, no lesions, no rashes Neurological: no focal deficits Musculoskeletal: generalized weakness Hospitalist Results Result Diagrams: 11/26/20 11:12 11/26/20 11:12 Lab results: Laboratory Last Values WBC 2.7 thou/uL (4.8-10.8) L 11/26/20 11:12 RBC 2.33 mill/uL (4.70-6.10) L 11/26/20 11:12 Hgb 7.2 g/dL (14.0-18.0) L 11/26/20 11:12 Hct 21.0 % (42.0-52.0) L 11/26/20 11:12 MCV 89.9 fL (78.0-98.0) 11/26/20 11:12 MCH 31.0 pg (27.0-31.0) 11/26/20 11:12 MCHC 34.4 g/dL (32.0-36.0) 11/26/20 11:12 RDW 21.8 % (11.5-14.5) H 11/26/20 11:12 Plt Count 49 thou/uL (130-400) L 11/26/20 11:12 MPV 9.9 fL (7.4-10.4) 11/26/20 11:12 Neutrophils % (Manual) 54 % (42-75) 11/26/20 11:12 Lymphocytes % (Manual) 13 % (21-51) L 11/26/20 11:12 Monocytes % (Manual) 31 % (0-10) H 11/26/20 11:12 Eosinophils % (Manual) 2 % (0-10) 11/26/20 11:12 Plt Morphology Comment Appears Decreased L 11/26/20 11:12 Poikilocytosis SLIGHT = 6-15 cells (100X) (0-5/hpf) 11/26/20 11:12 Anisocytosis SLIGHT = 6-15 cells (100X) (0-5/hpf) 11/26/20 11:12 Schistocytes SLIGHT = 2-5 cells (100X) (0-1/hpf) 11/26/20 11:12 PT 14.4 sec (12.0-14.7) 11/26/20 11:12 INR 1.1 11/26/20 11:12 Sodium 135 mmol/L (136-145) L 11/26/20 11:12 Potassium 3.6 mmol/L (3.5-5.1) 11/26/20 11:12 Chloride 103 mmol/L (98-107) 11/26/20 11:12 Carbon Dioxide 23 mmol/L (23-31) 11/26/20 11:12 Anion Gap 13 mmol/L (10-20) 11/26/20 11:12 BUN 32 mg/dL (8.4-25.7) H 11/26/20 11:12 Creatinine 4.05 mg/dL (0.7-1.3) H 11/26/20 11:12 Estimated GFR (MDRD) 15 11/26/20 11:12 Glucose 108 mg/dL (83-110) 11/26/20 11:12 Calcium 7.7 mg/dL (7.8-10.44) L 11/26/20 11:12 Magnesium 1.1 mg/dL (1.6-2.6) L 11/26/20 11:10 Total Bilirubin 1.2 mg/dL (0.2-1.2) 11/26/20 11:12 AST 17 U/L (5-34) 11/26/20 11:12 ALT 12 U/L (8-55) 11/26/20 11:12 Alkaline Phosphatase 74 U/L (40-110) 11/26/20 11:12 CK-MB (CK-2) 1.7 ng/mL (0-6.6) 11/26/20 11:09 Troponin I 0.052 ng/mL (< 0.028) H 11/26/20 11:09 Serum Total Protein 4.9 g/dL (5.8-8.1) L 11/26/20 11:12 Albumin 2.9 g/dL (3.4-4.8) L 11/26/20 11:12 Globulin 2.0 g/dL (2.4-3.5) L 11/26/20 11:12 Albumin/Globulin Ratio 1.5 g/dL (1.2-2.2) 11/26/20 11:12 Lipase 16 U/L (8-78) 11/26/20 11:12 Urine Color [place] (Yellow) A 11/26/20 11:04 Urine Clarity Cloudy (Clear) 11/26/20 11:04 Urine pH 6.0 (5.0-9.0) 11/26/20 11:04 Ur Specific [place] 1.010 (1.002-1.036) 11/26/20 11:04 Urine Protein Unable to Interpret mg/dL (Neg-Trace) 11/26/20 11:04 Urine Glucose (UA) Unable to Interpret mg/dL (Negative) 11/26/20 11:04 Urine Ketones Unable to Interpret mg/dL (Negative) 11/26/20 11:04 Urine Blood Unable to Interpret (Negative) 11/26/20 11:04 Urine Nitrite Unable to Interpret (Negative) 11/26/20 11:04 Urine Bilirubin Unable to Interpret (Negative) 11/26/20 11:04 Prot Sulfosalicylic Acd 2+ mg/dL (Neg-Trace) H 11/26/20 11:04 Urine Urobilinogen UNABLE TO INTERPRET mg/dL (Less than 2) 11/26/20 11:04 Ur Leukocyte Esterase Unable to Interpret Manish/uL (Negative) 11/26/20 11:04 Urine RBC None Seen HPF (0-3) 11/26/20 11:04 Urine WBC None Seen HPF (0-3) 11/26/20 11:04 Ur Squamous Epith Cells 0-3 HPF (0-3) 11/26/20 11:04 Urine Bacteria 1+ HPF (None Seen) A 11/26/20 11:04 Blood Type B POSITIVE 11/26/20 12:15 Antibody Screen NEGATIVE 11/26/20 12:15 Crossmatch See Detail 11/26/20 12:15 CT scan - chest Status: report reviewed by me (No acute findings) CT scan - Ab/Pelvis Status: report reviewed by me (Gallstones with mildly distended gallbladder. Dense renal artery atherosclerosis with stenosis suspected.) Other Status: report reviewed by me (CT of the C-spine negative) Chest x-ray Status: report reviewed by me (No acute findings) Hospitalist H&P A/P (1) Aplastic anemia Code(s): D61.9 - APLASTIC ANEMIA, UNSPECIFIED Status: Acute (2) IRLANDA (acute kidney injury) Code(s): N17.9 - ACUTE KIDNEY FAILURE, UNSPECIFIED Status: Acute (3) Decreased appetite Code(s): R63.0 - ANOREXIA Status: Acute (4) Orthostatic hypotension Code(s): I95.1 - ORTHOSTATIC HYPOTENSION Status: Acute (5) Symptomatic anemia Code(s): D64.9 - ANEMIA, UNSPECIFIED Status: Acute (6) Syncope and collapse Code(s): R55 - SYNCOPE AND COLLAPSE Status: Acute (7) CAD (coronary artery disease) Code(s): I25.10 - ATHSCL HEART DISEASE OF [place] CORONARY ARTERY W/O ANG PCTRS Status: Chronic (8) Dyslipidemia Code(s): E78.5 - HYPERLIPIDEMIA, UNSPECIFIED Status: Chronic (9) HTN (hypertension) Code(s): I10 - ESSENTIAL (PRIMARY) HYPERTENSION Status: Chronic Qualifiers: (10) Pancytopenia Code(s): D61.818 - OTHER PANCYTOPENIA Status: Chronic (11) Cholelithiasis Code(s): K80.20 - CALCULUS OF GALLBLADDER W/O CHOLECYSTITIS W/O OBSTRUCTION Status: Acute Plan: This patient is a 70-year-old male with a history of CLL status post therapy with transition into aplastic anemia. Currently followed at [facility] and being treated with Promacta. Patient has recurrent orthostatic hypotension and several admissions for syncopal episodes. Patient has been feeling poorly with poor p.o. intake and presented back to the emergency department with recurrent syncope. He was noted to be pancytopenic and have significant acute kidney injury. Likely due to dehydration. Syncope: Patient appears to have had another episode of severe orthostasis resulting in his syncope. Patient's reports on this occasion he continued to be near syncopal with attempts to get up after initially waking up. He does appear to be dehydrated and has recurrence pancytopenia/anemia. Patient also has a prolonged QT although I do not believe that is relevant to this particular event. Prolonged QT: Again do not believe this is relevant to his current admission. He is on numerous medications of concern. I will hold his fluconazole for now as that seems to be the most likely culprit. Aplastic anemia: Patient has pancytopenia with symptomatic anemia. He is followed at [facility]. It is unclear that the patient's aplastic anemia or the treatment itself is actually causing him to feel so poorly overall. He reports that he does have a hospice company coming soon to talk to him about a more palliative approach. I attempted to reach out to his oncologist, Dr. Sekou Hummel through the [facility] number of [phone]. Was unable to get through on the phone. We will ask palliative care to visit with the patient regarding goals of care. Symptomatic anemia: Patient will receive 1 unit of packed red cells. We will follow his hemoglobin closely. With hydration its possible he may need a second unit. Dehydration: Secondary to poor p.o. intake. Acute kidney injury: Patient's GFR is substantially below his baseline. Overall expect this is related to poor p.o. intake and dehydration. Continue with hydration and monitoring his renal for closely. If this does not improve significantly with hydration will consider consulting nephrology. Cholelithiasis: Patient had evidence of multiple gallstones and a slightly distended gallbladder on imaging. This likely represents the patient not eating much causing some distention of the gallbladder. He is not tender in this area. Do not suspect acute cholecystitis. Hypertension: Patient is off all of his medications because of his severe orthostatic hypotension. Hyperlipidemia: Continue home meds. DVT prophylaxis: SCDs PUD prophylaxis: PPI
[2020-11-26] MEDS: Midodrine HCl 5 MG TAB PO SCH ×2 (16:00→20:17)
[2020-11-26] MEDS: Sodium Chloride 0.9% 1,000 ML IV SCH (16:01)
[2020-11-26 16:56] VITALS: BMI 20.9
[2020-11-26] MEDS: cycloSPORINE, Modified 100 MG CAP PO SCH (20:16)
[2020-11-26] MEDS ORDERED: Atorvastatin Calcium 40 MG TAB PO SCH (21:00)
[2020-11-26 21:33] LABS: Anisocytosis SLIGHT = 6-15 cells (100X) (0-5/hpf); Band 4 % (5-11); Eosinophils 1 % (0-10); Hemoglobin 8.1 g/dL (14.0-18.0); Lymphocytes 27 % (21-51); MDiff Complete? YES; Mean Corpuscular HGB CONC 33.8 g/dL (32.0-36.0); Mean Corpuscular Hemoglobin 30.5 pg (27.0-31.0); Mean Corpuscular Volume 90.3 fL (78.0-98.0); Mean Platelet Volume 7.6 fL (7.4-10.4); Monocytes 16 % (0-10); Neutrophil 52 % (42-75); Platelet Count 48 thou/uL (130-400); Platelet Morphology Comment Appears Decreased; RBC Distribution Width 20.2 % (11.5-14.5); Red Blood Cell (RBC) Count 2.65 mill/uL (4.70-6.10); Schistocytes SLIGHT = 2-5 cells (100X) (0-1/hpf); White Blood Cell (WBC) Count 2.4 thou/uL (4.8-10.8)
[2020-11-27 05:40] LABS: Anion Gap 13 mmol/L (10-20); BUN (Urea Nitrogen) 29 mg/dL (8.4-25.7); Calc. Creatinine Clearance 18 mL/min (70-130); Calcium 7.7 mg/dL (7.8-10.44); Carbon Dioxide 20 mmol/L (23-31); Chloride 105 mmol/L (98-107); Glucose 78 mg/dL (83-110); Potassium 3.3 mmol/L (3.5-5.1); Sodium 135 mmol/L (136-145)
[2020-11-27] MEDS: Sodium Chloride 0.9% 1,000 ML IV SCH ×2 (07:00→19:00)
[2020-11-27 08:19] LABS: Magnesium 1.6 mg/dL (1.6-2.6); Phosphorus 3.9 mg/dL (2.3-4.7)
[2020-11-27] MEDS: Midodrine HCl 5 MG TAB PO SCH ×3 (08:49→21:05)
[2020-11-27] MEDS: Fludrocortisone Acetate 0.1 MG TAB PO SCH (08:49)
[2020-11-27] MEDS: cycloSPORINE, Modified 100 MG CAP PO SCH (08:49)
[2020-11-27] MEDS: Famotidine 20 MG TAB PO SCH (08:50)
[2020-11-27] MEDS ORDERED: valACYclovir 500 MG TAB PO SCH (09:00)
[2020-11-27 09:32] LABS: Band 4 % (5-11); Hemoglobin 8.1 g/dL (14.0-18.0); Lymphocytes 43 % (21-51); MDiff Complete? YES; Mean Corpuscular HGB CONC 34.8 g/dL (32.0-36.0); Mean Corpuscular Hemoglobin 31.8 pg (27.0-31.0); Mean Corpuscular Volume 91.3 fL (78.0-98.0); Mean Platelet Volume 8.3 fL (7.4-10.4); Monocytes 24 % (0-10); Neutrophil 29 % (42-75); Platelet Count 47 thou/uL (130-400); Platelet Morphology Comment Appears Decreased; RBC Distribution Width 20.4 % (11.5-14.5); Red Blood Cell (RBC) Count 2.56 mill/uL (4.70-6.10); Schistocytes SLIGHT = 2-5 cells (100X) (0-1/hpf); White Blood Cell (WBC) Count 2.5 thou/uL (4.8-10.8)
[2020-11-27 09:40] LABS: Reticulocyte Count 2.1 % (0.5-1.5)
[2020-11-27] MEDS ORDERED: Potassium Chloride 20 MEQ TAB PO SCH (09:45)
[2020-11-27] MEDS ORDERED: Sodium Bicarbonate Tab 325 MG TAB PO SCH (10:15)
[2020-11-27 13:27] LABS: Creatinine, Urine 118.43 mg/dL (63-166)
[2020-11-27] MEDS: Sodium Bicarbonate Tab 325 MG TAB PO SCH ×2 (14:39→21:05)
[2020-11-27] MEDS ORDERED: Magnesium 2 GM/50 ML 2 GM in Premix Bag 1 BAG IVPB SCH (15:45)
--- NOTE | 2020-11-27 18:45 | PDOC.HOSPP ---
- Subjective Encounter Date: 11/27/20 Encounter Time: 11:00 Subjective: Patient seen and examined for generalized weakness with anemia. Feels generally weak and fatigue. Denies any lightheadedness or nausea. No chest pain or palpitations reported. - Objective Vital Signs & Weight: Vital Signs (12 hours) Temp Pulse Pulse Resp BP BP Pulse Ox 11/27/20 16:35 99.2 F 65 16 168/76 H 96 11/27/20 16:20 98.9 F 83 16 170/83 H 97 11/27/20 15:51 98.1 F 77 16 149/79 H 96 11/27/20 12:00 98.7 F 90 16 148/80 H 96 11/27/20 08:49 96 11/27/20 07:48 99.2 F 88 16 158/65 H 96 Weight Weight 150 lb I&O: 11/26/20 11/27/20 11/28/20 06:59 06:59 06:59 Intake Total 360 0 Balance 360 0 Result Diagrams: 11/27/20 04:52 11/27/20 04:52 Additional Labs: Abnormal Lab Results - Last 48 hrs 11/26/20 11:04: Urine Color [place] A, Prot Sulfosalicylic Acd 2+ H, Urine Bacteria 1+ A 11/26/20 11:09: Troponin I 0.052 H 11/26/20 11:10: Magnesium 1.1 L 11/26/20 11:12: Sodium 135 L, BUN 32 H, Creatinine 4.05 H, Calcium 7.7 L, Serum Total Protein 4.9 L, Albumin 2.9 L, Globulin 2.0 L 11/26/20 11:12: WBC 2.7 L, RBC 2.33 L, Hgb 7.2 L, Hct 21.0 L, RDW 21.8 H, Plt Count 49 L, Lymphocytes % (Manual) 13 L, Monocytes % (Manual) 31 H, Plt Morphology Comment Appears Decreased L 11/26/20 12:15: Crossmatch See Detail 11/26/20 20:52: WBC 2.4 L, RBC 2.65 L, Hgb 8.1 L, Hct 23.9 L, RDW 20.2 H, Plt Count 48 L, Band Neuts % (Manual) 4 L, Monocytes % (Manual) 16 H, Plt Morphology Comment Appears Decreased L 11/27/20 04:52: Sodium 135 L, Potassium 3.3 L, Carbon Dioxide 20 L, BUN 29 H, Creatinine 3.64 H, Calcium 7.7 L 11/27/20 04:52: WBC 2.5 L, RBC 2.56 L, Hgb 8.1 L, Hct 23.3 L, MCH 31.8 H, RDW 20.4 H, Plt Count 47 L, Neutrophils % (Manual) 29 L, Band [place] % (Manual) 4 L, Monocytes % (Manual) 24 H, Plt Morphology Comment Appears Decreased L 11/27/20 04:52: Retic Count 2.1 H 11/27/20 11:45: U Random Total Protein 123 H Hospitalist ROS - Review of Systems Cardiovascular: denies: chest pain, palpitations, orthopnea, paroxysmal noc. dyspnea, edema, light headedness, other Gastrointestinal: denies: nausea, vomiting, abdominal pain, diarrhea, constipation, melena, hematochezia, other - Medication Medications: Active Medications Generic Name Dose Route Start Last Admin Trade Name Freq PRN Reason Stop Dose Admin Atorvastatin Calcium 40 mg 11/26/20 21:00 11/26/20 20:16 Atorvastatin Calcium 40 Mg Tab PO 40 mg HS LIZZ Administration Famotidine 20 mg 11/27/20 09:00 11/27/20 08:50 Famotidine 20 Mg Tab PO 20 mg DAILY LIZZ Administration Fludrocortisone Acetate 0.2 mg 11/27/20 09:00 11/27/20 08:49 Fludrocortisone Acetate 0.1 Mg Tab PO 0.2 mg DAILY LIZZ Administration Midodrine 10 mg 11/26/20 15:00 11/27/20 14:39 Midodrine Hcl 5 Mg Tab PO 10 mg TID LIZZ Administration Ondansetron HCl 4 mg 11/26/20 14:50 11/27/20 08:48 Ondansetron Odt 4 Mg Tab PO 4 mg Q6H PRN Administration Nausea/Vomiting Sodium Bicarbonate 1,300 mg 11/27/20 15:00 11/27/20 14:39 Sodium Bicarbonate Tab 325 Mg Tab PO 1,300 mg TID LIZZ Administration Hospitalist Exam Vitals: Vital Signs (12 hours) Temp Pulse Pulse Resp BP BP Pulse Ox 11/27/20 16:35 99.2 F 65 16 168/76 H 96 11/27/20 16:20 98.9 F 83 16 170/83 H 97 11/27/20 15:51 98.1 F 77 16 149/79 H 96 11/27/20 12:00 98.7 F 90 16 148/80 H 96 11/27/20 08:49 96 11/27/20 07:48 99.2 F 88 16 158/65 H 96 Weight Weight 150 lb General Appearance: awake alert Neck: supple, symmetric, no JVD, no thyromegaly Heart: RRR, no gallops, no rubs, normal peripheral pulses Respiratory: no wheezes, no ronchi, normal chest expansion, no tachypnea Gastrointestinal: soft, non-distended, no guarding, no rigidity Extremities: no cyanosis, no clubbing, no edema Extremities - other findings: No calf tenderness Neurological: no new deficit Musculoskeletal: generalized weakness Psychiatric: normal affect, A&O x 3 Hosp A/P - Plan 70-year-old male with recent hospitalization for orthostatic hypotension presented to the hospital on 11/26 with lightheadedness/dizziness with syncope. He has been not drinking enough fluid as well. His work-up was consistent with acute renal failure with creatinine of 4.0 compared to 1.18 days ago. His magnesium was also 1.1. Please refer to the history and physical for further detail. Impression: Generalized weaknessmultifactorial Acute on chronic anemia due to CLL/aplastic anemia s/p PRBC Severe orthostatic hypotension causing syncope IRLANDA on CKD stage IImultifactorial Moderate protein calorie malnutrition Hyponatremia/hypomagnesemia/hypokalemia Coronary artery disease History of hypertension Cholelithiasis Pancytopenia Plan: Replace magnesium. Cyclosporine level will be checked. Will consult nephrology and oncology. Await palliative care input. Continue IV hydration. Continue midodrine. Replace potassium and magnesium. Valtrex will be held as well. Recheck labs in a.m. Add Ensure.
--- NOTE | 2020-11-27 19:07 | CON ---
DATE OF CONSULTATION: 11/27/2020 SERVICE: Nephrology. REASON FOR CONSULTATION: Acute renal failure. REQUESTING PHYSICIAN: Jeremiah Torrez MD HISTORY OF PRESENT ILLNESS: A 70-year-old male with known history of CLL, status post treatment, which was however complicated by aplastic anemia for which he is on treatment with Promacta, recurrent syncopal episodes with recent hospitalization about 2 weeks ago, which was felt to be due to orthostatic hypotension, and patient was started on some medications including Megace and midodrine. The patient reportedly was brought to the hospital after he had another syncopal episode. The patient reportedly stood up to go to the restroom and passed out. He reported that his oral intake has been poor, though it has increased since discharge from recent hospital, but he acknowledged that his oral intake has been poor overall. He denied nausea, vomiting, or diarrhea. He reported some dysuria, which has resolved. Of note, also the patient was started on Pyridium on discharge during last hospitalization for dysuria, which has now resolved. During this hospitalization, the patient was found to have markedly elevated creatinine of 4.05, which is way above his baseline of 1.11 on November 18, hence Nephrology consult. Review of medical record revealed that the patient is on cyclosporine, Valtrex, as well as fluconazole. He recently also was started on Megace, Pyridium, and midodrine. On presentation, the patient was felt to be dry and was started on IV fluid therapy resuscitation and subsequently on normal saline. He reports feeling better. There was no associated fever or chills, cough, or dysuria. PAST MEDICAL HISTORY: 1. CLL. 2. Aplastic anemia. 3. Orthostatic hypotension. 4. CKD stage 3. 5. Hyperlipidemia. 6. Hypertension. 7. Coronary artery disease. 8. Nephrolithiasis. PAST SURGICAL HISTORY: 1. Ankle surgery. 2. Shoulder surgery. 3. Hernia repair. 4. Cardiac stents. FAMILY HISTORY: Significant for cancer in mother, who had renal cancer. Father had a cardiac disorder. SOCIAL HISTORY: The patient lives with family. He is a former smoker. ALLERGIES: NO KNOWN DRUG ALLERGIES REPORTED. MEDICATIONS: Prior to hospital medications are as follows: 1. Zofran ODT 8 mg q.6 p.r.n. 2. Fluconazole 200 mg p.o. daily. 3. Lipitor 40 mg p.o. daily at bedtime. 4. Magnesium oxide p.o. t.i.d. 5. Promacta 150 mg p.o. daily. 6. Cyclosporine 200 mg p.o. b.i.d. 7. Valtrex p.o. daily. 8. Meclizine 25 mg p.o. q.8 hours. 9. Florinef 0.2 mg p.o. daily. 10. Megace 80 mg p.o. daily. 11. Midodrine 10 mg p.o. t.i.d. 12. Pyridium 100 mg p.o. b.i.d. REVIEW OF SYSTEMS: Twelve-point review of systems performed was negative other than pertinent positives and negatives included in the history of present illness. PHYSICAL EXAMINATION: VITAL SIGNS: Temperature 99.2, pulse 88, respiratory rate 16, SpO2 of 96% on room air, blood pressure is 158/65. GENERAL: A chronically ill-looking elderly male, in no obvious distress. Fatigued. Afebrile and anicteric. HEENT: Normocephalic, atraumatic. Oral mucosa is dry. NECK: Supple with no JVD. CARDIOVASCULAR: Regular rhythm and rate with normal heart sounds 1 and 2. RESPIRATORY: Fair air entry bilaterally with no obvious crackle or rhonchi. GI: Full, soft, nontender, nondistended with normal bowel sounds. EXTREMITIES: Grossly normal looking, atraumatic, with no obvious edema. 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 Cranial nerves 2 through 12 are grossly intact. DIAGNOSTIC DATA: CBC on presentation, November 26, showed WBC of 2.9, hemoglobin of 7.2, MCV of 89.9, and platelets of 49. CBC earlier today showed WBC of 2.5, hemoglobin of 8.1, platelets of 47. Chemistry earlier today showed a sodium of 135, potassium 3.3, chloride 105, CO2 of 20, BUN 29, creatinine 3.64, glucose 78, calcium 7.7, magnesium is 1.6, and phosphorus is 3.9. On presentation yesterday, however, sodium was 135, potassium 3.6, chloride 103, CO2 of 23, BUN 32, creatinine 4.05, glucose 108, calcium 7.7, magnesium 1.1, total bilirubin 1.2, AST 17, ALT 12, alkaline phosphatase 74, total protein 4.9, albumin 2.9. Initial cardiac markers on presentation yesterday showed CK-MB 1.7 and troponin 0.052. Urinalysis on presentation, November 26, 2020, showed orange, cloudy urine with pH of 6.0, specific gravity of 1.010, positive protein, sulfosalicylic acid. Leukocyte esterase, bilirubin, nitrite, blood, ketones, glucose, and protein were unable to be interpreted. Microscopy, however, showed no rbc or wbc. CT scan of the abdomen and pelvis without contrast showed small pericardial effusion, cholelithiasis with numerous gallstones within a mildly distended gallbladder. Dense atherosclerotic calcification of the abdominal aorta with atherosclerotic calcification at the origin of both renal arteries were noted suggestive of renal artery stenosis. Tiny nonobstructing calculi in the upper collecting structures of the right kidney were also noted. ASSESSMENT: 1. Acute renal failure: Etiology is unclear, but seems to most likely be due to hemodynamic factors related to volume depletion and medications. The patient on cyclosporine, also is on Valtrex and fluconazole, and there is no recent measurement of cyclosporine level. Cyclosporine-induced nephrotoxicity is a concern given the fact that patient also is on fluconazole and other medications, which will likely increase nephrotoxicity component of cyclosporine. 2. Chronic kidney disease stage 3. 3. Metabolic acidosis: Due to acute kidney injury and use of normal saline therapy. 4. Hypokalemia due to poor oral intake. 5. Hypomagnesemia due to poor oral intake. 6. Pancytopenia. 7. Orthostatic hypotension and syncope. 8. Nephrolithiasis without obstruction. 9. Cholelithiasis with no overt evidence of cholecystitis. 10. Failure to thrive. 11. Pancytopenia. PLAN: 1. We get urine electrolytes to calculate fractional excretion of urea and sodium. 2. We will hold Valtrex and cyclosporine for now. Indication of fluconazole is unknown. We will continue that for now. We will avoid nephrotoxic agents. We will start sodium bicarbonate infusion. 3. Tatum oral intake is advised. We will also start the patient on oral supplement with Nepro. Blood transfusion as per primary attending and Oncology. Many thanks for involving us in the care of this patient. We will follow along with you. Job ID: [id number]
--- NOTE | 2020-11-27 22:27 | CON ---
DATE OF CONSULTATION: HISTORY: This is a 70 years old male, who was diagnosed with chronic lymphocytic leukemia in 2016. Initially, he was treated with ibrutinib between July 2019 to November 2019. The patient failed ibrutinib treatment and was treated with venetoclax and Rituxan. This regimen was started in December 2019 and stopped in March 2020 because of pancytopenia. Bone marrow at that time showed 10% cellularity, but there was no evidence of residual chronic lymphocytic leukemia in the bone marrow. The patient was referred to [facility], where he has been on treatment for myelodysplastic syndrome with antithymocyte globulin, cyclosporine, and Promacta that was started on 08/20/2020. The patient's performance status had steadily declined since then. He has developed progressive fatigue and postural hypotension resulting in several falls including one yesterday. He also had extremely poor appetite and had very poor oral intake. He denies fever. CURRENT MEDICATIONS: 1. Lipitor. 2. Valacyclovir. 3. Promacta. 4. Diflucan. 5. Cyclosporine. 6. Magnesium. 7. Zofran. 8. Florinef. 9. Meclizine. 10. Megestrol. 11. Midodrine. 12. Pyridium. Drugs with adverse effect, none reported. PAST FAMILY AND SOCIAL HISTORY: The patient has very limited mobility and has extremely poor appetite. He lives with his . He does not drink and denies illicit drug use. He used to work for [employer]. PAST MEDICAL HISTORY: Positive for coronary artery disease and hypertension. PAST SURGICAL HISTORY: Includes surgery for broken ankle repair, coronary artery bypass graft surgery in 2012, and stent placement also in 2012. Resection of polyp in April 2014. REVIEW OF SYSTEMS: As above. PHYSICAL EXAMINATION: GENERAL: The patient appears chronically ill, and he is quite frail. VITAL SIGNS: Temperature 98.5, pulse 72, respirations 18, blood pressure 171/80, pulse ox 97% on room air. HEENT: Unremarkable. Lymph nodes not enlarged in cervical, supraclavicular, axillary, or inguinal area. CHEST: Clear to percussion and auscultation. HEART: S1, S2. ABDOMEN: Soft. No palpable hepatosplenomegaly. EXTREMITIES: Without pedal edema. LABORATORY DATA: CBC showed WBC 2500, hemoglobin 8.1, and platelet count 47,000. WBC differential shows 29.0% neutrophils, 4% bands, 43% lymphocytes, and 24% monocytes. Retic count is 2.1%. Chemistry profile is remarkable for elevated creatinine of 3.64 with a GFR of 17, glucose 78, calcium 7.7, albumin 2.9, and globulin 2.4. IMAGING STUDIES: Chest x-ray negative. CT scan of abdomen and pelvis, small pericardial effusion, cholelithiasis. Tiny obstructing calculi in the upper collecting system in the right kidney. ASSESSMENT AND RECOMMENDATION: This patient has developed progressive loss of function and frailty. He is also pancytopenic. The postural hypertension is related to general frailty. Anemia is likely contributing to the overall frailty and postural hypertension. The patient says he improves for a few days following blood transfusion. I have ordered 1 unit of packed red blood cell transfusion to see if that help dizziness and postural hypertension. I am not sure how long he can continue the treatment at [facility]. Thanks very much for allowing me to participate in this patient's care. The patient will be followed by the Oncology Service. Job ID: [id number]
[2020-11-28] MEDS: Sodium Chloride 0.9% 1,000 ML IV SCH ×5 (04:56→20:30)
[2020-11-28 06:54] LABS: Hemoglobin 9.2 g/dL (14.0-18.0); Mean Corpuscular HGB CONC 33.8 g/dL (32.0-36.0); Mean Corpuscular Hemoglobin 30.4 pg (27.0-31.0); Mean Corpuscular Volume 90.2 fL (78.0-98.0); Mean Platelet Volume 6.6 fL (7.4-10.4); Platelet Count 47 thou/uL (130-400); RBC Distribution Width 19.3 % (11.5-14.5); Red Blood Cell (RBC) Count 3.02 mill/uL (4.70-6.10); White Blood Cell (WBC) Count 2.6 thou/uL (4.8-10.8)
[2020-11-28 07:08] LABS: ALT (SGPT) 12 U/L (8-55); AST (SGOT) 17 U/L (5-34); Albumin 2.6 g/dL (3.4-4.8); Alkaline Phosphatase 73 U/L (40-110); Anion Gap 13 mmol/L (10-20); BUN (Urea Nitrogen) 27 mg/dL (8.4-25.7); Bilirubin, Total 1.6 mg/dL (0.2-1.2); Calc. Creatinine Clearance 18 mL/min (70-130); Calcium 7.9 mg/dL (7.8-10.44); Carbon Dioxide 21 mmol/L (23-31); Chloride 107 mmol/L (98-107); Globulin 1.8 g/dL (2.4-3.5); Glucose 82 mg/dL (83-110); Magnesium 1.9 mg/dL (1.6-2.6); Phosphorus 3.6 mg/dL (2.3-4.7); Potassium 3.5 mmol/L (3.5-5.1); Protein, Total 4.4 g/dL (5.8-8.1); Sodium 137 mmol/L (136-145)
[2020-11-28] MEDS: Sodium Bicarbonate Tab 325 MG TAB PO SCH ×3 (08:45→20:28)
[2020-11-28] MEDS: Famotidine 20 MG TAB PO SCH (08:45)
[2020-11-28] MEDS: Fludrocortisone Acetate 0.1 MG TAB PO SCH (08:46)
[2020-11-28] MEDS ORDERED: Potassium Chloride 20 MEQ TAB PO SCH (10:00)
[2020-11-28] MEDS ORDERED: ELTROMBOPAG OLAMINE 75 MG PO SCH (12:15)
[2020-11-28] MEDS: Midodrine HCl 5 MG TAB PO SCH ×3 (15:19→20:33)
--- NOTE | 2020-11-28 15:22 | PDOC.NEPPN ---
- Subjective Encounter Date: 11/28/20 Subjective: Seen and examined. Feeling better but still weak overall. Oral is still poor. No fever. - Objective Vital Signs & Weight: Vital Signs (12 hours) Temp Pulse Resp BP Pulse Ox 11/28/20 15:16 99.5 F 73 14 172/88 H 98 11/28/20 11:28 98.7 F 68 14 172/85 H 96 11/28/20 08:45 98 11/28/20 07:32 98.5 F 71 16 158/77 H 98 11/28/20 03:37 99.1 F 78 18 132/74 97 Weight Weight 150 lb I&O: 11/27/20 11/28/20 11/29/20 06:59 06:59 06:59 Intake Total 360 2250 Balance 360 2250 Result Diagrams: 11/28/20 06:00 11/28/20 06:00 Nephrology ROS - Medication Medications: Active Medications Generic Name Dose Route Start Last Admin Trade Name Freq PRN Reason Stop Dose Admin Famotidine 20 mg 11/27/20 09:00 11/28/20 08:45 Famotidine 20 Mg Tab PO 20 mg DAILY LIZZ Administration Fludrocortisone Acetate 0.2 mg 11/27/20 09:00 11/28/20 08:46 Fludrocortisone Acetate 0.1 Mg Tab PO 0.2 mg DAILY LIZZ Administration Sodium Chloride 1,000 mls @ 125 mls/hr 11/27/20 17:19 11/28/20 11:33 Normal Saline 0.9% IV Not Given .Q8H LIZZ Midodrine 10 mg 11/26/20 15:00 11/28/20 15:19 Midodrine Hcl 5 Mg Tab PO Not Given TID LIZZ Ondansetron HCl 4 mg 11/26/20 14:50 11/27/20 08:48 Ondansetron Odt 4 Mg Tab PO 4 mg Q6H PRN Administration Nausea/Vomiting Sodium Bicarbonate 1,300 mg 11/27/20 15:00 11/28/20 08:45 Sodium Bicarbonate Tab 325 Mg Tab PO 1,300 mg TID LIZZ Administration - Exam General Appearance: awake alert Eye: anicteric sclera ENT: normocephalic atraumatic, moist mucosa Neck: symmetric, no JVD Respiratory: no wheezes, no rales, no ronchi, normal chest expansion, no tachypnea Cardiovascular: RRR Gastrointestinal: soft, non-tender, non-distended, normal bowel sounds Extremities: no edema Neurological: CN's grossly intact, no focal deficits Musculoskeletal: generalized weakness, diffuse muscle atrophy PSYCH: A&O x 3 Nephrology Results - Labs Result Diagrams: 11/28/20 06:00 11/28/20 06:00 Lab results: WBC 2.6 thou/uL (4.8-10.8) L 11/28/20 06:00 Hgb 9.2 g/dL (14.0-18.0) L 11/28/20 06:00 Hct 27.2 % (42.0-52.0) L 11/28/20 06:00 MCV 90.2 fL (78.0-98.0) 11/28/20 06:00 Plt Count 47 thou/uL (130-400) L 11/28/20 06:00 Band Neuts % (Manual) 4 % (5-11) L 11/27/20 04:52 Sodium 137 mmol/L (136-145) 11/28/20 06:00 Potassium 3.5 mmol/L (3.5-5.1) 11/28/20 06:00 Chloride 107 mmol/L (98-107) 11/28/20 06:00 Carbon Dioxide 21 mmol/L (23-31) L 11/28/20 06:00 BUN 27 mg/dL (8.4-25.7) H 11/28/20 06:00 Creatinine 3.55 mg/dL (0.7-1.3) H 11/28/20 06:00 Glucose 82 mg/dL (83-110) L 11/28/20 06:00 Calcium 7.9 mg/dL (7.8-10.44) 11/28/20 06:00 Total Bilirubin 1.6 mg/dL (0.2-1.2) H 11/28/20 06:00 AST 17 U/L (5-34) 11/28/20 06:00 ALT 12 U/L (8-55) 11/28/20 06:00 Alkaline Phosphatase 73 U/L (40-110) 11/28/20 06:00 CK-MB (CK-2) 1.7 ng/mL (0-6.6) 11/26/20 11:09 Troponin I 0.052 ng/mL (< 0.028) H 11/26/20 11:09 Serum Total Protein 4.4 g/dL (5.8-8.1) L 11/28/20 06:00 Albumin 2.6 g/dL (3.4-4.8) L 11/28/20 06:00 Lipase 16 U/L (8-78) 11/26/20 11:12 Urine Ketones Unable to Interpret mg/dL (Negative) 11/26/20 11:04 Urine Blood Unable to Interpret (Negative) 11/26/20 11:04 Urine Nitrite Unable to Interpret (Negative) 11/26/20 11:04 Ur Leukocyte Esterase Unable to Interpret Manish/uL (Negative) 11/26/20 11:04 Urine RBC None Seen HPF (0-3) 11/26/20 11:04 Urine WBC None Seen HPF (0-3) 11/26/20 11:04 Ur Squamous Epith Cells 0-3 HPF (0-3) 11/26/20 11:04 Urine Bacteria 1+ HPF (None Seen) A 11/26/20 11:04 Sodium 137 mmol/L (136-145) 11/28/20 06:00 Potassium 3.5 mmol/L (3.5-5.1) 11/28/20 06:00 Chloride 107 mmol/L (98-107) 11/28/20 06:00 Carbon Dioxide 21 mmol/L (23-31) L 11/28/20 06:00 Anion Gap 13 mmol/L (10-20) 11/28/20 06:00 BUN 27 mg/dL (8.4-25.7) H 11/28/20 06:00 Creatinine 3.55 mg/dL (0.7-1.3) H 11/28/20 06:00 Glucose 82 mg/dL (83-110) L 11/28/20 06:00 Calcium 7.9 mg/dL (7.8-10.44) 11/28/20 06:00 Phosphorus 3.6 mg/dL (2.3-4.7) 11/28/20 06:00 Magnesium 1.9 mg/dL (1.6-2.6) 11/28/20 06:00 Albumin 2.6 g/dL (3.4-4.8) L 11/28/20 06:00 Nephrology AP PN - Plan IRLANDA.2/2/ Hemodynamic factors. Improving with fluids while cyclosporine, valtrex and fluconazole are held. CKD 3 Metabolic acidosis Recurrent orthoststic hypotension and syncope pancytopenia: Chronic. Related to cancer treatment +/- drugs. Protein calorie malnutrition PLAN Continue NS at 125 Continue alkali therapy Continue to hold cyclosporine, fluconazoe and valtrex. [place] oral intake advised. Recheck renal function in the am.
--- NOTE | 2020-11-28 15:44 | PDOC.HOSPP ---
- Subjective Encounter Date: 11/28/20 Encounter Time: 10:30 Subjective: Patient seen and examined for acute kidney injury with generalized weakness. Symptomatically feels better. Received 1 unit of PRBC yesterday. Denies any chest pain, shortness of breath or palpitations. - Objective Vital Signs & Weight: Vital Signs (12 hours) Temp Pulse Resp BP Pulse Ox 11/28/20 15:16 99.5 F 73 14 172/88 H 98 11/28/20 11:28 98.7 F 68 14 172/85 H 96 11/28/20 08:45 98 11/28/20 07:32 98.5 F 71 16 158/77 H 98 Weight Weight 150 lb I&O: 11/27/20 11/28/20 11/29/20 06:59 06:59 06:59 Intake Total 360 2250 Balance 360 2250 Result Diagrams: 11/28/20 06:00 11/28/20 06:00 Additional Labs: Abnormal Lab Results - Last 48 hrs 11/26/20 12:15: Crossmatch See Detail 11/26/20 20:52: WBC 2.4 L, RBC 2.65 L, Hgb 8.1 L, Hct 23.9 L, RDW 20.2 H, Plt Count 48 L, Band Neuts % (Manual) 4 L, Monocytes % (Manual) 16 H, Plt Morphology Comment Appears Decreased L 11/27/20 04:52: Sodium 135 L, Potassium 3.3 L, Carbon Dioxide 20 L, BUN 29 H, Creatinine 3.64 H, Calcium 7.7 L 11/27/20 04:52: WBC 2.5 L, RBC 2.56 L, Hgb 8.1 L, Hct 23.3 L, MCH 31.8 H, RDW 20.4 H, Plt Count 47 L, Neutrophils % (Manual) 29 L, Band Neuts % (Manual) 4 L, Monocytes % (Manual) 24 H, Plt Morphology Comment Appears Decreased L 11/27/20 04:52: Retic Count 2.1 H 11/27/20 11:45: U Random Total Protein 123 H 11/28/20 06:00: Carbon Dioxide 21 L, BUN 27 H, Creatinine 3.55 H, Total Bilirubin 1.6 H, Serum Total Protein 4.4 L, Albumin 2.6 L, Globulin 1.8 L 11/28/20 06:00: WBC 2.6 L, RBC 3.02 L, Hgb 9.2 L, Hct 27.2 L, RDW 19.3 H, Plt Count 47 L, MPV 6.6 L Hospitalist ROS - Review of Systems Respiratory: denies: cough, dry, shortness of breath, hemoptysis, SOB with excertion, pleuritic pain, sputum, wheezing, other Cardiovascular: denies: chest pain, palpitations, orthopnea, paroxysmal noc. dyspnea, edema, light headedness, other - Medication Medications: Active Medications Generic Name Dose Route Start Last Admin Trade Name Freq PRN Reason Stop Dose Admin Famotidine 20 mg 11/27/20 09:00 11/28/20 08:45 Famotidine 20 Mg Tab PO 20 mg DAILY LIZZ Administration Fludrocortisone Acetate 0.2 mg 11/27/20 09:00 11/28/20 08:46 Fludrocortisone Acetate 0.1 Mg Tab PO 0.2 mg DAILY LIZZ Administration Sodium Chloride 1,000 mls @ 125 mls/hr 11/27/20 17:19 11/28/20 11:33 Normal Saline 0.9% IV Not Given .Q8H LIZZ Ondansetron HCl 4 mg 11/26/20 14:50 11/27/20 08:48 Ondansetron Odt 4 Mg Tab PO 4 mg Q6H PRN Administration Nausea/Vomiting Sodium Bicarbonate 1,300 mg 11/27/20 15:00 11/28/20 08:45 Sodium Bicarbonate Tab 325 Mg Tab PO 1,300 mg TID LIZZ Administration Hospitalist Exam Vitals: Vital Signs (12 hours) Temp Pulse Resp BP Pulse Ox 11/28/20 15:16 99.5 F 73 14 172/88 H 98 11/28/20 11:28 98.7 F 68 14 172/85 H 96 11/28/20 08:45 98 11/28/20 07:32 98.5 F 71 16 158/77 H 98 Weight Weight 150 lb General Appearance: awake alert Neck: supple, no JVD Heart: RRR, no gallops Respiratory: no wheezes, no ronchi Gastrointestinal: soft, non-tender, normal bowel sounds Extremities: no cyanosis Neurological: no new deficit Musculoskeletal: generalized weakness Psychiatric: A&O x 3 Hosp A/P - Plan DVT proph w/SCDs (No heparin or Lovenox due to thrombocytopenia) 70-year-old male with recent hospitalization for orthostatic hypotension presented to the hospital on 11/26 with lightheadedness/dizziness with syncope. He has been not drinking enough fluid as well. His work-up was consistent with acute renal failure with creatinine of 4.0 compared to 1.18 days ago. His magnesium was also 1.1. Patient was evaluated by nephrology and oncology service. Cyclosporine, valacyclovir and fluconazole were held. He also received 2 unit of PRBC. Impression: Generalized weaknessmultifactorial Acute on chronic anemia due to CLL/aplastic anemia s/p PRBC Severe orthostatic hypotension causing syncope IRLANDA on CKD stage IImultifactorial Moderate protein calorie malnutrition Hyponatremia/hypomagnesemia/hypokalemia Coronary artery disease History of hypertension Cholelithiasis Pancytopenia Plan: Symptomatically improving. Will replace magnesium and potassium. Cyclosporine, fluconazole and Valtrex on hold. Continue IV fluids. Continue fludrocortisone and midodrine for orthostatic hypotension. Will resume Promacta. Recheck labs in a.m. Continue other medications as above. Consult physical therapy. Cyclosporine level pending at this time. Continue to monitor. 11/27 Replace magnesium. Cyclosporine level will be checked. Will consult nephrology and oncology. Await palliative care input. Continue IV hydration. Continue midodrine. Replace potassium and magnesium. Valtrex will be held as well. Recheck labs in a.m. Add Ensure.
[2020-11-28] MEDS: PROMACTA 75 MG PO SCH (20:29)
[2020-11-29] MEDS: Sodium Chloride 0.9% 1,000 ML IV SCH ×3 (01:33→09:36)
[2020-11-29 05:55] LABS: ALT (SGPT) 12 U/L (8-55); AST (SGOT) 16 U/L (5-34); Albumin 2.7 g/dL (3.4-4.8); Alkaline Phosphatase 73 U/L (40-110); Anion Gap 14 mmol/L (10-20); BUN (Urea Nitrogen) 23 mg/dL (8.4-25.7); Bilirubin, Total 1.9 mg/dL (0.2-1.2); Calc. Creatinine Clearance 22 mL/min (70-130); Calcium 8.1 mg/dL (7.8-10.44); Carbon Dioxide 20 mmol/L (23-31); Chloride 107 mmol/L (98-107); Globulin 1.8 g/dL (2.4-3.5); Glucose 79 mg/dL (83-110); Potassium 3.1 mmol/L (3.5-5.1); Protein, Total 4.5 g/dL (5.8-8.1); Sodium 138 mmol/L (136-145)
[2020-11-29] MEDS ORDERED: Potassium Chloride 20 MEQ TAB PO SCH (06:30)
[2020-11-29] MEDS: Potassium Chloride 20 MEQ TAB PO SCH ×2 (09:34→09:41)
[2020-11-29] MEDS: Sodium Bicarbonate Tab 325 MG TAB PO SCH ×3 (09:35→20:20)
[2020-11-29] MEDS: Fludrocortisone Acetate 0.1 MG TAB PO SCH (09:35)
[2020-11-29] MEDS: Famotidine 20 MG TAB PO SCH (09:35)
[2020-11-29] MEDS: Midodrine HCl 5 MG TAB PO SCH ×3 (09:37→20:23)
--- NOTE | 2020-11-29 11:23 | PDOC.NEPPN ---
- Subjective Encounter Date: 11/29/20 Subjective: Seen in follow up for ARR. Feeling better. Oral intake remained poor. No fever or vomiting. - Objective Vital Signs & Weight: Vital Signs (12 hours) Temp Pulse Resp BP Pulse Ox 11/29/20 08:00 98.1 F 86 12 106/67 96 11/29/20 05:15 99.1 F 83 18 102/66 97 11/29/20 00:47 98.1 F 84 18 97 Weight Weight 150 lb I&O: 11/28/20 11/29/20 11/30/20 06:59 06:59 06:59 Intake Total 2250 5070 Balance 2250 5070 Result Diagrams: 11/28/20 06:00 11/29/20 05:06 Nephrology ROS - Medication Medications: Active Medications Generic Name Dose Route Start Last Admin Trade Name Freq PRN Reason Stop Dose Admin Famotidine 20 mg 11/27/20 09:00 11/29/20 09:35 Famotidine 20 Mg Tab PO 20 mg DAILY LIZZ Administration Fludrocortisone Acetate 0.2 mg 11/27/20 09:00 11/29/20 09:35 Fludrocortisone Acetate 0.1 Mg Tab PO 0.2 mg DAILY LIZZ Administration Sodium Chloride 1,000 mls @ 125 mls/hr 11/27/20 17:19 11/29/20 09:36 Normal Saline 0.9% IV Not Given .Q8H LIZZ Midodrine 10 mg 11/28/20 21:00 11/29/20 09:37 Midodrine Hcl 5 Mg Tab PO Not Given TID LIZZ Ondansetron HCl 4 mg 11/26/20 14:50 11/27/20 08:48 Ondansetron Odt 4 Mg Tab PO 4 mg Q6H PRN Administration Nausea/Vomiting Patient's Home 0 each 11/28/20 21:00 11/28/20 20:29 Medication Promacta PO 1 each 75 Mg 2100 LIZZ Administration Sodium Bicarbonate 1,300 mg 11/27/20 15:00 11/29/20 09:35 Sodium Bicarbonate Tab 325 Mg Tab PO 1,300 mg TID LIZZ Administration - Exam General Appearance: awake alert General - other findings: fatigued ENT: normocephalic atraumatic, moist mucosa Neck: supple, symmetric, no JVD Respiratory: no wheezes, no rales, no ronchi, no tachypnea Cardiovascular: RRR Gastrointestinal: soft, non-tender, non-distended, normal bowel sounds Extremities: no cyanosis, no edema Neurological: CN's grossly intact, no focal deficits PSYCH: A&O x 3 Nephrology Results - Labs Result Diagrams: 11/28/20 06:00 11/29/20 05:06 Lab results: WBC 2.6 thou/uL (4.8-10.8) L 11/28/20 06:00 Hgb 9.2 g/dL (14.0-18.0) L 11/28/20 06:00 Hct 27.2 % (42.0-52.0) L 11/28/20 06:00 MCV 90.2 fL (78.0-98.0) 11/28/20 06:00 Plt Count 47 thou/uL (130-400) L 11/28/20 06:00 Band Neuts % (Manual) 4 % (5-11) L 11/27/20 04:52 Sodium 138 mmol/L (136-145) 11/29/20 05:06 Potassium 3.1 mmol/L (3.5-5.1) L 11/29/20 05:06 Chloride 107 mmol/L (98-107) 11/29/20 05:06 Carbon Dioxide 20 mmol/L (23-31) L 11/29/20 05:06 BUN 23 mg/dL (8.4-25.7) 11/29/20 05:06 Creatinine 2.98 mg/dL (0.7-1.3) H 11/29/20 05:06 Glucose 79 mg/dL (83-110) L 11/29/20 05:06 Calcium 8.1 mg/dL (7.8-10.44) 11/29/20 05:06 Total Bilirubin 1.9 mg/dL (0.2-1.2) H 11/29/20 05:06 AST 16 U/L (5-34) 11/29/20 05:06 ALT 12 U/L (8-55) 11/29/20 05:06 Alkaline Phosphatase 73 U/L (40-110) 11/29/20 05:06 CK-MB (CK-2) 1.7 ng/mL (0-6.6) 11/26/20 11:09 Troponin I 0.052 ng/mL (< 0.028) H 11/26/20 11:09 Serum Total Protein 4.5 g/dL (5.8-8.1) L 11/29/20 05:06 Albumin 2.7 g/dL (3.4-4.8) L 11/29/20 05:06 Lipase 16 U/L (8-78) 11/26/20 11:12 Urine Ketones Unable to Interpret mg/dL (Negative) 11/26/20 11:04 Urine Blood Unable to Interpret (Negative) 11/26/20 11:04 Urine Nitrite Unable to Interpret (Negative) 11/26/20 11:04 Ur Leukocyte Esterase Unable to Interpret Manish/uL (Negative) 11/26/20 11:04 Urine RBC None Seen HPF (0-3) 11/26/20 11:04 Urine WBC None Seen HPF (0-3) 11/26/20 11:04 Ur Squamous Epith Cells 0-3 HPF (0-3) 11/26/20 11:04 Urine Bacteria 1+ HPF (None Seen) A 11/26/20 11:04 Sodium 138 mmol/L (136-145) 11/29/20 05:06 Potassium 3.1 mmol/L (3.5-5.1) L 11/29/20 05:06 Chloride 107 mmol/L (98-107) 11/29/20 05:06 Carbon Dioxide 20 mmol/L (23-31) L 11/29/20 05:06 Anion Gap 14 mmol/L (10-20) 11/29/20 05:06 BUN 23 mg/dL (8.4-25.7) 11/29/20 05:06 Creatinine 2.98 mg/dL (0.7-1.3) H 11/29/20 05:06 Glucose 79 mg/dL (83-110) L 11/29/20 05:06 Calcium 8.1 mg/dL (7.8-10.44) 11/29/20 05:06 Phosphorus 3.6 mg/dL (2.3-4.7) 11/28/20 06:00 Magnesium 1.9 mg/dL (1.6-2.6) 11/28/20 06:00 Albumin 2.7 g/dL (3.4-4.8) L 11/29/20 05:06 Nephrology AP PN - Plan IRLANDA.2/2/ Hemodynamic factors. Improving with fluids while cyclosporine, valtrex and fluconazole are held. CKD 3 Metabolic acidosis: Persists Hypokalemia Volume depletion Recurrent orthoststic hypotension and syncope Pancytopenia: Chronic. Related to cancer treatment +/- drugs. Protein calorie malnutrition PLAN Replete serum potassium. Get magnesium level Substitute NS with LR Continue oral alkali therapy Continue to hold cyclosporine, fluconazoe and valtrex. Awaiting cyclosporine level [place] oral intake advised. Recheck renal function in the am.
[2020-11-29] MEDS: Lactated Ringer's 1,000 ML IV SCH ×2 (12:22→20:21)
--- NOTE | 2020-11-29 15:26 | PDOC.MOPN ---
Interval History: feels better today, no complaints. at bedside - Vital Signs Vital Signs: Vital Signs (12 hours) Temp Pulse Resp BP Pulse Ox 11/29/20 12:36 99.4 F 78 16 172/85 H 97 11/29/20 08:00 98.1 F 86 12 106/67 96 11/29/20 05:15 99.1 F 83 18 102/66 97 Weight Weight 150 lb - Physical Exam HEENT: Atraumatic Lungs: Clear to auscultation Cardiovascular: Regular rate Abdomen: Normal bowel sounds Neurological: Normal speech - Labs Result Diagrams: 11/28/20 06:00 11/29/20 05:06 Lab results: Laboratory Results - last 24 hr 11/29/20 11:56: POC Glucose 80 11/29/20 05:06: Sodium 138, Potassium 3.1 L, Chloride 107, Carbon Dioxide 20 L, Anion Gap 14, BUN 23, Creatinine 2.98 H, Estimated GFR (MDRD) 21, Glucose 79 L, Calcium 8.1, Total Bilirubin 1.9 H, AST 16, ALT 12, Alkaline Phosphatase 73, Serum Total Protein 4.5 L, Albumin 2.7 L, Globulin 1.8 L, Albumin/Globulin Ratio 1.5 Status: lab reviewed by me A/P - Problem (1) Aplastic anemia Current Visit: Yes Code(s): D61.9 - APLASTIC ANEMIA, UNSPECIFIED Status: Acute (2) IRLANDA (acute kidney injury) Current Visit: No Code(s): N17.9 - ACUTE KIDNEY FAILURE, UNSPECIFIED Status: Acute - Plan Plan: Patient has teleconference with [facility] on Sunday. His anemia has improved with treatment and he is not transfusion dependent as he was in last fall. However, he is having significant side effects from treatment including syncope, frailty. Encouraged to discuss with [facility] if dose reductions would benefit patient. I do not think he is ready for hospice yet.
[2020-11-29] MEDS: PROMACTA 75 MG PO SCH (20:22)
--- NOTE | 2020-11-29 23:02 | PDOC.HOSPP ---
- Subjective Encounter Date: 11/29/20 Encounter Time: 10:30 Subjective: Patient seen and examined for acute kidney injury/generalized weakness. No new focal deficit. Denies any chest pain or shortness of breath. - Objective Vital Signs & Weight: Vital Signs (12 hours) Temp Pulse Resp BP BP Pulse Ox 11/29/20 19:14 99.1 F 79 16 159/77 H 97 11/29/20 16:00 99.4 F 83 20 166/75 H 100 11/29/20 12:36 99.4 F 78 16 172/85 H 97 Weight Weight 150 lb I&O: 11/28/20 11/29/20 11/30/20 06:59 06:59 06:59 Intake Total 2250 5070 4980 Balance 2250 5070 4980 Result Diagrams: 11/28/20 06:00 11/29/20 05:06 Additional Labs: Accuchecks 11/29/20 11:56 POC Glucose 80 Abnormal Lab Results - Last 48 hrs 11/28/20 06:00: Carbon Dioxide 21 L, BUN 27 H, Creatinine 3.55 H, Total Bilirubin 1.6 H, Serum Total Protein 4.4 L, Albumin 2.6 L, Globulin 1.8 L 11/28/20 06:00: WBC 2.6 L, RBC 3.02 L, Hgb 9.2 L, Hct 27.2 L, RDW 19.3 H, Plt Count 47 L, MPV 6.6 L 11/29/20 05:06: Potassium 3.1 L, Carbon Dioxide 20 L, Creatinine 2.98 H, Total Bilirubin 1.9 H, Serum Total Protein 4.5 L, Albumin 2.7 L, Globulin 1.8 L Hospitalist ROS - Review of Systems Respiratory: denies: cough, dry, shortness of breath, hemoptysis, SOB with exc ertion, pleuritic pain, sputum, wheezing, other Cardiovascular: denies: chest pain, palpitations, orthopnea, paroxysmal noc. dyspnea, edema, light headedness, other - Medication Medications: Active Medications Generic Name Dose Route Start Last Admin Trade Name Freq PRN Reason Stop Dose Admin Famotidine 20 mg 11/27/20 09:00 11/29/20 09:35 Famotidine 20 Mg Tab PO 20 mg DAILY LIZZ Administration Lactated Ringer's 1,000 mls @ 125 mls/hr 11/29/20 11:30 11/29/20 20:21 Lactated Ringer's IV 1,000 mls .Q8H LIZZ Administration Midodrine 10 mg 11/28/20 21:00 11/29/20 20:23 Midodrine Hcl 5 Mg Tab PO Not Given TID LIZZ Ondansetron HCl 4 mg 11/26/20 14:50 11/27/20 08:48 Ondansetron Odt 4 Mg Tab PO 4 mg Q6H PRN Administration Nausea/Vomiting Patient's Home 0 each 11/28/20 21:00 11/29/20 20:22 Medication Promacta PO 1 each 75 Mg 2100 LIZZ Administration Sodium Bicarbonate 1,300 mg 11/27/20 15:00 11/29/20 20:20 Sodium Bicarbonate Tab 325 Mg Tab PO 1,300 mg TID LIZZ Administration Hospitalist Exam Vitals: Vital Signs (12 hours) Temp Pulse Resp BP BP Pulse Ox 11/29/20 19:14 99.1 F 79 16 159/77 H 97 11/29/20 16:00 99.4 F 83 20 166/75 H 100 11/29/20 12:36 99.4 F 78 16 172/85 H 97 Weight Weight 150 lb General Appearance: awake alert Neck: supple, no JVD Heart: RRR, no gallops Respiratory: no wheezes, no rales Gastrointestinal: soft, non-distended Extremities: no cyanosis Musculoskeletal: generalized weakness Psychiatric: A&O x 3 Hosp A/P - Plan DVT proph w/SCDs (No heparin or Lovenox due to anemia) 70-year-old male with recent hospitalization for orthostatic hypotension presented to the hospital on 11/26 with lightheadedness/dizziness with syncope. He has been not drinking enough fluid as well. His work-up was consistent with acute renal failure with creatinine of 4.0 compared to 1.18 days ago. His magnesium was also 1.1. Patient was evaluated by nephrology and oncology service. Cyclosporine, valacyclovir and fluconazole were held. He also received 2 unit of PRBC. Impression: Generalized weaknessmultifactorial Acute on chronic anemia due to CLL/aplastic anemia s/p PRBC Severe orthostatic hypotension causing syncope IRLANDA on CKD stage IImultifactorial Moderate protein calorie malnutrition Hyponatremia/hypomagnesemia/hypokalemia Coronary artery disease History of hypertension Cholelithiasis Pancytopenia Plan: Continue supportive care. IV fluid transition to lactated Ringer. Add holding parameters for fludrocortisone and midodrine. Standing vitals only. Await cyclosporine level. Continue PT/OT. Replace potassium. A.m. labs. 11/27 Symptomatically improving. Will replace magnesium and potassium. Cyclosporine, fluconazole and Valtrex on hold. Continue IV fluids. Continue fludrocortisone and midodrine for orthostatic hypotension. Will resume Promacta. Recheck labs in a.m. Continue other medications as above. Consult physical therapy. Cyclosporine level pending at this time. Continue to monitor. 11/27 Replace magnesium. Cyclosporine level will be checked. Will consult nephrology and oncology. Await palliative care input. Continue IV hydration. Continue midodrine. Replace potassium and magnesium. Valtrex will be held as well. Recheck labs in a.m. Add Ensure.
[2020-11-30] MEDS: Lactated Ringer's 1,000 ML IV SCH ×3 (04:30→15:19)
[2020-11-30 05:45] LABS: Albumin 2.7 g/dL (3.4-4.8); Anion Gap 12 mmol/L (10-20); BUN (Urea Nitrogen) 20 mg/dL (8.4-25.7); BUN/Creatinine Ratio 8.58; Calc. Creatinine Clearance 28 mL/min (70-130); Calcium 8.3 mg/dL (7.8-10.44); Carbon Dioxide 21 mmol/L (23-31); Chloride 105 mmol/L (98-107); Glucose 90 mg/dL (83-110); Magnesium 1.2 mg/dL (1.6-2.6); Phosphorus 2.9 mg/dL (2.3-4.7); Potassium 3.1 mmol/L (3.5-5.1); Sodium 135 mmol/L (136-145)
[2020-11-30 05:59] LABS: Hemoglobin 8.7 g/dL (14.0-18.0); Mean Corpuscular HGB CONC 34.8 g/dL (32.0-36.0); Mean Corpuscular Hemoglobin 31.4 pg (27.0-31.0); Mean Corpuscular Volume 90.1 fL (78.0-98.0); Mean Platelet Volume 7.6 fL (7.4-10.4); Platelet Count 37 thou/uL (130-400); RBC Distribution Width 19.6 % (11.5-14.5); Red Blood Cell (RBC) Count 2.78 mill/uL (4.70-6.10); White Blood Cell (WBC) Count 2.1 thou/uL (4.8-10.8)
[2020-11-30] MEDS: Famotidine 20 MG TAB PO SCH (09:00)
[2020-11-30] MEDS: Sodium Bicarbonate Tab 325 MG TAB PO SCH ×3 (09:00→20:57)
[2020-11-30] MEDS: Fludrocortisone Acetate 0.1 MG TAB PO SCH (09:01)
[2020-11-30] MEDS: Midodrine HCl 5 MG TAB PO SCH ×3 (09:02→20:56)
--- NOTE | 2020-11-30 09:42 | PDOC.NEPPN ---
- Subjective Encounter Date: 11/30/20 Subjective: Seen and examined. Oral intake is improving but still suboptimal. No nausea or vomiting. - Objective Vital Signs & Weight: Vital Signs (12 hours) Temp Pulse Resp BP BP Pulse Ox 11/30/20 07:26 99.7 F H 87 16 163/79 H 96 11/30/20 05:42 98.9 F 84 18 118/75 94 L 11/30/20 00:46 99.6 F 76 18 96 Weight Weight 150 lb I&O: 11/29/20 11/30/20 12/01/20 06:59 06:59 06:59 Intake Total 5070 7200 Balance 5070 7200 Result Diagrams: 11/30/20 04:47 11/30/20 04:47 Additional Labs: Accuchecks 11/30/20 11/30/20 11/29/20 05:44 00:49 11:56 POC Glucose 94 77 80 Nephrology ROS - Medication Medications: Active Medications Generic Name Dose Route Start Last Admin Trade Name Freq PRN Reason Stop Dose Admin Famotidine 20 mg 11/27/20 09:00 11/30/20 09:00 Famotidine 20 Mg Tab PO 20 mg DAILY LIZZ Administration Fludrocortisone Acetate 0.2 mg 11/30/20 09:00 11/30/20 09:01 Fludrocortisone Acetate 0.1 Mg Tab PO 0.2 mg DAILY LIZZ Administration Lactated Ringer's 1,000 mls @ 125 mls/hr 11/29/20 11:30 11/30/20 04:30 Lactated Ringer's IV 1,000 mls .Q8H LIZZ Administration Midodrine 10 mg 11/28/20 21:00 11/30/20 09:02 Midodrine Hcl 5 Mg Tab PO Not Given TID LIZZ Ondansetron HCl 4 mg 11/26/20 14:50 11/27/20 08:48 Ondansetron Odt 4 Mg Tab PO 4 mg Q6H PRN Administration Nausea/Vomiting Patient's Home 0 each 11/28/20 21:00 11/29/20 20:22 Medication Promacta PO 1 each 75 Mg 2100 LIZZ Administration Sodium Bicarbonate 1,300 mg 11/27/20 15:00 11/30/20 09:00 Sodium Bicarbonate Tab 325 Mg Tab PO 1,300 mg TID LIZZ Administration - Exam General Appearance: awake alert Eye: anicteric sclera ENT: normocephalic atraumatic, moist mucosa Neck: symmetric, no JVD Respiratory: no wheezes, no rales, no ronchi, no tachypnea Cardiovascular: RRR Gastrointestinal: soft, non-tender, non-distended, normal bowel sounds Extremities: no edema Neurological: CN's grossly intact, no focal deficits Musculoskeletal: generalized weakness PSYCH: A&O x 3 Nephrology Results - Labs Result Diagrams: 11/30/20 04:47 11/30/20 04:47 Lab results: WBC 2.1 thou/uL (4.8-10.8) L 11/30/20 04:47 Hgb 8.7 g/dL (14.0-18.0) L 11/30/20 04:47 Hct 25.1 % (42.0-52.0) L 11/30/20 04:47 MCV 90.1 fL (78.0-98.0) 11/30/20 04:47 Plt Count 37 thou/uL (130-400) L 11/30/20 04:47 Band Neuts % (Manual) 4 % (5-11) L 11/27/20 04:52 Sodium 135 mmol/L (136-145) L 11/30/20 04:47 Potassium 3.1 mmol/L (3.5-5.1) L 11/30/20 04:47 Chloride 105 mmol/L (98-107) 11/30/20 04:47 Carbon Dioxide 21 mmol/L (23-31) L 11/30/20 04:47 BUN 20 mg/dL (8.4-25.7) 11/30/20 04:47 Creatinine 2.33 mg/dL (0.7-1.3) H 11/30/20 04:47 Glucose 90 mg/dL (83-110) 11/30/20 04:47 Calcium 8.3 mg/dL (7.8-10.44) 11/30/20 04:47 Total Bilirubin 1.9 mg/dL (0.2-1.2) H 11/29/20 05:06 AST 16 U/L (5-34) 11/29/20 05:06 ALT 12 U/L (8-55) 11/29/20 05:06 Alkaline Phosphatase 73 U/L (40-110) 11/29/20 05:06 CK-MB (CK-2) 1.7 ng/mL (0-6.6) 11/26/20 11:09 Troponin I 0.052 ng/mL (< 0.028) H 11/26/20 11:09 Serum Total Protein 4.5 g/dL (5.8-8.1) L 11/29/20 05:06 Albumin 2.7 g/dL (3.4-4.8) L 11/30/20 04:47 Lipase 16 U/L (8-78) 11/26/20 11:12 Urine Ketones Unable to Interpret mg/dL (Negative) 11/26/20 11:04 Urine Blood Unable to Interpret (Negative) 11/26/20 11:04 Urine Nitrite Unable to Interpret (Negative) 11/26/20 11:04 Ur Leukocyte Esterase Unable to Interpret Manish/uL (Negative) 11/26/20 11:04 Urine RBC None Seen HPF (0-3) 11/26/20 11:04 Urine WBC None Seen HPF (0-3) 11/26/20 11:04 Ur Squamous Epith Cells 0-3 HPF (0-3) 11/26/20 11:04 Urine Bacteria 1+ HPF (None Seen) A 11/26/20 11:04 Sodium 135 mmol/L (136-145) L 11/30/20 04:47 Potassium 3.1 mmol/L (3.5-5.1) L 11/30/20 04:47 Chloride 105 mmol/L (98-107) 11/30/20 04:47 Carbon Dioxide 21 mmol/L (23-31) L 11/30/20 04:47 Anion Gap 12 mmol/L (10-20) 11/30/20 04:47 BUN 20 mg/dL (8.4-25.7) 11/30/20 04:47 Creatinine 2.33 mg/dL (0.7-1.3) H 11/30/20 04:47 Glucose 90 mg/dL (83-110) 11/30/20 04:47 Calcium 8.3 mg/dL (7.8-10.44) 11/30/20 04:47 Phosphorus 2.9 mg/dL (2.3-4.7) 11/30/20 04:47 Magnesium 1.2 mg/dL (1.6-2.6) L 11/30/20 04:47 Albumin 2.7 g/dL (3.4-4.8) L 11/30/20 04:47 Nephrology AP PN - Plan IRLANDA.2/2/ Hemodynamic factors. Improving with fluids while cyclosporine, valtrex and fluconazole are held. Creat continues to trend down. Still significantly above baseline CKD 3 Hypomagnesemia Metabolic acidosis: Persists Hypokalemia Volume depletion Recurrent orthoststic hypotension and syncope Pancytopenia: Chronic. Related to cancer treatment +/- drugs. Protein calorie malnutrition PLAN Replete serum magneseium and potassium with 4 grams of magnesium sulphate and 80 meq of KCL. Continue LR Continue oral alkali therapy Continue to hold cyclosporine, fluconazoe and valtrex. Await cyclosporine level [place] oral intake advised. Recheck renal function in the am.
[2020-11-30] MEDS ORDERED: Magnesium Sulfate 4 GM in Sodium Chloride 0.9% 250 ML 250 ML IVPB SCH (09:45)
[2020-11-30] MEDS: Potassium Chloride 20 MEQ TAB PO SCH ×2 (10:13→15:14)
--- NOTE | 2020-11-30 19:13 | PDOC.HOSPP ---
- Subjective Encounter Date: 11/30/20 Encounter Time: 11:00 Subjective: Patient seen and examined for generalized weakness due to IRLANDA. Denies any new complaints. No chest pain or shortness of breath. - Objective Vital Signs & Weight: Vital Signs (12 hours) Temp Pulse Resp BP Pulse Ox 11/30/20 15:37 89 14 181/93 H 96 11/30/20 11:08 98.8 F 93 14 161/87 H 96 11/30/20 07:26 99.7 F H 87 16 163/79 H 96 Weight Weight 150 lb I&O: 11/29/20 11/30/20 12/01/20 06:59 06:59 06:59 Intake Total 5070 7200 Balance 5070 7200 Result Diagrams: 11/30/20 04:47 11/30/20 04:47 Additional Labs: Accuchecks 11/30/20 11/30/20 11/30/20 15:37 10:32 05:44 POC Glucose 98 115 H 94 11/30/20 00:49 POC Glucose 77 Abnormal Lab Results - Last 48 hrs 11/29/20 05:06: Potassium 3.1 L, Carbon Dioxide 20 L, Creatinine 2.98 H, Total Bilirubin 1.9 H, Serum Total Protein 4.5 L, Albumin 2.7 L, Globulin 1.8 L 11/30/20 04:47: Sodium 135 L, Potassium 3.1 L, Carbon Dioxide 21 L, Creatinine 2.33 H, Magnesium 1.2 L, Albumin 2.7 L 11/30/20 04:47: WBC 2.1 L, RBC 2.78 L, Hgb 8.7 L, Hct 25.1 L, MCH 31.4 H, RDW 19.6 H, Plt Count 37 L Hospitalist ROS - Review of Systems Cardiovascular: denies: chest pain, palpitations, orthopnea, paroxysmal noc. dyspnea, edema, light headedness, other Gastrointestinal: denies: nausea, vomiting, abdominal pain, diarrhea, constipation, melena, hematochezia, other - Medication Medications: Active Medications Generic Name Dose Route Start Last Admin Trade Name Freq PRN Reason Stop Dose Admin Famotidine 20 mg 11/27/20 09:00 11/30/20 09:00 Famotidine 20 Mg Tab PO 20 mg DAILY LIZZ Administration Fludrocortisone Acetate 0.2 mg 11/30/20 09:00 11/30/20 09:01 Fludrocortisone Acetate 0.1 Mg Tab PO 0.2 mg DAILY LIZZ Administration Lactated Ringer's 1,000 mls @ 125 mls/hr 11/29/20 11:30 11/30/20 15:19 Lactated Ringer's IV 1,000 mls .Q8H LIZZ Administration Midodrine 10 mg 11/28/20 21:00 11/30/20 15:15 Midodrine Hcl 5 Mg Tab PO 10 mg TID LIZZ Administration Ondansetron HCl 4 mg 11/26/20 14:50 11/27/20 08:48 Ondansetron Odt 4 Mg Tab PO 4 mg Q6H PRN Administration Nausea/Vomiting Patient's Home 0 each 11/28/20 21:00 11/29/20 20:22 Medication Promacta PO 1 each 75 Mg 2100 LIZZ Administration Sodium Bicarbonate 1,300 mg 11/27/20 15:00 11/30/20 15:15 Sodium Bicarbonate Tab 325 Mg Tab PO 1,300 mg TID LIZZ Administration Hospitalist Exam Vitals: Vital Signs (12 hours) Temp Pulse Resp BP Pulse Ox 11/30/20 15:37 89 14 181/93 H 96 11/30/20 11:08 98.8 F 93 14 161/87 H 96 11/30/20 07:26 99.7 F H 87 16 163/79 H 96 Weight Weight 150 lb General Appearance: awake alert Neck: supple, no JVD Heart: RRR, no gallops Respiratory: no wheezes, no ronchi Gastrointestinal: non-tender, normal bowel sounds Extremities: no cyanosis Neurological: no new deficit Hosp A/P - Plan DVT proph w/SCDs 70-year-old male with recent hospitalization for orthostatic hypotension presented to the hospital on 11/26 with lightheadedness/dizziness with syncope. He has been not drinking enough fluid as well. His work-up was consistent with acute renal failure with creatinine of 4.0 compared to baseline. His magnesium was also 1.1. Patient was evaluated by nephrology and oncology service. Cyclosporine, valacyclovir and fluconazole were held. He also received 2 unit of PRBC. Impression: Generalized weaknessmultifactorial Acute on chronic anemia due to CLL/aplastic anemia s/p PRBC Severe orthostatic hypotension causing syncope IRLANDA on CKD stage IImultifactorial Moderate protein calorie malnutrition Hyponatremia/hypomagnesemia/hypokalemia Coronary artery disease History of hypertension Cholelithiasis Pancytopenia Plan: Will hold fludrocortisone and midodrine if standing systolic blood pressure is over 120. Will replace magnesium and potassium. Renal function improving. Hemoglobin 8.7 today. Continue supportive care. Recheck basic metabolic pro file in a.m. Continue lactated Ringer's. 11/29 Continue supportive care. IV fluid transition to lactated Ringer. Add holding parameters for fludrocortisone and midodrine. Standing vitals only. Await cyclosporine level. Continue PT/OT. Replace potassium. A.m. labs. 11/28 Symptomatically improving. Will replace magnesium and potassium. Cyclosporine, fluconazole and Valtrex on hold. Continue IV fluids. Continue fludrocortisone and midodrine for orthostatic hypotension. Will resume Promacta. Recheck labs in a.m. Continue other medications as above. Consult physical therapy. Cyclosporine level pending at this time. Continue to monitor. 11/27 Replace magnesium. Cyclosporine level will be checked. Will consult nephrology and oncology. Await palliative care input. Continue IV hydration. Continue midodrine. Replace potassium and magnesium. Valtrex will be held as well. Re check labs in a.m. Add Ensure.
[2020-11-30] MEDS: PROMACTA 75 MG PO SCH (20:57)
[2020-12-01] MEDS: Lactated Ringer's 1,000 ML IV SCH ×4 (00:11→15:48)
[2020-12-01 07:24] LABS: Anion Gap 10 mmol/L (10-20); BUN (Urea Nitrogen) 17 mg/dL (8.4-25.7); Calc. Creatinine Clearance 32 mL/min (70-130); Calcium 8.2 mg/dL (7.8-10.44); Carbon Dioxide 26 mmol/L (23-31); Chloride 104 mmol/L (98-107); Glucose 96 mg/dL (83-110); Magnesium 1.8 mg/dL (1.6-2.6); Potassium 3.3 mmol/L (3.5-5.1); Sodium 137 mmol/L (136-145)
[2020-12-01] MEDS ORDERED: Sodium Bicarbonate Tab 325 MG TAB ONE ×2 (08:18→08:25)
[2020-12-01] MEDS: Midodrine HCl 5 MG TAB PO SCH ×3 (08:46→20:30)
[2020-12-01] MEDS: Famotidine 20 MG TAB PO SCH (08:46)
[2020-12-01] MEDS: Sodium Bicarbonate Tab 325 MG TAB PO SCH ×3 (08:47→20:26)
[2020-12-01] MEDS: Fludrocortisone Acetate 0.1 MG TAB PO SCH (08:47)
[2020-12-01] MEDS: Magnesium Oxide 400 MG TAB PO SCH ×2 (10:10→20:27)
[2020-12-01] MEDS: Potassium Chloride 20 MEQ TAB PO SCH ×2 (10:10→20:27)
--- NOTE | 2020-12-01 15:17 | PDOC.PALCO ---
Palliative Care Consult - Consult Details Requesting Physician: Dr Borrero Reason for Consult: goals of care, family support, coping issues Family Members Present: Brother - Pertinent HPI Mrs. Webb is a 70-year-old male with a history of CLL who is followed by Dr. Mendiola locally. He had his CLL in 2016 and treated with ibrutinib between Jul 2019 and Nov 2019. Failed ibrutinib and was treated with venetoclax and rituxan. Was stopped in March 2020 because of pancytopenia. Was referred to [facility] for treatment of MDS and started on August 20, 2020 with cyclosporine, antithymocyte globulin and Promacta. His status has steadily declined since then. He has had several episodes of syncope with orthostatic hypotension resulting in admissions to hospital. He is currently also on Midodrin 10 mg p.o. 3 times daily. He is anorexic with a very poor appetite and fluid consumption. He is on Megace and fludrocortisone. He presented with a creatinine of 4.15 which corrected to 2.33 with rehydration. He has a phone visit with MD Guzman on Sunday to discuss current plan of care. During visit at the bedside, he was very alert and verbally appropriate. He has good questions for his phone consult this Sunday. In particular, he is wanting to decide whether the side effects of the medications are more harmful to him then stopping them. He states the next plan of care for MD Guzman would be a bone marrow transplant from his brother. He is skeptical that he and his could handle the lengthy stay in [place] that that would require. After his conversation with MD Guzman on Sunday, he states he will make further to decisions about his plan of care. His baseline was that 5 months ago he was working on his ranG.ho.st with his . He is DNAR and we discussed [id number] DNR would be a ordonez choice as well. - Social History Smoking Status: Never smoker Alcohol Use: none Drug Use History: none Living Situation: - Medications MAR Reviewed: Yes - Allergies Allergies/Adverse Reactions: Allergies Allergy/AdvReac Type Severity Reaction Status Date / Time No Known Drug Allergies Allergy Verified 11/26/20 17:03 - ROS Constitutional: alert Eyes: other (Denies dryness or tearing) ENT: other (No cough, difficulty swallowing or throat irritation) Respiratory: other (Denies cough, SOb or congestion) Cardiology: other (Denies CP or palpitations) Gastrointestinal: intolerance of foods (Anorexia), other (Denies abd discomfort, bloatin) Genitourinary: other (Denies incontinence or dysuria) Musculoskeletal: limited mobility (2/2 fraility and generalized weakness), other (Denies arthralgia) Neurological: weakness Skin: other (Denies rash or lesions) Psychological: other (Mentation appropriate) - Objective Vital Signs: Vital Signs - Most Recent Temp Pulse Resp BP Pulse Ox 99.6 F 79 18 172/89 H 95 12/01/20 11:53 12/01/20 11:53 12/01/20 11:53 12/01/20 11:53 12/01/20 11:53 - Advance Directives Specific Directives: DNAR - Physical Exam Constitutional: NAD, cachectic, ill appearing HEENT: EOMI, moist MMs, sclera anicteric Respiratory: clear to auscultation bilateral, no rales, no rhonchi, no wheezing, unlabored breathing Cardiovascular: no rub, no significant murmur, RRR Gastrointestinal: continent Genitourinary: continent Musculoskeletal: no cyanosis, no clubbing, no edema, pulses present Neurology: moves all 4 limbs, no focal deficits, normal sensation Skin: cap refill <2 seconds, no lesions, no rash, normal turgor Psychiatric: A&O x 3, normal affect, normal mood - Problem List (1) Encounter for palliative care Code(s): Z51.5 - ENCOUNTER FOR PALLIATIVE CARE Current Visit: Yes Status: Acute (2) Myelodysplastic syndrome Code(s): D46.9 - MYELODYSPLASTIC SYNDROME, UNSPECIFIED Current Visit: Yes Status: Acute (3) IRLANDA (acute kidney injury) Code(s): N17.9 - ACUTE KIDNEY FAILURE, UNSPECIFIED Current Visit: No Status: Acute (4) Orthostatic hypotension Code(s): I95.1 - ORTHOSTATIC HYPOTENSION Current Visit: No Status: Acute (5) Anorexia Code(s): R63.0 - ANOREXIA Current Visit: Yes Status: Chronic - Plan/Recommendations Plan: Introduced palliative care team to establish goals of care and to identify patient's priorities regarding his hopes and therapeutic options. He is going to weigh his options after a phone visit with MD Guzman on Sunday. He is going to determine if the side effects of the medications are more harmful than stopping the medicines altogether for MDS. Assisted with advanced directives, in particular establishing [id number] DNR Discussed complex decision making in regards to choosing his future plan of care as far as whether to consider a bone marrow transplant, continue present me dication regime or cease treatment for MDS due to the side effects of the medications 90 minutes spent on this encounter with >50% of the time in counseling and coordination of care. Thank you for this very appropriate consult.
--- NOTE | 2020-12-01 15:27 | PDOC.NEPPN ---
- Subjective Encounter Date: 12/01/20 Subjective: Feeling better and stronger. Oral intake though suboptimal is improving. No fever or SOB. - Objective Vital Signs & Weight: Vital Signs (12 hours) Temp Pulse Resp BP Pulse Ox 12/01/20 11:53 99.6 F 79 18 172/89 H 95 12/01/20 08:45 98.4 F 115 H 20 114/67 98 Weight Weight 150 lb I&O: 11/30/20 12/01/20 12/02/20 06:59 06:59 06:59 Intake Total 7200 Balance 7200 Result Diagrams: 11/30/20 04:47 12/01/20 03:30 Additional Labs: Accuchecks 12/01/20 12/01/20 11/30/20 11:55 05:18 23:45 POC Glucose 95 95 105 H 11/30/20 15:37 POC Glucose 98 Nephrology ROS - Medication Medications: Active Medications Generic Name Dose Route Start Last Admin Trade Name Freq PRN Reason Stop Dose Admin Famotidine 20 mg 11/27/20 09:00 12/01/20 08:46 Famotidine 20 Mg Tab PO 20 mg DAILY LIZZ Administration Fludrocortisone Acetate 0.2 mg 11/30/20 09:00 12/01/20 08:47 Fludrocortisone Acetate 0.1 Mg Tab PO 0.2 mg DAILY LIZZ Administration Lactated Ringer's 1,000 mls @ 125 mls/hr 11/29/20 11:30 12/01/20 11:46 Lactated Ringer's IV Not Given .Q8H LIZZ Magnesium Oxide 400 mg 12/01/20 09:00 12/01/20 10:10 Magnesium Oxide 400 Mg Tab PO 400 mg BID LIZZ Administration Midodrine 10 mg 11/28/20 21:00 12/01/20 08:46 Midodrine Hcl 5 Mg Tab PO Not Given TID LIZZ Ondansetron HCl 4 mg 11/26/20 14:50 11/27/20 08:48 Ondansetron Odt 4 Mg Tab PO 4 mg Q6H PRN Administration Nausea/Vomiting Patient's Home 0 each 11/28/20 21:00 11/30/20 20:57 Medication Promacta PO 1 each 75 Mg 2100 LIZZ Administration Potassium Chloride 40 meq 12/01/20 09:00 12/01/20 10:10 Potassium Chloride 20 Meq Tab PO 40 meq BID LIZZ Administration Sodium Bicarbonate 1,300 mg 11/27/20 15:00 12/01/20 08:47 Sodium Bicarbonate Tab 325 Mg Tab PO 1,300 mg TID LIZZ Administration - Exam General Appearance: awake alert Eye: anicteric sclera ENT: normocephalic atraumatic Neck: symmetric, no JVD Respiratory: no wheezes, no rales, no ronchi, normal chest expansion Cardiovascular: RRR Gastrointestinal: soft, non-tender, non-distended, normal bowel sounds Extremities: no edema Neurological: CN's grossly intact Musculoskeletal: generalized weakness PSYCH: A&O x 3 Nephrology Results - Labs Result Diagrams: 11/30/20 04:47 12/01/20 03:30 Lab results: WBC 2.1 thou/uL (4.8-10.8) L 11/30/20 04:47 Hgb 8.7 g/dL (14.0-18.0) L 11/30/20 04:47 Hct 25.1 % (42.0-52.0) L 11/30/20 04:47 MCV 90.1 fL (78.0-98.0) 11/30/20 04:47 Plt Count 37 thou/uL (130-400) L 11/30/20 04:47 Band Neuts % (Manual) 4 % (5-11) L 11/27/20 04:52 Sodium 137 mmol/L (136-145) 12/01/20 03:30 Potassium 3.3 mmol/L (3.5-5.1) L 12/01/20 03:30 Chloride 104 mmol/L (98-107) 12/01/20 03:30 Carbon Dioxide 26 mmol/L (23-31) 12/01/20 03:30 BUN 17 mg/dL (8.4-25.7) 12/01/20 03:30 Creatinine 2.01 mg/dL (0.7-1.3) H 12/01/20 03:30 Glucose 96 mg/dL (83-110) 12/01/20 03:30 Calcium 8.2 mg/dL (7.8-10.44) 12/01/20 03:30 Total Bilirubin 1.9 mg/dL (0.2-1.2) H 11/29/20 05:06 AST 16 U/L (5-34) 11/29/20 05:06 ALT 12 U/L (8-55) 11/29/20 05:06 Alkaline Phosphatase 73 U/L (40-110) 11/29/20 05:06 CK-MB (CK-2) 1.7 ng/mL (0-6.6) 11/26/20 11:09 Troponin I 0.052 ng/mL (< 0.028) H 11/26/20 11:09 Serum Total Protein 4.5 g/dL (5.8-8.1) L 11/29/20 05:06 Albumin 2.7 g/dL (3.4-4.8) L 11/30/20 04:47 Lipase 16 U/L (8-78) 11/26/20 11:12 Urine Ketones Unable to Interpret mg/dL (Negative) 11/26/20 11:04 Urine Blood Unable to Interpret (Negative) 11/26/20 11:04 Urine Nitrite Unable to Interpret (Negative) 11/26/20 11:04 Ur Leukocyte Esterase Unable to Interpret Manish/uL (Negative) 11/26/20 11:04 Urine RBC None Seen HPF (0-3) 11/26/20 11:04 Urine WBC None Seen HPF (0-3) 11/26/20 11:04 Ur Squamous Epith Cells 0-3 HPF (0-3) 11/26/20 11:04 Urine Bacteria 1+ HPF (None Seen) A 11/26/20 11:04 Sodium 137 mmol/L (136-145) 12/01/20 03:30 Potassium 3.3 mmol/L (3.5-5.1) L 12/01/20 03:30 Chloride 104 mmol/L (98-107) 12/01/20 03:30 Carbon Dioxide 26 mmol/L (23-31) 12/01/20 03:30 Anion Gap 10 mmol/L (10-20) 12/01/20 03:30 BUN 17 mg/dL (8.4-25.7) 12/01/20 03:30 Creatinine 2.01 mg/dL (0.7-1.3) H 12/01/20 03:30 Glucose 96 mg/dL (83-110) 12/01/20 03:30 Calcium 8.2 mg/dL (7.8-10.44) 12/01/20 03:30 Phosphorus 2.9 mg/dL (2.3-4.7) 11/30/20 04:47 Magnesium 1.8 mg/dL (1.6-2.6) 12/01/20 03:30 Albumin 2.7 g/dL (3.4-4.8) L 11/30/20 04:47 Nephrology AP PN - Plan IRLANDA.2/2/ Hemodynamic factors. Improving with fluids while cyclosporine, valtrex and fluconazole are held. Creat continue to trend down. Still significantly above baseline at 2. CKD 3 Hypomagnesemia: recurrent Metabolic acidosis: Hypokalemia ; Persistent Volume depletion Recurrent orthoststic hypotension and syncope Pancytopenia: Chronic. Related to cancer treatment +/- drugs. Protein calorie malnutrition PLAN Replete serum potassium with 80 meq of KCL. Start magnesium oral daily supplementation Continue LR Continue oral alkali therapy Continue to hold cyclosporine, fluconazoe and valtrex. Await cyclosporine level [place] oral intake advised. Recheck renal function in the am.
--- NOTE | 2020-12-01 19:48 | PDOC.HOSPP ---
- Subjective Encounter Date: 12/01/20 Encounter Time: 09:30 Subjective: Patient seen and examined for generalized weakness with acute kidney injury. No new overnight events. Denies any nausea or vomiting. - Objective Vital Signs & Weight: Vital Signs (12 hours) Temp Pulse Resp BP BP Pulse Ox 12/01/20 16:02 99.6 F 78 18 171/91 H 94 L 12/01/20 15:40 111/69 12/01/20 11:53 99.6 F 79 18 172/89 H 95 12/01/20 08:45 98.4 F 115 H 20 114/67 98 Weight Weight 150 lb I&O: 11/30/20 12/01/20 12/02/20 06:59 06:59 06:59 Intake Total 7200 3150 Balance 7200 3150 Result Diagrams: 11/30/20 04:47 12/01/20 03:30 Additional Labs: Accuchecks 12/01/20 12/01/20 12/01/20 18:08 11:55 05:18 POC Glucose 114 H 95 95 11/30/20 23:45 POC Glucose 105 H Abnormal Lab Results - Last 48 hrs 11/30/20 04:47: Sodium 135 L, Potassium 3.1 L, Carbon Dioxide 21 L, Creatinine 2.33 H, Magnesium 1.2 L, Albumin 2.7 L 11/30/20 04:47: WBC 2.1 L, RBC 2.78 L, Hgb 8.7 L, Hct 25.1 L, MCH 31.4 H, RDW 19.6 H, Plt Count 37 L 12/01/20 03:30: Potassium 3.3 L, Creatinine 2.01 H Hospitalist ROS - Review of Systems Respiratory: denies: cough, dry, shortness of breath, hemoptysis, SOB with excertion, pleuritic pain, sputum, wheezing, other Cardiovascular: denies: chest pain, palpitations, orthopnea, paroxysmal noc. dyspnea, edema, light headedness, other - Medication Medications: Active Medications Generic Name Dose Route Start Last Admin Trade Name Freq PRN Reason Stop Dose Admin Famotidine 20 mg 11/27/20 09:00 12/01/20 08:46 Famotidine 20 Mg Tab PO 20 mg DAILY LIZZ Administration Fludrocortisone Acetate 0.2 mg 11/30/20 09:00 12/01/20 08:47 Fludrocortisone Acetate 0.1 Mg Tab PO 0.2 mg DAILY LIZZ Administration Lactated Ringer's 1,000 mls @ 125 mls/hr 11/29/20 11:30 12/01/20 15:48 Lactated Ringer's IV 1,000 mls .Q8H LIZZ Administration Magnesium Oxide 400 mg 12/01/20 09:00 12/01/20 10:10 Magnesium Oxide 400 Mg Tab PO 400 mg BID LIZZ Administration Midodrine 10 mg 11/28/20 21:00 12/01/20 15:42 Midodrine Hcl 5 Mg Tab PO Not Given TID LIZZ Ondansetron HCl 4 mg 11/26/20 14:50 11/27/20 08:48 Ondansetron Odt 4 Mg Tab PO 4 mg Q6H PRN Administration Nausea/Vomiting Patient's Home 0 each 11/28/20 21:00 11/30/20 20:57 Medication Promacta PO 1 each 75 Mg 2100 LIZZ Administration Potassium Chloride 40 meq 12/01/20 09:00 12/01/20 10:10 Potassium Chloride 20 Meq Tab PO 40 meq BID LIZZ Administration Sodium Bicarbonate 1,300 mg 11/27/20 15:00 12/01/20 15:43 Sodium Bicarbonate Tab 325 Mg Tab PO 1,300 mg TID LIZZ Administration Hospitalist Exam Vitals: Vital Signs (12 hours) Temp Pulse Resp BP BP Pulse Ox 12/01/20 16:02 99.6 F 78 18 171/91 H 94 L 12/01/20 15:40 111/69 12/01/20 11:53 99.6 F 79 18 172/89 H 95 12/01/20 08:45 98.4 F 115 H 20 114/67 98 Weight Weight 150 lb General Appearance: awake alert Neck: supple, no JVD Heart: RRR, no gallops Respiratory: no wheezes, no ronchi Gastrointestinal: soft, non-tender, normal bowel sounds Extremities: no cyanosis Musculoskeletal: generalized weakness Hosp A/P - Plan DVT proph w/SCDs 70-year-old male with recent hospitalization for orthostatic hypotension present ed to the hospital on 11/26 with lightheadedness/dizziness with syncope. He has been not drinking enough fluid as well. His work-up was consistent with acute renal failure with creatinine of 4.0 compared to baseline. His magnesium was also 1.1. Patient was evaluated by nephrology and oncology service. Cyclosporine, valacyclovir and fluconazole were held. He also received 2 unit of PRBC. 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 Hemodynamically stable. Replace potassium and magnesium. Continue Ringer's lactate. Cyclosporine, Valtrex and fluconazole on hold. Cyclosporine level pending at this time. Continue other medications as above. A.m. labs 11/30 Will hold fludrocortisone and midodrine if standing systolic blood pressure is over 120. Will replace magnesium and potassium. Renal function improving. Hemoglobin 8.7 today. Continue supportive care. Recheck basic metabolic profile in a.m. Continue lactated Ringer's. 11/29 Continue supportive care. IV fluid transition to lactated Ringer. Add holding parameters for fludrocortisone and midodrine. Standing vitals only. Await cyclosporine level. Continue PT/OT. Replace potassium. A.m. labs. 11/28 Symptomatically improving. Will replace magnesium and potassium. Cyclosporine, fluconazole and Valtrex on hold. Continue IV fluids. Continue fludrocortisone and midodrine for orthostatic hypotension. Will resume Promacta. Recheck labs in a.m. Continue other medications as above. Consult physical therapy. Cyclosporine level pending at this time. Continue to monitor. 11/27 Replace magnesium. Cyclosporine level will be checked. Will consult nephrology and oncology. Await palliative care input. Continue IV hydration. Continue midodrine. Replace potassium and magnesium. Valtrex will be held as well. Recheck labs in a.m. Add Ensure.
[2020-12-01] MEDS: PROMACTA 75 MG PO SCH (20:27)
[2020-12-02] MEDS: Lactated Ringer's 1,000 ML IV SCH ×2 (01:19→11:34)
[2020-12-02 06:35] LABS: Hemoglobin 7.3 g/dL (14.0-18.0); Mean Corpuscular HGB CONC 34.7 g/dL (32.0-36.0); Mean Corpuscular Hemoglobin 31.4 pg (27.0-31.0); Mean Corpuscular Volume 90.5 fL (78.0-98.0); Mean Platelet Volume 6.5 fL (7.4-10.4); Platelet Count 30 thou/uL (130-400); RBC Distribution Width 19.8 % (11.5-14.5); Red Blood Cell (RBC) Count 2.33 mill/uL (4.70-6.10); White Blood Cell (WBC) Count 1.8 thou/uL (4.8-10.8)
[2020-12-02 06:43] LABS: Anion Gap 13 mmol/L (10-20); BUN (Urea Nitrogen) 16 mg/dL (8.4-25.7); Calc. Creatinine Clearance 40 mL/min (70-130); Calcium 7.9 mg/dL (7.8-10.44); Carbon Dioxide 22 mmol/L (23-31); Chloride 106 mmol/L (98-107); Glucose 85 mg/dL (83-110); Magnesium 1.5 mg/dL (1.6-2.6); Potassium 3.8 mmol/L (3.5-5.1); Sodium 137 mmol/L (136-145)
[2020-12-02] MEDS ORDERED: Magnesium Sulfate 4 GM in Sodium Chloride 0.9% 250 ML 250 ML IVPB SCH (07:30)
[2020-12-02] MEDS: Potassium Chloride 20 MEQ TAB PO SCH ×2 (08:18→21:48)
[2020-12-02] MEDS: Magnesium Oxide 400 MG TAB PO SCH ×2 (08:18→21:47)
[2020-12-02] MEDS: Midodrine HCl 5 MG TAB PO SCH ×3 (08:19→21:48)
[2020-12-02] MEDS: Fludrocortisone Acetate 0.1 MG TAB PO SCH (08:19)
[2020-12-02] MEDS: Sodium Bicarbonate Tab 325 MG TAB PO SCH ×3 (08:19→21:47)
[2020-12-02] MEDS: Famotidine 20 MG TAB PO SCH (08:19)
--- NOTE | 2020-12-02 10:44 | PDOC.NEPPN ---
- Subjective Encounter Date: 12/02/20 Subjective: Seen and examined. No new problem. Had episodes of tachycardia but no fever. - Objective Vital Signs & Weight: Vital Signs (12 hours) Temp Pulse Resp BP BP BP Pulse Ox 12/02/20 08:18 124/72 12/02/20 08:17 139/83 12/02/20 07:50 99.3 F 73 16 169/81 H 95 12/02/20 04:23 97.8 F 101 H 18 115/74 95 12/02/20 00:24 99.6 F 103 H 18 103/68 93 L Weight Weight 150 lb I&O: 12/01/20 12/02/20 12/03/20 06:59 06:59 06:59 Intake Total 3150 Balance 3150 Result Diagrams: 12/02/20 05:41 12/02/20 05:41 Additional Labs: Accuchecks 12/02/20 12/01/20 12/01/20 00:02 18:08 11:55 POC Glucose 92 114 H 95 Nephrology ROS - Medication Medications: Active Medications Generic Name Dose Route Start Last Admin Trade Name Freq PRN Reason Stop Dose Admin Famotidine 20 mg 11/27/20 09:00 12/02/20 08:19 Famotidine 20 Mg Tab PO 20 mg DAILY LIZZ Administration Fludrocortisone Acetate 0.2 mg 11/30/20 09:00 12/02/20 08:19 Fludrocortisone Acetate 0.1 Mg Tab PO Not Given DAILY LIZZ Lactated Ringer's 1,000 mls @ 125 mls/hr 11/29/20 11:30 12/02/20 01:19 Lactated Ringer's IV 1,000 mls .Q8H LIZZ Administration Magnesium Oxide 400 mg 12/01/20 09:00 12/02/20 08:18 Magnesium Oxide 400 Mg Tab PO 400 mg BID LIZZ Administration Midodrine 10 mg 11/28/20 21:00 12/02/20 08:19 Midodrine Hcl 5 Mg Tab PO Not Given TID LIZZ Ondansetron HCl 4 mg 11/26/20 14:50 11/27/20 08:48 Ondansetron Odt 4 Mg Tab PO 4 mg Q6H PRN Administration Nausea/Vomiting Patient's Home 0 each 11/28/20 21:00 12/01/20 20:27 Medication Promacta PO 1 each 75 Mg 2100 LIZZ Administration Potassium Chloride 40 meq 12/01/20 09:00 12/02/20 08:18 Potassium Chloride 20 Meq Tab PO 40 meq BID LIZZ Administration Sodium Bicarbonate 1,300 mg 11/27/20 15:00 12/02/20 08:19 Sodium Bicarbonate Tab 325 Mg Tab PO 1,300 mg TID LIZZ Administration Sodium Chloride 10 ml 12/01/20 21:00 12/02/20 08:19 Flush - Normal Saline 10 Ml Syringe IVF Not Given Q12HR LIZZ - Exam General Appearance: awake alert Eye: anicteric sclera Eye - other findings: conjunctival pallor ENT: normocephalic atraumatic, moist mucosa Neck: symmetric, no JVD Respiratory: no wheezes, no ronchi, no tachypnea Respiratory - other findings: fair air entry Cardiovascular: RRR Gastrointestinal: soft, non-tender, non-distended, normal bowel sounds Extremities: no edema Neurological: CN's grossly intact, no focal deficits Musculoskeletal: generalized weakness PSYCH: A&O x 3 Nephrology Results - Labs Result Diagrams: 12/02/20 05:41 12/02/20 05:41 Lab results: WBC 1.8 thou/uL (4.8-10.8) L 12/02/20 05:41 Hgb 7.3 g/dL (14.0-18.0) L 12/02/20 05:41 Hct 21.1 % (42.0-52.0) L 12/02/20 05:41 MCV 90.5 fL (78.0-98.0) 12/02/20 05:41 Plt Count 30 thou/uL (130-400) L 12/02/20 05:41 Band Neuts % (Manual) 4 % (5-11) L 11/27/20 04:52 Sodium 137 mmol/L (136-145) 12/02/20 05:41 Potassium 3.8 mmol/L (3.5-5.1) 12/02/20 05:41 Chloride 106 mmol/L (98-107) 12/02/20 05:41 Carbon Dioxide 22 mmol/L (23-31) L 12/02/20 05:41 BUN 16 mg/dL (8.4-25.7) 12/02/20 05:41 Creatinine 1.65 mg/dL (0.7-1.3) H 12/02/20 05:41 Glucose 85 mg/dL (83-110) 12/02/20 05:41 Calcium 7.9 mg/dL (7.8-10.44) 12/02/20 05:41 Total Bilirubin 1.9 mg/dL (0.2-1.2) H 11/29/20 05:06 AST 16 U/L (5-34) 11/29/20 05:06 ALT 12 U/L (8-55) 11/29/20 05:06 Alkaline Phosphatase 73 U/L (40-110) 11/29/20 05:06 CK-MB (CK-2) 1.7 ng/mL (0-6.6) 11/26/20 11:09 Troponin I 0.052 ng/mL (< 0.028) H 11/26/20 11:09 Serum Total Protein 4.5 g/dL (5.8-8.1) L 11/29/20 05:06 Albumin 2.7 g/dL (3.4-4.8) L 11/30/20 04:47 Lipase 16 U/L (8-78) 11/26/20 11:12 Urine Ketones Unable to Interpret mg/dL (Negative) 11/26/20 11:04 Urine Blood Unable to Interpret (Negative) 11/26/20 11:04 Urine Nitrite Unable to Interpret (Negative) 11/26/20 11:04 Ur Leukocyte Esterase Unable to Interpret Manish/uL (Negative) 11/26/20 11:04 Urine RBC None Seen HPF (0-3) 11/26/20 11:04 Urine WBC None Seen HPF (0-3) 11/26/20 11:04 Ur Squamous Epith Cells 0-3 HPF (0-3) 11/26/20 11:04 Urine Bacteria 1+ HPF (None Seen) A 11/26/20 11:04 Sodium 137 mmol/L (136-145) 12/02/20 05:41 Potassium 3.8 mmol/L (3.5-5.1) 12/02/20 05:41 Chloride 106 mmol/L (98-107) 12/02/20 05:41 Carbon Dioxide 22 mmol/L (23-31) L 12/02/20 05:41 Anion Gap 13 mmol/L (10-20) 12/02/20 05:41 BUN 16 mg/dL (8.4-25.7) 12/02/20 05:41 Creatinine 1.65 mg/dL (0.7-1.3) H 12/02/20 05:41 Glucose 85 mg/dL (83-110) 12/02/20 05:41 Calcium 7.9 mg/dL (7.8-10.44) 12/02/20 05:41 Phosphorus 2.9 mg/dL (2.3-4.7) 11/30/20 04:47 Magnesium 1.5 mg/dL (1.6-2.6) L 12/02/20 05:41 Albumin 2.7 g/dL (3.4-4.8) L 11/30/20 04:47 Nephrology AP PN - Plan IRLANDA.2/2/ Hemodynamic factors. Improving with fluids while cyclosporine, valtrex and fluconazole are held. Creat continue to trend down. CKD 3 Hypomagnesemia: recurrent Metabolic acidosis: Hypokalemia ; Persistent Volume depletion Recurrent orthoststic hypotension and syncope Pancytopenia: Chronic. Related to cancer treatment +/- drugs. Protein calorie malnutrition Vitamin D deficiency PLAN Replete serum magnesium with 4 grams og magnesium sulphate. DC IVf Continue magnesium oral daily supplementation Start Vit D supplementation Get repeat Cyclospsorine level. Continue oral alkali therapy Restart flucunzole Continue to hold cyclosporine and valtrex. [place] oral intake advised. Recheck renal function in the am.
--- NOTE | 2020-12-02 10:49 | RAD ---
PA AND LATERAL CHEST: HISTORY: New onset tachycardia. COMPARISON: A 11/26/2020 exam. FINDINGS: Heart size is within normal limits. There are atherosclerotic changes of the aorta. There has been development of some blunting to the left costophrenic angle consistent with a small effusion with wha t appears to be some associated atelectasis. IMPRESSION: Development of a small left pleural effusion with some left lower lobe atelectatic lung change. POS: COTY
[2020-12-02] MEDS ORDERED: Ergocalciferol 1.25 MG(50,000 UNITS) CAP PO SCH (12:00)
--- NOTE | 2020-12-02 13:41 | PDOC.PALPN ---
Palliative Progress Note - Subjective Mr Tracey states that he is doing better today- confirms that he will await decision making on plan of care until after he speaks with MD Guz[facility] Team and then confers with Dr Mendiola, his oncologist. Cyclosporine, fluconazole and Valtrex are currently on hold. Promacta has been resumed. He is taking fluids and continues to be alert and oriented and verbally appropriate. Discussed his future needs and he states that he knows what he needs at the moment and does not require any further help from palliative care. His ultimate goal is to return home. - Objective Vital Signs: Vital Signs - Most Recent Temp Pulse Resp BP Pulse Ox 99.1 F 88 16 118/70 95 12/02/20 11:00 12/02/20 11:12/02/20 11:12/02/20 11:12/02/20 11:00 - Physical Exam Constitutional: NAD, cachectic, ill appearing HEENT: EOMI, moist MMs, sclera anicteric Respiratory: clear to auscultation bilateral, no rales, no rhonchi, unlabored breathing Cardiovascular: no rub, no significant murmur Gastrointestinal: continent Genitourinary: continent Musculoskeletal: no cyanosis, no clubbing, no edema Neurology: moves all 4 limbs, no focal deficits Skin: cap refill <2 seconds, no lesions, fragile, friable Psychiatric: A&O x 3, normal affect, normal mood - Assessment (1) Encounter for palliative care Code(s): Z51.5 - ENCOUNTER FOR PALLIATIVE CARE Current Visit: Yes Status: Acute (2) Myelodysplastic syndrome Code(s): D46.9 - MYELODYSPLASTIC SYNDROME, UNSPECIFIED Current Visit: Yes Status: Acute (3) IRLANDA (acute kidney injury) Code(s): N17.9 - ACUTE KIDNEY FAILURE, UNSPECIFIED Current Visit: No Status: Acute (4) Orthostatic hypotension Code(s): I95.1 - ORTHOSTATIC HYPOTENSION Current Visit: No Status: Acute Assessment: Midrodrine is being held if standing BP is great 120 SBP (5) Anorexia Code(s): R63.0 - ANOREXIA Current Visit: Yes Status: Chronic - Plan Plan: Goals of care remain pending to be determined after consult with MD Guzman Sunday and consult with Dr Mendiola. He plans to return to his home after DC Palliative Care will sign off 20 minutes spent on this encounter with >50% of the time in counseling and coordination of care. - ROS Constitutional: alert Eyes: other (Denies any eye dryness or earin) ENT: other (Denies sore throat or difficulty swallowing) Respiratory: other (Denies SOB, cough , congestion) Cardiology: other (denies palpitations or CP) Gastrointestinal: intolerance of foods (Is working on increasing intake of protein shakes) Musculoskeletal: limited mobility, other (secondary to fraility and malnourishment) Neurological: weakness Skin: skin tears Psychological: other (Mentation appropriate, conversive and friendly)
--- NOTE | 2020-12-02 16:07 | PDOC.MOPN ---
Interval History: feeling better today, no complaints. - Vital Signs Vital Signs: Vital Signs (12 hours) Temp Pulse Resp BP BP BP Pulse Ox 12/02/20 15:15 99.4 F 80 16 139/72 130/75 95 12/02/20 11:00 99.1 F 88 16 118/70 95 12/02/20 08:18 124/72 12/02/20 08:17 139/83 12/02/20 07:50 99.3 F 73 16 169/81 H 95 12/02/20 04:23 97.8 F 101 H 18 115/74 95 Weight Weight 150 lb - Physical Exam General: Alert HEENT: Atraumatic Lungs: Clear to auscultation Cardiovascular: Regular rate Abdomen: Normal bowel sounds Neurological: Normal speech - Labs Result Diagrams: 12/02/20 05:41 12/02/20 05:41 Lab results: Laboratory Results - last 24 hr 12/02/20 10:45: POC Glucose 89 12/02/20 07:53: 25-OH Vitamin D Total 4.4 L 12/02/20 05:51: POC Glucose 97 12/02/20 05:41: WBC 1.8 L, RBC 2.33 L, Hgb 7.3 L, Hct 21.1 L, MCV 90.5, MCH 31.4 H, MCHC 34.7, RDW 19.8 H, Plt Count 30 L, MPV 6.5 L 12/02/20 05:41: Sodium 137, Potassium 3.8, Chloride 106, Carbon Dioxide 22 L, Anion Gap 13, BUN 16, Creatinine 1.65 H, Estimated GFR (MDRD) 41, Glucose 85, Calcium 7.9, Magnesium 1.5 L 12/02/20 00:02: POC Glucose 92 12/01/20 18:08: POC Glucose 114 H 11/27/20 09:37: Cyclosporine 498 H Status: lab reviewed by me A/P - Problem (1) Aplastic anemia Current Visit: Yes Code(s): D61.9 - APLASTIC ANEMIA, UNSPECIFIED Status: Acute (2) IRLANDA (acute kidney injury) Current Visit: No Code(s): N17.9 - ACUTE KIDNEY FAILURE, UNSPECIFIED Status: Acute - Plan Plan: 1. patient needs blood transfusion per [facility] protocol for his aplastic anemia 2. Cyclosporine level high, med has been stopped 3. Appreciate Nephrology and Sound assistance. 4. Denies syncope today, home when stable.
[2020-12-02] MEDS ORDERED: Sodium Bicarbonate Tab 325 MG TAB PO SCH (17:30)
[2020-12-02] MEDS: PROMACTA 75 MG PO SCH (21:48)
--- NOTE | 2020-12-02 22:58 | PDOC.HOSPP ---
- Subjective Encounter Date: 12/02/20 Encounter Time: 16:00 Subjective: Patient seen and examined for acute kidney injury. Denies any new complaints. No chest pain or shortness of breath - Objective Vital Signs & Weight: Vital Signs (12 hours) Temp Pulse Pulse Pulse Resp BP BP 12/02/20 22:44 97.4 F L 72 18 179/85 H 12/02/20 19:40 99.5 F 78 16 12/02/20 18:37 99.4 F 74 16 171/82 H 12/02/20 18:13 98.5 F 78 16 156/76 H 12/02/20 15:15 99.4 F 80 16 12/02/20 11:00 99.1 F 88 16 BP BP BP Pulse Ox 12/02/20 22:44 95 12/02/20 19:40 170/80 H 95 12/02/20 18:37 96 12/02/20 18:13 96 12/02/20 15:15 139/72 130/75 95 12/02/20 11:00 118/70 95 Weight Weight 150 lb I&O: 12/01/20 12/02/20 12/03/20 06:59 06:59 06:59 Intake Total 3150 2420 Balance 3150 2420 Result Diagrams: 12/02/20 05:41 12/02/20 05:41 Additional Labs: Accuchecks 12/02/20 12/02/20 12/02/20 17:05 10:45 05:51 POC Glucose 85 89 97 12/02/20 00:02 POC Glucose 92 Radiology Reviewed by me: Yes (Chest x-ray no infiltrate) Hospitalist ROS - Review of Systems Cardiovascular: denies: chest pain, palpitations, orthopnea, paroxysmal noc. dyspnea, edema, light headedness, other Gastrointestinal: denies: nausea, vomiting, abdominal pain, diarrhea, constipation, melena, hematochezia, other - Medication Medications: Active Medications Generic Name Dose Route Start Last Admin Trade Name Freq PRN Reason Stop Dose Admin Ergocalciferol 1.25 mg 12/02/20 12:00 12/02/20 11:34 Ergocalciferol 1.25 Mg(50,000 Units) Cap PO 1.25 mg Q7D LIZZ Administration Famotidine 20 mg 11/27/20 09:00 12/02/20 08:19 Famotidine 20 Mg Tab PO 20 mg DAILY LIZZ Administration Fludrocortisone Acetate 0.2 mg 11/30/20 09:00 12/02/20 08:19 Fludrocortisone Acetate 0.1 Mg Tab PO Not Given DAILY [facility] Magnesium Oxide 400 mg 12/01/20 09:00 12/02/20 21:47 Magnesium Oxide 400 Mg Tab PO 400 mg BID LIZZ Administration Midodrine 10 mg 11/28/20 21:00 12/02/20 21:48 Midodrine Hcl 5 Mg Tab PO Not Given TID [facility] Ondansetron HCl 4 mg 11/26/20 14:50 11/27/20 08:48 Ondansetron Odt 4 Mg Tab PO 4 mg Q6H PRN Administration Nausea/Vomiting Patient's Home 0 each 11/28/20 21:00 12/02/20 21:48 Medication Promacta PO 1 each 75 Mg 2100 LIZZ Administration Potassium Chloride 40 meq 12/01/20 09:00 12/02/20 21:48 Potassium Chloride 20 Meq Tab PO 40 meq BID LIZZ Administration Sodium Bicarbonate 1,300 mg 11/27/20 15:00 12/02/20 21:47 Sodium Bicarbonate Tab 325 Mg Tab PO 1,300 mg TID LIZZ Administration Sodium Chloride 10 ml 12/01/20 21:00 12/02/20 21:49 Flush - Normal Saline 10 Ml Syringe IVF 10 ml Q12HR LIZZ Administration Hospitalist Exam Vitals: Vital Signs (12 hours) Temp Pulse Pulse Pulse Resp BP BP 12/02/20 22:44 97.4 F L 72 18 179/85 H 12/02/20 19:40 99.5 F 78 16 12/02/20 18:37 99.4 F 74 16 171/82 H 12/02/20 18:13 98.5 F 78 16 156/76 H 12/02/20 15:15 99.4 F 80 16 12/02/20 11:00 99.1 F 88 16 BP BP BP Pulse Ox 12/02/20 22:44 95 12/02/20 19:40 170/80 H 95 12/02/20 18:37 96 12/02/20 18:13 96 12/02/20 15:15 139/72 130/75 95 12/02/20 11:00 118/70 95 Weight Weight 150 lb General Appearance: awake alert Neck: supple, no JVD Heart: RRR, no gallops Respiratory: no wheezes, no rales Respiratory - other findings: Diminished air entry at bases Gastrointestinal: soft, non-distended, no guarding Extremities: no cyanosis Neurological: no new deficit Psychiatric: A&O x 3 Hosp A/P - Plan DVT proph w/SCDs 70-year-old male with recent hospitalization for orthostatic hypotension presented to the hospital on 11/26 with lightheadedness/dizziness with syncope. He has been not drinking enough fluid as well. His work-up was consistent with acute renal failure with creatinine of 4.0 compared to baseline. His magnesium was also 1.1. Patient was evaluated by nephrology and oncology service. Cyclosporine, valacyclovir and fluconazole were held. He also received 2 unit of PRBC. 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 Magnesium being replaced. Cyclosporine level reviewed. Repeat cyclosporine level sent. Symptomatically patient feeling better. IV fluids discontinued. AM labs. Fluconazole Restarted. 12/01 Renal function slowly improving. Hemodynamically stable. Replace potassium and magnesium. Continue Ringer's lactate. Cyclosporine, Valtrex and fluconazole on hold. Cyclosporine level pending at this time. Continue other medications as above. A.m. labs 11/30 Will hold fludrocortisone and midodrine if standing systolic blood pressure is over 120. Will replace magnesium and potassium. Renal function improving. Hemoglobin 8.7 today. Continue supportive care. Recheck basic metabolic profile in a.m. Continue lactated Ringer's. 11/29 Continue supportive care. IV fluid transition to lactated Ringer. Add holding parameters for fludrocortisone and midodrine. Standing vitals only. Await cyclosporine level. Continue PT/OT. Replace potassium. A.m. labs. 11/28 Symptomatically improving. Will replace magnesium and potassium. Cyclosporine, fluconazole and Valtrex on hold. Continue IV fluids. Continue fludrocortisone and midodrine for orthostatic hypotension. Will resume Promacta. Recheck labs in a.m. Continue other medications as above. Consult physical therapy. Cyclosporine level pending at this time. Continue to monitor. 11/27 Replace magnesium. Cyclosporine level will be checked. Will consult nephrology and oncology. Await palliative care input. Continue IV hydration. Continue midodrine. Replace potassium and magnesium. Valtrex will be held as well. Recheck labs in a.m. Add Ensure.
[2020-12-03 05:30] LABS: Albumin 2.7 g/dL (3.4-4.8); Phosphorus 2.4 mg/dL (2.3-4.7)
[2020-12-03 05:32] LABS: Anion Gap 11 mmol/L (10-20); BUN (Urea Nitrogen) 15 mg/dL (8.4-25.7); Calc. Creatinine Clearance 46 mL/min (70-130); Calcium 7.9 mg/dL (7.8-10.44); Carbon Dioxide 24 mmol/L (23-31); Chloride 106 mmol/L (98-107); Glucose 84 mg/dL (83-110); Magnesium 1.8 mg/dL (1.6-2.6); Sodium 137 mmol/L (136-145)
[2020-12-03] MEDS ORDERED: Fluconazole 100 MG TAB PO SCH (09:00)
[2020-12-03] MEDS: Sodium Bicarbonate Tab 325 MG TAB PO SCH ×2 (10:26→15:02)
[2020-12-03] MEDS: Potassium Chloride 20 MEQ TAB PO SCH (10:26)
[2020-12-03] MEDS: Famotidine 20 MG TAB PO SCH (10:27)
[2020-12-03] MEDS: Magnesium Oxide 400 MG TAB PO SCH (10:27)
[2020-12-03 10:32] LABS: Hemoglobin 9.2 g/dL (14.0-18.0); Mean Corpuscular HGB CONC 34.2 g/dL (32.0-36.0); Mean Corpuscular Volume 87.9 fL (78.0-98.0); Mean Platelet Volume 6.9 fL (7.4-10.4); Platelet Count 31 thou/uL (130-400); RBC Distribution Width 19.1 % (11.5-14.5); Red Blood Cell (RBC) Count 3.08 mill/uL (4.70-6.10); White Blood Cell (WBC) Count 1.9 thou/uL (4.8-10.8)
--- NOTE | 2020-12-03 10:47 | PDOC.NEPPN ---
- Subjective Encounter Date: 12/03/20 Subjective: Seen and examined. No new problem.Feeling stronger and eating more. - Objective Vital Signs & Weight: Vital Signs (12 hours) Temp Pulse Pulse Resp BP BP BP 12/03/20 07:21 98.9 F 72 16 174/85 H 12/03/20 03:33 99.0 F 69 16 137/75 12/03/20 01:30 98.5 F 81 18 172/84 H 12/03/20 00:13 98.9 F 75 16 160/88 H 12/02/20 22:49 99 F 80 18 176/92 H Pulse Ox 12/03/20 07:21 95 12/03/20 03:33 98 12/03/20 01:30 96 12/03/20 00:13 97 12/02/20 22:49 96 Weight Weight 150 lb I&O: 12/02/20 12/03/20 12/04/20 06:59 06:59 06:59 Intake Total 3150 2770 Output Total 175 Balance 3150 2595 Result Diagrams: 12/03/20 10:09 12/03/20 04:52 Additional Labs: Accuchecks 12/03/20 12/03/20 12/02/20 06:03 00:21 17:05 POC Glucose 79 83 85 12/02/20 12/02/20 10:45 05:51 POC Glucose 89 97 Nephrology ROS - Medication Medications: Active Medications Generic Name Dose Route Start Last Admin Trade Name Freq PRN Reason Stop Dose Admin Ergocalciferol 1.25 mg 12/02/20 12:00 12/02/20 11:34 Ergocalciferol 1.25 Mg(50,000 Units) Cap PO 1.25 mg Q7D LIZZ Administration Famotidine 20 mg 11/27/20 09:00 12/03/20 10:27 Famotidine 20 Mg Tab PO 20 mg DAILY LIZZ Administration Fluconazole 200 mg 12/03/20 09:00 12/03/20 10:25 Fluconazole 100 Mg Tab PO 200 mg DAILY LIZZ Administration Fludrocortisone Acetate 0.2 mg 11/30/20 09:00 12/02/20 08:19 Fludrocortisone Acetate 0.1 Mg Tab PO Not Given DAILY LIZZ Magnesium Oxide 400 mg 12/01/20 09:00 12/03/20 10:27 Magnesium Oxide 400 Mg Tab PO 400 mg BID LIZZ Administration Midodrine 10 mg 11/28/20 21:00 12/02/20 21:48 Midodrine Hcl 5 Mg Tab PO Not Given TID LIZZ Ondansetron HCl 4 mg 11/26/20 14:50 11/27/20 08:48 Ondansetron Odt 4 Mg Tab PO 4 mg Q6H PRN Administration Nausea/Vomiting Patient's Home 0 each 11/28/20 21:00 12/02/20 21:48 Medication Promacta PO 1 each 75 Mg 2100 LIZZ Administration Potassium Chloride 40 meq 12/01/20 09:00 12/03/20 10:26 Potassium Chloride 20 Meq Tab PO 40 meq BID LIZZ Administration Sodium Bicarbonate 1,300 mg 11/27/20 15:00 12/03/20 10:26 Sodium Bicarbonate Tab 325 Mg Tab PO 1,300 mg TID LIZZ Administration Sodium Chloride 10 ml 12/01/20 21:00 12/02/20 21:49 Flush - Normal Saline 10 Ml Syringe IVF 10 ml Q12HR LIZZ Administration - Exam General Appearance: awake alert Eye: anicteric sclera ENT: normocephalic atraumatic, moist mucosa Neck: symmetric Respiratory: no wheezes, no ronchi Respiratory - other findings: fair air entry. Cardiovascular: RRR Gastrointestinal: soft, non-tender, non-distended, normal bowel sounds Extremities: no edema Neurological: CN's grossly intact, no focal deficits Musculoskeletal: generalized weakness PSYCH: A&O x 3 Nephrology Results - Labs Result Diagrams: 12/03/20 10:09 12/03/20 04:52 Lab results: WBC 1.9 thou/uL (4.8-10.8) L 12/03/20 10:09 Hgb 9.2 g/dL (14.0-18.0) L 12/03/20 10:09 Hct 27.0 % (42.0-52.0) L 12/03/20 10:09 MCV 87.9 fL (78.0-98.0) 12/03/20 10:09 Plt Count 31 thou/uL (130-400) L 12/03/20 10:09 Band Neuts % (Manual) 4 % (5-11) L 11/27/20 04:52 Sodium 137 mmol/L (136-145) 12/03/20 04:52 Potassium 4.0 mmol/L (3.5-5.1) 12/03/20 04:52 Chloride 106 mmol/L (98-107) 12/03/20 04:52 Carbon Dioxide 24 mmol/L (23-31) 12/03/20 04:52 BUN 15 mg/dL (8.4-25.7) 12/03/20 04:52 Creatinine 1.42 mg/dL (0.7-1.3) H 12/03/20 04:52 Glucose 84 mg/dL (83-110) 12/03/20 04:52 Calcium 7.9 mg/dL (7.8-10.44) 12/03/20 04:52 Total Bilirubin 1.9 mg/dL (0.2-1.2) H 11/29/20 05:06 AST 16 U/L (5-34) 11/29/20 05:06 ALT 12 U/L (8-55) 11/29/20 05:06 Alkaline Phosphatase 73 U/L (40-110) 11/29/20 05:06 CK-MB (CK-2) 1.7 ng/mL (0-6.6) 11/26/20 11:09 Troponin I 0.052 ng/mL (< 0.028) H 11/26/20 11:09 Serum Total Protein 4.5 g/dL (5.8-8.1) L 11/29/20 05:06 Albumin 2.7 g/dL (3.4-4.8) L 12/03/20 04:52 Lipase 16 U/L (8-78) 11/26/20 11:12 Urine Ketones Unable to Interpret mg/dL (Negative) 11/26/20 11:04 Urine Blood Unable to Interpret (Negative) 11/26/20 11:04 Urine Nitrite Unable to Interpret (Negative) 11/26/20 11:04 Ur Leukocyte Esterase Unable to Interpret Manish/uL (Negative) 11/26/20 11:04 Urine RBC None Seen HPF (0-3) 11/26/20 11:04 Urine WBC None Seen HPF (0-3) 11/26/20 11:04 Ur Squamous Epith Cells 0-3 HPF (0-3) 11/26/20 11:04 Urine Bacteria 1+ HPF (None Seen) A 11/26/20 11:04 Sodium 137 mmol/L (136-145) 12/03/20 04:52 Potassium 4.0 mmol/L (3.5-5.1) 12/03/20 04:52 Chloride 106 mmol/L (98-107) 12/03/20 04:52 Carbon Dioxide 24 mmol/L (23-31) 12/03/20 04:52 Anion Gap 11 mmol/L (10-20) 12/03/20 04:52 BUN 15 mg/dL (8.4-25.7) 12/03/20 04:52 Creatinine 1.42 mg/dL (0.7-1.3) H 12/03/20 04:52 Glucose 84 mg/dL (83-110) 12/03/20 04:52 Calcium 7.9 mg/dL (7.8-10.44) 12/03/20 04:52 Phosphorus 2.4 mg/dL (2.3-4.7) 12/03/20 04:52 Magnesium 1.8 mg/dL (1.6-2.6) 12/03/20 04:52 Albumin 2.7 g/dL (3.4-4.8) L 12/03/20 04:52 Nephrology AP PN - Plan IRLANDA.2/2/ Hemodynamic factors. Improved with fluids while cyclosporine, valtrex and fluconazole are held. Creat down to 1.4. CKD 3 Hypomagnesemia: recurrent Metabolic acidosis: Hypokalemia ; Persistent Volume depletion Recurrent orthoststic hypotension and syncope Pancytopenia: Chronic. Related to cancer treatment +/- drugs. Protein calorie malnutrition Vitamin D deficiency PLAN Continue magnesium and vitamin d supplementation Can be discharged from nephrology point of view. Can restart valtrex and fluconazole. Continue to hold cyclosporine. Continue oral alkali therapy Philo oral intake advised. Recheck renal function in the am.
[2020-12-03 11:17] LABS: Band 2 % (5-11); Eosinophils 2 % (0-10); Hypochromia SLIGHT = 6-15 cells (100X) (0-5/hpf); Lymphocytes 24 % (21-51); MDiff Complete? YES; Monocytes 24 % (0-10); Neutrophil 46 % (42-75); Platelet Morphology Comment Appears Decreased; Polychromasia SLIGHT = 2-3 cells (100X) (0-2/hpf); Reactive Lymphocytes 2 % (0-10); Schistocytes SLIGHT = 2-5 cells (100X) (0-1/hpf)
[2020-12-03] MEDS: Fludrocortisone Acetate 0.1 MG TAB PO SCH (11:51)
[2020-12-03] MEDS: Midodrine HCl 5 MG TAB PO SCH ×2 (11:51→15:02)
[2020-12-03 14:50] VITALS: BP 124/82; TEMP 98.6
--- NOTE | 2020-12-03 19:08 | PDOC.DS.DS ---
Provider Date of Admission: 11/26/20 12:38 Date of Discharge: 12/03/20 Admitting Provider: Migel Borrero MD Consultations: Nephrology, Oncology Primary Care Physician: Chuy Georges MD Course Hospital Course: 70-year-old male with recent hospitalization for orthostatic hypotension presented to the hospital on 11/26 with lightheadedness/dizziness with syncope. He has been not drinking enough fluid as well. His work-up was consistent with acute renal failure with creatinine of 4.0 compared to baseline of 1.1. His magnesium was also 1.1. Patient was evaluated by nephrology and oncology service. Cyclosporine, valacyclovir and fluconazole were held. He also received total of 4 units PRBC this admission. Renal function gradually improved to 1.42 on the day of discharge. Cyclosporine level drawn on 11/29 was 343. Patient was advised to follow-up with oncology clinic at [facility]. All other medications have been resumed except for cyclosporine. Patient was advised to follow-up with nephrology as outpatient. 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 Lab Results: 12/03/20 10:09 12/03/20 04:52 Abnormal Lab Results - Last 48 hrs 11/27/20 09:37: Cyclosporine 498 H 12/02/20 05:41: Carbon Dioxide 22 L, Creatinine 1.65 H, Magnesium 1.5 L 12/02/20 05:41: WBC 1.8 L, RBC 2.33 L, Hgb 7.3 L, Hct 21.1 L, MCH 31.4 H, RDW 19.8 H, Plt Count 30 L, MPV 6.5 L 12/02/20 07:53: 25-OH Vitamin D Total 4.4 L 12/02/20 16:22: Crossmatch See Detail 12/03/20 04:52: Creatinine 1.42 H 12/03/20 04:52: Albumin 2.7 L 12/03/20 10:09: WBC 1.9 L, RBC 3.08 L, Hgb 9.2 L, Hct 27.0 L, RDW 19.1 H, Plt Count 31 L, MPV 6.9 L, Band Neuts % (Manual) 2 L, Monocytes % (Manual) 24 H, Plt Morphology Comment Appears Decreased L Other Additional comments: CT scan of the brainnegative for acute findings Cervical spine CTnegative for acute fractures or dislocation Chest x-ray on admissionnegative for acute pathology CT scan of the abdomen and pelvis without IV contrastsmall pericardial effusion with cholelithiasis with numerous gallstone seen within mildly distended gall bladder with tiny nonobstructing calculi in the upper collecting system of the right kidney. There was also diffuse atherosclerotic calcification of the abdominal aorta with questionable renal artery stenosisprimary care physician advised to follow Vitals: Vital Signs (12 hours) Temp Pulse Resp BP BP Pulse Ox 12/03/20 14:05 98.6 F 88 18 124/82 97 12/03/20 10:50 98.8 F 92 16 126/76 96 12/03/20 07:21 98.9 F 72 16 174/85 H 95 Weight Weight 150 lb Physical Exam: The patient was seen and examined on the day of discharge. General Appearance: NAD Neck: supple, no JVD Respiratory: no wheezes, no ronchi Cardiovascular: RRR, no gallops Gastrointestinal: soft, non-distended Extremities: no cyanosis Neurological: no new deficit Plan Home Medications: Medication Instructions Recorded Confirmed Type Atorvastatin Calcium [Lipitor] 40 mg PO HS 07/20/18 11/26/20 History valACYclovir [Valtrex] 500 mg PO DAILY 08/12/20 11/26/20 History Eltrombopag Olamine [Promacta] 150 mg PO DAILY 10/25/20 11/26/20 History Fluconazole 200 mg PO DAILY 10/25/20 11/26/20 History Magnesium Oxide/Magnesium 1 tablet PO TID 10/26/20 11/26/20 History [[id number]] Ondansetron [Zofran ODT] 8 mg PO Q6HR PRN 11/08/20 11/26/20 History Atorvastatin Calcium [Lipitor] 40 mg PO HS #0 tab 11/18/20 11/26/20 Rx Fludrocortisone Acetate [Florinef] 0.2 mg PO DAILY #30 tab 11/18/20 11/26/20 Rx Meclizine HCl [Antivert] 25 mg PO Q8HR #30 tab 11/18/20 11/26/20 Rx Megestrol Acetate [Megace] 80 mg PO DAILY tab 11/18/20 11/26/20 Rx Midodrine HCl [ProAmatine] 10 mg PO TID #90 tab 11/18/20 11/26/20 Rx Phenazopyridine HCl [Pyridium] 100 mg PO BID #14 tab 11/18/20 11/26/20 Rx Allergies: No Known Drug Allergies Allergy (Verified 11/26/20 17:03) per pt Discharge Instructions:: Follow up on Cyclosporine level Please verify all other meds with MD Guzman BMP after 1 week - PCP to arrange/follow Restart Cyclosporine when ok with MD Guzman Referrals: Chuy Georges MD [Primary Care Provider] - 7 Days Amanda Anand MD [Active] - Disposition: HOME Quality CORE MEASURES:: N/A
== END 2020-12-03 15:03 | disposition home or self-care (01) | DRG 841 ==
LOC: ERS 08:54 → SURG A 12:38
PROVIDERS: ADMIT Internal Medicine; ATTEND Internal Medicine
PROC: 30233N1 Transfusion of Nonautologous Red Blood Cells into Peripheral Vein, Percutaneous Approach (ICD-10-PCS; principal; 2020-11-26)
DX: C91.10 Chronic lymphocytic leukemia of B-cell type not having achieved remission (principal); D61.9 Aplastic anemia, unspecified; E44.0 Moderate protein-calorie malnutrition; E87.1 Hypo-osmolality and hyponatremia; N17.9 Acute kidney failure, unspecified; E87.2 Acidosis; Z66 Do not resuscitate; Z51.5 Encounter for palliative care; D63.0 Anemia in neoplastic disease; I95.1 Orthostatic hypotension; E87.6 Hypokalemia; I25.10 Atherosclerotic heart disease of native coronary artery without angina pectoris; K80.20 Calculus of gallbladder without cholecystitis without obstruction; E78.5 Hyperlipidemia, unspecified; I45.81 Long QT syndrome; E86.0 Dehydration; I12.9 Hypertensive chronic kidney disease with stage 1 through stage 4 chronic kidney disease, or unspecified chronic kidney disease; N18.30 Chronic kidney disease, stage 3 unspecified; E86.9 Volume depletion, unspecified; E55.9 Vitamin D deficiency, unspecified; Z68.20 Body mass index [BMI] 20.0-20.9, adult; Z79.899 Other long term (current) drug therapy; I25.2 Old myocardial infarction; Z87.891 Personal history of nicotine dependence; Z95.5 Presence of coronary angioplasty implant and graft
CPT/HCPCS: 36415; 36416; 36430; 70450; 71045; 71046; 72125; 74176; 80048; 80053; 80069; 80158; 81003; 81015; 82040; 82306; 82553; 82570; 83690; 83735; 84100; 84156; 84300; 84484; 85025; 85027; 85046; 85610; 86850; 86900; 86901; 93005; 96365; J3475; J7050; J7502; P9016; Q0162

== ENCOUNTER 2020-12-08 19:09 | Inpatient (IN) | payer MEDICARE, OTHER ==
--- NOTE | 2020-12-08 19:50 | RAD ---
Portable frontal chest radiograph: 12/08/2020 COMPARISON: 12/02/2020 HISTORY: Syncope FINDINGS: There is mild atherosclerotic calcification of the aortic arch. No pneumothorax or pleural fluid is seen. There is no lobar consolidation or alveolar edema. A nodular density is seen within the right lung base, likely representing a nipple shadow as this are a is unremarkable on CT performed 11/26/2020. Mild atherosclerotic calcification of the aortic arch noted. IMPRESSION: No focal consolidation or alveolar edema.
[2020-12-08 19:54] LABS: Hemoglobin 9.6 g/dL (14.0-18.0); Mean Corpuscular Hemoglobin 29.8 pg (27.0-31.0); Mean Corpuscular Volume 87.8 fL (78.0-98.0); Mean Platelet Volume 6.2 fL (7.4-10.4); Platelet Count 68 thou/uL (130-400); Red Blood Cell (RBC) Count 3.23 mill/uL (4.70-6.10)
[2020-12-08 20:14] LABS: ALT (SGPT) 22 U/L (8-55); AST (SGOT) 16 U/L (5-34); Alkaline Phosphatase 145 U/L (40-110); Anion Gap 13 mmol/L (10-20); BUN (Urea Nitrogen) 32 mg/dL (8.4-25.7); Bilirubin, Total 0.9 mg/dL (0.2-1.2); Calc. Creatinine Clearance 0 mL/min (70-130); Calcium 8.2 mg/dL (7.8-10.44); Carbon Dioxide 24 mmol/L (23-31); Chloride 106 mmol/L (98-107); Globulin 1.8 g/dL (2.4-3.5); Glucose 181 mg/dL (83-110); Magnesium 1.4 mg/dL (1.6-2.6); Protein, Total 4.8 g/dL (5.8-8.1)
[2020-12-08 20:16] LABS: Sodium 140 mmol/L (136-145)
[2020-12-08 20:21] LABS: Anisocytosis SLIGHT = 6-15 cells (100X) (0-5/hpf); Band 4 % (5-11); Lymphocytes 29 % (21-51); MDiff Complete? YES; Monocytes 14 % (0-10); Neutrophil 49 % (42-75); Nucleated RBC 1 % (0); Ovalocytes SLIGHT = 2-5 cells (100X) (0-1/hpf); Platelet Morphology Comment Appears Decreased; Poikilocytosis SLIGHT = 6-15 cells (100X) (0-5/hpf); Polychromasia SLIGHT = 2-3 cells (100X) (0-2/hpf); Reactive Lymphocytes 3 % (0-10); Schistocytes SLIGHT = 2-5 cells (100X) (0-1/hpf); Spherocytes SLIGHT = 1-5 cells (100X) (None Seen); Target Cells SLIGHT = 2-5 cells (100X) (0-1/hpf)
[2020-12-08 20:37] LABS: CKMB 1.2 ng/mL (0-6.6)
[2020-12-08] MEDS ORDERED: Aspirin 325 MG TAB ONE (21:04)
[2020-12-08 23:16] LABS: Troponin I 0.068 ng/mL (< 0.028)
[2020-12-08] MEDS ORDERED: Nitroglycerin 0.4 MG TAB (25 Tab Bottle) SL PRN (23:21)
[2020-12-08] MEDS ORDERED: hydrALAZINE 20 MG/ML VIAL SLOW IVP PRN (23:22)
[2020-12-08] MEDS ORDERED: Labetalol HCl 100 MG/20 ML VIAL SLOW IVP PRN (23:22)
[2020-12-08] MEDS ORDERED: HYDROcodone/Acetaminophen 5/325 mg Tablet PO PRN (23:22)
[2020-12-08] MEDS ORDERED: Acetaminophen 325 MG TAB PO PRN (23:22)
[2020-12-08] MEDS ORDERED: Ondansetron PF 4 MG/2 ML Vial IVP PRN (23:22)
[2020-12-08] MEDS ORDERED: Promethazine HCl 12.5 MG in Sodium Chloride 0.9% 50 ML IVPB PRN (23:22)
[2020-12-08] MEDS ORDERED: cloNIDine 0.1 MG TAB PO PRN (23:22)
--- NOTE | 2020-12-08 23:29 | PDOC.HHP ---
Hospitalist HPI Near syncope History of Present Illness: Patient is a 70-year-old male who has a history of CLL/aplastic anemia followed by Dr. Maury pineda who presents to hospital for near syncope. He was taking a shower, became dizzy, sat on toilet, called EMS. had syncope when EMS getting him off toilet. He is on florinef and midodrine at home and megase. In ED, TnI 0.05, bnp 573, mg 1.4, wbc 2, hg b 9.6, plt 68. K 3.0. Cr 2.0. CXR clear. Patient recently admitted to this facility for similar presentation 11/26, diagnosed with orthostatic hypotension, IRLANDA and recovered, got IVf and blood, taken off of cyclosporine and discharged to follow up MD clemente. Patient admitted for syncope, elevated troponin, electrolyte abnormalities. Allergies/Adverse Reactions: Allergy/AdvReac Type Severity Reaction Status Date / Time No Known Drug Allergies Allergy Verified 11/26/20 17:03 Home Medications: Medication Instructions Recorded Confirmed Type Atorvastatin Calcium [Lipitor] 40 mg PO HS 07/20/18 11/26/20 History valACYclovir [Valtrex] 500 mg PO DAILY 08/12/20 11/26/20 History Eltrombopag Olamine [Promacta] 150 mg PO DAILY 10/25/20 11/26/20 History Fluconazole 200 mg PO DAILY 10/25/20 11/26/20 History Magnesium Oxide/Magnesium 1 tablet PO TID 10/26/20 11/26/20 History [[id number]] Ondansetron [Zofran ODT] 8 mg PO Q6HR PRN 11/08/20 11/26/20 History Atorvastatin Calcium [Lipitor] 40 mg PO HS #0 tab 11/18/20 11/26/20 Rx Fludrocortisone Acetate [Florinef] 0.2 mg PO DAILY #30 tab 11/18/20 11/26/20 Rx Meclizine HCl [Antivert] 25 mg PO Q8HR #30 tab 11/18/20 11/26/20 Rx Megestrol Acetate [Megace] 80 mg PO DAILY tab 11/18/20 11/26/20 Rx Midodrine HCl [ProAmatine] 10 mg PO TID #90 tab 11/18/20 11/26/20 Rx Phenazopyridine HCl [Pyridium] 100 mg PO BID #14 tab 11/18/20 11/26/20 Rx Past History: PMHx: [place], CLL w/ chemo (oral), Hyperlipidemia, HTN, Anemia. PSHx: R shoulder and L ankle surgery. 2 hernia repairs. 2 cardiac stents placed. 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 FHx: reviewed, noncontributory Social: Patient is a former tobacco user, smoked cigars, Patient quit smoking more than 10 years ago, Patient denies drug use, Patient denies alcohol use, Lives at home, with family. Hospitalist HPI ROS Constitutional: reports: weakness, malaise, other (syncope). denies: fever, chills, sweats Eyes: denies: pain, vision change, conjunctivae inflammation, eyelid inflammation, redness, other ENT: denies: ear pain, ear discharge, nose pain, nose discharge, nose congestion, mouth pain, mouth swelling, throat pain, throat swelling, other Respiratory: denies: cough, dry, shortness of breath, hemoptysis, SOB with excertion, pleuritic pain, sputum, wheezing, other Cardiovascular: denies: chest pain, palpitations, orthopnea, paroxysmal noc. dyspnea, edema, light headedness, other Gastrointestinal: denies: nausea, vomiting, abdominal pain, diarrhea, constipation, melena, hematochezia, other Genitourinary: denies: dysuria, frequency, incontinence, hematuria, retention, other Musculoskeletal: denies: neck pain, shoulder pain, arm pain, back pain, hand pain, leg pain, foot pain, other Skin: denies: rash, lesions, maurice, bruising, other Neurological: denies: weakness, numbness, incoordination, change in speech, confusion, seizures, other All other systems reviewed; all pertinent +/- noted in HPI/Subj Hospitalist Exam General Appearance: NAD, awake alert Eye: PERRL, anicteric sclera ENT: normocephalic atraumatic, no oropharyngeal lesions, moist mucosa Neck: supple, symmetric, no JVD, no thyromegaly, no lymphadenopathy, no carotid bruit Heart: RRR, no murmur, no gallops, no rubs, normal peripheral pulses Respiratory: CTAB, no wheezes, no rales, no ronchi, normal chest expansion, no tachypnea, normal percussion Gastrointestinal: soft, non-tender, non-distended, normal bowel sounds, no palpable masses, no hepatomegaly, no splenomegaly, no bruit Extremities: no cyanosis, no clubbing, no edema Skin: normal turgor, no lesions, no rashes Neurological: cranial nerve grossly intact, normal sensation to touch, no weakness, no focal deficits, no new deficit Musculoskeletal: normal tone, normal strength, no muscle wasting Psychiatric: normal affect, normal behavior, A&O x 3 Hospitalist Results Result Diagrams: 12/08/20 19:40 12/08/20 19:40 Lab results: Laboratory Last Values WBC 2.0 thou/uL (4.8-10.8) L 12/08/20 19:40 RBC 3.23 mill/uL (4.70-6.10) L 12/08/20 19:40 Hgb 9.6 g/dL (14.0-18.0) L 12/08/20:40 Hct 28.3 % (42.0-52.0) L 12/08/20:40 MCV 87.8 fL (78.0-98.0) 12/08/20 19:40 MCH 29.8 pg (27.0-31.0) 12/08/20 19:40 MCHC 34.0 g/dL (32.0-36.0) 12/08/20 19:40 RDW 19.0 % (11.5-14.5) H 12/08/20 19:40 Plt Count 68 thou/uL (130-400) L 12/08/20 19:40 MPV 6.2 fL (7.4-10.4) L 12/08/20 19:40 Neutrophils % (Manual) 49 % (42-75) 12/08/20 19:40 Band Neuts % (Manual) 4 % (5-11) L 12/08/20 19:40 Lymphocytes % (Manual) 29 % (21-51) 12/08/20 19:40 Reactive Lymphs % 3 % (0-10) 12/08/20 19:40 Monocytes % (Manual) 14 % (0-10) H 12/08/20 19:40 Basophils % (Manual) 1 % (0-2) 12/08/20 19:40 Lymphocytes # Not Reportable 12/08/20 19:40 Nucleated RBCs # (Man) 1 % (0) H 12/08/20 19:40 Plt Morphology Comment Appears Decreased L 12/08/20 19:40 Polychromasia SLIGHT = 2-3 cells (100X) (0-2/hpf) 12/08/20 19:40 Poikilocytosis SLIGHT = 6-15 cells (100X) (0-5/hpf) 12/08/20 19:40 Anisocytosis SLIGHT = 6-15 cells (100X) (0-5/hpf) 12/08/20 19:40 Spherocytes SLIGHT = 1-5 cells (100X) (None Seen) 12/08/20 19:40 Target Cells SLIGHT = 2-5 cells (100X) (0-1/hpf) 12/08/20 19:40 Ovalocytes SLIGHT = 2-5 cells (100X) (0-1/hpf) 12/08/20 19:40 Schistocytes SLIGHT = 2-5 cells (100X) (0-1/hpf) 12/08/20 19:40 Sodium 140 mmol/L (136-145) 12/08/20 19:40 Potassium 3.0 mmol/L (3.5-5.1) L 12/08/20 19:40 Chloride 106 mmol/L (98-107) 12/08/20 19:40 Carbon Dioxide 24 mmol/L (23-31) 12/08/20 19:40 Anion Gap 13 mmol/L (10-20) 12/08/20 19:40 BUN 32 mg/dL (8.4-25.7) H 12/08/20 19:40 Creatinine 2.02 mg/dL (0.7-1.3) H 12/08/20 19:40 Estimated GFR (MDRD) 33 12/08/20 19:40 Glucose 181 mg/dL (83-110) H 12/08/20 19:40 Calcium 8.2 mg/dL (7.8-10.44) 12/08/20 19:40 Magnesium 1.4 mg/dL (1.6-2.6) L 12/08/20 19:40 Total Bilirubin 0.9 mg/dL (0.2-1.2) 12/08/20 19:40 AST 16 U/L (5-34) 12/08/20 19:40 ALT 22 U/L (8-55) 12/08/20 19:40 Alkaline Phosphatase 145 U/L (40-110) H 12/08/20 19:40 CK-MB (CK-2) 1.2 ng/mL (0-6.6) 12/08/20 19:40 Troponin I 0.068 ng/mL (< 0.028) H 12/08/20 22:44 B-Natriuretic Peptide 573.0 pg/mL (0-100) H 12/08/20 19:40 Serum Total Protein 4.8 g/dL (5.8-8.1) L 12/08/20 19:40 Albumin 3.0 g/dL (3.4-4.8) L 12/08/20 19:40 Globulin 1.8 g/dL (2.4-3.5) L 12/08/20 19:40 Albumin/Globulin Ratio 1.7 g/dL (1.2-2.2) 12/08/20 19:40 Blood Type B POSITIVE 12/08/20 19:40 Antibody Screen NEGATIVE 12/08/20 19:40 XR Chest 1 View Portable Observe DT: SunDec 08, 2020 19:23 CXRP Portable frontal chest radiograph: 12/08/2020 COMPARISON: 12/02/2020 HISTORY: Syncope FINDINGS: There is mild atherosclerotic calcification of the aortic arch. No pneumothorax or pleural fluid is seen. There is no lobar consolidation or alveolar edema. A nodular density is seen within the right lung base, likely representing a nipple shadow as this are a is unremarkable on CT performed 11/26/2020. Mild atherosclerotic calcification of the aortic arch noted. IMPRESSION: No focal consolidation or alveolar edema. Hospitalist H&P A/P Plan: Patient is a 70-year-old male who has a history of CLL/aplastic anemia followed by Dr. Mendiola locally who presents to hospital for near syncope. # syncope # elevated troponins # EKG changes - admit to telemetry - ASA started, monitor platelets may need to hold ASA and lovenox if goes lower - trend TnI - echo - orthostatics - PT/OT - stress test - continue florinef, midodrine, statin, megase # CLL/aplastic anemia - monitor CBC and counts, transfuse as needed, consider oncology consult # pancytopenia - likely due to aplastic anemia/cancer therapies # DVT/GI ppx
[2020-12-08] MEDS ORDERED: Electrolyte Replacement Protocol 1 EACH FS SCH (23:30)
[2020-12-08] MEDS ORDERED: Magnesium Sulfate 4 GM in Sodium Chloride 0.9% 250 ML 250 ML IVPB SCH (23:59)
[2020-12-09] MEDS ORDERED: Potassium Chloride 40 MEQ in Sodium Chloride 0.9% 250 ML 250 ML IVPB SCH (00:30)
[2020-12-09] MEDS ORDERED: Sodium Chloride 0.9% 1,000 ML IV SCH (01:00)
[2020-12-09 02:03] LABS: Hemoglobin 9.6 g/dL (14.0-18.0); Lymphocytes 26 % (21-51); MDiff Complete? YES; Mean Corpuscular HGB CONC 34.7 g/dL (32.0-36.0); Mean Corpuscular Hemoglobin 30.6 pg (27.0-31.0); Mean Corpuscular Volume 88.1 fL (78.0-98.0); Mean Platelet Volume 11.2 fL (7.4-10.4); Monocytes 17 % (0-10); Neutrophil 52 % (42-75); Platelet Count 63 thou/uL (130-400); Platelet Morphology Comment Appears Decreased; RBC Distribution Width 19.1 % (11.5-14.5); Reactive Lymphocytes 5 % (0-10); Red Blood Cell (RBC) Count 3.12 mill/uL (4.70-6.10); White Blood Cell (WBC) Count 2.3 thou/uL (4.8-10.8)
[2020-12-09 02:12] LABS: Troponin I 0.057 ng/mL (< 0.028)
[2020-12-09 02:26] LABS: Anion Gap 16 mmol/L (10-20); BUN (Urea Nitrogen) 34 mg/dL (8.4-25.7); Calc. Creatinine Clearance 31 mL/min (70-130); Calcium 8.6 mg/dL (7.8-10.44); Carbon Dioxide 19 mmol/L (23-31); Cardiac Risk 7.1 (Less than 4.5); Chloride 106 mmol/L (98-107); Cholesterol 135 mg/dl (< 200 Desired); Glucose 95 mg/dL (83-110); HDL Cholesterol 19 mg/dL (>60 Neg Risk); LDL Cholesterol, Calculated 82 mg/dL; Magnesium 1.8 mg/dL (1.6-2.6); Potassium 3.2 mmol/L (3.5-5.1); Sodium 138 mmol/L (136-145); Triglycerides 168 mg/dL (Less than 150)
[2020-12-09 06:49] VITALS: BMI 21.2
[2020-12-09] MEDS ORDERED: Potassium Bicarbonate/Cit Ac 20 MEQ TAB PO SCH (09:15)
[2020-12-09] MEDS ORDERED: Magnesium 2 GM/50 ML 2 GM in Premix Bag 1 BAG IVPB SCH (09:30)
--- NOTE | 2020-12-09 11:30 | NM ---
NM Cardiac Stress W EF WF History: Chest pain. Syncope Comparison: None. Findings: Stress and rest performed after the intravenous administration 32.5 and 9.6 mCi technetium 99m sestamibi, respectively. No evidence for scar or ischemia. Normal wall motion. Calculated ejection fraction measures 59%. Impression: Normal nuclear medicine stress test.
[2020-12-09] MEDS: Famotidine 20 MG TAB PO SCH (11:33)
[2020-12-09] MEDS: Fluconazole 100 MG TAB PO SCH (11:33)
[2020-12-09] MEDS: valACYclovir 500 MG TAB PO SCH (11:33)
[2020-12-09] MEDS: Fludrocortisone Acetate 0.1 MG TAB PO SCH (11:35)
[2020-12-09] MEDS: Megestrol Acetate 40 MG TAB PO SCH (11:35)
[2020-12-09] MEDS: Aspirin Chewable 81 MG TAB PO SCH (12:09)
[2020-12-09] MEDS: Enoxaparin Sodium 40 MG/0.4 ML SYRINGE SC SCH (12:09)
[2020-12-09] MEDS: Metoprolol Tartrate 25 MG TAB PO SCH ×2 (12:17→20:28)
[2020-12-09] MEDS: Midodrine HCl 5 MG TAB PO SCH ×3 (12:17→17:14)
[2020-12-09 13:45] LABS: Potassium 3.9 mmol/L (3.5-5.1)
[2020-12-09] MEDS ORDERED: ADENOSINE 60 MG/20 ML VIAL ONE (13:57)
--- NOTE | 2020-12-09 17:04 | PDOC.HOSPP ---
- Subjective Encounter Date: 12/09/20 Encounter Time: 07:30 Subjective: Patient seen in follow-up for near syncope. Denies any chest pain. - Objective Vital Signs & Weight: Vital Signs (12 hours) Temp Pulse Pulse Pulse Resp BP BP 12/09/20 16:40 98.8 F 63 14 12/09/20 13:15 82 78 189/91 H 136/81 12/09/20 13:14 82 88 189/91 H 136/81 12/09/20 12:45 84 12/09/20 12:38 98.2 F 66 17 12/09/20 06:52 97.6 F 64 16 BP BP BP BP Pulse Ox 12/09/20 16:40 184/91 H 128/79 99 12/09/20 13:15 194/90 H 12/09/20 13:14 194/90 H 12/09/20 12:45 171/98 H 141/78 H 12/09/20 12:38 201/95 H 98 12/09/20 06:52 194/90 H 123/72 100 Weight Admit Weight 134 lb 6 oz Weight 136 lb I&O: 12/08/20 12/09/20 12/10/20 06:59 06:59 06:59 Intake Total 908 Output Total 225 Balance 683 Result Diagrams: 12/09/20 01:39 12/09/20 13:19 Additional Labs: Labs and MAR reviewed by me EKG Reviewed by me: Yes (Telemetry shows normal sinus rhythm) Hospitalist ROS - Review of Systems Cardiovascular: reports: light headedness. denies: chest pain, palpitations, orthopnea, paroxysmal noc. dyspnea, edema Gastrointestinal: denies: nausea, vomiting, abdominal pain, diarrhea, constipation, melena, hematochezia - Medication Medications: Active Medications Generic Name Dose Route Start Last Admin Trade Name Freq PRN Reason Stop Dose Admin Aspirin 81 mg 12/09/20 09:00 12/09/20 12:09 Aspirin Chewable 81 Mg Tab PO Not Given DAILY [facility] Enoxaparin Sodium 40 mg 12/09/20 09:00 12/09/20 12:09 Enoxaparin Sodium 40 Mg/0.4 Ml Syringe SC Not Given 0900 LIZZ Famotidine 20 mg 12/09/20 09:00 12/09/20 11:33 Famotidine 20 Mg Tab PO 20 mg DAILY LIZZ Administration Fluconazole 200 mg 12/09/20 09:00 12/09/20 11:33 Fluconazole 100 Mg Tab PO 200 mg DAILY LIZZ Administration Fludrocortisone Acetate 0.2 mg 12/09/20 09:00 12/09/20 11:35 Fludrocortisone Acetate 0.1 Mg Tab PO 0.2 mg DAILY LIZZ Administration Megestrol Acetate 80 mg 12/09/20 09:00 12/09/20 11:35 Megestrol Acetate 40 Mg Tab PO 80 mg DAILY LIZZ Administration Metoprolol Tartrate 12.5 mg 12/09/20 09:00 12/09/20 12:17 Metoprolol Tartrate 25 Mg Tab PO 12.5 mg BID LIZZ Administration Midodrine 10 mg 12/09/20 08:00 12/09/20 12:31 Midodrine Hcl 5 Mg Tab PO Not Given TID-WM LIZZ Valacyclovir HCl 500 mg 12/09/20 09:00 12/09/20 11:33 Valacyclovir 500 Mg Tab PO 500 mg DAILY LIZZ Administration Hospitalist Exam Vitals: Vital Signs (12 hours) Temp Pulse Pulse Pulse Resp BP BP 12/09/20 16:40 98.8 F 63 14 12/09/20 13:15 82 78 189/91 H 136/81 12/09/20 13:14 82 88 189/91 H 136/81 12/09/20 12:45 84 12/09/20 12:38 98.2 F 66 17 12/09/20 06:52 97.6 F 64 16 BP BP BP BP Pulse Ox 12/09/20 16:40 184/91 H 128/79 99 12/09/20 13:15 194/90 H 12/09/20 13:14 194/90 H 12/09/20 12:45 171/98 H 141/78 H 12/09/20 12:38 201/95 H 98 12/09/20 06:52 194/90 H 123/72 100 Weight Admit Weight 134 lb 6 oz Weight 136 lb General Appearance: awake alert Eye: anicteric sclera ENT: moist mucosa Neck: supple Heart: RRR Respiratory: CTAB Gastrointestinal: soft, non-tender Skin: no rashes Psychiatric: normal affect, normal behavior Hosp A/P - Plan # near syncope Patient has significant orthostatic hypotension. Continue midodrine and Florinef. Check cortisol level. # elevated troponins -Stress test was normal. -Likely non-ST elevation myocardial infarction type II. # CLL/aplastic anemia - monitor CBC and counts, transfuse as needed # pancytopenia - likely due to chemo therapy # DVT/GI ppx
--- NOTE | 2020-12-09 18:05 | CON ---
DATE OF CONSULTATION: 12/09/2020 REASON FOR CONSULTATION: Orthostatic hypotension. PRIMARY GUT CARRIER: Chriss Linn MD HISTORY OF PRESENT ILLNESS: Mr. Webb is a pleasant 70-year-old white gentleman, who comes to the hospital for near syncope. He was taking a shower, became very dizzy, so he had to sit on the toilet and eventually called EMS. When EMS was getting him off the toilet, they lifted him up and he went flaccid on them, so they brought him in for further evaluation. He was admitted recently for similar reason. He was started on both Florinef and midodrine for symptomatic orthostatic hypotension. At that time, he got IV fluids and was taken off cyclosporine, which he takes for his CLL and aplastic anemia, and he was sent home. On my evaluation, he denies any chest pain, tightness, pressure. No shortness of breath. He states he feels better after fluids have been given to him. He states he has been eating and drinking just fine. Denies diarrhea. PAST MEDICAL HISTORY: 1. Coronary artery disease. He had a cardiac catheterization in 2012 and found to have 70% proximal LAD lesion, 70% mid and 70% OM lesion and 100% RCA lesion. He underwent PTCA and stenting of the right coronary artery. He has done very well since then. 2. Chronic lymphocytic leukemia. 3. Aplastic anemia. 4. Hypertension. 5. Hyperlipidemia. SURGICAL HISTORY: 1. 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 2. Ankle surgery. 3. Shoulder surgery. 4. Hernia surgery. 5. Stenting as above. SOCIAL HISTORY: Smokes cigars. No alcohol or drugs. FAMILY HISTORY: Noncontributory. OUTPATIENT MEDICATIONS: 1. Valtrex 500 mg a day. 2. Megace 80 mg a day. 3. Flomax. 4. Prednisone dose pack recently. 5. Magnesium oxide. 6. Levofloxacin 500 mg a day. 7. Isosorbide mononitrate 60 mg a day. 8. Fluconazole 400 mg a day. 9. Famotidine 40 mg a day. 10. Cyclosporine. 11. Eltrombopag 150 mg a day. 12. Carvedilol 3.125 b.i.d. 13. Atorvastatin 40 mg at bedtime. 14. Amlodipine 10 mg a day. ALLERGIES: NO KNOWN DRUG ALLERGIES. REVIEW OF SYSTEMS: A 12-point review of systems was done and was found to be negative other than stated in the history of present illness. PHYSICAL EXAMINATION: VITAL SIGNS: Temperature 98.8, pulse 63, respiratory rate 14, saturating 99% on room air. Blood pressure when lying down 194/90; when standing up, it goes down to 128/79, so he has about a 60 to 70 point drop. GENERAL: Awake, alert, and oriented x3. No distress. HEENT: Normocephalic, atraumatic. NECK: Supple. LUNGS: Clear. CARDIOVASCULAR: S1, S2. There is a grade 3/6 systolic murmur at the right upper sternal border. ABDOMEN: Soft. EXTREMITIES: No edema. SKIN: Warm and dry. LABORATORY DATA: Laboratory work was reviewed. White count of 2, hemoglobin of 9.6, hematocrit 28, platelet count of 68. Chemistry; potassium were 3.2 back up to 3.9 after replacement. BUN of 34, creatinine 1.86, GFR of 36. His baseline creatinine is around 1.1, and has been actually on the way down. It was at 4 back in October of this year. Troponin has been in the indeterminate range of 0.05, 0.06, 0.05. Triglycerides of 168, cholesterol 135, LDL of 82, HDL of 19, TSH was 0.61, and cortisol of 14. Nuclear stress test done earlier today showed EF of 59% with no reversible ischemia. ASSESSMENT/PLAN: 1. Orthostatic hypotension. 2. Coronary artery disease, stable at this time. 3. Type 2 demand of ischemia likely related to orthostatic hypotension. PLAN: 1. May need to cut back on his isosorbide mononitrate and his amlodipine and should only have his blood pressure treated on a standing basis. 2. Avoid dehydration at all cost. 3. Further recommendations per his primary theatrical performer, Dr. Lnin. Job ID: [id number]
[2020-12-09] MEDS ORDERED: Atorvastatin Calcium 40 MG TAB PO SCH (21:00)
[2020-12-10 03:43] VITALS: TEMP 98.9
[2020-12-10] MEDS: Megestrol Acetate 40 MG TAB PO SCH (07:51)
[2020-12-10] MEDS: Fludrocortisone Acetate 0.1 MG TAB PO SCH (07:51)
[2020-12-10] MEDS: Fluconazole 100 MG TAB PO SCH (07:52)
[2020-12-10] MEDS: valACYclovir 500 MG TAB PO SCH (07:53)
[2020-12-10] MEDS: Metoprolol Tartrate 25 MG TAB PO SCH (07:53)
[2020-12-10] MEDS: Midodrine HCl 5 MG TAB PO SCH (07:54)
[2020-12-10] MEDS: Famotidine 20 MG TAB PO SCH (07:55)
[2020-12-10] MEDS: Aspirin Chewable 81 MG TAB PO SCH (07:55)
[2020-12-10] MEDS: Enoxaparin Sodium 40 MG/0.4 ML SYRINGE SC SCH (07:58)
[2020-12-10 10:21] VITALS: BP 202/91
--- NOTE | 2020-12-10 15:05 | PDOC.DS.DS ---
Provider Date of Admission: 12/09/20 15:40 Date of Discharge: 12/10/20 Admitting Provider: Ken Spencer MD Consultations: Cardiology (Dr. Lopez) Primary Care Physician: [facility] Hospital Course: Discharge diagnosis: 1. Orthostatic hypotension 2. Hypokalemia 3. Dyslipidemia Hospital course: Patient is a pleasant 16-year-old gentleman who was admitted to the hospital on December 09, 2020 for near syncope. He was seen by cardiology service. He had nuclear stress test which was normal. It is advised that if he continues to have orthostatic hypotension he may need to cut back on his isosorbide mononitrate and his amlodipine and should only have his blood pressure treated on a standing basis. Discharge destination: Home Total amount of time spent coordinating this discharge: 20 minutes Resuscitation Status: 12/09/20 04:33 Resuscitation Status Routine Resuscitation Status: DNAR: NO Resuscitation Discussed with: patient, nurse Lab Results: 12/09/20 01:39 12/09/20 13:19 Abnormal Lab Results - Last 48 hrs 12/08/20 19:40: B-Natriuretic Peptide 573.0 H 12/08/20 19:40: Troponin I 0.052 H 12/08/20 19:40: Potassium 3.0 L, BUN 32 H, Creatinine 2.02 H, Magnesium 1.4 L, Alkaline Phosphatase 145 H, Serum Total Protein 4.8 L, Albumin 3.0 L, Globulin 1.8 L 12/08/20 19:40: WBC 2.0 L, RBC 3.23 L, Hgb 9.6 L, Hct 28.3 L, RDW 19.0 H, Plt Count 68 L, MPV 6.2 L, Band Neuts % (Manual) 4 L, Monocytes % (Manual) 14 H, Nucleated RBCs # (Man) 1 H, Plt Morphology Comment Appears Decreased L 12/08/20 22:44: Troponin I 0.068 H 12/09/20 01:39: Troponin I 0.057 H 12/09/20 01:39: Potassium 3.2 L, Carbon Dioxide 19 L, BUN 34 H, Creatinine 1.86 H, Triglycerides 168 H 12/09/20 01:39: WBC 2.3 L, RBC 3.12 L, Hgb 9.6 L, Hct 27.5 L, RDW 19.1 H, Plt Count 63 L, MPV 11.2 H, Monocytes % (Manual) 17 H, Plt Morphology Comment Appears Decreased L Vitals: Vital Signs (12 hours) Temp Pulse Resp BP BP BP Pulse Ox 12/10/20 10:20 119/63 120/70 202/91 H 12/10/20 08:00 97 12/10/20 07:41 98.9 F 77 18 120/70 97 12/10/20 04:10 113/62 192/90 H 12/10/20 03:39 98.9 F 62 16 204/91 H 94 L Weight Admit Weight 134 lb 6 oz Weight 140 lb Physical Exam: The patient was seen and examined on the day of discharge. Patient denies chest pain or shortness of breath. Vital signs are stable. S1 and S2 are heard. Lungs are clear to auscultation bilaterally. Plan Home Medications: Medication Instructions Recorded Confirmed Type valACYclovir [Valtrex] 500 mg PO DAILY 08/12/20 12/09/20 History Eltrombopag Olamine [Promacta] 150 mg PO DAILY 10/25/20 12/09/20 History Fluconazole 400 mg PO DAILY 10/25/20 12/09/20 History Magnesium Oxide/Magnesium 1 tablet PO TID 10/26/20 12/09/20 History [[id number]] Atorvastatin Calcium [Lipitor] 40 mg PO HS #0 tab 11/18/20 12/09/20 Rx Megestrol Acetate [Megace] 80 mg PO DAILY tab 11/18/20 12/09/20 Rx Amlodipine [Norvasc] 10 mg PO DAILY 12/09/20 12/09/20 History Carvedilol [Coreg] 3.125 mg PO BID 12/09/20 12/09/20 History Famotidine 40 mg PO DAILY 12/09/20 12/09/20 History Isosorbide Mononitrate [Isosorbide 60 mg PO DAILY 12/09/20 12/09/20 History Mononitrate ER] Levofloxacin 500 mg PO DAILY 12/09/20 12/09/20 History Prednisone [predniSONE 10 mg 10 mg PO ASDIR 12/09/20 12/09/20 History Dosepak] Tamsulosin HCl [Flomax] 0.4 mg PO DAILY 12/09/20 12/09/20 History cycloSPORINE 2 capsule PO BID 12/09/20 12/09/20 History Allergies: No Known Drug Allergies Allergy (Verified 11/26/20 17:03) per pt Referrals: [facility] [Primary Care Provider] - 7 Days (Please call the clinic and schedule a follow up appointment) Chriss Linn MD [Active] - 2-3 Weeks (Please call the office and schedule a follow up appointment) Disposition: HOME Quality CORE MEASURES:: N/A
== END 2020-12-10 12:30 | disposition home or self-care (01) | DRG 280 ==
LOC: ERS 19:09 → 2NO 21:38 → OBSVTOIN 12-09 15:40
PROVIDERS: ADMIT Internal Medicine; ATTEND Internal Medicine
DX: I95.1 Orthostatic hypotension (principal); D61.811 Other drug-induced pancytopenia; I21.A1 Myocardial infarction type 2; C91.10 Chronic lymphocytic leukemia of B-cell type not having achieved remission; D61.9 Aplastic anemia, unspecified; N17.9 Acute kidney failure, unspecified; Z20.822 Contact with and (suspected) exposure to COVID-19; Z66 Do not resuscitate; E78.5 Hyperlipidemia, unspecified; E87.6 Hypokalemia; T45.1X5A Adverse effect of antineoplastic and immunosuppressive drugs, initial encounter; I25.2 Old myocardial infarction; Z87.891 Personal history of nicotine dependence; Z79.899 Other long term (current) drug therapy
CPT/HCPCS: 36415; 71045; 78452; 80048; 80053; 80061; 82533; 82553; 83735; 83880; 84443; 84484; 85025; 86850; 86900; 86901; 93005; 93017; 94760; A9500; J0153; J2550; J3475; J3480; J7050; S0179

== ENCOUNTER 2020-12-27 10:16 | Inpatient (IN) | payer MEDICARE, OTHER ==
--- NOTE | 2020-12-27 11:04 | RAD ---
PORTABLE CHEST: Date: 12/27/2020 HISTORY: Syncopal episode at home. COMPARISON: 12/08/[address] of the chest of 10/02/2020. FINDINGS: Heart size within normal limits. There are atherosclerotic changes of the aorta. Nodular area in the right lung base is probably related to nipple shadows. There is no pulmonary nodule demonstrated on t he CT study. Postop changes of the right shoulder are present. IMPRESSION: No active intrathoracic disease. POS: [facility]
[2020-12-27 11:10] LABS: Mean Corpuscular HGB CONC 33.5 g/dL (32.0-36.0); Mean Corpuscular Hemoglobin 31.1 pg (27.0-31.0); Mean Platelet Volume 10.4 fL (7.4-10.4); Platelet Count 81 thou/uL (130-400); RBC Distribution Width 23.8 % (11.5-14.5); Red Blood Cell (RBC) Count 2.88 mill/uL (4.70-6.10); White Blood Cell (WBC) Count 2.5 thou/uL (4.8-10.8)
[2020-12-27 11:47] LABS: Band 10 % (5-11); Eosinophils 1 % (0-10); Lymphocytes 19 % (21-51); MDiff Complete? YES; Monocytes 17 % (0-10); Neutrophil 53 % (42-75); Platelet Morphology Comment Appears Decreased; Polychromasia SLIGHT = 2-3 cells (100X) (0-2/hpf); Schistocytes SLIGHT = 2-5 cells (100X) (0-1/hpf)
[2020-12-27 11:54] LABS: CKMB 1.7 ng/mL (0-6.6)
[2020-12-27 12:38] LABS: ALT (SGPT) 20 U/L (8-55); AST (SGOT) 22 U/L (5-34); Albumin 3.3 g/dL (3.4-4.8); Alkaline Phosphatase 76 U/L (40-110); Anion Gap 19 mmol/L (10-20); BUN (Urea Nitrogen) 62 mg/dL (8.4-25.7); Bilirubin, Total 1.2 mg/dL (0.2-1.2); Calc. Creatinine Clearance 0 mL/min (70-130); Carbon Dioxide 22 mmol/L (23-31); Chloride 99 mmol/L (98-107); Globulin 2.1 g/dL (2.4-3.5); Glucose 169 mg/dL (83-110); Magnesium 1.5 mg/dL (1.6-2.6); Potassium 3.4 mmol/L (3.5-5.1); Protein, Total 5.4 g/dL (5.8-8.1); Sodium 137 mmol/L (136-145)
[2020-12-27] MEDS ORDERED: Magnesium 2 GM/50 ML BAG (IN WATER) ONE (14:13)
[2020-12-27] MEDS ORDERED: Acetaminophen 650 MG Suppository PR PRN (14:20)
[2020-12-27] MEDS ORDERED: Acetaminophen 325 MG TAB PO PRN (14:20)
--- NOTE | 2020-12-27 14:26 | PDOC.HHP ---
Hospitalist HPI Syncope History of Present Illness: Mr. Webb is a 70-year-old male with past medical history of aplastic anemia on current chemotherapy follows with Dr. Mendiola, recurrent syncope, hypertension, hyperlipidemia, orthostatic hypotension, coronary artery disease status post 2 stents who presents with a syncopal episode. Patient's reports that patient was passed out for approximately 30 minutes. Patient remembers going to brush his teeth and then wipes says that he slumped over his walker. No head strike or traumatic injury. Patient regained consciousness in route and had no noted neurologic deficits. Reports that he has not been eating or drinking very well lately and he has had recurrent vomiting and he denies any sharp chest pain shortness of breath or abdominal pain. No melena or hematochezia. Of note patient has had multiple repeated admissions for syncopal episode. He was recently discharged on December 10 for syncopal episode. At that time CT brain CT abdomen pelvis, stress test were all normal. In emergency room initial vital signs 168/93, 93, 14, 97.8 100% on room air. BUN/CR 62/4.22, sodium 137, potassium 3.4, magnesium 1.5. H/H 9.0/26.8, WBC 2.5, platelets 81. Patient received 2 L normal saline and 1 g of magnesium. Allergies/Adverse Reactions: Allergy/AdvReac Type Severity Reaction Status Date / Time No Known Drug Allergies Allergy Verified 12/27/20 22:03 Home Medications: Medication Instructions Recorded Confirmed Type valACYclovir [Valtrex] 500 mg PO DAILY 08/12/20 12/27/20 History Eltrombopag Olamine [Promacta] 150 mg PO DAILY 10/25/20 12/27/20 History Fluconazole 400 mg PO DAILY 10/25/20 12/27/20 History Magnesium Oxide/Magnesium 1 tablet PO TID 10/26/20 12/27/20 History [[id number]] Atorvastatin Calcium [Lipitor] 40 mg PO HS #0 tab 11/18/20 12/27/20 Rx cycloSPORINE 1 capsule PO BID 12/09/20 12/27/20 History Fludrocortisone Acetate [Florinef] 0.2 mg PO DAILY 12/27/20 12/27/20 History Meclizine HCl 25 mg PO DAILY PRN 12/27/20 12/27/20 History Megestrol Acetate 80 mg PO DAILY 12/27/20 12/27/20 History Midodrine HCl [ProAmatine] 5 mg PO TID 12/27/20 12/27/20 History Ondansetron [Ondansetron ODT] 4 mg PO Q4HR PRN 12/27/20 12/27/20 History Past History: Past medical history Aplastic anemia CLL with oral chemotherapy Syncopal episodes Coronary artery disease status post stenting Hypertension Hyperlipidemia Orthostatic hypotension Past surgical history Right shoulder and left ankle surgery 2 hernia repairs 2 cardiac stents Third left digit amputation Family history no pertinent family history Social history Denies alcohol or drug use. Former tobacco smoker quit more than 40 years ago. Lives at home with his . Hospitalist HPI TRICIA Constitutional: reports: weakness, malaise. denies: fever, chills, sweats, other Eyes: denies: pain, vision change, conjunctivae inflammation, eyelid inflammation, redness, other ENT: denies: ear pain, ear discharge, nose pain, nose discharge, nose congestion, mouth pain, mouth swelling, throat pain, throat swelling, other Respiratory: denies: cough, dry, shortness of breath, hemoptysis, SOB with excertion, pleuritic pain, sputum, wheezing, other Cardiovascular: reports: light headedness, other. denies: chest pain, palpita tions, orthopnea, paroxysmal noc. dyspnea, edema Gastrointestinal: reports: nausea (Syncope), vomiting. denies: abdominal pain, diarrhea, constipation, melena, hematochezia, other Genitourinary: denies: dysuria, frequency, incontinence, hematuria, retention, other Musculoskeletal: denies: neck pain, shoulder pain, arm pain, back pain, hand pain, leg pain, foot pain, other Skin: denies: rash, lesions, maurice, bruising, other Neurological: denies: weakness, numbness, incoordination, change in speech, confusion, seizures, other Hospitalist Exam General Appearance: NAD, awake alert, ill appearing General - other findings: Cachectic Eye: PERRL, anicteric sclera ENT: normocephalic atraumatic, no oropharyngeal lesions, moist mucosa Neck: supple, symmetric, no JVD, no thyromegaly, no lymphadenopathy, no carotid bruit Heart: RRR, no murmur, no gallops, no rubs, normal peripheral pulses Respiratory: CTAB, no wheezes, no rales, no ronchi, normal chest expansion, no tachypnea, normal percussion Gastrointestinal: soft, non-tender, non-distended, normal bowel sounds, no palpable masses, no hepatomegaly, no splenomegaly, no bruit Gastrointestinal - other findings: Scaphoid abdomen Extremities: no cyanosis, no clubbing, no edema Skin: normal turgor, no lesions, no rashes Neurological: cranial nerve grossly intact, normal sensation to touch, no weakness, no focal deficits, no new deficit Musculoskeletal: normal tone, generalized weakness, diffuse muscle atrophy Psychiatric: normal affect, normal behavior, A&O x 3 Hospitalist Results Result Diagrams: 12/28/20 04:43 12/28/20 04:43 Lab results: Laboratory Last Values WBC 2.5 thou/uL (4.8-10.8) L 12/27/20 10:36 RBC 2.88 mill/uL (4.70-6.10) L 12/27/20 10:36 Hgb 9.0 g/dL (14.0-18.0) L 12/27/20 10:36 Hct 26.8 % (42.0-52.0) L 12/27/20 10:36 MCV 93.0 fL (78.0-98.0) 12/27/20 10:36 MCH 31.1 pg (27.0-31.0) H 12/27/20 10:36 MCHC 33.5 g/dL (32.0-36.0) 12/27/20 10:36 RDW 23.8 % (11.5-14.5) H 12/27/20 10:36 Plt Count 81 thou/uL (130-400) L 12/27/20 10:36 MPV 10.4 fL (7.4-10.4) 12/27/20 10:36 Neutrophils % (Manual) 53 % (42-75) 12/27/20 10:36 Band Neuts % (Manual) 10 % (5-11) 12/27/20 10:36 Lymphocytes % (Manual) 19 % (21-51) L 12/27/20 10:36 Monocytes % (Manual) 17 % (0-10) H 12/27/20 10:36 Eosinophils % (Manual) 1 % (0-10) 12/27/20 10:36 Lymphocytes # Not Reportable 12/27/20 10:36 Plt Morphology Comment Appears Decreased L 12/27/20 10:36 Polychromasia SLIGHT = 2-3 cells (100X) (0-2/hpf) 12/27/20 10:36 Schistocytes SLIGHT = 2-5 cells (100X) (0-1/hpf) 12/27/20 10:36 Sodium 137 mmol/L (136-145) 12/27/20 10:36 Potassium 3.4 mmol/L (3.5-5.1) L 12/27/20 10:36 Chloride 99 mmol/L (98-107) 12/27/20 10:36 Carbon Dioxide 22 mmol/L (23-31) L 12/27/20 10:36 Anion Gap 19 mmol/L (10-20) 12/27/20 10:36 BUN 62 mg/dL (8.4-25.7) H 12/27/20 10:36 Creatinine 4.22 mg/dL (0.7-1.3) H 12/27/20 10:36 Estimated GFR (MDRD) 14 12/27/20 10:36 Glucose 169 mg/dL (83-110) H 12/27/20 10:36 Calcium 9.0 mg/dL (7.8-10.44) 12/27/20 10:36 Magnesium 1.5 mg/dL (1.6-2.6) L 12/27/20 10:36 Total Bilirubin 1.2 mg/dL (0.2-1.2) 12/27/20 10:36 AST 22 U/L (5-34) 12/27/20 10:36 ALT 20 U/L (8-55) 12/27/20 10:36 Alkaline Phosphatase 76 U/L (40-110) 12/27/20 10:36 CK-MB (CK-2) 1.7 ng/mL (0-6.6) 12/27/20 10:36 Troponin I 0.063 ng/mL (< 0.028) H 12/27/20 10:36 Serum Total Protein 5.4 g/dL (5.8-8.1) L 12/27/20 10:36 Albumin 3.3 g/dL (3.4-4.8) L 12/27/20 10:36 Globulin 2.1 g/dL (2.4-3.5) L 12/27/20 10:36 Albumin/Globulin Ratio 1.6 g/dL (1.2-2.2) 12/27/20 10:36 Blood Type B POSITIVE 12/27/20 10:40 Antibody Screen NEGATIVE 12/27/20 10:40 Hospitalist H&P A/P Plan: Syncope 70-year male past medical history of aplastic anemia CLL on oral chemotherapy presents with a syncopal episode. No head strike, no prodrome. History of recurrent syncopal episodes which have been extensively worked up in the past. Patient does report he has not been eating or drinking very much and has had increased nausea and vomiting recently. Patient with recent CT brain, abdomen, stress test 2 weeks ago which were all normal. Suspect likely orthostatic. H&H stable 9.0/26.8. Troponin slightly elevated at 0.063, no chest pain. On review of records this is chronically elevated. CXR with no acute findings. Afebrile with no signs of infectious process. On discharge summary patient was advised to hold his home blood pressure medications if he felt dizzy. Will discontinue home carvedilol and home Imdur. Will replete with IV fluids and continue to monitor. Plan IV fluids, orthostatic vital signs Hold antihypertensives Telemetry monitoring TSH, magnesium, potassium q4hr neuro checks Acute Kidney Injury BUN/Cr CR 62/4.22. Patient did have IRLANDA during last admission although mild creatinine around 2. Appears baseline creatinine around 1. Likely prerenal. Will give IV fluids and continue to monitor. Elevation in troponin Initial troponin 0.063. No EKG changes. Patient denies chest pain. Recent cardiac work-up for syncopal episode 2 weeks ago with stress testing that was within normal limits. Thought to be orthostatic hypotension at that time. Troponin also very mildly elevated. Suspect may be demand ischemia versus elevation secondary to IRLANDA. We will continue to trend and place on telemetry monitoring. Plan Telemetry monitoring Trend troponin Aspirin, may need to hold if platelets are low Hypomagnesemia Magnesium 1.5 on admission. Will replete and continue to monitor. Likely secondary to decreased p.o. intake. Hypokalemia Potassium 3.4. Will replete and continue to monitor. Aplastic anemia History of CLL and aplastic anemia follows with Dr. Mendiola. On home v alacyclovir, Promacta, fluconazole, cyclosporine, Levaquin. We will continue these. On review of records it appears patient is transfusion dependent. H&H 9.0/26.8 not meeting transfusion threshold. Patient was considering pursuing care at [facility], however reports that he is continue with Dr. Mendiola. Patient requests to see Dr. Mendiola while his is in the hospital. Will place consult. Plan Continue home medications -Oncology consult, recommendations appreciated Trend H&H and blood counts transfuse if necessary DVT prophylaxisSCDs DNR Case discussed with attending physician Dr. Torrez.
[2020-12-27] MEDS ORDERED: NS 0.9% w/ 40 MEQ KCL 1,000 ML IV SCH ×2 (14:30→15:15)
--- NOTE | 2020-12-27 14:37 | ULT ---
Bilateral renal ultrasound CLINICAL INDICATION: Hypokalemia, hypocalcemia. Patient currently on chemotherapy for aplastic anemia. COMPARISON: CT abdomen on 11/26/2020 FINDINGS: Right kidney: There is no evidence of a renal mass, renal calculus, or hydronephrosis. A nonobstructi ng right renal calculus was seen on recent CT abdomen. However, this calculus is not visualized on sonographic evaluation.The right kidney measures 10.3 cm x 5.1 cm. Left kidney: There is no evidence of a renal mass, renal calculus, or hydronephrosis. The left kidney measures 10.5 cm x 5.2 cm. Urinary bladder: Within normal limits for degree of distention. Urinary bladder volume is 186 mL. IMPRESSION: No evidence of hydronephrosis.
[2020-12-27 15:45] LABS: CKMB 1.8 ng/mL (0-6.6)
[2020-12-27 17:54] VITALS: BMI 21.7
[2020-12-27] MEDS ORDERED: Aspirin 81 mg Enteric Coated Tablet PO SCH (18:30)
[2020-12-27 18:55] LABS: Bacteria/HPF None Seen HPF (None Seen); Bilirubin Negative (Negative); Blood, Urine 1+ (Negative); Clarity Clear (Clear); Glucose, Urine (Dipstick) Normal (Negative); Ketone, Urine Negative (Negative); Leukocyte Negative Leu/uL (Negative); Nitrite Negative (Negative); Protein, Urine (Dipstick) 30 mg/dL (Neg-Trace); RBC/HPF 0-3 HPF (0-3); Specific Gravity, Urine 1.011 (1.002-1.036); Squamous Epithelial None Seen HPF (0-3); Urobilinogen Normal mg/dL (Less than 2); WBC/HPF 0-3 HPF (0-3); pH, Urine 6.5 (5.0-9.0)
[2020-12-27] MEDS ORDERED: Promethazine HCl 12.5 MG in Sodium Chloride 0.9% 50 ML IVPB SCH (21:00)
[2020-12-27] MEDS ORDERED: CYCLOSPORINE 100 MG PO SCH (21:00)
[2020-12-28] MEDS: hydrALAZINE 20 MG/ML VIAL SLOW IVP PRN (02:50)
[2020-12-28] MEDS ORDERED: Labetalol HCl 100 MG/20 ML VIAL SLOW IVP SCH ×2 (04:00→05:30)
[2020-12-28 05:14] LABS: Anion Gap 17 mmol/L (10-20); BUN (Urea Nitrogen) 51 mg/dL (8.4-25.7); Calc. Creatinine Clearance 18 mL/min (70-130); Calcium 8.9 mg/dL (7.8-10.44); Carbon Dioxide 22 mmol/L (23-31); Chloride 103 mmol/L (98-107); Glucose 95 mg/dL (83-110); Potassium 3.6 mmol/L (3.5-5.1); Sodium 138 mmol/L (136-145)
[2020-12-28 05:16] LABS: Anisocytosis SLIGHT = 6-15 cells (100X) (0-5/hpf); Eosinophils 2 % (0-10); Hemoglobin 9.1 g/dL (14.0-18.0); Lymphocytes 28 % (21-51); MDiff Complete? YES; Mean Corpuscular HGB CONC 33.6 g/dL (32.0-36.0); Mean Corpuscular Hemoglobin 30.9 pg (27.0-31.0); Mean Corpuscular Volume 91.8 fL (78.0-98.0); Mean Platelet Volume 6.9 fL (7.4-10.4); Monocytes 18 % (0-10); Neutrophil 50 % (42-75); Platelet Count 61 thou/uL (130-400); Platelet Morphology Comment Appears Decreased; RBC Distribution Width 23.9 % (11.5-14.5); Reactive Lymphocytes 2 % (0-10); Red Blood Cell (RBC) Count 2.94 mill/uL (4.70-6.10); Schistocytes SLIGHT = 2-5 cells (100X) (0-1/hpf); White Blood Cell (WBC) Count 3.2 thou/uL (4.8-10.8)
[2020-12-28] MEDS ORDERED: Senokot S 8.6-50 MG TAB PO PRN (07:51)
[2020-12-28] MEDS ORDERED: Loperamide HCl 2 MG CAP PO PRN (07:51)
[2020-12-28] MEDS ORDERED: Zolpidem Tartrate 5 MG TAB PO PRN (07:51)
[2020-12-28] MEDS ORDERED: Cepastat Lozenges 1 LOZ PO PRN (07:51)
[2020-12-28] MEDS ORDERED: Labetalol HCl 100 MG/20 ML VIAL SLOW IVP PRN (07:51)
[2020-12-28] MEDS ORDERED: Loratadine 10 MG TAB PO PRN (07:51)
[2020-12-28] MEDS ORDERED: Ondansetron ODT 4 MG TAB PO PRN (07:51)
[2020-12-28] MEDS ORDERED: Calcium Carbonate 500 MG ChewTAB PO PRN (07:51)
[2020-12-28] MEDS ORDERED: Sodium Chloride 0.65% Nasal 44 ML BOT EA NARE PRN (07:51)
[2020-12-28] MEDS ORDERED: HYDROcodone/Acetaminophen 5/325 mg Tablet PO PRN (07:51)
[2020-12-28] MEDS ORDERED: Ondansetron PF 4 MG/2 ML Vial IVP PRN (07:51)
[2020-12-28] MEDS ORDERED: Bisacodyl 5 MG TAB PO PRN (07:51)
[2020-12-28] MEDS ORDERED: GUAIFENESIN SF SOLN 200 MG/10 ML UDCUP PO PRN (07:51)
[2020-12-28] MEDS ORDERED: Sodium Chloride 0.45% 1,000 ML IV SCH (08:00)
[2020-12-28 08:07] LABS: SARS-CoV-2 PCR by NAA Not Detected (NotDetected)
[2020-12-28 08:40] LABS: CK (CPK) 79 U/L (30-200); Magnesium 1.6 mg/dL (1.6-2.6); Phosphorus 4.1 mg/dL (2.3-4.7); Uric Acid 7.1 mg/dL (3.5-7.2)
[2020-12-28] MEDS: Folic Acid 1 MG TAB PO SCH (08:50)
[2020-12-28] MEDS: Cyanocobalamin (Vitamin B-12) 1,000 MCG TAB PO SCH (08:50)
[2020-12-28] MEDS ORDERED: FLU VACC QS2020-21(65YR UP)/PF 240 MCG/0.7 ML SYRINGE IM ONE (09:00)
[2020-12-28] MEDS ORDERED: Fluconazole 100 MG TAB PO SCH (09:00)
[2020-12-28] MEDS ORDERED: ELTROMBOPAG OLAMINE 75 MG PO SCH (09:00)
[2020-12-28] MEDS ORDERED: valACYclovir 500 MG TAB PO SCH (09:00)
--- NOTE | 2020-12-28 10:41 | PDOC.HOSPP ---
- Subjective Encounter Date: 12/28/20 Encounter Time: 08:30 Subjective: Patient is feeling weak and dizzy, no overnight event, no fever, no nausea or vomiting or diarrhea, - Objective Vital Signs & Weight: Vital Signs (12 hours) Temp Pulse Resp BP BP BP BP 12/28/20 08:00 81 118/64 171/91 H 12/28/20 07:37 97.4 F L 81 16 12/28/20 05:56 80 162/87 H 12/28/20 05:27 90 187/99 H 12/28/20 04:30 183/94 H 12/28/20 04:07 90 191/104 H 12/28/20 03:50 90 194/112 H 12/28/20 02:50 85 12/28/20 02:30 88 197/100 H 12/28/20 00:00 85 18 Pulse Ox 12/28/20 08:00 12/28/20 07:37 100 12/28/20 05:56 12/28/20 05:27 12/28/20 04:30 12/28/20 04:07 12/28/20 03:50 12/28/20 02:50 12/28/20 02:30 12/28/20 00:00 Weight Weight 138 lb 6.4 oz I&O: 12/27/20 12/28/20 12/29/20 06:59 06:59 06:59 Intake Total 200 Output Total 300 Balance -100 Result Diagrams: 12/28/20 04:43 12/28/20 04:43 Radiology Reviewed by me: Yes EKG Reviewed by me: Yes Hospitalist ROS - Review of Systems Constitutional: reports: weakness. denies: fever, chills, sweats, malaise, other Respiratory: denies: cough, dry, shortness of breath, hemoptysis, SOB with excertion, pleuritic pain, sputum, wheezing, other Cardiovascular: reports: light headedness. denies: chest pain, palpitations, orthopnea, paroxysmal noc. dyspnea, edema, other Gastrointestinal: denies: nausea, vomiting, abdominal pain, diarrhea, constipation, melena, hematochezia, other Genitourinary: denies: dysuria, frequency, incontinence, hematuria, retention, other Musculoskeletal: denies: neck pain, shoulder pain, arm pain, back pain, hand pain, leg pain, foot pain, other - Medication Medications: Active Medications Generic Name Dose Route Start Last Admin Trade Name Freq PRN Reason Stop Dose Admin Cyanocobalamin 1,000 mcg 12/28/20 09:00 12/28/20 08:50 Cyanocobalamin (Vitamin B-12) 1,000 Mcg Tab PO 1,000 mcg DAILY LIZZ Administration Folic Acid 1 mg 12/28/20 09:00 12/28/20 08:50 Folic Acid 1 Mg Tab PO 1 mg DAILY LIZZ Administration Hydralazine HCl 10 mg 12/28/20 02:31 12/28/20 02:50 Hydralazine 20 Mg/Ml Vial SLOW IVP 10 mg Q4H PRN Administration SBP Greater Than 180 Sodium Chloride 1,000 mls @ 75 mls/hr 12/28/20 08:00 12/28/20 08:49 1/2 Normal Saline IV 1,000 mls .[id number] LIZZ Administration Levofloxacin 500 mg 12/28/20 06:00 12/28/20 04:08 Levofloxacin 500 Mg Tab PO 500 mg Q2D LIZZ Administration Pantoprazole Sodium 40 mg 12/28/20 09:00 12/28/20 08:50 Pantoprazole 40 Mg Tab PO 40 mg DAILY LIZZ Administration Hospitalist Exam Vitals: Vital Signs (12 hours) Temp Pulse Resp BP BP BP BP 12/28/20 08:00 81 118/64 171/91 H 12/28/20 07:37 97.4 F L 81 16 12/28/20 05:56 80 162/87 H 12/28/20 05:27 90 187/99 H 12/28/20 04:30 183/94 H 12/28/20 04:07 90 191/104 H 12/28/20 03:50 90 194/112 H 12/28/20 02:50 85 12/28/20 02:30 88 197/100 H 12/28/20 00:00 85 18 Pulse Ox 12/28/20 08:00 12/28/20 07:37 100 12/28/20 05:56 12/28/20 05:27 12/28/20 04:30 12/28/20 04:07 12/28/20 03:50 12/28/20 02:50 12/28/20 02:30 12/28/20 00:00 Weight Weight 138 lb 6.4 oz General Appearance: NAD, awake alert Eye: PERRL, anicteric sclera ENT: normocephalic atraumatic, no oropharyngeal lesions Neck: supple, symmetric, no JVD, no thyromegaly Heart: no murmur, no gallops, no rubs Respiratory: CTAB, no wheezes, no rales, no ronchi Gastrointestinal: soft, non-tender, non-distended, normal bowel sounds Extremities: no clubbing, no edema Skin: normal turgor, no lesions Neurological: no focal deficits Musculoskeletal: normal tone, normal strength Psychiatric: normal affect, normal behavior Hosp A/P (1) Acute renal failure superimposed on stage 3 chronic kidney disease Code(s): N17.9 - ACUTE KIDNEY FAILURE, UNSPECIFIED; N18.30 - CHRONIC KIDNEY DISEASE, STAGE 3 UNSPECIFIED Status: Acute Qualifiers: Chronic kidney disease stage 3 subtype: stage 3a (GFR 45-59) (2) Syncope and collapse Code(s): R55 - SYNCOPE AND COLLAPSE Status: Acute (3) Cholelithiasis Code(s): K80.20 - CALCULUS OF GALLBLADDER W/O CHOLECYSTITIS W/O OBSTRUCTION Status: Chronic (4) Myelodysplastic syndrome Code(s): D46.9 - MYELODYSPLASTIC SYNDROME, UNSPECIFIED Status: Chronic (5) CAD (coronary artery disease) Code(s): I25.10 - ATHSCL HEART DISEASE OF [place] CORONARY ARTERY W/O ANG PCTRS Status: Chronic Qualifiers: Coronary Disease-Associated Artery/Lesion type: [place] artery [place] vs. transplanted heart: [place] heart Associated angina: without angina Qualified Code(s): I25.10 - Atherosclerotic heart disease of [place] coronary artery without angina pectoris (6) CLL (chronic lymphocytic leukemia) Code(s): C91.90 - LYMPHOID LEUKEMIA, UNSPECIFIED NOT HAVING ACHIEVED REMISSION Status: Chronic (7) Dyslipidemia Code(s): E78.5 - HYPERLIPIDEMIA, UNSPECIFIED Status: Chronic (8) HTN (hypertension) Code(s): I10 - ESSENTIAL (PRIMARY) HYPERTENSION Status: Chronic Qualifiers: (9) Pancytopenia Code(s): D61.818 - OTHER PANCYTOPENIA Status: Chronic - Plan old records reviewed/req, PT/OT, DVT proph w/SCDs Renal function improving, continue IV fluid We will add folic acid, vitamin B12, multivitamin We will consult nephrology Oncology has been consulted We will repeat labs tomorrow Start PT OT Medication reviewed and continue provide symptomatic and supportive care, nutritional support
[2020-12-28] MEDS: Megestrol Acetate 40 MG TAB PO SCH (11:39)
--- NOTE | 2020-12-28 13:08 | PDOC.NEPPN ---
- Subjective Encounter Date: 12/28/20 Subjective: 70-year-old male with known history of CLL, status post treatment, which was however complicated by aplastic anemia for which he is on treatment with Promacta, recurrent syncopal episodes asociated with multiple hospitalizationw with last about 1 week ago now readmitted after an syncope and collapse. Patient was found to have elevated creat hence nephrology consult. Partient has not being eating much since discharge and also was restarted on cyclosporine. Does not want to continue with treatment of aplastic anemia. He actually wants to go on hospice - Objective Vital Signs & Weight: Vital Signs (12 hours) Temp Pulse Resp BP BP BP BP 12/28/20 11:48 98.5 F 86 18 174/97 H 12/28/20 08:00 81 118/64 171/91 H 12/28/20 07:37 97.4 F L 81 16 12/28/20 05:56 80 162/87 H 12/28/20 05:27 90 187/99 H 12/28/20 04:30 183/94 H 12/28/20 04:07 90 191/104 H 12/28/20 03:50 90 194/112 H 12/28/20 02:50 85 12/28/20 02:30 88 197/100 H Pulse Ox 12/28/20 11:48 100 12/28/20 08:00 12/28/20 07:37 100 12/28/20 05:56 12/28/20 05:27 12/28/20 04:30 12/28/20 04:07 12/28/20 03:50 12/28/20 02:50 12/28/20 02:30 Weight Weight 138 lb 6.4 oz I&O: 12/27/20 12/28/20 12/29/20 06:59 06:59 06:59 Intake Total 200 Output Total 300 Balance -100 Result Diagrams: 12/28/20 04:43 12/28/20 04:43 Nephrology ROS - Medication Medications: Active Medications Generic Name Dose Route Start Last Admin Trade Name Freq PRN Reason Stop Dose Admin Cyanocobalamin 1,000 mcg 12/28/20 09:00 12/28/20 08:50 Cyanocobalamin (Vitamin B-12) 1,000 Mcg Tab PO 1,000 mcg DAILY LIZZ Administration Folic Acid 1 mg 12/28/20 09:00 12/28/20 08:50 Folic Acid 1 Mg Tab PO 1 mg DAILY LIZZ Administration Hydralazine HCl 10 mg 12/28/20 02:31 12/28/20 02:50 Hydralazine 20 Mg/Ml Vial SLOW IVP 10 mg Q4H PRN Administration SBP Greater Than 180 Levofloxacin 500 mg 12/28/20 06:00 12/28/20 04:08 Levofloxacin 500 Mg Tab PO 500 mg Q2D LIZZ Administration Megestrol Acetate 80 mg 12/28/20 09:00 12/28/20 11:39 Megestrol Acetate 40 Mg Tab PO 80 mg DAILY LIZZ Administration Pantoprazole Sodium 40 mg 12/28/20 09:00 12/28/20 08:50 Pantoprazole 40 Mg Tab PO 40 mg DAILY LIZZ Administration - Exam General Appearance: awake alert General - other findings: chronically ill looking Eye: anicteric sclera ENT: normocephalic atraumatic, dry oral mucosa Neck: supple, symmetric Respiratory: no wheezes, no ronchi, normal chest expansion Respiratory - other findings: fair air entry bilaterally Cardiovascular: RRR Gastrointestinal - other findings: scaphoid Extremities: no edema Neurological: CN's grossly intact, no focal deficits Musculoskeletal: generalized weakness, diffuse muscle atrophy PSYCH: A&O x 3 Nephrology Results - Labs Result Diagrams: 12/28/20 04:43 12/28/20 04:43 Lab results: WBC 3.2 thou/uL (4.8-10.8) L 12/28/20 04:43 Hgb 9.1 g/dL (14.0-18.0) L 12/28/20 04:43 Hct 27.0 % (42.0-52.0) L 12/28/20 04:43 MCV 91.8 fL (78.0-98.0) 12/28/20 04:43 Plt Count 61 thou/uL (130-400) L 12/28/20 04:43 Band Neuts % (Manual) 10 % (5-11) 12/27/20 10:36 Sodium 138 mmol/L (136-145) 12/28/20 04:43 Potassium 3.6 mmol/L (3.5-5.1) 12/28/20 04:43 Chloride 103 mmol/L (98-107) 12/28/20 04:43 Carbon Dioxide 22 mmol/L (23-31) L 12/28/20 04:43 BUN 51 mg/dL (8.4-25.7) H 12/28/20 04:43 Creatinine 3.39 mg/dL (0.7-1.3) H 12/28/20 04:43 Glucose 95 mg/dL (83-110) 12/28/20 04:43 Calcium 8.9 mg/dL (7.8-10.44) 12/28/20 04:43 Total Bilirubin 1.2 mg/dL (0.2-1.2) 12/27/20 10:36 AST 22 U/L (5-34) 12/27/20 10:36 ALT 20 U/L (8-55) 12/27/20 10:36 Alkaline Phosphatase 76 U/L (40-110) 12/27/20 10:36 Creatine Kinase 79 U/L (30-200) 12/28/20 04:43 CK-MB (CK-2) 1.8 ng/mL (0-6.6) 12/27/20 14:41 Troponin I 0.135 ng/mL (< 0.028) H 12/27/20 17:38 Serum Total Protein 5.4 g/dL (5.8-8.1) L 12/27/20 10:36 Albumin 3.3 g/dL (3.4-4.8) L 12/27/20 10:36 Urine Ketones Negative mg/dL (Negative) 12/27/20 18:30 Urine Blood 1+ (Negative) A 12/27/20 18:30 Urine Nitrite Negative (Negative) 12/27/20 18:30 Ur Leukocyte Esterase Negative Manish/uL (Negative) 12/27/20 18:30 Urine RBC 0-3 HPF (0-3) 12/27/20 18:30 Urine WBC 0-3 HPF (0-3) 12/27/20 18:30 Ur Squamous Epith Cells None Seen HPF (0-3) 12/27/20 18:30 Urine Bacteria None Seen HPF (None Seen) 12/27/20 18:30 Sodium 138 mmol/L (136-145) 12/28/20 04:43 Potassium 3.6 mmol/L (3.5-5.1) 12/28/20 04:43 Chloride 103 mmol/L (98-107) 12/28/20 04:43 Carbon Dioxide 22 mmol/L (23-31) L 12/28/20 04:43 Anion Gap 17 mmol/L (10-20) 12/28/20 04:43 BUN 51 mg/dL (8.4-25.7) H 12/28/20 04:43 Creatinine 3.39 mg/dL (0.7-1.3) H 12/28/20 04:43 Glucose 95 mg/dL (83-110) 12/28/20 04:43 Calcium 8.9 mg/dL (7.8-10.44) 12/28/20 04:43 Phosphorus 4.1 mg/dL (2.3-4.7) 12/28/20 04:43 Magnesium 1.6 mg/dL (1.6-2.6) 12/28/20 04:43 Albumin 3.3 g/dL (3.4-4.8) L 12/27/20 10:36 Nephrology AP PN - Plan Acute renal failure: Etiology is unclear, but seems to most likely be due to hemodynamic factors related to volume depletion and cyclosporine. Creat is begining to trend down with IVF therapy Chronic kidney disease stage 3. Metabolic acidosis: Due to acute kidney injury and use of normal saline therapy. Severe dehydration Orthostatic hypotension and syncope. Hx of Nephrolithiasis without obstruction. Hx of Cholelithiasis with no overt evidence of cholecystitis. Failure to thrive. Hx of Pancytopenia PLAN Substitute NS with LR and increase rate to 125cc/hr Off cyclopsorine, valtrex and fluconazole in line with patient desires. liberal oral intake as tolerated. Recommend PEG tube placement for nutritional rehabilitation. Patient and spouse and inclined to this option. repeat renal function and electrolytes in the morning.
[2020-12-28 13:09] LABS: Creatinine, Urine 54.81 mg/dL (63-166)
[2020-12-28] MEDS: Lactated Ringer's 1,000 ML IV SCH ×2 (13:40→21:54)
[2020-12-28] MEDS: Atorvastatin Calcium 40 MG TAB PO SCH (21:53)
--- NOTE | 2020-12-28 22:53 | CON ---
DATE OF CONSULTATION: REASON FOR CONSULTATION: CLL. HISTORY OF PRESENT ILLNESS: Mr. Webb is a 70-year-old gentleman who was diagnosed with CLL in 2016. He was treated with ibrutinib, unfortunately progressed, and was started on venetoclax and Rituxan. In March 2020, venetoclax was stopped secondary to pancytopenia. Bone marrow at that time showed 10% cellularity, but no residual CLL. He was referred to MD Guzman for aplastic anemia and myelodysplastic syndrome and treated with cyclosporine and Promacta. This started in July 2020. Since that time, he has progressively declined with frequent hospitalizations approximately every 2 weeks for syncopal episode and fatigue. He has also had intermittent acute kidney injury. Yesterday, he was brushing his hair to come to our office for an appointment when once again he passed out. EMS was called and he was brought to the emergency room. On arrival, his creatinine was elevated at 4.22. He admits to eating poorly and in fact had a 40-pound weight loss since September. He was seen at bedside with his present. He is tired and considering hospice. PAST MEDICAL HISTORY: 1. CLL. 2. Aplastic anemia. 3. Coronary artery disease. 4. Frequent syncopal episodes. 5. Hypertension. 6. Colon polyps. PAST SURGICAL HISTORY: Hernia repair, ankle repair, cardiac stent placement, EGD, and colonoscopy. ALLERGIES: NO KNOWN DRUG ALLERGIES. HOME MEDICATIONS: 1. Cyclosporine. 2. Florinef. 3. Fluconazole. 4. Meclizine. 5. Megestrol. 6. Magnesium. 7. Midodrine. 8. Promacta. 9. Valtrex. 10. Lipitor. FAMILY HISTORY: Noncontributory. SOCIAL HISTORY: He is . He lives with his spouse, 2 children. REVIEW OF SYSTEMS: A 10-point review of systems is negative except for noted in HPI. PHYSICAL EXAMINATION: VITAL SIGNS: Temperature is 98.4, pulse is 86, respiratory rate 18, blood pressure is 174/97, he is 100% on room air. GENERAL: This is a well-developed, well-nourished male, in no acute distress. HEENT: Normocephalic, atraumatic. Pupils are equal and reactive to light. NECK: Supple. CV: Regular rate and rhythm. LUNGS: Clear anterior. ABDOMEN: Soft. EXTREMITIES: No clubbing or cyanosis. SKIN: He has ashen. NEUROMUSCULAR: Nonfocal. PERTINENT LABORATORY DATA AND X-RAYS: WBCs 3.2, hemoglobin 9.1, hematocrit 27.0, platelet count is 61,000, 50% neutrophils, 28% lymphocytes, 18% monocytes. Sodium 138, potassium 3.6, chloride 103, CO2 is 22, BUN is 51, creatinine 3.39, calcium 8.9, bilirubin 1.2, AST is 22, ALT is 20, alkaline phosphatase is 76. CK-MB is 1.8. Serum total protein is 5.4, albumin 3.3, globulin 2.1. COVID PCR negative. ASSESSMENT: 1. Postural hypotension. 2. Chronic lymphocytic leukemia. 3. Aplastic anemia. 4. Acute kidney injury. 5. Pancytopenia. DISCUSSION: The patient has continued to progressively weak and he has been hospitalized about every 2 weeks since beginning of September for syncopal episodes and frailty. The patient wishes to stop his medications and go home on hospice. He understands with that his counts are likely drop and that he will not be able to have transfusions on hospice and he and his are okay to let "nature take its course" and they have already spoken with [facility]. I will have to ask nurse case management to facilitate DME so he can go home. I would continue IV fluids for his acute kidney injury and would recommend some steroids to improve his appetite. Case has been discussed with Dr. Mendiola. Thank you for the consult. Job ID: [id number]
[2020-12-29] MEDS: hydrALAZINE 20 MG/ML VIAL SLOW IVP PRN ×2 (00:25→12:34)
[2020-12-29 05:30] LABS: Hemoglobin 7.5 g/dL (14.0-18.0); Mean Corpuscular HGB CONC 33.4 g/dL (32.0-36.0); Mean Corpuscular Hemoglobin 31.2 pg (27.0-31.0); Mean Corpuscular Volume 93.2 fL (78.0-98.0); Mean Platelet Volume 7.5 fL (7.4-10.4); Platelet Count 44 thou/uL (130-400); RBC Distribution Width 24.7 % (11.5-14.5); Red Blood Cell (RBC) Count 2.42 mill/uL (4.70-6.10); White Blood Cell (WBC) Count 2.7 thou/uL (4.8-10.8)
[2020-12-29 05:41] LABS: Anion Gap 15 mmol/L (10-20); BUN (Urea Nitrogen) 45 mg/dL (8.4-25.7); Calc. Creatinine Clearance 21 mL/min (70-130); Calcium 8.7 mg/dL (7.8-10.44); Carbon Dioxide 23 mmol/L (23-31); Chloride 103 mmol/L (98-107); Glucose 99 mg/dL (83-110); Potassium 3.1 mmol/L (3.5-5.1); Sodium 138 mmol/L (136-145)
[2020-12-29 05:45] LABS: Phosphorus 3.5 mg/dL (2.3-4.7)
[2020-12-29 05:47] LABS: ALT (SGPT) 18 U/L (8-55); AST (SGOT) 22 U/L (5-34); Albumin 2.9 g/dL (3.4-4.8); Alkaline Phosphatase 65 U/L (40-110); Bilirubin, Direct 0.9 mg/dL (0.1-0.3); Bilirubin, Total 1.8 mg/dL (0.2-1.2); Magnesium 1.4 mg/dL (1.6-2.6); Protein, Total 4.6 g/dL (5.8-8.1)
[2020-12-29] MEDS: Lactated Ringer's 1,000 ML IV SCH ×2 (06:56→17:24)
[2020-12-29] MEDS: Potassium Chloride 20 MEQ TAB PO SCH ×3 (06:58→17:25)
[2020-12-29] MEDS ORDERED: Magnesium Sulfate 4 GM in Sodium Chloride 0.9% 250 ML 250 ML IVPB SCH (07:00)
[2020-12-29 07:04] LABS: MDiff Complete? YES
[2020-12-29 07:05] LABS: Anisocytosis SLIGHT = 6-15 cells (100X) (0-5/hpf); Band 4 % (5-11); Eosinophils 4 % (0-10); Helmet Cells SLIGHT = 2-5 cells (100X) (0-1/hpf); Lymphocytes 34 % (21-51); Monocytes 13 % (0-10); Neutrophil 40 % (42-75); Platelet Morphology Comment Appears Decreased
--- NOTE | 2020-12-29 10:25 | PDOC.NEPPN ---
- Subjective Encounter Date: 12/29/20 Subjective: Seen and examined. more alert and conversational - Objective Vital Signs & Weight: Vital Signs (12 hours) Temp Pulse Resp BP BP BP BP 12/29/20 07:13 98.5 F 103 H 15 141/70 H 12/29/20 03:28 99.7 F H 78 14 138/85 12/29/20 01:00 80 168/80 H 12/29/20 00:25 87 12/28/20 23:30 98.5 F 87 18 187/94 H 12/28/20 23:29 82 187/94 H Pulse Ox 12/29/20 07:13 97 12/29/20 03:28 98 12/29/20 01:00 12/29/20 00:25 12/28/20 23:30 97 12/28/20 23:29 Weight Weight 138 lb 6.4 oz I&O: 12/28/20 12/29/20 12/30/20 06:59 06:59 06:59 Intake Total 200 1115 1500 Output Total 300 1150 700 Balance -100 -35 800 Result Diagrams: 12/29/20 05:01 12/29/20 05:01 Nephrology ROS - Medication Medications: Active Medications Generic Name Dose Route Start Last Admin Trade Name Freq PRN Reason Stop Dose Admin Atorvastatin Calcium 40 mg 12/28/20 21:00 12/28/20 21:53 Atorvastatin Calcium 40 Mg Tab PO 40 mg HS LIZZ Administration Cyanocobalamin 1,000 mcg 12/28/20 09:00 12/28/20 08:50 Cyanocobalamin (Vitamin B-12) 1,000 Mcg Tab PO 1,000 mcg DAILY LIZZ Administration Folic Acid 1 mg 12/28/20 09:00 12/28/20 08:50 Folic Acid 1 Mg Tab PO 1 mg DAILY LIZZ Administration Hydralazine HCl 10 mg 12/28/20 02:31 12/29/20 00:25 Hydralazine 20 Mg/Ml Vial SLOW IVP 10 mg Q4H PRN Administration SBP Greater Than 180 Lactated Ringer's 1,000 mls @ 125 mls/hr 12/28/20 13:15 12/29/20 06:56 Lactated Ringer's IV 1,000 mls .Q8H LIZZ Administration Labetalol HCl 10 mg 12/28/20 07:51 12/28/20 23:29 Labetalol Hcl 100 Mg/20 Ml Vial SLOW IVP 10 mg Q4H PRN Administration SBP > 180 and HR >/= 70 Levofloxacin 500 mg 12/28/20 06:00 12/28/20 04:08 Levofloxacin 500 Mg Tab PO 500 mg Q2D LIZZ Administration Megestrol Acetate 80 mg 12/28/20 09:00 12/28/20 11:39 Megestrol Acetate 40 Mg Tab PO 80 mg DAILY LIZZ Administration Pantoprazole Sodium 40 mg 12/28/20 09:00 12/28/20 08:50 Pantoprazole 40 Mg Tab PO 40 mg DAILY LIZZ Administration - Exam General Appearance: awake alert Eye: anicteric sclera ENT: normocephalic atraumatic, dry oral mucosa Neck: supple, symmetric, no JVD Respiratory: no wheezes, no rales, no ronchi, normal chest expansion Cardiovascular: RRR Gastrointestinal - other findings: scaphoid Extremities: no cyanosis, no edema Neurological: CN's grossly intact, no focal deficits Musculoskeletal: generalized weakness, diffuse muscle atrophy PSYCH: A&O x 3 Nephrology Results - Labs Result Diagrams: 12/29/20 05:01 12/29/20 05:01 Lab results: WBC 2.7 thou/uL (4.8-10.8) L 12/29/20 05:01 Hgb 7.5 g/dL (14.0-18.0) L 12/29/20 05:01 Hct 22.5 % (42.0-52.0) L 12/29/20 05:01 MCV 93.2 fL (78.0-98.0) 12/29/20 05:01 Plt Count 44 thou/uL (130-400) L 12/29/20 05:01 Band Neuts % (Manual) 4 % (5-11) L 12/29/20 05:01 Sodium 138 mmol/L (136-145) 12/29/20 05:01 Potassium 3.1 mmol/L (3.5-5.1) L 12/29/20 05:01 Chloride 103 mmol/L (98-107) 12/29/20 05:01 Carbon Dioxide 23 mmol/L (23-31) 12/29/20 05:01 BUN 45 mg/dL (8.4-25.7) H 12/29/20 05:01 Creatinine 2.81 mg/dL (0.7-1.3) H 12/29/20 05:01 Glucose 99 mg/dL (83-110) 12/29/20 05:01 Calcium 8.7 mg/dL (7.8-10.44) 12/29/20 05:01 Total Bilirubin 1.8 mg/dL (0.2-1.2) H 12/29/20 05:01 AST 22 U/L (5-34) 12/29/20 05:01 ALT 18 U/L (8-55) 12/29/20 05:01 Alkaline Phosphatase 65 U/L (40-110) 12/29/20 05:01 Creatine Kinase 79 U/L (30-200) 12/28/20 04:43 CK-MB (CK-2) 1.8 ng/mL (0-6.6) 12/27/20 14:41 Troponin I 0.135 ng/mL (< 0.028) H 12/27/20 17:38 Serum Total Protein 4.6 g/dL (5.8-8.1) L 12/29/20 05:01 Albumin 2.9 g/dL (3.4-4.8) L 12/29/20 05:01 Urine Ketones Negative mg/dL (Negative) 12/27/20 18:30 Urine Blood 1+ (Negative) A 12/27/20 18:30 Urine Nitrite Negative (Negative) 12/27/20 18:30 Ur Leukocyte Esterase Negative Manish/uL (Negative) 12/27/20 18:30 Urine RBC 0-3 HPF (0-3) 12/27/20 18:30 Urine WBC 0-3 HPF (0-3) 12/27/20 18:30 Ur Squamous Epith Cells None Seen HPF (0-3) 12/27/20 18:30 Urine Bacteria None Seen HPF (None Seen) 12/27/20 18:30 Sodium 138 mmol/L (136-145) 12/29/20 05:01 Potassium 3.1 mmol/L (3.5-5.1) L 12/29/20 05:01 Chloride 103 mmol/L (98-107) 12/29/20 05:01 Carbon Dioxide 23 mmol/L (23-31) 12/29/20 05:01 Anion Gap 15 mmol/L (10-20) 12/29/20 05:01 BUN 45 mg/dL (8.4-25.7) H 12/29/20 05:01 Creatinine 2.81 mg/dL (0.7-1.3) H 12/29/20 05:01 Glucose 99 mg/dL (83-110) 12/29/20 05:01 Calcium 8.7 mg/dL (7.8-10.44) 12/29/20 05:01 Phosphorus 3.5 mg/dL (2.3-4.7) 12/29/20 05:01 Magnesium 1.4 mg/dL (1.6-2.6) L 12/29/20 05:01 Albumin 2.9 g/dL (3.4-4.8) L 12/29/20 05:01 Nephrology AP PN - Plan Acute renal failure: Etiology is unclear, but seems to most likely be due to hemodynamic factors related to volume depletion and cyclosporine. Creat is begining to trend down with IVF therapy Chronic kidney disease stage 3. Metabolic acidosis: Due to acute kidney injury and use of normal saline therapy. Severe dehydration Orthostatic hypotension and syncope. Hx of Nephrolithiasis without obstruction. Hx of Cholelithiasis with no overt evidence of cholecystitis. Failure to thrive/PCM Hx of Pancytopenia Hypokalemia Hypomagnesemia PLAN Replete serum potassium and magnesium with oral KCL and IV magnesium sulphate respectively Start ensure tid Continue LR 125cc/hr liberal oral intake as tolerated. Will decide when arrives about PEG tube placement for nutritional rehabilitation. Recheck renal function and electrolytes in the am.
[2020-12-29] MEDS: Cyanocobalamin (Vitamin B-12) 1,000 MCG TAB PO SCH (11:36)
[2020-12-29] MEDS: Folic Acid 1 MG TAB PO SCH (11:36)
[2020-12-29] MEDS: Megestrol Acetate 40 MG TAB PO SCH (11:37)
[2020-12-29] MEDS ORDERED: Potassium Chloride 20 MEQ TAB PO SCH (11:45)
--- NOTE | 2020-12-29 12:20 | PDOC.DS.DS ---
Provider Date of Admission: 12/27/20 14:01 Date of Discharge: 12/29/20 Admitting Provider: Jeremiah Torrez MD Consultations: Nephrology Primary Care Physician: [facility] Course Hospital Course: Patient is unfortunate 70 years old gentleman who has significant past medical history of CLL, aplastic anemia, on chemotherapy with Dr. Mendiola, recurrent syncope, hypertension, dyslipidemia, orthostatic hypotension, CAD with history of PCI, presented with syncopal episodes. Patient was subsequently admitted to hospitalist service. Nephrology and oncology were consulted. Patient was seen by Ms. Giraldo from oncology service as well as Dr. Farias from nephrology. Patient wishes to stop chemotherapy. He and his has initiated, and decided to go home on hospice. He requests to be discharged home at this time. Resuscitation Status: 12/27/20 14:20 Resuscitation Status Routine Co-Sign Provider: Resuscitation Status: DNAR: NO Resuscitation Discussed with: Patient, family, attending physician Lab Results: 12/29/20 05:01 12/29/20 05:01 Abnormal Lab Results - Last 48 hrs 12/27/20 10:36: Potassium 3.4 L, Carbon Dioxide 22 L, BUN 62 H, Creatinine 4.22 H, Magnesium 1.5 L, Serum Total Protein 5.4 L, Albumin 3.3 L, Globulin 2.1 L 12/27/20 14:41: Troponin I 0.100 H 12/27/20 17:38: Troponin I 0.135 H 12/27/20 18:30: Urine Protein 30 A, Urine Blood 1+ A 12/27/20 18:30: Urine Creatinine 54.81 L 12/28/20 04:43: Carbon Dioxide 22 L, BUN 51 H, Creatinine 3.39 H 12/28/20 04:43: WBC 3.2 L, RBC 2.94 L, Hgb 9.1 L, Hct 27.0 L, RDW 23.9 H, Plt Count 61 L, MPV 6.9 L, Monocytes % (Manual) 18 H, Plt Morphology Comment Appears Decreased L 12/29/20 05:01: Potassium 3.1 L, BUN 45 H, Creatinine 2.81 H 12/29/20 05:01: WBC 2.7 L, RBC 2.42 L, Hgb 7.5 L, Hct 22.5 L, MCH 31.2 H, RDW 24.7 H, Plt Count 44 L, Neutrophils % (Manual) 40 L, Band Neuts % (Manual) 4 L, Monocytes % (Manual) 13 H, Basophils % (Manual) 5 H, Plt Morphology Comment Appe ars Decreased L 12/29/20 05:01: Magnesium 1.4 L, Total Bilirubin 1.8 H, Direct Bilirubin 0.9 H, Serum Total Protein 4.6 L, Albumin 2.9 L Vitals: Vital Signs (12 hours) Temp Pulse Pulse Pulse Resp BP BP 12/29/20 08:44 84 88 183/92 H 132/62 12/29/20 07:13 98.5 F 103 H 15 12/29/20 03:28 99.7 F H 78 14 12/29/20 01:00 80 12/29/20 00:25 87 BP BP Pulse Ox Pulse Ox 12/29/20 08:44 98 12/29/20 07:13 141/70 H 97 12/29/20 03:28 138/85 98 12/29/20 01:00 168/80 H 12/29/20 00:25 Weight Weight 138 lb 6.4 oz Physical Exam: The patient was seen and examined on the day of discharge. General Appearance: NAD, ill appearing Eye: PERRL ENT: normocephalic atraumatic Neck: supple Respiratory: CTAB, no wheezes Cardiovascular: RRR Gastrointestinal: soft, non-tender Extremities: no cyanosis, no clubbing, no edema Skin: normal turgor Neurological: cranial nerve grossly intact Musculoskeletal: normal tone PSYCH: normal affect Problem Time Spent in discharge related activities (mins): 35 (1) Acute renal failure superimposed on stage 3 chronic kidney disease Code(s): N17.9 - ACUTE KIDNEY FAILURE, UNSPECIFIED; N18.30 - CHRONIC KIDNEY DISEASE, STAGE 3 UNSPECIFIED Status: Acute Qualifiers: Chronic kidney disease stage 3 subtype: stage 3a (GFR 45-59) (2) Aplastic anemia Code(s): D61.9 - APLASTIC ANEMIA, UNSPECIFIED Status: Acute (3) Symptomatic anemia Code(s): D64.9 - ANEMIA, UNSPECIFIED Status: Acute (4) Syncope and collapse Code(s): R55 - SYNCOPE AND COLLAPSE Status: Acute (5) CLL (chronic lymphocytic leukemia) Code(s): C91.90 - LYMPHOID LEUKEMIA, UNSPECIFIED NOT HAVING ACHIEVED REMISSION Status: Chronic (6) Dyslipidemia Code(s): E78.5 - HYPERLIPIDEMIA, UNSPECIFIED Status: Chronic (7) HTN (hypertension) Code(s): I10 - ESSENTIAL (PRIMARY) HYPERTENSION Status: Chronic Qualifiers: (8) Myelodysplastic syndrome Code(s): D46.9 - MYELODYSPLASTIC SYNDROME, UNSPECIFIED Status: Chronic Plan Home Medications: Medication Instructions Recorded Confirmed Type valACYclovir [Valtrex] 500 mg PO DAILY 08/12/20 12/27/20 History Eltrombopag Olamine [Promacta] 150 mg PO DAILY 10/25/20 12/27/20 History Fluconazole 400 mg PO DAILY 10/25/20 12/27/20 History Magnesium Oxide/Magnesium 1 tablet PO TID 10/26/20 12/27/20 History [[id number]] Atorvastatin Calcium [Lipitor] 40 mg PO HS #0 tab 11/18/20 12/27/20 Rx cycloSPORINE 1 capsule PO BID 12/09/20 12/27/20 History Fludrocortisone Acetate [Florinef] 0.2 mg PO DAILY 12/27/20 12/27/20 History Meclizine HCl 25 mg PO DAILY PRN 12/27/20 12/27/20 History Megestrol Acetate 80 mg PO DAILY 12/27/20 12/27/20 History Midodrine HCl [ProAmatine] 5 mg PO TID 12/27/20 12/27/20 History Ondansetron [Ondansetron ODT] 4 mg PO Q4HR PRN 12/27/20 12/27/20 History Allergies: No Known Drug Allergies Allergy (Verified 12/27/20 22:03) per pt Activity:: Activity as Tolerated Nourishment:: Regular Diet, Supplemental Diet Referrals: [facility] [Primary Care Provider] - Disposition: HOSPICE-HOME Quality CORE MEASURES:: N/A
--- NOTE | 2020-12-29 12:50 | PQF ---
CLINICAL DOCUMENTATION CLARIFICATION FORM: Dear Dr. Yaya Arriola Date: 12/29/2020 Please exercise your independent, professional judgment in responding to the clarification form. Clinical indicators are provided on the bottom of this form for your review. Please check appropriate box(es): [ X ] Protein Calorie Malnutrition: [ ] Mild [ X ] Moderate [ ] Severe [ ] Other Malnutrition (please specify) [ ] Cachexia [ ] Other diagnosis [ ] Unable to determine In addition, please specify: Present on Admission (POA): [ X] Yes [ ] No [ ] Unable to determine For continuity of documentation, please document condition throughout progress notes and discharge summary. Thank You. To be completed by CDI/Coding staff for physician review: CLINICAL INDICATORS - SIGNS / SYMPTOMS / LABS / RESULTS AND LOCATION IN MR *ER RECORD 12/27: PE: Constitutional. cachectic *12/28 Consult (Brad): HPI: He admits to eating poorly and in fact had a 40 pound weight loss since September. *12/29 pn (Obi): Exam: Musculoskeletal: generalized weakness, diffuse muscle atrophy. Plan: Failure to thrive/ PCM RISK FACTORS / RESULTS AND LOCATION IN MR *H&P 12/27 (Richard): PMH: Aplastic anemia. CLL with oral chemotherapy. Syncopal episodes A/P: Pt does report he has not been eating or drinking very much and has had increased nausea and Vomiting recently. TREATMENT / RESULTS AND LOCATION IN MR *12/28 Consult (Brad): Discussion: would recommend some steroids to improve his appetite. *3/ pn (Chelsea): Plan: will add folic acid, vitamin B12, multivitamin. Continue provide symptomatic and supportive care, nutritional support. *12/29 Order Diet Supplement: Ensure Enlive TID Moderate Malnutrition (in acute illness) Energy Intake: <75% of estimated energy requirement for > 7 days Weight Loss: 1-2%/1 week; 5%/ 1 month; 7.5%/3 months Other: mild body fat loss; mild muscle mass loss; mild fluid accumulation; Severe Malnutrition (in acute illness) Energy Intake: = 50% of estimated energy requirement for = 5 days Weight Loss: >2%/1 week; >5%/1 month; >7.5%/3 months Other: moderate body fat loss; moderate muscle mass loss; moderate- severe fluid accumulation; measurably reduced drug and alcohol counselor strength Moderate Malnutrition (in chronic illness) Energy Intake: <75% of estimated energy requirement for =1 month Weight Loss: 5%/1 month; 7.5%/3 months; 10%/6 months; 20%/1 year Other: mild body fat loss; mild muscle mass loss; mild fluid accumulation Severe Malnutrition (in chronic illness) Energy Intake: =75% of estimated energy requirement for =1 month Weight Loss: >5%/1 month; >7.5%/3 months; >10%/6 months; >20%/1 year Other: severe body fat loss; severe muscle mass loss; severe fluid accumulation; measurably reduced drug and alcohol counselor strength Thank you, Eulalia Rice RN, BSN [email or web address] This is a permanent part of the Medical Record [facility]
[2020-12-29] MEDS: Atorvastatin Calcium 40 MG TAB PO SCH (20:33)
[2020-12-30] MEDS: Lactated Ringer's 1,000 ML IV SCH ×2 (01:30→10:00)
[2020-12-30 05:19] LABS: Hemoglobin 7.2 g/dL (14.0-18.0); Mean Corpuscular HGB CONC 33.7 g/dL (32.0-36.0); Mean Corpuscular Hemoglobin 32.3 pg (27.0-31.0); Mean Platelet Volume 6.6 fL (7.4-10.4); Platelet Count 33 thou/uL (130-400); RBC Distribution Width 25.3 % (11.5-14.5); Red Blood Cell (RBC) Count 2.23 mill/uL (4.70-6.10); White Blood Cell (WBC) Count 2.5 thou/uL (4.8-10.8)
[2020-12-30 05:35] LABS: Anion Gap 13 mmol/L (10-20); BUN (Urea Nitrogen) 34 mg/dL (8.4-25.7); Calc. Creatinine Clearance 25 mL/min (70-130); Calcium 8.6 mg/dL (7.8-10.44); Carbon Dioxide 25 mmol/L (23-31); Chloride 104 mmol/L (98-107); Glucose 92 mg/dL (83-110); Potassium 3.8 mmol/L (3.5-5.1); Sodium 138 mmol/L (136-145)
[2020-12-30 05:43] LABS: Anisocytosis SLIGHT = 6-15 cells (100X) (0-5/hpf); Band 5 % (5-11); Eosinophils 2 % (0-10); Lymphocytes 21 % (21-51); MDiff Complete? YES; Monocytes 30 % (0-10); Myelocyte 1 % (0-0); Neutrophil 40 % (42-75); Platelet Morphology Comment Appears Decreased; Reactive Lymphocytes 1 % (0-10); Schistocytes SLIGHT = 2-5 cells (100X) (0-1/hpf)
[2020-12-30] MEDS: Potassium Chloride 20 MEQ TAB PO SCH (08:28)
[2020-12-30] MEDS: Cyanocobalamin (Vitamin B-12) 1,000 MCG TAB PO SCH (08:29)
[2020-12-30] MEDS: Folic Acid 1 MG TAB PO SCH (08:29)
[2020-12-30] MEDS: hydrALAZINE 20 MG/ML VIAL SLOW IVP PRN (08:30)
[2020-12-30] MEDS: Megestrol Acetate 40 MG TAB PO SCH (08:30)
--- NOTE | 2020-12-30 09:29 | PDOC.FMACP ---
Advance Care Planning - Problem (1) Acute renal failure superimposed on stage 3 chronic kidney disease Status: Acute Code(s): N17.9 - ACUTE KIDNEY FAILURE, UNSPECIFIED; N18.30 - CHRONIC KIDNEY DISEASE, STAGE 3 UNSPECIFIED Qualifiers: Chronic kidney disease stage 3 subtype: stage 3a (GFR 45-59) (2) Acute on chronic blood loss anemia Status: Acute Code(s): D62 - ACUTE POSTHEMORRHAGIC ANEMIA (3) Decreased appetite Status: Acute Code(s): R63.0 - ANOREXIA (4) Encounter for palliative care Status: Acute Code(s): Z51.5 - ENCOUNTER FOR PALLIATIVE CARE (5) Aplastic anemia Status: Acute Code(s): D61.9 - APLASTIC ANEMIA, UNSPECIFIED (6) CLL (chronic lymphocytic leukemia) Status: Chronic Code(s): C91.90 - LYMPHOID LEUKEMIA, UNSPECIFIED NOT HAVING ACHIEVED REMISSION - Note Participants: patient, family, palliative care Summary: Palliative care has addressed Advanced Care Planning. The diagnosis, prognosis and goals of care were discussed. Appropriate forms and documentation to accomplish the goals of care were discussed. All questions were answered. Confirmed transition to home setting with Hospice[facility] to manage symptoms related to terminal condition and promote optimal end of life. Confirmed DNAR/OOHDNAR Discussed Mr Webb Goal of Care Hopeful for optimal days at home Hopes to enjoy sitting on his porch with his dog "Butterbean" Discussed poor appetite and intermittent nausea. Suggested using Biotene and cool water rinse before eating Zofran for nausea 30 min prior to eating Small frequent snacks Marinol for appetite stimulant 30 min before meals. *Will communicate above suggestions to [facility] Time Spent (mins): 45
--- NOTE | 2020-12-30 11:43 | PDOC.HOSPP ---
- Subjective Subjective: Patient was seen examined at bedside. No acute events overnight. Patient was kept overnight, as his equipment has not yet arranged. However is now arranged, his plan to come pick him up this afternoon. He would like to go home on hospice as soon as possible. - Objective Vital Signs & Weight: Vital Signs (12 hours) Temp Pulse Resp BP BP Pulse Ox 12/30/20 09:28 185/84 H 12/30/20 08:30 82 188/90 H 12/30/20 07:22 99.0 F 85 18 180/87 H 98 12/30/20 04:00 98.8 F 80 16 177/93 H 96 Weight Weight 138 lb 6.4 oz I&O: 12/29/20 12/30/20 12/31/20 06:59 06:59 06:59 Intake Total 1115 4615 Output Total 1150 3240 Balance -35 1375 Result Diagrams: 12/30/20 04:58 12/30/20 04:58 Radiology Reviewed by me: Yes EKG Reviewed by me: Yes Hospitalist ROS - Medication Medications: Active Medications Generic Name Dose Route Start Last Admin Trade Name Freq PRN Reason Stop Dose Admin Atorvastatin Calcium 40 mg 12/28/20 21:00 12/29/20 20:33 Atorvastatin Calcium 40 Mg Tab PO 40 mg HS LIZZ Administration Cyanocobalamin 1,000 mcg 12/28/20 09:00 12/30/20 08:29 Cyanocobalamin (Vitamin B-12) 1,000 Mcg Tab PO 1,000 mcg DAILY LIZZ Administration Folic Acid 1 mg 12/28/20 09:00 12/30/20 08:29 Folic Acid 1 Mg Tab PO 1 mg DAILY LIZZ Administration Hydralazine HCl 10 mg 12/28/20 02:31 12/30/20 08:30 Hydralazine 20 Mg/Ml Vial SLOW IVP 10 mg Q4H PRN Administration SBP Greater Than 180 Labetalol HCl 10 mg 12/28/20 07:51 12/28/20 23:29 Labetalol Hcl 100 Mg/20 Ml Vial SLOW IVP 10 mg Q4H PRN Administration SBP > 180 and HR >/= 70 Levofloxacin 500 mg 12/28/20 06:00 12/30/20 05:42 Levofloxacin 500 Mg Tab PO Not Given Q2D LIZZ Megestrol Acetate 80 mg 12/28/20 09:00 12/30/20 08:30 Megestrol Acetate 40 Mg Tab PO Not Given DAILY LIZZ Pantoprazole Sodium 40 mg 12/28/20 09:00 12/30/20 08:29 Pantoprazole 40 Mg Tab PO 40 mg DAILY LIZZ Administration Potassium Chloride 20 meq 12/29/20 17:00 12/30/20 08:28 Potassium Chloride 20 Meq Tab PO 20 meq BID-WM LIZZ Administration Sodium Chloride 10 ml 12/27/20 14:20 12/30/20 08:28 Flush - Normal Saline 10 Ml Syringe IVF 10 ml PRN PRN Administration Saline Flush Hospitalist Exam Vitals: Vital Signs (12 hours) Temp Pulse Resp BP BP Pulse Ox 12/30/20 09:28 185/84 H 12/30/20 08:30 82 188/90 H 12/30/20 07:22 99.0 F 85 18 180/87 H 98 12/30/20 04:00 98.8 F 80 16 177/93 H 96 Weight Weight 138 lb 6.4 oz General Appearance: NAD Eye: PERRL ENT: normocephalic atraumatic Neck: supple Heart: RRR Respiratory: CTAB Gastrointestinal: soft Extremities: no cyanosis Skin: normal turgor Neurological: cranial nerve grossly intact Musculoskeletal: normal tone Psychiatric: normal affect, normal behavior, A&O x 3 Hosp A/P (1) Acute renal failure superimposed on stage 3 chronic kidney disease Code(s): N17.9 - ACUTE KIDNEY FAILURE, UNSPECIFIED; N18.30 - CHRONIC KIDNEY DISEASE, STAGE 3 UNSPECIFIED Status: Acute Qualifiers: Chronic kidney disease stage 3 subtype: stage 3a (GFR 45-59) (2) Aplastic anemia Code(s): D61.9 - APLASTIC ANEMIA, UNSPECIFIED Status: Acute (3) Symptomatic anemia Code(s): D64.9 - ANEMIA, UNSPECIFIED Status: Acute (4) Syncope and collapse Code(s): R55 - SYNCOPE AND COLLAPSE Status: Acute (5) CLL (chronic lymphocytic leukemia) Code(s): C91.90 - LYMPHOID LEUKEMIA, UNSPECIFIED NOT HAVING ACHIEVED REMISSION Status: Chronic (6) Dyslipidemia Code(s): E78.5 - HYPERLIPIDEMIA, UNSPECIFIED Status: Chronic (7) HTN (hypertension) Code(s): I10 - ESSENTIAL (PRIMARY) HYPERTENSION Status: Chronic Qualifiers: (8) Myelodysplastic syndrome Code(s): D46.9 - MYELODYSPLASTIC SYNDROME, UNSPECIFIED Status: Chronic - Plan Patient would like to go home on hospice today. Patient was kept overnight due to the fact that his equipment not yet arranged until today. Please refer to my discharge summary done yesterday for details the hospital course.
[2020-12-30 12:35] VITALS: BP 161/92; TEMP 98.3
--- NOTE | 2021-01-01 16:25 | EKG ---
Test Reason : Blood Pressure : / mmHG Vent. Rate : 093 BPM Atrial Rate : 093 BPM P-R Int : 170 ms QRS Dur : 080 ms QT Int : 340 ms P-R-T Axes : 076 080 038 degrees QTc Int : 422 ms Normal sinus rhythm Normal ECG Confirmed by MAIK WEINBERG, JO ([id number]), television news video editor BALJIT HOOD ([id number]) on 01/01/2021 4:24:46 PM Referred By: Confirmed By:JO PLEITEZ MD
== END 2020-12-30 14:43 | disposition hospice, home (50) | DRG 683 ==
LOC: ERS 10:16 → ERHOLD 14:01 → 2SW 17:25
PROVIDERS: ADMIT Internal Medicine; ATTEND Family Medicine
DX: N17.9 Acute kidney failure, unspecified (principal); D61.9 Aplastic anemia, unspecified; C91.90 Lymphoid leukemia, unspecified not having achieved remission; Z66 Do not resuscitate; Z51.5 Encounter for palliative care; D61.818 Other pancytopenia; E87.2 Acidosis; E44.0 Moderate protein-calorie malnutrition; D62 Acute posthemorrhagic anemia; E78.5 Hyperlipidemia, unspecified; E83.42 Hypomagnesemia; K80.20 Calculus of gallbladder without cholecystitis without obstruction; I12.9 Hypertensive chronic kidney disease with stage 1 through stage 4 chronic kidney disease, or unspecified chronic kidney disease; E86.0 Dehydration; I95.1 Orthostatic hypotension; D46.9 Myelodysplastic syndrome, unspecified; R55 Syncope and collapse; R62.7 Adult failure to thrive; N18.31 Chronic kidney disease, stage 3a; E87.6 Hypokalemia; Z20.822 Contact with and (suspected) exposure to COVID-19; I25.10 Atherosclerotic heart disease of native coronary artery without angina pectoris; Z95.5 Presence of coronary angioplasty implant and graft; Z68.21 Body mass index [BMI] 21.0-21.9, adult; Z87.891 Personal history of nicotine dependence
CPT/HCPCS: 36415; 71045; 76770; 80048; 80053; 80076; 81001; 82550; 82553; 82570; 83735; 84100; 84300; 84484; 84550; 85025; 86850; 86900; 86901; 87635; 93005; 94760; 96365; J0360; J2550; J3475; J3480; J7050; Q0162; S0179; U0003; U0005

== ENCOUNTER 2022-04-27 12:12 | Outpatient (CLI) | payer OTHER | END 2022-04-27 12:13 | disposition home or self-care (01) | LOC: BICRAD 12:12 | PROVIDERS: ATTEND Nurse Practitioner Family | DX: M25.562 Pain in left knee (principal) ==

== ENCOUNTER 2023-08-21 11:48 | Outpatient (CLI) | payer OTHER | END 2023-08-21 11:49 | disposition home or self-care (01) | LOC: RAD 11:48 | PROVIDERS: ATTEND Family Medicine | DX: M51.16 Intervertebral disc disorders with radiculopathy, lumbar region (principal); M47.26 Other spondylosis with radiculopathy, lumbar region; M25.552 Pain in left hip | CPT/HCPCS: 72100 ==

== ENCOUNTER 2024-07-07 09:47 | Day surgery (SDC) | payer OTHER ==
[2024-07-07] MEDS ORDERED: diphenhydrAMINE 25 MG CAP ONE (10:13)
[2024-07-07] MEDS ORDERED: Acetaminophen 500 MG TAB ONE (10:13)
[2024-07-07] MEDS: Acetaminophen 500 MG TAB PO SCH (10:17)
[2024-07-07] MEDS: diphenhydrAMINE 25 MG CAP PO SCH (10:17)
[2024-07-07 13:06] VITALS: BP 121/60; TEMP 97.9
== END 2024-07-07 13:08 | disposition home or self-care (01) ==
LOC: ONC/OP 09:47
PROVIDERS: ATTEND Internal Medicine Hematology & Oncology
DX: D64.9 Anemia, unspecified (principal); D69.6 Thrombocytopenia, unspecified
CPT/HCPCS: 36430; 86850; 86900; 86901; P9016

== ENCOUNTER 2024-08-14 11:14 | Day surgery (SDC) | payer OTHER ==
[2024-08-14] MEDS ORDERED: diphenhydrAMINE 25 MG CAP ONE (12:06)
[2024-08-14] MEDS ORDERED: Acetaminophen 500 MG TAB ONE (12:06)
[2024-08-14] MEDS: Acetaminophen 500 MG TAB PO SCH (12:07)
[2024-08-14] MEDS: diphenhydrAMINE 25 MG CAP PO SCH (12:07)
[2024-08-14 14:43] VITALS: BP 120/58; TEMP 97.9
== END 2024-08-14 14:44 | disposition home or self-care (01) ==
LOC: ONC/OP 11:14
PROVIDERS: ATTEND Internal Medicine Hematology & Oncology
DX: D64.9 Anemia, unspecified (principal); D69.6 Thrombocytopenia, unspecified
CPT/HCPCS: 36430; 86850; 86900; 86901; P9016

== ENCOUNTER 2024-08-27 09:21 | Day surgery (SDC) | payer OTHER ==
[2024-08-27] MEDS ORDERED: Acetaminophen 500 MG TAB PO SCH (09:45)
[2024-08-27] MEDS ORDERED: diphenhydrAMINE 25 MG CAP PO SCH (09:45)
[2024-08-27] MEDS: diphenhydrAMINE 25 MG CAP ONE (10:30)
[2024-08-27] MEDS: Acetaminophen 500 MG TAB ONE (10:30)
[2024-08-27 15:14] VITALS: BP 154/70; TEMP 98.4
== END 2024-08-27 15:24 | disposition home or self-care (01) ==
LOC: ONC/OP 09:21
PROVIDERS: ATTEND Internal Medicine Hematology & Oncology
DX: D64.9 Anemia, unspecified (principal); D69.6 Thrombocytopenia, unspecified
CPT/HCPCS: 36430; 86850; 86900; 86901; P9016

== ENCOUNTER 2024-09-12 09:13 | Day surgery (SDC) | payer OTHER ==
[2024-09-12] MEDS ORDERED: diphenhydrAMINE 25 MG CAP ONE (10:16)
[2024-09-12] MEDS ORDERED: Acetaminophen 500 MG TAB ONE (10:16)
[2024-09-12] MEDS: Acetaminophen 500 MG TAB PO SCH (10:17)
[2024-09-12] MEDS: diphenhydrAMINE 25 MG CAP PO SCH (10:17)
[2024-09-12 15:38] VITALS: BP 161/81; TEMP 98.4
== END 2024-09-12 15:39 | disposition home or self-care (01) ==
LOC: ONC/OP 09:13
PROVIDERS: ATTEND Internal Medicine Hematology & Oncology
DX: D64.9 Anemia, unspecified (principal); D69.6 Thrombocytopenia, unspecified
CPT/HCPCS: 36430; 86850; 86900; 86901; P9016; P9035

== ENCOUNTER → 2024-09-24 | Day surgery (SDC) | payer OTHER | LOC: ONC/OP 09:00 | PROVIDERS: ATTEND Internal Medicine Hematology & Oncology | DX: D64.9 Anemia, unspecified (principal); D69.6 Thrombocytopenia, unspecified | CPT/HCPCS: 36430; 86850; 86900; 86901; P9016; P9035 ==

== ENCOUNTER 2024-10-01 09:55 | Day surgery (SDC) | payer OTHER ==
[2024-10-01] MEDS ORDERED: Acetaminophen 500 MG TAB ONE (10:39)
[2024-10-01] MEDS ORDERED: diphenhydrAMINE 25 MG CAP ONE (10:40)
[2024-10-01] MEDS: Acetaminophen 500 MG TAB PO SCH (10:41)
[2024-10-01] MEDS: diphenhydrAMINE 25 MG CAP PO SCH (10:41)
[2024-10-01 12:01] VITALS: BP 121/60; TEMP 98
== END 2024-10-01 11:51 | disposition home or self-care (01) ==
LOC: ONC/OP 09:55
PROVIDERS: ATTEND Internal Medicine Hematology & Oncology
DX: D64.9 Anemia, unspecified (principal); D69.6 Thrombocytopenia, unspecified
CPT/HCPCS: 36430; 86850; 86900; 86901; P9035

== ENCOUNTER 2024-10-08 09:29 | Day surgery (SDC) | payer OTHER ==
[2024-10-08] MEDS ORDERED: Acetaminophen 500 MG TAB ONE (10:27)
[2024-10-08] MEDS ORDERED: diphenhydrAMINE 25 MG CAP ONE (10:27)
[2024-10-08] MEDS: diphenhydrAMINE 25 MG CAP PO SCH (10:28)
[2024-10-08] MEDS: Acetaminophen 500 MG TAB PO SCH (10:28)
[2024-10-08 15:44] VITALS: BP 156/72; TEMP 97.8
== END 2024-10-08 15:38 | disposition home or self-care (01) ==
LOC: ONC/OP 09:29
PROVIDERS: ATTEND Internal Medicine Hematology & Oncology
DX: D64.9 Anemia, unspecified (principal); D69.6 Thrombocytopenia, unspecified
CPT/HCPCS: 36430; 86850; 86900; 86901; P9016

== ENCOUNTER 2024-10-15 09:48 | Day surgery (SDC) | payer OTHER ==
[2024-10-15] MEDS ORDERED: Acetaminophen 500 MG TAB ONE (10:52)
[2024-10-15] MEDS ORDERED: diphenhydrAMINE 25 MG CAP ONE (10:53)
[2024-10-15] MEDS: diphenhydrAMINE 25 MG CAP PO SCH (10:54)
[2024-10-15] MEDS: Acetaminophen 500 MG TAB PO SCH (10:54)
[2024-10-15 11:50] VITALS: TEMP 97.8
[2024-10-15 11:53] VITALS: BP 149/67
== END 2024-10-15 11:55 | disposition home or self-care (01) ==
LOC: ONC/OP 09:48
PROVIDERS: ATTEND Internal Medicine Hematology & Oncology
DX: D64.9 Anemia, unspecified (principal); D69.6 Thrombocytopenia, unspecified
CPT/HCPCS: 36430; 86850; 86900; 86901; P9035

== ENCOUNTER 2024-10-23 09:03 | Day surgery (SDC) | payer OTHER ==
[2024-10-23] MEDS ORDERED: Acetaminophen 500 MG TAB ONE (09:53)
[2024-10-23] MEDS ORDERED: diphenhydrAMINE 25 MG CAP ONE (09:53)
[2024-10-23] MEDS: Acetaminophen 500 MG TAB PO SCH (09:55)
[2024-10-23] MEDS: diphenhydrAMINE 25 MG CAP PO SCH (09:56)
[2024-10-23 12:57] VITALS: BP 158/70; TEMP 97.8
== END 2024-10-23 13:08 | disposition home or self-care (01) ==
LOC: ONC/OP 09:03
PROVIDERS: ATTEND Internal Medicine Hematology & Oncology
DX: D64.9 Anemia, unspecified (principal); D69.6 Thrombocytopenia, unspecified
CPT/HCPCS: 36430; 86850; 86900; 86901; P9016; P9035

== ENCOUNTER 2024-11-12 09:44 | Day surgery (SDC) | payer OTHER ==
[2024-11-12] MEDS ORDERED: Acetaminophen 500 MG TAB ONE (10:49)
[2024-11-12] MEDS ORDERED: diphenhydrAMINE 25 MG CAP ONE (10:49)
[2024-11-12] MEDS: diphenhydrAMINE 25 MG CAP PO SCH (10:50)
[2024-11-12] MEDS: Acetaminophen 500 MG TAB PO SCH (10:50)
[2024-11-12 16:32] VITALS: BP 167/74; TEMP 98
== END 2024-11-12 16:46 | disposition home or self-care (01) ==
LOC: ONC/OP 09:44
PROVIDERS: ATTEND Internal Medicine Hematology & Oncology
DX: D64.9 Anemia, unspecified (principal); D69.6 Thrombocytopenia, unspecified
CPT/HCPCS: 36430; 86850; 86900; 86901; P9016; P9035

== ENCOUNTER 2024-11-19 10:35 | Day surgery (SDC) | payer OTHER ==
[2024-11-19] MEDS ORDERED: diphenhydrAMINE 25 MG CAP ONE (11:02)
[2024-11-19] MEDS ORDERED: Acetaminophen 500 MG TAB ONE (11:02)
[2024-11-19] MEDS: diphenhydrAMINE 25 MG CAP PO SCH (11:03)
[2024-11-19] MEDS: Acetaminophen 500 MG TAB PO SCH (11:03)
[2024-11-19 12:27] VITALS: BP 145/68; TEMP 98.1
== END 2024-11-19 12:28 | disposition home or self-care (01) ==
LOC: ONC/OP 10:35
PROVIDERS: ATTEND Internal Medicine Hematology & Oncology
DX: D64.9 Anemia, unspecified (principal); D69.6 Thrombocytopenia, unspecified
CPT/HCPCS: 36430; 86850; 86900; 86901; P9035

== ENCOUNTER 2024-11-26 10:54 | Day surgery (SDC) | payer OTHER ==
[2024-11-26] MEDS ORDERED: Acetaminophen 500 MG TAB ONE (11:27)
[2024-11-26] MEDS ORDERED: diphenhydrAMINE 25 MG CAP ONE (11:28)
[2024-11-26] MEDS: Acetaminophen 500 MG TAB PO SCH (11:30)
[2024-11-26] MEDS: diphenhydrAMINE 25 MG CAP PO SCH (11:30)
[2024-11-26 15:39] VITALS: BP 162/71; TEMP 98.2
== END 2024-11-26 15:40 | disposition home or self-care (01) ==
LOC: ONC/OP 10:54
PROVIDERS: ATTEND Internal Medicine Hematology & Oncology
DX: D64.9 Anemia, unspecified (principal); D69.6 Thrombocytopenia, unspecified
CPT/HCPCS: 36430; 86850; 86870; 86900; 86901; 86922; P9016; P9035

== ENCOUNTER 2024-12-10 10:27 | Day surgery (SDC) | payer OTHER ==
[2024-12-10] MEDS ORDERED: Acetaminophen 500 MG TAB ONE (11:38)
[2024-12-10] MEDS ORDERED: diphenhydrAMINE 25 MG CAP ONE (11:38)
[2024-12-10] MEDS: diphenhydrAMINE 25 MG CAP PO SCH (11:40)
[2024-12-10] MEDS: Acetaminophen 500 MG TAB PO SCH (11:40)
[2024-12-10 15:23] VITALS: BP 140/66; TEMP 98.1
== END 2024-12-10 15:26 | disposition home or self-care (01) ==
LOC: ONC/OP 10:27
PROVIDERS: ATTEND Internal Medicine Hematology & Oncology
DX: D64.9 Anemia, unspecified (principal); D69.6 Thrombocytopenia, unspecified
CPT/HCPCS: 36430; 86850; 86870; 86880; 86900; 86901; 86922; P9016; P9035